=== PATIENT | female | born 1935 | race Caucasian/White ===

== ENCOUNTER → 2019-06-21 | Outpatient (CLI) | payer MEDICARE ==
--- NOTE | 2019-06-21 11:54 | XR ---
EXAMINATION TYPE: XR chest 2V DATE OF EXAM: 06/21/2019 COMPARISON: None INDICATION: Shortness of breath TECHNIQUE: Frontal and lateral views of the chest are obtained. FINDINGS: The heart size is normal. The pulmonary vasculature is normal. The lungs are clear. IMPRESSION: 1. No acute pulmonary process.
== END | disposition home or self-care (01) ==
LOC: RADXRMAIN 11:06
PROVIDERS: ATTEND Pediatrics
DX: R06.02 Shortness of breath (principal)
CPT/HCPCS: 71046

== ENCOUNTER → 2021-02-02 | Outpatient (CLI) | payer MEDICARE ==
[2021-02-02 16:04] LABS: Appearance,Urine Cloudy (Clear); Bacteria,Urine Many /hpf; Bilirubin,Urine Negative (Negative); Blood,Urine Negative (Negative); Color,Urine Light Yellow; Glucose,Urine (UA) Negative (Negative); Ketones,Urine Negative (Negative); Leukocyte Esterase,Urine Large (Negative); Mucus,Urine Rare /hpf; Nitrite,Urine Negative (Negative); Protein,Urine 1+ (Negative); RBC,Urine 2 /hpf (0-5); Specific Gravity,Urine 1.015 (1.001-1.035); Squamous Epithelial Cell,Urine 1 /hpf (0-4); Urobilinogen,Urine <2.0 mg/dL (<2.0); WBC,Urine 129 /hpf (0-5)
[2021-02-02 23:16] LABS: HGB 12.4 g/dL (12.0-15.0); MCH 28.8 pg (27.0-32.0); MCHC 31.8 g/dL (32.0-37.0); MCV 90.7 fL (80.0-97.0); Mean Platelet Volume 11.1 fL (9.5-12.2); Platelet Count 389 X 10*3/uL (140-440); RDW 13.3 % (11.5-14.5)
[2021-02-03 16:02] LABS: % Iron Saturation 13.14 (12.00-45.00); Iron 43 ug/dL (50-170); Magnesium 2.2 mg/dL (1.5-2.4); Phosphorus 4.4 mg/dL (2.4-5.1); Total Iron Binding Capacity 323 ug/dL (228-460); Uric Acid 4.5 mg/dL (2.9-7.7)
[2021-02-04 15:59] LABS: ALT 13 U/L (8-44); AST 13 U/L (13-35); African American GFR (CKD) 25.7 (60.0-200.0); Albumin/Globulin Ratio 1.63 (1.60-3.17); Alkaline Phosphatase 110 U/L (41-126); BUN/Creat Ratio 24.32 Ratio (12.00-20.00); Blood Urea Nitrogen 48.4 mg/dL (9.0-27.0); Calcium 10.6 mg/dL (8.7-10.3); Carbon Dioxide 23.1 mmol/L (21.6-31.8); Chloride 104 mmol/L (96-109); Globulin 2.4 g/dL (1.6-3.3); Glucose 77 mg/dL (70-110); Non-African American GFR(CKD) 22.2 (60.0-200.0); Potassium 4.6 mmol/L (3.5-5.5); Sodium 145 mmol/L (135-145); Total Bilirubin <0.20 mg/dL (0.30-1.20); Total Protein 6.4 g/dL (6.2-8.2)
== END | disposition home or self-care (01) ==
LOC: LABWHC1 14:31
PROVIDERS: ATTEND Internal Medicine
DX: E55.9 Vitamin D deficiency, unspecified (principal); D63.1 Anemia in chronic kidney disease; M10.9 Gout, unspecified; N25.81 Secondary hyperparathyroidism of renal origin; N39.0 Urinary tract infection, site not specified; N18.4 Chronic kidney disease, stage 4 (severe)
CPT/HCPCS: 36415; 80053; 81001; 82043; 82306; 82570; 82728; 83540; 83550; 83735; 83970; 84100; 84550; 85027

== ENCOUNTER → 2021-03-17 | Outpatient (CLI) | payer MEDICARE ==
[2021-03-17 17:59] LABS: Appearance,Urine Cloudy (Clear); Bacteria,Urine Rare /hpf; Bilirubin,Urine Negative (Negative); Blood,Urine Negative (Negative); Color,Urine Yellow; Glucose,Urine (UA) Negative (Negative); Hyaline Casts,Urine 1 /lpf (0-2); Ketones,Urine Negative (Negative); Leukocyte Esterase,Urine Large (Negative); Mucus,Urine Rare /hpf; Nitrite,Urine Negative (Negative); PH, Urine 5.5 (5.0-8.0); Protein,Urine 2+ (Negative); RBC,Urine 2 /hpf (0-5); Specific Gravity,Urine 1.024 (1.001-1.035); Squamous Epithelial Cell,Urine 1 /hpf (0-4); Urobilinogen,Urine <2.0 mg/dL (<2.0); WBC,Urine 165 /hpf (0-5)
[2021-03-18 01:26] LABS: HCT 41.4 % (37.2-46.3); HGB 12.5 g/dL (12.0-15.0); MCH 28.7 pg (27.0-32.0); MCHC 30.2 g/dL (32.0-37.0); MCV 95.2 fL (80.0-97.0); Mean Platelet Volume 11.3 fL (9.5-12.2); Platelet Count 364 X 10*3/uL (140-440); RBC 4.35 X 10*6/uL (4.10-5.20); RDW 14.2 % (11.5-14.5); WBC 9.36 X 10*3/uL (4.50-10.00)
[2021-03-18 02:32] LABS: Albumin 3.9 g/dL (3.8-4.9); Albumin/Globulin Ratio 1.78 (1.60-3.17); Anion Gap 11.6 mmol/L (4.00-12.00); BUN/Creat Ratio 17.49 Ratio (12.00-20.00); Blood Urea Nitrogen 33.4 mg/dL (9.0-27.0); Carbon Dioxide 25.9 mmol/L (21.6-31.8); Globulin 2.2 g/dL (1.6-3.3); Magnesium 2.3 mg/dL (1.5-2.4); Non-African American GFR(CKD) 23.3 (60.0-200.0); Phosphorus 3.7 mg/dL (2.4-5.1); Potassium 4.5 mmol/L (3.5-5.5); Total Bilirubin 0.2 mg/dL (0.30-1.20); Total Protein 6.1 g/dL (6.2-8.2); Uric Acid 3.8 mg/dL (2.9-7.7)
[2021-03-18 02:48] LABS: % Iron Saturation 28.7 (12.00-45.00)
[2021-03-18 09:59] LABS: Angiotensin-1 Converting Enz. 5 U/L (8-52)
[2021-03-18 11:21] LABS: Creatinine 24 Hour,Urine 0.87 g/24Hr (0.80-1.80)
[2021-03-18 11:54] LABS: Free Kappa Lt Chain Qnt, Serum 2.98 mg/dL (0.33-1.94)
[2021-03-18 18:55] LABS: Vitamin D, 1, 25-Dihydroxy 29 pg/mL (20 - 79)
== END | disposition home or self-care (01) ==
LOC: LABWHC1 15:13
PROVIDERS: ATTEND Nurse Practitioner Family
DX: E83.52 Hypercalcemia (principal); D63.1 Anemia in chronic kidney disease; M10.9 Gout, unspecified; N39.0 Urinary tract infection, site not specified; N18.4 Chronic kidney disease, stage 4 (severe); N25.81 Secondary hyperparathyroidism of renal origin
CPT/HCPCS: 36415; 80053; 81001; 81050; 82043; 82164; 82306; 82570; 82652; 82728; 83540; 83550; 83735; 83883; 83970; 84100; 84166; 84550; 85027; 86334

== ENCOUNTER 2022-09-03 20:50 | Inpatient (IN) | payer MEDICARE ==
--- NOTE | 2022-09-03 22:55 | ED ---
General Adult HPI - General Source: patient, RN notes reviewed Mode of arrival: ambulatory Limitations: no limitations <Ya Pathak - Last Filed: 10/04/22 01:41> - History of Present Illness Onset/Timin -: days(s) <Seun Ayala - Last Filed: 10/14/22 09:38> - General Chief complaint: Recheck/Abnormal Lab/Rx Stated complaint: kidney failure,sent by nephrology Time Seen by Provider: 09/03/22 22:53 - History of Present Illness Initial comments: Patient is an 86 year old female who presents for abnormal labs. Patient had routine labs at Dr. Cornejo's office today. She has history of CKD stage 4. She was called tonight and told to go to the emergency department for renal failure. She has no concerns feels well. (Ya Pathak) This patient is an 86-year-old woman who had been directed here after routine lab testing had revealed worsening of her kidney function. The patient denies any new symptoms, including no chest pain, dyspnea, palpitations, abdominal pain change in urination leg pain or swelling. (Seun Ayala) - Related Data Home Medications Medication Instructions Recorded Confirmed Atorvastatin Calcium 20 mg PO HS 09/04/22 09/04/22 Budesonide-Formot 160-4.5 Mcg 2 puff INHALATION RT-BID PRN 09/04/22 09/04/22 [Symbicort 160-4.5 Mcg Inhaler] FLUoxetine HCL [PROzac] 10 mg PO DAILY 09/04/22 09/04/22 Insulin Degludec [Tresiba 18 unit SQ DAILY 09/04/22 09/04/22 Flextouch U-200 Pen] Levothyroxine Sodium [Synthroid] 200 mcg PO HS 09/04/22 09/04/22 Magnesium Oxide [Magox 400] 400 mg PO BID 09/04/22 09/04/22 allopurinoL 100 mg PO DAILY 09/04/22 09/04/22 Previous Rx's Medication Instructions Recorded Acetaminophen Tab [Tylenol] 650 mg PO Q6HR PRN tab 09/07/22 Famotidine [Pepcid] 20 mg PO DAILY #30 tab 09/07/22 Metoprolol Succinate (ER) [Toprol 25 mg PO BID #60 tab 09/07/22 XL] amLODIPine [Norvasc] 10 mg PO DAILY #30 tab 09/07/22 hydrALAZINE HCL [Apresoline] 100 mg PO TID 30 Days #180 tab 09/07/22 Allergies Allergy/AdvReac Type Severity Reaction Status Date / Time cefaclor Allergy Rash/Hives/ Verified 09/04/22 11:53 Nausea cephalexin Allergy Rash/Hives/ Verified 09/04/22 11:53 Nausea erythromycin base Allergy Rash/Hives/ Verified 09/04/22 11:53 Nausea indomethacin Allergy Rash/Hives/ Verified 09/04/22 11:53 Nausea Penicillins Allergy Rash/Hives/ Verified 09/04/22 11:53 Nausea regadenoson Allergy Rash/Hives/ Verified 09/04/22 11:53 Nausea Review of Systems ROS Other: All systems not noted in ROS Statement are negative. <Ya Pathak - Last Filed: 10/04/22 01:41> ROS Other: All systems not noted in ROS Statement are negative. Constitutional: Denies: fever, weakness Respiratory: Denies: cough, dyspnea Cardiovascular: Denies: chest pain, palpitations, edema Gastrointestinal: Denies: abdominal pain, vomiting, diarrhea Genitourinary: Denies: dysuria, hematuria Musculoskeletal: Denies: back pain Skin: Denies: rash Neurological: Denies: headache, weakness, numbness <Seun Ayala - Last Filed: 10/14/22 09:38> ROS Statement: Those systems with pertinent positive or pertinent negative responses have been documented in the HPI. Past Medical History Past Medical History: COPD, Diabetes Mellitus, Hypertension, Renal Disease, Thyroid Disorder Additional Past Medical History / Comment(s): stage 4 kidney History of Any Multi-Drug Resistant Organisms: None Reported Past Surgical History: No Surgical Hx Reported Past Psychological History: No Psychological Hx Reported Smoking Status: Never smoker Past Alcohol Use History: None Reported Past Drug Use History: None Reported <Ya Pathak - Last Filed: 10/04/22 01:41> General Exam Limitations: no limitations <Ya Pathak - Last Filed: 10/04/22 01:41> General appearance: alert, in no apparent distress Head exam: Present: atraumatic, normocephalic Eye exam: Present: normal appearance. Absent: scleral icterus, conjunctival injection Neck exam: Present: normal inspection Respiratory exam: Present: normal lung sounds bilaterally. Absent: respiratory distress, wheezes, rales, rhonchi, stridor Cardiovascular Exam: Present: regular rate, normal rhythm, normal heart sounds. Absent: systolic murmur, diastolic murmur, rubs, gallop GI/Abdominal exam: Present: soft. Absent: distended, tenderness, guarding, rebound, rigid Extremities exam: Present: normal inspection, normal capillary refill. Absent: pedal edema, calf tenderness Back exam: Present: normal inspection. Absent: CVA tenderness (R) Neurological exam: Present: alert. Absent: motor sensory deficit Skin exam: Present: warm, dry, intact, normal color. Absent: rash <Seun Ayala - Last Filed: 10/14/22 09:38> Course Vital Signs 09/03/22 21:14 Temperature 98.6 F Pulse Rate 57 L Respiratory 16 Rate Blood Pressure 184/64 O2 Sat by Pulse 97 Oximetry Medical Decision Making - Lab Data Result diagrams: 09/06/22 06:03 09/07/22 06:26 <Ya Pathak - Last Filed: 10/04/22 01:41> - Lab Data Result diagrams: 09/06/22 06:03 09/07/22 06:26 <Seun Ayala - Last Filed: 10/14/22 09:38> - Medical Decision Making Patient is an 86-year-old woman with worsening of her kidney function. The patient directed here by her physician. I discussed the case and they would like to admit the patient to have further nephrology care. Was pt. sent in by a medical professional or institution (DIDI Whatley, DIRECTOR OF LITIGATION, urgent care, hospital, or group home...) When possible be specific @ -[Yes sent by her physician to have admission for abnormal kidney function Did you speak to anyone other than the patient for history (EMS, parent, family, police, friend...)? What history was obtained from this source @ -[No] Did you review nursing and triage notes (agree or disagree)? Why? @ -[I reviewed and agree with nursing and triage notes] Were old charts reviewed (outside hosp., previous admission, EMS record, old EKG, old radiological studies, urgent care reports/EKG's, group home records)? Report findings @ -[No old charts were reviewed] Differential Diagnosis (chest pain, altered mental status, abdominal pain women, abdominal pain men, vaginal bleeding, weakness, fever, dyspnea, syncope, headache, dizziness, GI bleed, back pain, seizure, CVA, palpatations, mental health, musculoskeletal)? @ -[Differential diagnosis for kidney failure quite broad and includes diabetes, hypertension, hypovolemia, arterial insufficiency, urinary outflow obstruction, kidney disease, infection, amongst other conditions EKG interpreted by me (3pts min.). @ -[As above] X-rays interpreted by me (1pt min.). @ -[None done] CT interpreted by me (1pt min.). @ -[None done] U/S interpreted by me (1pt. min.). @ -[None done] What testing was considered but not performed or refused? (CT, X-rays, U/S, labs)? Why? @ -[None] What meds were considered but not given or refused? Why? @ -[None] Did you discuss the management of the patient with other professionals (professionals i.e. , PA, DIRECTOR OF LITIGATION, lab, RT, psych nurse, social work administrator, party plan sales director, teacher, traffic control officer, case mgr)? Give summary @ -[Case discussed with admitting physician Was smoking cessation discussed for >3mins.? @ -[No] Was critical care preformed (if so, how long)? @ -[No] Were there social determinants of health that impacted care today? How? (Homelessness, low income, unemployed, alcoholism, drug addiction, transportation, low edu. Level, literacy, decrease access to med. care, penitentiary, rehab)? @ -[No] Was there de-escalation of care discussed even if they declined (Discuss DNR or withdrawal of care, Hospice)? DNR status @ -[No] What co-morbidities impacted this encounter? (DM, HTN, Smoking, COPD, CAD, Cancer, CVA, ARF, Chemo, Hep., AIDS, mental health diagnosis, sleep apnea, morbid obesity)? @ -[None] Was patient admitted / discharged? Hospital course, mention meds given and route, prescriptions, significant lab abnormalities, going to OR and other pertinent info. @ -[Patient is admitted to have nephrology consultation, ultrasound Undiagnosed new problem with uncertain prognosis? @ -[No] Drug Therapy requiring intensive monitoring for toxicity (Heparin, Nitro, Insulin, Cardizem)? @ -[No] Were any procedures done? @ -[No] Diagnosis/symptom? @ -[Acute on chronic renal failure Acute, or Chronic, or Acute on Chronic? @ -[default] Uncomplicated (without systemic symptoms) or Complicated (systemic symptoms)? @ -[Uncomplicated Side effects of treatment? @ -[No] Exacerbation, Progression, or Severe Exacerbation? @ -[No] Poses a threat to life or bodily function? How? (Chest pain, [place], [place], pneumonia, PE, COPD, DKA, ARF, appy, cholecystitis, CVA, Diverticulitis, Homicidal, Suicidal, threat to staff... and all critical care pts) @ -[No] (Seun Ayala) - Lab Data Lab Results 09/03/22 09/03/22 09/04/22 Range/Units 23:15 23:15 00:49 WBC 9.3 (3.8-10.6) k/uL RBC 3.58 L (3.80-5.40) m/uL Hgb 10.5 L (11.4-16.0) gm/dL Hct 33.3 L (34.0-46.0) % MCV 93.0 (80.0-100.0) fL MCH 29.4 (25.0-35.0) pg MCHC 31.6 (31.0-37.0) g/dL RDW 13.7 (11.5-15.5) % Plt Count 373 (150-450) k/uL MPV 7.7 Neutrophils % 81 % Lymphocytes % 10 % Monocytes % 5 % Eosinophils % 2 % Basophils % 0 % Neutrophils # 7.6 (1.3-7.7) k/uL Lymphocytes # 0.9 L (1.0-4.8) k/uL Monocytes # 0.5 (0-1.0) k/uL Eosinophils # 0.2 (0-0.7) k/uL Basophils # 0.0 (0-0.2) k/uL Hypochromasia Slight Sodium 140 (137-145) mmol/L Potassium 5.1 (3.5-5.1) mmol/L Chloride 107 (98-107) mmol/L Carbon Dioxide 21 L (22-30) mmol/L Anion Gap 12 mmol/L BUN 73 H (7-17) mg/dL Creatinine 5.11 H (0.52-1.04) mg/dL Est GFR (CKD-EPI)AfAm 8 (>60 ml/min/1.73 sqM) Est GFR (CKD-EPI)NonAf 7 (>60 ml/min/1.73 sqM) Glucose 165 H (74-99) mg/dL POC Glucose (mg/dL) 144 H (70-110) mg/dL POC Glu Document Photographer ID [email or web address] aT Calcium 8.9 (8.4-10.2) mg/dL Total Bilirubin 0.3 (0.2-1.3) mg/dL AST 15 (14-36) U/L ALT 14 (4-34) U/L Alkaline Phosphatase 111 (38-126) U/L Total Protein 5.7 L (6.3-8.2) g/dL Albumin 3.4 L (3.5-5.0) g/dL Lipase 182 (23-300) U/L Disposition <Ya Pathak - Last Filed: 10/04/22 01:41> <Seun Ayala - Last Filed: 10/14/22 09:38> Clinical Impression: Renal failure Disposition: ADMITTED IP TO THIS HOSP Condition: Stable
[2022-09-03 23:25] LABS: Basophils % (A) 0 %; Eosinophils # (A) 0.2 k/uL (0-0.7); Eosinophils % (A) 2 %; HCT 33.3 % (34.0-46.0); HGB 10.5 gm/dL (11.4-16.0); Hypochromasia Slight; Lymphocytes # (A) 0.9 k/uL (1.0-4.8); Lymphocytes % (A) 10 %; MCH 29.4 pg (25.0-35.0); MCHC 31.6 g/dL (31.0-37.0); Mean Platelet Volume 7.7; Monocytes # (A) 0.5 k/uL (0-1.0); Monocytes % (A) 5 %; Neutrophils # (A) 7.6 k/uL (1.3-7.7); Neutrophils % (A) 81 %; Platelet Count 373 k/uL (150-450); RBC 3.58 m/uL (3.80-5.40); RDW 13.7 % (11.5-15.5); WBC 9.3 k/uL (3.8-10.6)
[2022-09-03 23:47] LABS: Albumin 3.4 g/dL (3.5-5.0); Calcium 8.9 mg/dL (8.4-10.2); Potassium 5.1 mmol/L (3.5-5.1); Total Bilirubin 0.3 mg/dL (0.2-1.3); Total Protein 5.7 g/dL (6.3-8.2)
[2022-09-04 00:51] LABS: Glucose,Whole Blood 144 mg/dL (70-110)
[2022-09-04] MEDS ORDERED: ACETAMINOPHEN TAB 325 MG TAB PO PRN (01:16)
[2022-09-04] MEDS ORDERED: NALOXONE 0.4 MG/ML 1 ML VIAL IV PRN (01:16)
[2022-09-04] MEDS ORDERED: ONDANSETRON 4 MG/2 ML VIAL IVP PRN (01:16)
[2022-09-04] MEDS: SODIUM CHLORIDE 0.9% 1,000 ML IV SCH ×2 (01:37→15:11)
[2022-09-04 07:13] LABS: Appearance,Urine Clear (Clear); Bilirubin,Urine Negative (Negative); Blood,Urine Negative (Negative); Color,Urine Colorless; Glucose,Urine (UA) 1+ (Negative); Ketones,Urine Negative (Negative); Leukocyte Esterase,Urine Trace (Negative); Nitrite,Urine Negative (Negative); PH, Urine 7.5 (5.0-8.0); Protein,Urine 2+ (Negative); RBC,Urine 1 /hpf (0-5); Specific Gravity,Urine 1.007 (1.001-1.035); Squamous Epithelial Cell,Urine <1 /hpf (0-4); Urobilinogen,Urine <2.0 mg/dL (<2.0); WBC,Urine 6 /hpf (0-5)
[2022-09-04] MEDS: HEPARIN SODIUM,PORCINE/PF 5,000 UNIT/0.5 ML SYRINGE SQ SCH ×2 (07:14→21:39)
--- NOTE | 2022-09-04 07:24 | US ---
EXAMINATION TYPE: US kidneys/renal and bladder DATE OF EXAM: 09/03/2022 COMPARISON: NONE CLINICAL INDICATION: Female, 86 years old with history of renal failure; EXAM MEASUREMENTS: Right Kidney: 7.8 x 3.8 x 3.5 cm Left Kidney: 7.4 x 3.2 x 3.8 cm Right Kidney: measures small in size, no hydronephrosis or masses seen Left Kidney: measures small in size, no hydronephrosis or masses seen Bladder: not fully distended Bilateral Jets seen: no There is no evidence for hydronephrosis at this point in time. No nephrolithiasis is seen. No nancy s are identified. The urinary bladder is anechoic. Bilateral ureteral jets are seen. IMPRESSION: No evidence of obstructive uropathy.
[2022-09-04] MEDS ORDERED: DEXTROSE 50% SYRINGE 50 ML IVP PRN ×2 (08:23)
[2022-09-04] MEDS ORDERED: FAMOTIDINE 20 MG TAB PO SCH (09:00)
[2022-09-04] MEDS ORDERED: METOPROLOL SUCCINATE (ER) 25 MG TAB.ER.24H PO SCH (09:00)
[2022-09-04] MEDS ORDERED: hydrALAZINE HCL 25 MG TAB PO SCH (09:00)
[2022-09-04] MEDS: amLODIPine 10 MG TAB PO SCH (09:59)
[2022-09-04 11:37] LABS: African American GFR (CKD) 9 (>60 ml/min/1.73 sqM); Anion Gap 9 mmol/L; Blood Urea Nitrogen 67 mg/dL (7-17); Calcium 8.3 mg/dL (8.4-10.2); Carbon Dioxide 20 mmol/L (22-30); Chloride 109 mmol/L (98-107); Glucose 236 mg/dL (74-99); Non-African American GFR(CKD) 8 (>60 ml/min/1.73 sqM); Potassium 4.6 mmol/L (3.5-5.1); Sodium 138 mmol/L (137-145)
[2022-09-04 11:45] LABS: Glucose,Whole Blood 231 mg/dL (70-110)
--- NOTE | 2022-09-04 12:39 | HP ---
HISTORY AND PHYSICAL CHIEF COMPLAINTS: Renal failure. HISTORY OF PRESENT ILLNESS: This 86-year-old woman with a past medical history of multiple medical problems, referred from Dr. Emmanuel's office. The patient has CKD stage 4 and the creatinine was found to be elevated at 5.11. There is no history of fever, rigors, chills at this time. Blood pressure was found to be elevated. PAST MEDICAL HISTORY: Chronic kidney disease, COPD, diabetes. The rest of the history and rest of the chart is also reviewed. HOME MEDICATIONS: Reviewed. Include Lipitor. Dose and rest of the medications reviewed. ALLERGIES: Cefaclor. Rest of the allergies reviewed. FAMILY HISTORY: No history of heart disease or strokes in the family. SOCIAL HISTORY: No history of smoking or alcohol. REVIEW OF SYSTEMS: Fourteen-point review is negative except as mentioned earlier. PHYSICAL EXAMINATION: VITAL SIGNS: Pulse 66, blood pressure 211/78. HEENT: Conjunctivae normal. NECK: No jugular venous distention. CARDIOVASCULAR: S1 and S2 normal. RESPIRATIONS: Diminished at the bases. ABDOMEN: Soft, nontender. LEGS: No edema. NERVOUS SYSTEM: No focal deficits. LABORATORY DATA: Reviewed. ASSESSMENT: 1. Acute on chronic kidney disease. 2. Chronic kidney stage 4. 3. Accelerated hypertension. 4. Chronic obstructive pulmonary disease. 5. Diabetes type 2. 6. Multiple medical issues. RECOMMENDATIONS: This 86-year-old woman presented with multiple complex medical issues. We will monitor the patient closely. We will initiate the home medications; hydralazine p.r.n. Nephrology consultation. Monitor creatinine closely. Prognosis is guarded because of multiple complex medical issues and further recommendations to follow. See orders for details. Lopressor also has been initiated. MMODL / IJN: [id number] /
[2022-09-04] MEDS: INSULIN ASPART (NovoLOG) 100 UNIT/ML VIAL SQ SCH ×3 (13:06→21:26)
--- NOTE | 2022-09-04 13:11 | P.NPCON ---
History of Present Illness - Reason for Consult chronic renal failure - History of Present Illness Patient is an 86-year-old female with history of chronic kidney disease NKF stage IV with previous creatinine at 1.9 on 03/17/2021. Patient was admitted to the hospital as labs done as outpatient showed a creatinine of 5.1. Patient has not followed up as outpatient recently. Patient denies any complaints of nausea vomiting abdominal pain or diarrhea. She states that her appetite has been good. No history of recent use of NSAIDs Blood pressure has not been low, in fact it is high Patient has been voiding. Hydralazine was recently increased as outpatient for uncontrolled hypertension. Review of Systems As per HPI Past Medical History Past Medical History: COPD, Diabetes Mellitus, Hypertension, Renal Disease, Thyroid Disorder Additional Past Medical History / Comment(s): stage 4 kidney History of Any Multi-Drug Resistant Organisms: None Reported Past Surgical History: No Surgical Hx Reported Additional Past Surgical History / Comment(s): uterine polyps removed. nerve block to left leg Past Anesthesia/Blood Transfusion Reactions: No Reported Reaction Past Psychological History: No Psychological Hx Reported Smoking Status: Never smoker Past Alcohol Use History: None Reported Past Drug Use History: None Reported Medications and Allergies Home Medications Medication Instructions Recorded Confirmed Type Atorvastatin Calcium 20 mg PO HS 09/04/22 09/04/22 History Budesonide-Formot 160-4.5 Mcg 2 puff INHALATION RT-BID PRN 09/04/22 09/04/22 History [Symbicort 160-4.5 Mcg Inhaler] FLUoxetine HCL [PROzac] 10 mg PO DAILY 09/04/22 09/04/22 History Insulin Degludec [Tresiba 18 unit SQ DAILY 09/04/22 09/04/22 History Flextouch U-200 Pen] Levothyroxine Sodium [Synthroid] 200 mcg PO HS 09/04/22 09/04/22 History Magnesium Oxide [Magox 400] 400 mg PO BID 09/04/22 09/04/22 History Metoprolol Succinate [Toprol XL] 50 mg PO DAILY 09/04/22 09/04/22 History allopurinoL 100 mg PO DAILY 09/04/22 09/04/22 History amLODIPine BESYLATE 5 mg PO DAILY 09/04/22 09/04/22 History hydrALAZINE HCL [Apresoline] 50 mg PO TID 09/04/22 09/04/22 History Allergies Allergy/AdvReac Type Severity Reaction Status Date / Time cefaclor Allergy Rash/Hives/ Verified 09/04/22 11:53 Nausea cephalexin Allergy Rash/Hives/ Verified 09/04/22 11:53 Nausea erythromycin base Allergy Rash/Hives/ Verified 09/04/22 11:53 Nausea indomethacin Allergy Rash/Hives/ Verified 09/04/22 11:53 Nausea Penicillins Allergy Rash/Hives/ Verified 09/04/22 11:53 Nausea regadenoson Allergy Rash/Hives/ Verified 09/04/22 11:53 Nausea Physical Exam Vitals: Vital Signs Temp Pulse Pulse Resp BP BP BP 09/04/22 08:12 98.2 F 66 16 205/62 211/78 09/04/22 03:15 190/67 09/04/22 03:14 97.6 F 67 18 199/76 09/03/22 21:14 98.6 F 57 L 16 184/64 Pulse Ox 09/04/22 08:12 94 L 09/04/22 03:15 09/04/22 03:14 96 09/03/22 21:14 97 Intake and Output 09/03/22 09/04/22 09/04/22 22:59 06:59 14:59 Intake Total 590 Balance 590 Intake: Oral 590 Other: Voiding Method Bedside Commode # Voids 1 Weight 64.41 kg 64 kg Patient is awake, comfortable, no acute distress Alert oriented 3 Looks good for her age Examination of the heart S1 and S2 Examination of the lungs bilateral breath sounds are heard Abdomen is soft nontender Examination of the lower extremity shows no evidence of edema HANDS PARTER exam grossly intact Results - Lab Results Most recent lab results Calcium 8.3 mg/dL (8.4-10.2) L 09/04/22 10:37 09/03/22 23:15 09/04/22 10:37 Assessment and Plan Assessment: 1. Acute kidney injury appears to be prerenal and improved with IV hydration. UA shows 2+ protein no blood. Proteinuria is not new. Check bladder scan and rule out urine retention. Ultrasound shows no evidence of hydronephrosis. Both kidneys are about 7.8-7.4 cm. 2. Uncontrolled hypertension, consider renal artery stenosis given the recently uncontrolled hypertension 3. 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 4. Anemia rule out iron deficiency 5. COPD Plan: Continue IV fluids Increase hydralazine Repeat labs in a.m. Will check office records for recent serum creatinine. Next Thank you for the consultation. We will continue to follow the patient with you during her hospitalization
[2022-09-04] MEDS: hydrALAZINE HCL 25 MG TAB PO SCH ×2 (15:11→21:26)
[2022-09-04 17:40] LABS: Glucose,Whole Blood 131 mg/dL (70-110)
[2022-09-04] MEDS: hydrALAZINE HCL 20 MG/ML 1 ML VIAL IVP PRN (18:49)
[2022-09-04 20:26] LABS: Glucose,Whole Blood 178 mg/dL (70-110)
[2022-09-04] MEDS: METOPROLOL SUCCINATE (ER) 25 MG TAB.ER.24H PO SCH (21:26)
[2022-09-05] MEDS: SODIUM CHLORIDE 0.9% 1,000 ML IV SCH ×2 (03:43→17:58)
[2022-09-05 07:39] LABS: Glucose,Whole Blood 86 mg/dL (70-110)
[2022-09-05] MEDS: INSULIN ASPART (NovoLOG) 100 UNIT/ML VIAL SQ SCH ×4 (07:42→21:11)
[2022-09-05] MEDS: HEPARIN SODIUM,PORCINE/PF 5,000 UNIT/0.5 ML SYRINGE SQ SCH ×2 (07:45→21:10)
[2022-09-05] MEDS: hydrALAZINE HCL 25 MG TAB PO SCH (07:45)
[2022-09-05] MEDS: METOPROLOL SUCCINATE (ER) 25 MG TAB.ER.24H PO SCH ×2 (07:45→21:12)
[2022-09-05] MEDS: FAMOTIDINE 20 MG TAB PO SCH (07:45)
[2022-09-05] MEDS: amLODIPine 10 MG TAB PO SCH (07:46)
[2022-09-05 10:30] LABS: African American GFR (CKD) 8 (>60 ml/min/1.73 sqM); Anion Gap 8 mmol/L; Blood Urea Nitrogen 63 mg/dL (7-17); Calcium 8.8 mg/dL (8.4-10.2); Carbon Dioxide 21 mmol/L (22-30); Chloride 112 mmol/L (98-107); Glucose 79 mg/dL (74-99); Non-African American GFR(CKD) 7 (>60 ml/min/1.73 sqM); Potassium 4.6 mmol/L (3.5-5.1); Sodium 141 mmol/L (137-145)
--- NOTE | 2022-09-05 11:57 | P.PN ---
Subjective Patient is seen for follow-up for acute kidney injury and top of chronic kidney disease. Review of previous labs in the office showed serum creatinine around 2.4 in April 2021 Currently maintained on IV fluids Serum creatinine improved to 4.5 yesterday however this morning it is back up to 5.0. Ultrasound does not show any evidence of obstruction. Patient has been avoiding. No nephrotoxic agents noted Blood pressure is not low UA shows 2+ protein no blood. This is not new. No complaints of nausea vomiting. Patient is tolerating oral intake fairly well. Objective - Vital Signs Vital signs: Vital Signs Temp 98.3 F 09/05/22 11:49 Pulse 65 09/05/22 11:36 Resp 16 09/05/22 11:49 BP 159/69 09/05/22 11:36 Pulse Ox 96 09/05/22 11:49 FiO2 Intake & Output 09/04/22 09/05/22 09/05/22 18:59 06:59 18:59 Intake Total 590 Balance 590 Intake: Oral 590 Other: Voiding Method Bedside Commode # Voids 3 3 - Exam Awake comfortable, no acute distress Examination of the heart S1 and S2 Examination of the lungs bilateral breath sounds are heard Abdomen is soft nontender Examination of lower extremity shows no evidence of edema FISHERY BIOLOGIST exam grossly intact - Labs CBC & Chem 7: 09/03/22 23:15 09/05/22 06:46 Labs: Abnormal Lab Results - Last 24 Hours (Table) 09/04/22 09/04/22 09/05/22 Range/Units 17:38 20:24 06:46 Chloride (98-107) mmol/L Carbon Dioxide (22-30) mmol/L BUN (7-17) mg/dL Creatinine (0.52-1.04) mg/dL POC Glucose (mg/dL) 131 H 178 H (70-110) mg/dL Hemoglobin A1c 7.3 H (0.0-6.0) % 09/05/22 Range/Units 06:46 Chloride 112 H (98-107) mmol/L Carbon Dioxide 21 L (22-30) mmol/L BUN 63 H (7-17) mg/dL Creatinine 5.11 H (0.52-1.04) mg/dL POC Glucose (mg/dL) (70-110) mg/dL Hemoglobin A1c (0.0-6.0) % Assessment and Plan Assessment: 1. Acute kidney injury appears to be prerenal and improved with IV hydration. However serum creatinine is back up to 5.0 today. UA shows 2+ protein no blood. Proteinuria is not new. Check bladder scan and rule out urine retention. Ultrasound shows no evidence of hydronephrosis. Both kidneys are about 7.8-7.4 cm. There is definitely possibility of progression of underlying diabetic kidney disease. Briefly discussed renal replacement therapy with the patient and she is agreeable to starting dialysis if indicated. 2. Uncontrolled hypertension, consider renal artery stenosis given the recently uncontrolled hypertension. Unable to perform CTA due to significant worsening of renal function. 3. 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 4. Anemia rule out iron deficiency 5. COPD Plan: Continue IV fluids Since serum creatinine is back up to 5 mg/dL patient will likely need to start renal replacement therapy over the next few weeks. There is likely progression of underlying chronic kidney disease. No evidence of obstruction noted. I will repeat another bladder scan as it does not appear to be documented. Patient remains fairly asymptomatic. I we will recheck labs in a.m. and she could be discharged tomorrow with plans to follow-up in the office in about 1 week's time to further discuss in detail regarding initiation of renal replacement therapy and preparation for it. No indication to start dialysis during this hospitalization.
[2022-09-05 12:13] LABS: Glucose,Whole Blood 197 mg/dL (70-110)
--- NOTE | 2022-09-05 15:07 | PN ---
PROGRESS NOTE DATE OF SERVICE: 09/05/2022 SUBJECTIVE: This is an 86-year-old woman, who was admitted with acute on chronic kidney disease, also had some hypertension. No chest pain. No palpitations. No fever. The creatinine is 5.11 today. OBJECTIVE: VITAL SIGNS: Pulse is 62, blood pressure 159/60, respirations 16. CHEST: Clear to auscultation. CARDIOVASCULAR: S1, S2. ABDOMEN: Soft. LABORATORY DATA: Reviewed. ASSESSMENT: 1. Acute on chronic kidney disease. 2. Chronic kidney disease stage 4, baseline. 3. Accelerated hypertension. 4. Chronic obstructive pulmonary disease. 5. Diabetes mellitus, type 2. 6. Multiple medical issues. RECOMMENDATIONS: Recommend to continue current medications, continue with the monitoring. Continue with cautious IV fluids. Repeat labs in the morning. Closely follow up with Nephrology. Further recommendations to follow. MMODL / IJN: [id number] /
[2022-09-05] MEDS: hydrALAZINE HCL 50 MG TAB PO SCH ×2 (15:46→21:12)
[2022-09-05 17:16] LABS: Glucose,Whole Blood 183 mg/dL (70-110)
[2022-09-05] MEDS: SYMBICORT 160-4.5 MCG INHALER INHALATION PRN (18:35)
[2022-09-05 20:30] LABS: Glucose,Whole Blood 246 mg/dL (70-110)
[2022-09-05] MEDS: ATORVASTATIN 20 MG TAB PO SCH (21:10)
[2022-09-05] MEDS: MAGNESIUM OXIDE 400 MG TAB PO SCH (21:11)
[2022-09-05] MEDS: LEVOTHYROXINE 100 MCG TAB PO SCH (21:11)
[2022-09-06] MEDS: SODIUM CHLORIDE 0.9% 1,000 ML IV SCH (05:29)
[2022-09-06 07:02] LABS: Glucose,Whole Blood 129 mg/dL (70-110)
[2022-09-06] MEDS: INSULIN ASPART (NovoLOG) 100 UNIT/ML VIAL SQ SCH ×4 (07:30→20:42)
[2022-09-06] MEDS: amLODIPine 10 MG TAB PO SCH (07:31)
[2022-09-06] MEDS: allopurinoL 100 MG TAB PO SCH (07:31)
[2022-09-06] MEDS: hydrALAZINE HCL 50 MG TAB PO SCH ×3 (07:31→20:59)
[2022-09-06] MEDS: FAMOTIDINE 20 MG TAB PO SCH (07:31)
[2022-09-06] MEDS: HEPARIN SODIUM,PORCINE/PF 5,000 UNIT/0.5 ML SYRINGE SQ SCH ×2 (07:31→20:58)
[2022-09-06] MEDS: FLUoxetine HCL 10 MG CAP PO SCH (07:31)
[2022-09-06] MEDS: METOPROLOL SUCCINATE (ER) 25 MG TAB.ER.24H PO SCH ×2 (07:31→20:59)
[2022-09-06] MEDS: INSULIN DETEMIR (LEVEMIR) 100 UNIT/ML SYR SQ SCH (07:32)
[2022-09-06] MEDS: MAGNESIUM OXIDE 400 MG TAB PO SCH ×2 (07:32→20:59)
[2022-09-06 08:55] LABS: Basophils # (A) 0.03 X 10*3/uL (0.00-0.10); Basophils % (A) 0.3 %; Eosinophils # (A) 0.29 X 10*3/uL (0.04-0.35); Eosinophils % (A) 3.3 %; HCT 28.2 % (37.2-46.3); HGB 8.7 g/dL (12.0-15.0); Immature Grans, Automated 0.4 %; Lymphocytes # (A) 1.09 X 10*3/uL (0.90-5.00); Lymphocytes % (A) 12.2 %; MCHC 30.9 g/dL (32.0-37.0); Mean Platelet Volume 10.8 fL (9.5-12.2); NRBC Per 100 WBC 0 /100 WBCS (0.0-0.0); Neutrophils # (A) 6.66 X 10*3/uL (1.80-7.70); Neutrophils % (A) 74.8 %; Platelet Count 325 X 10*3/uL (140-440); RDW 13.6 % (11.5-14.5); WBC 8.91 X 10*3/uL (4.50-10.00)
[2022-09-06] MEDS: SYMBICORT 160-4.5 MCG INHALER INHALATION PRN ×2 (09:44→19:59)
[2022-09-06 11:12] LABS: Glucose,Whole Blood 168 mg/dL (70-110)
[2022-09-06 11:13] LABS: African American GFR (CKD) 8.6 (60.0-200.0); Anion Gap 11.8 mmol/L (10.00-18.00); Blood Urea Nitrogen 58.8 mg/dL (9.0-27.0); Calcium 8.7 mg/dL (8.7-10.3); Carbon Dioxide 18.1 mmol/L (20.0-27.5); Non-African American GFR(CKD) 7.4 (60.0-200.0); Potassium 4.6 mmol/L (3.5-5.5)
--- NOTE | 2022-09-06 11:56 | P.PN ---
Subjective Patient is seen for follow-up for acute kidney injury and top of chronic kidney disease. Review of previous labs in the office showed serum creatinine around 2.4 in April 2021 Currently maintained on IV fluids Serum creatinine improved to 4.5, however, it is back up to 5.0. Ultrasound does not show any evidence of obstruction. Patient has been avoiding. No nephrotoxic agents noted Blood pressure is not low UA shows 2+ protein no blood. This is not new. No complaints of nausea vomiting. Patient is tolerating oral intake fairly well. Briefly discussed possible renal replacement therapy in the next few weeks. This will be started as outpatient. 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 - Labs CBC & Chem 7: 09/06/22 06:03 09/06/22 06:03 Labs: Abnormal Lab Results - Last 24 Hours (Table) 09/05/22 09/05/22 09/05/22 Range/Units 12:12 17:14 20:20 RBC (4.10-5.20) X 10*6/uL Hgb (12.0-15.0) g/dL Hct (37.2-46.3) % MCHC (32.0-37.0) g/dL Chloride (96-109) mmol/L Carbon Dioxide (20.0-27.5) mmol/L BUN (9.0-27.0) mg/dL Creatinine (0.6-1.5) mg/dL Est GFR (CKD-EPI)AfAm (60.0-200.0) Est GFR (CKD-EPI)NonAf (60.0-200.0) Glucose (70-110) mg/dL POC Glucose (mg/dL) 197 H 183 H 246 H (70-110) mg/dL 09/06/22 09/06/22 09/06/22 Range/Units 06:03 06:03 07:01 RBC 3.00 L (4.10-5.20) X 10*6/uL Hgb 8.7 L (12.0-15.0) g/dL Hct 28.2 L (37.2-46.3) % MCHC 30.9 L (32.0-37.0) g/dL Chloride 113 H (96-109) mmol/L Carbon Dioxide 18.1 L (20.0-27.5) mmol/L BUN 58.8 H (9.0-27.0) mg/dL Creatinine 4.9 H (0.6-1.5) mg/dL Est GFR (CKD-EPI)AfAm 8.6 L (60.0-200.0) Est GFR (CKD-EPI)NonAf 7.4 L (60.0-200.0) Glucose 131 H (70-110) mg/dL POC Glucose (mg/dL) 129 H (70-110) mg/dL 09/06/22 Range/Units 11:11 RBC (4.10-5.20) X 10*6/uL Hgb (12.0-15.0) g/dL Hct (37.2-46.3) % MCHC (32.0-37.0) g/dL Chloride (96-109) mmol/L Carbon Dioxide (20.0-27.5) mmol/L BUN (9.0-27.0) mg/dL Creatinine (0.6-1.5) mg/dL Est GFR (CKD-EPI)AfAm (60.0-200.0) Est GFR (CKD-EPI)NonAf (60.0-200.0) Glucose (70-110) mg/dL POC Glucose (mg/dL) 168 H (70-110) mg/dL Assessment and Plan Assessment: 1. Acute kidney injury with some improvement in renal function on initial admission however serum creatinine increased again to about 4.9-5 mg/dL. UA shows 2+ protein no blood. Proteinuria is not new. Check bladder scan and rule out urine retention. Ultrasound shows no evidence of hydronephrosis. Both kidneys are about 7.8-7.4 cm. There is definitely possibility of progression of underlying diabetic kidney disease. Briefly discussed renal replacement therapy with the patient and she is agreeable to starting dialysis if indicated. 2. Uncontrolled hypertension, consider renal artery stenosis given the recently uncontrolled hypertension. Unable to perform CTA due to significant worsening of renal function. 3. 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 4. Anemia rule out iron deficiency 5. COPD Plan: DC IV fluids Since serum creatinine is back up to 5 mg/dL patient will likely need to start renal replacement therapy over the next few weeks. There is likely progression of underlying chronic kidney disease. No evidence of obstruction noted. I will repeat another bladder scan as it does not appear to be documented. Patient remains fairly asymptomatic. Patient can be discharged from nephrology standpoint with plans to follow-up in the office in about 1 week's time to further discuss in detail regarding initiation of renal replacement therapy and preparation for it. No indication to start dialysis during this hospitalization.
[2022-09-06 12:14] LABS: Glucose,Whole Blood 153 mg/dL (70-110)
--- NOTE | 2022-09-06 15:14 | P.PN ---
Subjective Progress Note Date: 09/06/22 This is a pleasant 86-year-old female who was recently admitted with acute on chronic kidney disease also having some of hypertension and worsening kidney functions. Patient is being followed by nephrology as well as the outpatient setting. Kidney function slightly improved today with a BMI of 50.8 and creatinine is 4.9. Blood sugars being monitored and will continue current regimen. There are plans for outpatient renal replacement the next 2 weeks. Patient reports she feels slightly improved and oral intake is fair. Patient is currently afebrile denies chest pain or shortness of breath. Encourage oral intake continue IV fluids being discontinued. Encouraged increased activity as tolerated. No Reports of nausea or vomiting noted and patient tolerating diet. Review of systems: Constitutional: reports generalized fatigue, no fever, or chills Cardiovascular: No reports of chest pain or palpitations Respiratory: No reports of shortness of breath or cough GI: No reports of nausea, no reports of vomiting, no diarrhea, oral intake slowly improving : No reports of dysuria or retention Neurovascular: no reports of generalized weakness All medications have been reviewed PHYSICAL EXAMINATION: GENERAL: The patient is alert and oriented x3, thin built, elderly appearing HEENT: Pupils are round and equally reacting to light. EOMI. no scleral icterus. No conjunctival pallor. Normocephalic, atraumatic. No pharyngeal erythema. No thyromegaly. CARDIOVASCULAR: S1 and S2 muffled PULMONARY: diminished breath sounds bilaterally with no wheezing or rhonchi noted. ABDOMEN: soft. Nontender on exam. non-distended, normoactive bowel sounds. No palpable organomegaly. MUSCULOSKELETAL: No joint swelling or deformity. EXTREMITIES: No cyanosis, clubbing, or pedal edema. NEUROLOGICAL: Gross neurological examination did not reveal any focal deficits. SKIN: No rashes. Assessment: Acute on chronic kidney disease Chronic kidney disease stage IV, baseline Accelerated hypertension Chronic obstructive pulmonary disease Diabetes mellitus, type II GI prophylaxis DVT prophylaxis Full code Plan: Recommend to continue with current medications and management with nephrology following. Patient was continued on gentle IV hydration with no real significant improvement although kidney function trending down. Nephrology recommending blood pressure control and has adjusted medications and will be following up outpatient within the next few weeks to discuss renal replacement t herapy Recommend follow-up labs in the a.m. and will replace electrolytes per protocol. Encouraged oral intake Probable discharge in 24 hours The impression and plan of care has been dictated by Renita Hobbs, nurse practitioner as directed. Dr. Marshall MD I have performed a history and examination and MDM of this patient, discussed the same with the dictator, and agree with the dictator's assessment and plan as written ,documented as a scribe. Based on total visit time, I have performed more than 50% of the visit. Any additional findings or plans will be noted. Objective - Vital Signs Vital signs: Vital Signs Temp 98.6 F 09/06/22 07:02 Pulse 72 09/06/22 07:02 Resp 16 09/06/22 07:02 BP 132/55 09/06/22 09:25 Pulse Ox 95 09/06/22 07:02 FiO2 Intake & Output 09/05/22 09/06/22 09/06/22 18:59 06:59 18:59 Intake Total 200 Balance 200 Intake: Oral 200 Other: Voiding Method Bedside Commode # Voids 2 2 1 # Bowel Movements 1 1 1 - Labs CBC & Chem 7: 09/06/22 06:03 09/06/22 06:03 Labs: Abnormal Lab Results - Last 24 Hours (Table) 09/05/22 09/05/22 09/05/22 Range/Units 12:12 17:14 20:20 RBC (4.10-5.20) X 10*6/uL Hgb (12.0-15.0) g/dL Hct (37.2-46.3) % MCHC (32.0-37.0) g/dL Chloride (96-109) mmol/L Carbon Dioxide (20.0-27.5) mmol/L BUN (9.0-27.0) mg/dL Creatinine (0.6-1.5) mg/dL Est GFR (CKD-EPI)AfAm (60.0-200.0) Est GFR (CKD-EPI)NonAf (60.0-200.0) Glucose (70-110) mg/dL POC Glucose (mg/dL) 197 H 183 H 246 H (70-110) mg/dL 09/06/22 09/06/22 09/06/22 Range/Units 06:03 06:03 07:01 RBC 3.00 L (4.10-5.20) X 10*6/uL Hgb 8.7 L (12.0-15.0) g/dL Hct 28.2 L (37.2-46.3) % MCHC 30.9 L (32.0-37.0) g/dL Chloride 113 H (96-109) mmol/L Carbon Dioxide 18.1 L (20.0-27.5) mmol/L BUN 58.8 H (9.0-27.0) mg/dL Creatinine 4.9 H (0.6-1.5) mg/dL Est GFR (CKD-EPI)AfAm 8.6 L (60.0-200.0) Est GFR (CKD-EPI)NonAf 7.4 L (60.0-200.0) Glucose 131 H (70-110) mg/dL POC Glucose (mg/dL) 129 H (70-110) mg/dL 09/06/22 Range/Units 11:11 RBC (4.10-5.20) X 10*6/uL Hgb (12.0-15.0) g/dL Hct (37.2-46.3) % MCHC (32.0-37.0) g/dL Chloride (96-109) mmol/L Carbon Dioxide (20.0-27.5) mmol/L BUN (9.0-27.0) mg/dL Creatinine (0.6-1.5) mg/dL Est GFR (CKD-EPI)AfAm (60.0-200.0) Est GFR (CKD-EPI)NonAf (60.0-200.0) Glucose (70-110) mg/dL POC Glucose (mg/dL) 168 H (70-110) mg/dL
[2022-09-06 16:01] LABS: % Iron Saturation 35.31 (12.00-45.00)
[2022-09-06 17:06] LABS: Glucose,Whole Blood 134 mg/dL (70-110)
[2022-09-06 20:40] LABS: Glucose,Whole Blood 113 mg/dL (70-110)
[2022-09-06] MEDS: ATORVASTATIN 20 MG TAB PO SCH (20:58)
[2022-09-06] MEDS: LEVOTHYROXINE 100 MCG TAB PO SCH (20:59)
[2022-09-07 01:30] VITALS: RESP 16
[2022-09-07] MEDS: hydrALAZINE HCL 20 MG/ML 1 ML VIAL IVP PRN (01:42)
[2022-09-07 07:12] LABS: Glucose,Whole Blood 96 mg/dL (70-110)
[2022-09-07] MEDS: INSULIN ASPART (NovoLOG) 100 UNIT/ML VIAL SQ SCH ×2 (07:27→12:45)
[2022-09-07 08:12] LABS: African American GFR (CKD) 9 (>60 ml/min/1.73 sqM); Anion Gap 8 mmol/L; Blood Urea Nitrogen 52 mg/dL (7-17); Calcium 8.6 mg/dL (8.4-10.2); Carbon Dioxide 18 mmol/L (22-30); Chloride 113 mmol/L (98-107); Glucose 85 mg/dL (74-99); Non-African American GFR(CKD) 8 (>60 ml/min/1.73 sqM); Potassium 4.3 mmol/L (3.5-5.1); Sodium 139 mmol/L (137-145)
[2022-09-07] MEDS: SYMBICORT 160-4.5 MCG INHALER INHALATION PRN (08:20)
[2022-09-07] MEDS: MAGNESIUM OXIDE 400 MG TAB PO SCH (08:27)
[2022-09-07] MEDS: amLODIPine 10 MG TAB PO SCH (08:27)
[2022-09-07] MEDS: METOPROLOL SUCCINATE (ER) 25 MG TAB.ER.24H PO SCH (08:27)
[2022-09-07] MEDS: FAMOTIDINE 20 MG TAB PO SCH (08:27)
[2022-09-07] MEDS: FLUoxetine HCL 10 MG CAP PO SCH (08:27)
[2022-09-07] MEDS: allopurinoL 100 MG TAB PO SCH (08:27)
[2022-09-07] MEDS: HEPARIN SODIUM,PORCINE/PF 5,000 UNIT/0.5 ML SYRINGE SQ SCH (08:27)
[2022-09-07] MEDS: hydrALAZINE HCL 50 MG TAB PO SCH ×2 (08:27→15:17)
[2022-09-07] MEDS: INSULIN DETEMIR (LEVEMIR) 100 UNIT/ML SYR SQ SCH (08:29)
[2022-09-07 11:09] LABS: Glucose,Whole Blood 161 mg/dL (70-110)
[2022-09-07 12:16] VITALS: BP 159/68; PULSE 69; TEMP 98.2
--- NOTE | 2022-09-07 12:39 | P.PN ---
Subjective Patient is seen for follow-up for acute kidney injury and top of chronic kidney disease. Review of previous labs in the office showed serum creatinine around 2.4 in April 2021 Currently maintained on IV fluids Serum creatinine improved to 4.5, however, it is back up to 5.0. Today at 4.6 Ultrasound does not show any evidence of obstruction. Patient has been avoiding. No nephrotoxic agents noted Blood pressure is not low UA shows 2+ protein no blood. This is not new. No complaints of nausea vomiting. Patient is tolerating oral intake fairly well. Briefly discussed possible renal replacement therapy in the next few weeks. This will be started as outpatient. Patient is being discharged. 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 - Labs CBC & Chem 7: 09/06/22 06:03 09/07/22 06:26 Labs: Abnormal Lab Results - Last 24 Hours (Table) 09/06/22 09/06/22 09/06/22 Range/Units 10:15 10:15 17:05 Chloride (98-107) mmol/L Carbon Dioxide (22-30) mmol/L BUN (7-17) mg/dL Creatinine (0.52-1.04) mg/dL POC Glucose (mg/dL) 134 H (70-110) mg/dL TIBC 221 L (228-460) ug/dL Transferrin 158.0 L (204.0-354.0) mg/dL PTH Intact 79.0 H (14.0-72.0) pg/mL 09/06/22 09/07/22 09/07/22 Range/Units 20:39 06:26 11:07 Chloride 113 H (98-107) mmol/L Carbon Dioxide 18 L (22-30) mmol/L BUN 52 H (7-17) mg/dL Creatinine 4.61 H (0.52-1.04) mg/dL POC Glucose (mg/dL) 113 H 161 H (70-110) mg/dL TIBC (228-460) ug/dL Transferrin (204.0-354.0) mg/dL PTH Intact (14.0-72.0) pg/mL Assessment and Plan Assessment: 1. Acute kidney injury with some improvement in renal function on initial admission however serum creatinine increased again to about 4.9-5 mg/dL. UA shows 2+ protein no blood. Proteinuria is not new. Check bladder scan and rule out urine retention. Ultrasound shows no evidence of hydronephrosis. Both kidneys are about 7.8-7.4 cm. There is definitely possibility of progression of underlying diabetic kidney disease. Briefly discussed renal replacement therapy with the patient and she is agreeable to starting dialysis if indicated. 2. Uncontrolled hypertension, consider renal artery stenosis given the recently uncontrolled hypertension. Unable to perform CTA due to significant worsening of renal function. 3. 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 4. Anemia rule out iron deficiency 5. COPD Plan: Since serum creatinine is back up to 5 mg/dL patient will likely need to start renal replacement therapy over the next few weeks. There is likely progression of underlying chronic kidney disease. No evidence of obstruction noted. I will repeat another bladder scan as it does not appear to be documented. Patient remains fairly asymptomatic. Patient can be discharged from nephrology standpoint with plans to follow-up in the office in about 1 week's time to further discuss in detail regarding initiation of renal replacement therapy and preparation for it. No indication to start dialysis during this hospitalization.
--- NOTE | 2022-09-07 19:54 | P.DS ---
Providers Date of admission: 09/04/22 01:17 Expected date of discharge: 09/07/22 Attending physician: Sonal Olivares Consults: 09/04/22 01:16 Consult Physician Routine Consulting Provider: January Saldivar Consult Reason/Comments: Acute renal failure Do you want consulting provider notified?: Yes Primary care physician: Randell Corbett Hospital Course: Final diagnosis Acute on chronic kidney disease Chronic kidney disease stage IV, baseline Accelerated hypertension Chronic obstructive pulmonary disease Diabetes mellitus, type II GI prophylaxis DVT prophylaxis Full code Discharge disposition Patient is being discharged in a stable condition with guarded prognosis to home with home care . Patient will follow-up with Dr. Corbett in the outpatient setting upon discharge. Patient is to continue with current medications as mentioned below and outpatient follow-up with nephrology to discuss renal replacement therapy as scheduled. Total time taken is greater than 35 minutes. Hospital course This is a 86-year-old female who was recently admitted with accelerated uncontrolled hypertension along with acute on chronic kidney disease being closely monitored. Kidney functions continue to worsen although patient is making urine and had imaging done no signs of hydronephrosis. Patient with chronic kidney disease and uncontrolled hypertension with nephrology making a djustments to medications. Patient discuss further in the outpatient setting about renal replacement therapy in the next 2-3 weeks. Recommend follow-up labs prior to follow-up appointment. Patient instructed to follow-up with primary care provider. Please refer to other consultation notes for further HPI. Currently no reports of chest pain, shortness of breath, or palpitations. Patient is afebrile. No reports of nausea or vomiting and patient is tolerating diet. Patient will be discharged home today. Guarded prognosis. Physical exam: Gen: This is a 86-year-old female who is awake, alert and oriented 3, thin built, elderly appearing HEENT: Head is atraumatic, normocephalic. Pupils equal, round. Sclerae is anicteric. NECK: Supple. No JVD. No lymphadenopathy. No thyromegaly. LUNGS: Clear to auscultation. No wheezes or rhonchi. No intercostal retractions. HEART: Regular rate and rhythm. No murmur. ABDOMEN: Soft. Bowel sounds are present. No masses. No tenderness. EXTREMITIES: No pedal edema. No calf tenderness. NEUROLOGICAL: Patient is awake, alert and oriented x3. Cranial nerves 2 through 12 are grossly intact. Please refer to medication reconciliation sheet for a list of medications. The impression and plan of care has been dictated by Renita Hobbs, Nurse Practitioner as directed. Dr. Marshall MD I have performed a history and examination and MDM of this patient, discussed the same with the dictator, and agree with the dictator's assessment and plan as written ,documented as a scribe. Based on total visit time, I have performed more than 50% of the visit. Patient Condition at Discharge: Stable Plan - Discharge Summary Discharge Rx Participant: No New Discharge Prescriptions: New hydrALAZINE HCL [Apresoline] 100 mg PO TID 30 Days #180 tab amLODIPine [Norvasc] 10 mg PO DAILY #30 tab Acetaminophen Tab [Tylenol] 650 mg PO Q6HR PRN tab PRN Reason: Mild Pain Or Fever > 100.5 Famotidine [Pepcid] 20 mg PO DAILY #30 tab Metoprolol Succinate (ER) [Toprol XL] 25 mg PO BID #60 tab Continue Magnesium Oxide [Magox 400] 400 mg PO BID Atorvastatin Calcium 20 mg PO HS allopurinoL 100 mg PO DAILY Budesonide-Formot 160-4.5 Mcg [Symbicort 160-4.5 Mcg Inhaler] 2 puff INHALATION RT-BID PRN PRN Reason: Shortness Of Breath Insulin Degludec [Tresiba Flextouch U-200 Pen] 18 unit SQ DAILY Levothyroxine Sodium [Synthroid] 200 mcg PO HS FLUoxetine HCL [PROzac] 10 mg PO DAILY Discontinued hydrALAZINE HCL [Apresoline] 50 mg PO TID amLODIPine BESYLATE 5 mg PO DAILY Metoprolol Succinate [Toprol XL] 50 mg PO DAILY Discharge Medication List Atorvastatin Calcium 20 mg PO HS 09/04/22 [History] Budesonide-Formot 160-4.5 Mcg [Symbicort 160-4.5 Mcg Inhaler] 2 puff INHALATION RT-BID PRN 09/04/22 [History] FLUoxetine HCL [PROzac] 10 mg PO DAILY 09/04/22 [History] Insulin Degludec [Tresiba Flextouch U-200 Pen] 18 unit SQ DAILY 09/04/22 [History] Levothyroxine Sodium [Synthroid] 200 mcg PO HS 09/04/22 [History] Magnesium Oxide [Magox 400] 400 mg PO BID 09/04/22 [History] allopurinoL 100 mg PO DAILY 09/04/22 [History] Acetaminophen Tab [Tylenol] 650 mg PO Q6HR PRN tab 09/07/22 [Rx] Famotidine [Pepcid] 20 mg PO DAILY #30 tab 09/07/22 [Rx] Metoprolol Succinate (ER) [Toprol XL] 25 mg PO BID #60 tab 09/07/22 [Rx] amLODIPine [Norvasc] 10 mg PO DAILY #30 tab 09/07/22 [Rx] hydrALAZINE HCL [Apresoline] 100 mg PO TID 30 Days #180 tab 09/07/22 [Rx] Follow up Appointment(s)/Referral(s): January Saldivar MD [STAFF PHYSICIAN] - 10/06/22 1:40 pm [facility] [NON-STAFF] - 1 Week Randell Corbett MD [Primary Care Provider] - 09/08/22 9:30 am () Patient Instructions/Handouts: Metoprolol (By mouth), Famotidine (By mouth), Hydralazine (By mouth), Amlodipine (By mouth) Activity/Diet/Wound Care/Special Instructions: Activity Limited until follow-up Follow-up with primary care provider on discharge Follow-up with nephrology outpatient discuss renal replacement therapy Continue blood pressure medications and monitoring blood pressure and keep a diary of readings for primary follow-up Discharge Disposition: HOME WITH HOME HEALTH SERVICES
== END 2022-09-07 16:18 | disposition home health service (06) | DRG 684 ==
LOC: EC 20:50 → 5NMEDONC 09-04 01:17
PROVIDERS: ADMIT Hospitalist; ATTEND Hospitalist
DX: N17.9 Acute kidney failure, unspecified (principal); N18.4 Chronic kidney disease, stage 4 (severe); I12.9 Hypertensive chronic kidney disease with stage 1 through stage 4 chronic kidney disease, or unspecified chronic kidney disease; E11.22 Type 2 diabetes mellitus with diabetic chronic kidney disease; I70.1 Atherosclerosis of renal artery; J44.9 Chronic obstructive pulmonary disease, unspecified; Z79.4 Long term (current) use of insulin; Z79.51 Long term (current) use of inhaled steroids; Z79.890 Hormone replacement therapy; Z79.899 Other long term (current) drug therapy; D63.1 Anemia in chronic kidney disease; Z28.310 Unvaccinated for COVID-19; Z28.21 Immunization not carried out because of patient refusal; Z88.1 Allergy status to other antibiotic agents
CPT/HCPCS: 36415; 76770; 80048; 80053; 81001; 83036; 83540; 83550; 83690; 83970; 85025; 94640; 96360; 99285

== ENCOUNTER 2022-11-05 12:46 | Inpatient (IN) | payer MEDICARE ==
[2022-11-05 13:57] LABS: Basophils % (A) 0 %; Eosinophils # (A) 0.2 k/uL (0-0.7); Eosinophils % (A) 2 %; HCT 29.9 % (34.0-46.0); HGB 9.5 gm/dL (11.4-16.0); Lymphocytes # (A) 0.8 k/uL (1.0-4.8); Lymphocytes % (A) 7 %; MCH 29.3 pg (25.0-35.0); MCHC 31.8 g/dL (31.0-37.0); MCV 92.2 fL (80.0-100.0); Mean Platelet Volume 8.1; Monocytes # (A) 0.9 k/uL (0-1.0); Monocytes % (A) 7 %; Neutrophils # (A) 10.7 k/uL (1.3-7.7); Neutrophils % (A) 83 %; Platelet Count 418 k/uL (150-450); RBC 3.24 m/uL (3.80-5.40); RDW 13.9 % (11.5-15.5); WBC 12.8 k/uL (3.8-10.6)
[2022-11-05 14:09] LABS: ALT 17 U/L (4-34); AST 18 U/L (14-36); African American GFR (CKD) 6 (>60 ml/min/1.73 sqM); Albumin 3.6 g/dL (3.5-5.0); Alkaline Phosphatase 109 U/L (38-126); Anion Gap 11 mmol/L; Blood Urea Nitrogen 75 mg/dL (7-17); Calcium 9.1 mg/dL (8.4-10.2); Carbon Dioxide 23 mmol/L (22-30); Chloride 104 mmol/L (98-107); Glucose 119 mg/dL (74-99); Non-African American GFR(CKD) 5 (>60 ml/min/1.73 sqM); Sodium 138 mmol/L (137-145); Total Bilirubin 0.3 mg/dL (0.2-1.3)
[2022-11-05] MEDS ORDERED: NALOXONE 0.4 MG/ML 1 ML VIAL IV PRN (15:23)
--- NOTE | 2022-11-05 15:23 | ED ---
General Adult HPI - General Chief complaint: Recheck/Abnormal Lab/Rx Stated complaint: abn labs Time Seen by Provider: 11/05/22 12:55 Source: patient Mode of arrival: wheelchair Limitations: no limitations - History of Present Illness Initial comments: 87-year-old female with past medical history of chronic kidney disease who presents to emergency department from her nephrology office. Patient was recently hospitalized. She was discharged with the intent that she was given a follow-up with nephrology to discuss dialysis. She states that they completed laboratory studies 2 days ago. She followed up in office today and was told that she needed to go to the hospital for further evaluation. States her kidney function is rapidly declining any sick on dialysis sooner. She denies any symptoms at this time. No other alleviating, precipitating or modifying factors - Related Data Home Medications Medication Instructions Recorded Confirmed Atorvastatin Calcium 20 mg PO DAILY 09/04/22 11/11/22 Budesonide-Formot 160-4.5 Mcg 2 puff INHALATION RT-BID PRN 09/04/22 11/11/22 [Symbicort 160-4.5 Mcg Inhaler] FLUoxetine HCL [PROzac] 10 mg PO DAILY 09/04/22 11/11/22 allopurinoL 100 mg PO DAILY 09/04/22 11/11/22 Famotidine [Pepcid] 20 mg PO Q2D 11/05/22 11/11/22 Levothyroxine Sodium [Synthroid] 175 mcg PO DAILY 11/05/22 11/11/22 amLODIPine [Norvasc] 10 mg PO DAILY 11/05/22 11/11/22 Previous Rx's Medication Instructions Recorded Acetaminophen Tab [Tylenol] 650 mg PO Q6HR PRN tab 09/07/22 Insulin Degludec [Tresiba 14 unit SQ DAILY #0 11/10/22 Flextouch U-200 Pen] hydrALAZINE HCL [Apresoline] 100 mg PO TID #90 tablet 11/10/22 Metoprolol Tartrate [Lopressor] 50 mg PO BID #60 tab 11/13/22 Prazosin [Minipress] 2 mg PO TID #90 cap 11/13/22 Torsemide [Demadex] 40 mg PO DAILY #60 tab 11/13/22 Allergies Allergy/AdvReac Type Severity Reaction Status Date / Time cefaclor Allergy Rash/Hives/ Verified 11/11/22 21:37 Nausea cephalexin Allergy Rash/Hives/ Verified 11/11/22 21:37 Nausea erythromycin base Allergy Rash/Hives/ Verified 11/11/22 21:37 Nausea indomethacin Allergy Rash/Hives/ Verified 11/11/22 21:37 Nausea Penicillins Allergy Rash/Hives/ Verified 11/11/22 21:37 Nausea regadenoson Allergy Rash/Hives/ Verified 11/11/22 21:37 Nausea Review of Systems ROS Statement: Those systems with pertinent positive or pertinent negative responses have been documented in the HPI. ROS Other: All systems not noted in ROS Statement are negative. Past Medical History Past Medical History: COPD, Diabetes Mellitus, Hypertension, Renal Disease, Thyroid Disorder Additional Past Medical History / Comment(s): stage 4 kidney History of Any Multi-Drug Resistant Organisms: None Reported Past Surgical History: No Surgical Hx Reported Additional Past Surgical History / Comment(s): uterine polyps removed. nerve block to left leg Past Anesthesia/Blood Transfusion Reactions: No Reported Reaction Past Psychological History: No Psychological Hx Reported Smoking Status: Never smoker Past Alcohol Use History: None Reported Past Drug Use History: None Reported - Past Family History Daughter(s) Family Medical History: Myocardial Infarction ([place]) General Exam Limitations: no limitations General appearance: alert, in no apparent distress Head exam: Present: atraumatic, normocephalic, normal inspection Eye exam: Present: normal appearance, PERRL, EOMI. Absent: scleral icterus, conjunctival injection, periorbital swelling ENT exam: Present: normal exam, mucous membranes moist Neck exam: Present: normal inspection. Absent: tenderness, meningismus, lymphadenopathy Respiratory exam: Present: normal lung sounds bilaterally. Absent: respiratory distress, wheezes, rales, rhonchi, stridor Cardiovascular Exam: Present: regular rate, normal rhythm, normal heart sounds. Absent: systolic murmur, diastolic murmur, rubs, gallop, clicks GI/Abdominal exam: Present: soft, normal bowel sounds. Absent: distended, tenderness, guarding, rebound, rigid Extremities exam: Present: normal inspection, full ROM, normal capillary refill. Absent: tenderness, pedal edema, joint swelling, calf tenderness Back exam: Present: normal inspection Neurological exam: Present: alert, oriented X3, CN II-XII intact Psychiatric exam: Present: normal affect, normal mood Skin exam: Present: warm, dry, intact, normal color. Absent: rash Course Vital Signs 11/05/22 11/05/22 11/05/22 12:47 13:00 14:02 Temperature 98.6 F 98.0 F 97.9 F Pulse Rate 55 L 61 61 Respiratory 18 18 18 Rate Blood Pressure 159/55 171/65 185/64 O2 Sat by Pulse 98 94 L 94 L Oximetry 11/05/22 11/05/22 11/05/22 15:29 16:53 18:59 Temperature 97.9 F Pulse Rate 57 L 57 L 55 L Respiratory 20 16 17 Rate Blood Pressure 171/63 171/70 177/66 O2 Sat by Pulse 96 95 94 L Oximetry 11/05/22 11/05/22 11/06/22 22:12 23:18 01:06 Temperature Pulse Rate 53 L 50 L 54 L Respiratory 18 17 Rate Blood Pressure 180/72 167/79 173/69 O2 Sat by Pulse 94 L 92 L 94 L Oximetry 11/06/22 11/06/22 11/06/22 02:40 05:36 07:28 Temperature 97.8 F Pulse Rate 56 L 58 L 57 L Respiratory 18 18 16 Rate Blood Pressure 178/72 177/72 167/74 O2 Sat by Pulse 94 L 94 L 93 L Oximetry Medical Decision Making - Medical Decision Making Was pt. sent in by a medical professional or institution ([facility] [place], PIPELINE ENGINEER, urgent care, hospital, or residential...) When possible be specific @ -nephrology office Did you speak to anyone other than the patient for history (EMS, parent, family, police, friend...)? What history was obtained from this source @ -Daughter Did you review nursing and triage notes (agree or disagree)? Why? @ -I reviewed and agree with nursing and triage notes Were old charts reviewed (outside hosp., previous admission, EMS record, old EKG, old radiological studies, urgent care reports/EKG's, residential records)? Report findings @ -recent discharge summary Differential Diagnosis (chest pain, altered mental status, abdominal pain women, abdominal pain men, vaginal bleeding, weakness, fever, dyspnea, syncope, headache, dizziness, GI bleed, back pain, seizure, CVA, palpatations, mental health, musculoskeletal)? @ -esrd, LILY, ckd, uti EKG interpreted by me (3pts min.). @ -not done X-rays interpreted by me (1pt min.). @ -None done CT interpreted by me (1pt min.). @ -None done U/S interpreted by me (1pt. min.). @ -None done What testing was considered but not performed or refused? (CT, X-rays, U/S, lab s)? Why? @ -None What meds were considered but not given or refused? Why? @ -None Did you discuss the management of the patient with other professionals (professionals i.e. DrOralia, PA, PIPELINE ENGINEER, lab, RT, psych nurse, outreach and education social worker, data collection specialist, teacher, security officer, behavioral health case manager)? Give summary @ -dr. castillo Was smoking cessation discussed for >3mins.? @ -No Was critical care preformed (if so, how long)? @ -No Were there social determinants of health that impacted care today? How? (Homelessness, low income, unemployed, alcoholism, drug addiction, transportation, low edu. Level, literacy, decrease access to med. care, residential, rehab)? @ -No Was there de-escalation of care discussed even if they declined (Discuss DNR or withdrawal of care, Hospice)? DNR status @ -No What co-morbidities impacted this encounter? (DM, HTN, Smoking, COPD, CAD, Cancer, CVA, ARF, Chemo, Hep., AIDS, mental health diagnosis, sleep apnea, morbid obesity)? @ -ckd Was patient admitted / discharged? Hospital course, mention meds given and route, prescriptions, significant lab abnormalities, going to OR and other pertinent info. @ -Upon arrival patient was placed into room 26. A thorough history and ph ysical exam was performed. Labs are repeated and patient's GFR is 5. I did speak with Dr. castillo was agreeable to observe the patient while awaiting nephrology consultation Undiagnosed new problem with uncertain prognosis? @ -yes Drug Therapy requiring intensive monitoring for toxicity (Heparin, Nitro, Insulin, Cardizem)? @ -No Were any procedures done? @ -No Diagnosis/symptom? @ -acute kidney injury/ckd Acute, or Chronic, or Acute on Chronic? @ -acute on chronic Uncomplicated (without systemic symptoms) or Complicated (systemic symptoms)? @ -complicated Side effects of treatment? @ -No Exacerbation, Progression, or Severe Exacerbation? @ -No Poses a threat to life or bodily function? How? (Chest pain, [place], [place], pneumonia, PE, COPD, DKA, ARF, appy, cholecystitis, CVA, Diverticulitis, Homicidal, Suicidal, threat to staff... and all critical care pts) @ -yes, patient requires dialysis due to worsening kidney function - Lab Data Result diagrams: 11/06/22 05:11 11/10/22 06:35 Lab Results 11/05/22 11/05/22 11/05/22 Range/Units 13:28 13:28 14:57 WBC 12.8 H (3.8-10.6) k/uL RBC 3.24 L (3.80-5.40) m/uL Hgb 9.5 L (11.4-16.0) gm/dL Hct 29.9 L (34.0-46.0) % MCV 92.2 (80.0-100.0) fL MCH 29.3 (25.0-35.0) pg MCHC 31.8 (31.0-37.0) g/dL RDW 13.9 (11.5-15.5) % Plt Count 418 (150-450) k/uL MPV 8.1 Neutrophils % 83 % Lymphocytes % 7 % Monocytes % 7 % Eosinophils % 2 % Basophils % 0 % Neutrophils # 10.7 H (1.3-7.7) k/uL Lymphocytes # 0.8 L (1.0-4.8) k/uL Monocytes # 0.9 (0-1.0) k/uL Eosinophils # 0.2 (0-0.7) k/uL Basophils # 0.0 (0-0.2) k/uL Sodium 138 (137-145) mmol/L Potassium 5.0 (3.5-5.1) mmol/L Chloride 104 (98-107) mmol/L Carbon Dioxide 23 (22-30) mmol/L Anion Gap 11 mmol/L BUN 75 H (7-17) mg/dL Creatinine 6.78 H (0.52-1.04) mg/dL Est GFR (CKD-EPI)AfAm 6 (>60 ml/min/1.73 sqM) Est GFR (CKD-EPI)NonAf 5 (>60 ml/min/1.73 sqM) Glucose 119 H (74-99) mg/dL Calcium 9.1 (8.4-10.2) mg/dL Total Bilirubin 0.3 (0.2-1.3) mg/dL AST 18 (14-36) U/L ALT 17 (4-34) U/L Alkaline Phosphatase 109 (38-126) U/L Total Protein 6.0 L (6.3-8.2) g/dL Albumin 3.6 (3.5-5.0) g/dL Urine Color Light Yellow Urine Appearance Clear (Clear) Urine pH 7.0 (5.0-8.0) Ur Specific Sarah Ann 1.010 (1.001-1.035) Urine Protein 3+ H (Negative) Urine Glucose (UA) Negative (Negative) Urine Ketones Negative (Negative) Urine Blood Trace H (Negative) Urine Nitrite Negative (Negative) Urine Bilirubin Negative (Negative) Urine Urobilinogen <2.0 (<2.0) mg/dL Ur Leukocyte Esterase Moderate H (Negative) Urine RBC 1 (0-5) /hpf Urine WBC 17 H (0-5) /hpf Disposition Clinical Impression: Acute kidney injury superimposed on chronic kidney disease, Accelerated hypertension Disposition: ADMITTED IP TO THIS HOSP Is patient prescribed a controlled substance at d/c from ED?: No Time of Disposition: 15:23 Decision to Admit Reason: Admit from EC Decision Date: 11/05/22 Decision Time: 15:23
[2022-11-05] MEDS: SODIUM CHLORIDE 0.9% 1,000 ML IV SCH (15:31)
[2022-11-05 15:38] LABS: Appearance,Urine Clear (Clear); Bilirubin,Urine Negative (Negative); Blood,Urine Trace (Negative); Color,Urine Light Yellow; Glucose,Urine (UA) Negative (Negative); Ketones,Urine Negative (Negative); Leukocyte Esterase,Urine Moderate (Negative); Nitrite,Urine Negative (Negative); Protein,Urine 3+ (Negative); RBC,Urine 1 /hpf (0-5); Urobilinogen,Urine <2.0 mg/dL (<2.0); WBC,Urine 17 /hpf (0-5)
[2022-11-05] MEDS ORDERED: SYMBICORT 160-4.5 MCG INHALER INHALATION PRN (17:18)
[2022-11-05] MEDS ORDERED: DEXTROSE 50% SYRINGE 50 ML IVP PRN ×2 (17:18)
[2022-11-05 17:42] LABS: Glucose,Whole Blood 98 mg/dL (70-110)
[2022-11-05] MEDS: INSULIN ASPART (NovoLOG) 100 UNIT/ML VIAL SQ SCH (17:42)
[2022-11-05] MEDS: FAMOTIDINE 20 MG TAB PO SCH (17:48)
[2022-11-05] MEDS: MAGNESIUM OXIDE 400 MG TAB PO SCH (20:19)
--- NOTE | 2022-11-05 21:55 | P.HPIM ---
History of Present Illness H&P Date: 11/05/22 Chief Complaint: Abdomen labs This is a pleasant 87-year-old patient who follows with Dr. Corbett. Chronic stable medical conditions include COPD, diabetes, hypertension, hypothyroid, chronic kidney disease. Patient is in the hospital in August of this year. Was seen by Dr. Saldivar from nephrology. Plan was to proceed for possible renal replacement therapy. Next few weeks. Patient was called from Dr. Saldivar's office to come to the hospitalist kidney function worsen. Patient is thinking about peritoneal dialysis at home. She's had decreased appetite. Has been losing some weight. No fever no chills. Does have a bowel movement wheelchair. Able to walk some. No nausea vomiting. Review of systems: GEN.: Tired, decreased appetite EYES: None HEENT: None NECK: None RESPIRATORY: None CARDIOVASCULAR: None GASTROINTESTINAL: None GENITOURINARY: Does make urine MUSCULOSKELETAL: None LYMPHATICS: None HEMATOLOGICAL: None PSYCHIATRY: None NEUROLOGICAL: Uses a powered wheelchair Past medical history to include: COPD, diabetes, hypertension, chronic kidney disease stage IV, hypothyroid Social history: Lives with her son-in-law grandson does use a powered wheelchair. Does not smoke or drink alcohol Physical examination: VITAL SIGNS: 97.9, 61, 18, 171/63, 96% room air GENERAL: BMI 24, reclining in bed awake, tired. EYES: Pupils equal. Conjunctiva palel. HEENT: External appearance of nose and ears normal, oral cavity grossly normal. NECK: JVD not raised; masses not palpable. HEART: First and second heart sounds are normal; no edema. LUNGS: Respiratory rate normal; clear to auscultation. ABDOMEN: Soft, nontender, liver spleen not palpable, no masses palpable. PSYCH: Alert and oriented x3; mood and affect normal. MUSCULOSKELETAL:No Clubbing/cyanosis;muscles-grossly intact. OA NEUROLOGICAL: Cranial nerves grossly intact; no facial asymmetry, power and sensation grossly intact. LYMPHATICS: No lymph nodes palpable in the axilla and neck INVESTIGATIONS, reviewed in the clinical context: White count 12.8 hemoglobin 9.5 platelets 1418 sodium 1:30 potassium 5 BUN 35 creatinine 6.78 Urine protein 3+ trace blood Previous labs: Creatinine 4.6 [09/07/2022] Assessment and plan: -Acute and chronic kidney disease creatinine being 4.6 on September 07. Now up to 6.78. Nephrology is consulted. We'll do dialysis now and possibly Risperdal [place] toneal catheter to for later use. -Anemia secondary to chronic kidney disease -COPD in nonsmoker Symbicort -Depression and anxiety Prozac -GERD Pepcid -Chronic hyperuricemia Allopurinol -Hyperlipidemia Lipitor -Diabetes mellitus type 2 tresiba. Follow Accu-Cheks -Essential hypertension with chronic kidney disease Toprol-XL. Hydralazine. Amlodipine. -Hypothyroid Synthroid 175 g a day -Full code Discussed with the patient. Questions answered. Nephrology consulted. Past Medical History Past Medical History: COPD, Diabetes Mellitus, Hypertension, Renal Disease, Thyroid Disorder Additional Past Medical History / Comment(s): stage 4 kidney History of Any Multi-Drug Resistant Organisms: None Reported Past Surgical History: No Surgical Hx Reported Additional Past Surgical History / Comment(s): uterine polyps removed. nerve block to left leg Past Anesthesia/Blood Transfusion Reactions: No Reported Reaction Past Psychological History: No Psychological Hx Reported Smoking Status: Never smoker Past Alcohol Use History: None Reported Past Drug Use History: None Reported Medications and Allergies Home Medications Medication Instructions Recorded Confirmed Type Atorvastatin Calcium 20 mg PO DAILY 09/04/22 11/05/22 History Budesonide-Formot 160-4.5 Mcg 2 puff INHALATION RT-BID PRN 09/04/22 11/05/22 History [Symbicort 160-4.5 Mcg Inhaler] FLUoxetine HCL [PROzac] 10 mg PO DAILY 09/04/22 11/05/22 History Insulin Degludec [Tresiba 18 unit SQ DAILY 09/04/22 11/05/22 History Flextouch U-200 Pen] Magnesium Oxide [Magox 400] 400 mg PO BID 09/04/22 11/05/22 History allopurinoL 100 mg PO DAILY 09/04/22 11/05/22 History Acetaminophen Tab [Tylenol] 650 mg PO Q6HR PRN tab 09/07/22 11/05/22 Rx Famotidine [Pepcid] 20 mg PO Q2D 11/05/22 11/05/22 History Levothyroxine Sodium [Synthroid] 175 mcg PO DAILY 11/05/22 11/05/22 History Metoprolol Succinate (ER) [Toprol 50 mg PO DAILY 11/05/22 11/05/22 History Xl] amLODIPine [Norvasc] 10 mg PO DAILY 11/05/22 11/05/22 History hydrALAZINE HCL 50 mg PO TID 11/05/22 11/05/22 History Allergies Allergy/AdvReac Type Severity Reaction Status Date / Time cefaclor Allergy Rash/Hives/ Verified 11/05/22 14:12 Nausea cephalexin Allergy Rash/Hives/ Verified 11/05/22 14:12 Nausea erythromycin base Allergy Rash/Hives/ Verified 11/05/22 14:12 Nausea indomethacin Allergy Rash/Hives/ Verified 11/05/22 14:12 Nausea Penicillins Allergy Rash/Hives/ Verified 11/05/22 14:12 Nausea regadenoson Allergy Rash/Hives/ Verified 11/05/22 14:12 Nausea Physical Exam Vitals: Vital Signs Temp Pulse Resp BP Pulse Ox 11/05/22 18:59 97.9 F 55 L 17 177/66 94 L 11/05/22 16:53 57 L 16 171/70 95 11/05/22 15:29 57 L 20 171/63 96 11/05/22 14:02 97.9 F 61 18 185/64 94 L 11/05/22 13:00 98.0 F 61 18 171/65 94 L 11/05/22 12:47 98.6 F 55 L 18 159/55 98 Intake and Output 11/05/22 11/05/22 11/05/22 06:59 14:59 22:59 Other: Weight 63.503 kg Results CBC & Chem 7: 11/05/22 13:28 11/05/22 13:28 Labs: Abnormal Lab Results - Last 24 Hours (Table) 11/05/22 11/05/22 11/05/22 Range/Units 13:28 13:28 14:57 WBC 12.8 H (3.8-10.6) k/uL RBC 3.24 L (3.80-5.40) m/uL Hgb 9.5 L (11.4-16.0) gm/dL Hct 29.9 L (34.0-46.0) % Neutrophils # 10.7 H (1.3-7.7) k/uL Lymphocytes # 0.8 L (1.0-4.8) k/uL BUN 75 H (7-17) mg/dL Creatinine 6.78 H (0.52-1.04) mg/dL Glucose 119 H (74-99) mg/dL Total Protein 6.0 L (6.3-8.2) g/dL Urine Protein 3+ H (Negative) Urine Blood Trace H (Negative) Ur Leukocyte Esterase Moderate H (Negative) Urine WBC 17 H (0-5) /hpf
[2022-11-05] MEDS: hydrALAZINE HCL 25 MG TAB PO SCH (22:09)
[2022-11-06] MEDS: SODIUM CHLORIDE 0.9% 1,000 ML IV SCH (05:47)
[2022-11-06 08:31] LABS: Glucose,Whole Blood 74 mg/dL (70-110)
[2022-11-06] MEDS ORDERED: INSULIN DETEMIR (LEVEMIR) 100 UNIT/ML SYR SQ SCH ×2 (09:00→13:23)
[2022-11-06] MEDS ORDERED: LEVOTHYROXINE 88 MCG TAB PO SCH (09:00)
[2022-11-06 09:14] LABS: Basophils # (A) 0.04 X 10*3/uL (0.00-0.10); Basophils % (A) 0.4 %; Eosinophils # (A) 0.07 X 10*3/uL (0.04-0.35); Eosinophils % (A) 0.7 %; HCT 27.2 % (37.2-46.3); HGB 8.5 d/dL (12.0-15.0); Lymphocytes # (A) 0.75 X 10*3/uL (0.90-5.00); Lymphocytes % (A) 7.1 %; MCH 29.8 pg (27.0-32.0); MCHC 31.3 d/dL (32.0-37.0); MCV 95.4 FL (80.0-97.0); Mean Platelet Volume 10.6 FL (9.5-12.2); Monocytes % (A) 9.5 %; NRBC Per 100 WBC 0 X 10*3/uL (0.00-0.01); Neutrophils # (A) 8.61 X 10*3/uL (1.80-7.70); Platelet Count 371 X 10*3/uL (140-440); RBC 2.85 X 10*6/uL (4.10-5.20); RDW 13.2 % (11.5-14.5)
[2022-11-06 09:20] LABS: BUN/Creat Ratio 12.03 Ratio (12.00-20.00); Blood Urea Nitrogen 73.4 mg/dL (9.0-27.0); Calcium 8.9 mg/dL (8.7-10.3); Carbon Dioxide 20.2 mmol/L (21.6-31.8); Chloride 107 mmol/L (96-109); Glucose 105 mg/dL (70-110); Potassium 5.1 mmol/L (3.5-5.5); Sodium 140 mmol/L (135-145)
[2022-11-06] MEDS: INSULIN ASPART (NovoLOG) 100 UNIT/ML VIAL SQ SCH ×3 (09:36→17:32)
[2022-11-06] MEDS: hydrALAZINE HCL 25 MG TAB PO SCH ×3 (09:42→21:13)
[2022-11-06] MEDS: amLODIPine 5 MG TAB PO SCH (09:42)
[2022-11-06] MEDS: METOPROLOL SUCCINATE (ER) 50 MG TAB.ER.24H PO SCH (09:42)
[2022-11-06] MEDS: MAGNESIUM OXIDE 400 MG TAB PO SCH ×2 (09:42→21:13)
[2022-11-06] MEDS: allopurinoL 100 MG TAB PO SCH (09:42)
[2022-11-06] MEDS: ATORVASTATIN 20 MG TAB PO SCH (09:42)
[2022-11-06] MEDS ORDERED: hydrALAZINE HCL 20 MG/ML 1 ML VIAL IVP PRN (10:48)
--- NOTE | 2022-11-06 10:51 | P.NPCON ---
History of Present Illness - Reason for Consult acute renal failure, chronic renal failure - History of Present Illness Reason for consultation: Acute kidney injury on chronic kidney disease History of present illness: Patient is a 87-year-old female seen in consultation for acute kidney injury on chronic kidney disease. Patient has chronic kidney disease stage V. Patient has not followed up outpatient since 2020. She has long-standing history of diabetes. Patient had blood work an outpatient due to worsened renal function she was advised to go to the hospital. Creatinine was 6.78 on admission and is 6.1 today. She admits to good urine output. No gross hematuria. Oral intake is fair. States some days she feels hungry and some days she doesn't. Denies any metallic taste. No edema. No vomiting or diarrhea. Denies chest pain or shortness of breath. Blood pressure has been high. She is on room air. Vital signs are stable. General: No acute distress. HEENT: Head exam is unremarkable. LUNGS: No audible rhonchi or wheezes. HEART: Rate and Rhythm are regular. ABDOMEN: Nontender. EXTREMITITES: No edema. Past Medical History Past Medical History: COPD, Diabetes Mellitus, Hypertension, Renal Disease, Thyroid Disorder Additional Past Medical History / Comment(s): stage 4 kidney History of Any Multi-Drug Resistant Organisms: None Reported Past Surgical History: No Surgical Hx Reported Additional Past Surgical History / Comment(s): uterine polyps removed. nerve block to left leg Past Anesthesia/Blood Transfusion Reactions: No Reported Reaction Past Psychological History: No Psychological Hx Reported Smoking Status: Never smoker Past Alcohol Use History: None Reported Past Drug Use History: None Reported - Past Family History Daughter(s) Family Medical History: Myocardial Infarction ([place]) Medications and Allergies Home Medications Medication Instructions Recorded Confirmed Type Atorvastatin Calcium 20 mg PO DAILY 09/04/22 11/05/22 History Budesonide-Formot 160-4.5 Mcg 2 puff INHALATION RT-BID PRN 09/04/22 11/05/22 History [Symbicort 160-4.5 Mcg Inhaler] FLUoxetine HCL [PROzac] 10 mg PO DAILY 09/04/22 11/05/22 History Insulin Degludec [Tresiba 18 unit SQ DAILY 09/04/22 11/05/22 History Flextouch U-200 Pen] Magnesium Oxide [Magox 400] 400 mg PO BID 09/04/22 11/05/22 History allopurinoL 100 mg PO DAILY 09/04/22 11/05/22 History Acetaminophen Tab [Tylenol] 650 mg PO Q6HR PRN tab 09/07/22 11/05/22 Rx Famotidine [Pepcid] 20 mg PO Q2D 11/05/22 11/05/22 History Levothyroxine Sodium [Synthroid] 175 mcg PO DAILY 11/05/22 11/05/22 History Metoprolol Succinate (ER) [Toprol 50 mg PO DAILY 11/05/22 11/05/22 History Xl] amLODIPine [Norvasc] 10 mg PO DAILY 11/05/22 11/05/22 History hydrALAZINE HCL 50 mg PO TID 11/05/22 11/05/22 History Allergies Allergy/AdvReac Type Severity Reaction Status Date / Time cefaclor Allergy Rash/Hives/ Verified 11/05/22 14:12 Nausea cephalexin Allergy Rash/Hives/ Verified 11/05/22 14:12 Nausea erythromycin base Allergy Rash/Hives/ Verified 11/05/22 14:12 Nausea indomethacin Allergy Rash/Hives/ Verified 11/05/22 14:12 Nausea Penicillins Allergy Rash/Hives/ Verified 11/05/22 14:12 Nausea regadenoson Allergy Rash/Hives/ Verified 11/05/22 14:12 Nausea Physical Exam Vitals: Vital Signs Temp Pulse Pulse Resp BP BP Pulse Ox 11/06/22 08:20 98.3 F 57 L 18 185/65 95 11/06/22 07:28 97.8 F 57 L 16 167/74 93 L 11/06/22 05:36 58 L 18 177/72 94 L 11/06/22 02:40 56 L 18 178/72 94 L 11/06/22 01:06 54 L 173/69 94 L 11/05/22 23:18 50 L 17 167/79 92 L 11/05/22 22:12 53 L 18 180/72 94 L 11/05/22 18:59 97.9 F 55 L 17 177/66 94 L 11/05/22 16:53 57 L 16 171/70 95 11/05/22 15:29 57 L 20 171/63 96 11/05/22 14:02 97.9 F 61 18 185/64 94 L 11/05/22 13:00 98.0 F 61 18 171/65 94 L 11/05/22 12:47 98.6 F 55 L 18 159/55 98 Intake and Output 11/05/22 11/06/22 11/06/22 22:59 06:59 14:59 Other: Voiding Method External Catheter Weight 63.503 kg Results - Lab Results Most recent lab results Calcium 8.9 mg/dL (8.7-10.3) 11/06/22 05:11 11/06/22 05:11 11/06/22 05:11 Assessment and Plan Plan: Assessment: 1. Acute kidney injury with likely progression of underlying chronic kidney disease stage V. Creatinine 6.1 today. 2. 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 3. Metabolic acidosis secondary to chronic kidney disease. 4. Hypertension with chronic kidney disease. 5. Anemia of chronic kidney disease. Plan: Hold antihypertensives resumed. Add when necessary hydralazine. Discussed renal placement therapy again in detail with patient. She is agreeable to start. Consult vascular surgery for dialysis catheter placement. Plan for first treatment of hemodialysis today and second treatment tomorrow. Check phosphorus level, vitamin D and PTH. Also discussed PD. She is interested. Will further address and educate outpatient. Thank you for the consultation. I will continue to follow the patient with you during her hospital stay.
[2022-11-06 12:27] LABS: Glucose,Whole Blood 161 mg/dL (70-110)
[2022-11-06] MEDS: FLUoxetine HCL 10 MG CAP PO SCH (13:01)
--- NOTE | 2022-11-06 14:05 | P.PN ---
Progress Note - Text Progress Note Date: 11/06/22 Chief Complaint: Abdomen labs This is a pleasant 87-year-old patient who follows with Dr. Corbett. Chronic stable medical conditions include COPD, diabetes, hypertension, hypothyroid, chronic kidney disease. Patient is in the hospital in August of this year. Was seen by Dr. Saldivar from nephrology. Plan was to proceed for possible renal replacement therapy. Next few weeks. Patient was called from Dr. Saldivar's office to come to the hospitalist kidney function worsen. Patient is thinking about peritoneal dialysis at home. She's had decreased appetite. Has been losing some weight. No fever no chills. Does have a bowel movement wheelchair. Able to walk some. No nausea vomiting. November 06: Worsening renal function. Seen by nephrology Dr. Emmanuel today. For hemodialysis catheter. Blood pressure medications adjusted. No nausea vomiting. Tired. Gentle hydration. Active Medications Acetaminophen (Acetaminophen Tab 325 Mg Tab) 650 mg PO Q6HR PRN PRN Reason: Mild Pain or Fever > 100.5 Allopurinol (Allopurinol 100 Mg Tab) 100 mg PO DAILY [facility] Last Admin: 11/06/22 09:42 Dose: 100 mg Amlodipine Besylate (Amlodipine 5 Mg Tab) 10 mg PO DAILY [facility] Last Admin: 11/06/22 09:42 Dose: 10 mg Atorvastatin Calcium (Atorvastatin 20 Mg Tab) 20 mg PO DAILY [facility] Last Admin: 11/06/22 09:42 Dose: 20 mg Budesonide/Formoterol Fumarate (Symbicort 160-4.5 Mcg Inhaler) 2 puff INHALATION RT-BID PRN PRN Reason: Shortness Of Breath Dextrose/Water (Dextrose 50% Syringe 50 Ml) 25 ml IVP PER PROTOCOL PRN; Protocol PRN Reason: Hypoglycemia Dextrose/Water (Dextrose 50% Syringe 50 Ml) 50 ml IVP PER PROTOCOL PRN; Protocol PRN Reason: Hypoglycemia Famotidine (Famotidine 20 Mg Tab) 20 mg PO Q2D [facility] Last Admin: 11/05/22 17:48 Dose: 20 mg Fluoxetine HCl (Fluoxetine Hcl 10 Mg Cap) 10 mg PO DAILY [facility] Last Admin: 11/06/22 13:01 Dose: 10 mg Hydralazine HCl (Hydralazine Hcl 25 Mg Tab) 50 mg PO TID [facility] Last Admin: 11/06/22 09:42 Dose: 50 mg Hydralazine HCl (Hydralazine Hcl 20 Mg/Ml 1 Ml Vial) 10 mg IVP Q6HR PRN PRN Reason: Blood Pressure - High Sodium Chloride (Saline 0.9%) 1,000 mls @ 75 mls/hr IV .[id number] [facility] Last Admin: 11/06/22 05:47 Dose: Not Given Insulin Aspart (Insulin Aspart (Novolog) 100 Unit/Ml Vial) 0 unit SQ AC-TID [facility]; Protocol Last Admin: 11/06/22 13:01 Dose: 1 unit Insulin Detemir (Insulin Detemir (Levemir) 100 Unit/Ml Syr) 18 unit SQ DAILY [facility] Levothyroxine Sodium (Levothyroxine 88 Mcg Tab) 176 mcg PO HS [facility] Magnesium Oxide (Magnesium Oxide 400 Mg Tab) 400 mg PO BID [facility] Last Admin: 11/06/22 09:42 Dose: 400 mg Metoprolol Succinate (Metoprolol Succinate (Er) 50 Mg Tab.Er.24h) 50 mg PO DAILY [facility] Last Admin: 11/06/22 09:42 Dose: 50 mg Naloxone HCl (Naloxone 0.4 Mg/Ml 1 Ml Vial) 0.2 mg IV Q2M PRN PRN Reason: Opioid Reversal Past medical history to include: COPD, diabetes, hypertension, chronic kidney disease stage IV, hypothyroid Social history: Lives with her son-in-law grandson does use a powered wheelchair. Does not smoke or drink alcohol Physical examination: VITAL SIGNS: 97.8, 57, 16, 1 67 x 74, 93% room air GENERAL: BMI 24, reclining in bed awake, tired. EYES: Pupils equal. Conjunctiva palel. HEENT: External appearance of nose and ears normal, oral cavity grossly normal. NECK: JVD not raised; masses not palpable. HEART: First and second heart sounds are normal; no edema. LUNGS: Respiratory rate normal; clear to auscultation. ABDOMEN: Soft, nontender, liver spleen not palpable, no masses palpable. PSYCH: Alert and oriented x3; mood and affect normal. MUSCULOSKELETAL:No Clubbing/cyanosis;muscles-grossly intact. OA INVESTIGATIONS, reviewed in the clinical context: November 06: White count 10.57 8.5 platelets 371 sodium 140 potassium 5.1 creatinine 6.1 and 33.4 White count 12.8 hemoglobin 9.5 platelets 1418 sodium 1:30 potassium 5 BUN 35 creatinine 6.78 Urine protein 3+ trace blood Previous labs: Creatinine 4.6 [09/07/2022] Assessment and plan: -Acute and chronic kidney disease creatinine being 4.6 on September 07. Now up to 6. 78.: Not improving Nephrology following. Vascular consulted for hemodialysis catheter. To start hemodialysis. -Anemia secondary to chronic kidney disease -COPD in nonsmoker Symbicort -Depression and anxiety Prozac -GERD Pepcid -Chronic hyperuricemia Allopurinol -Hyperlipidemia Lipitor -Diabetes mellitus type 2 tresiba. Follow Accu-Cheks -Essential hypertension with chronic kidney disease Toprol-XL. Hydralazine. Amlodipine. -Hypothyroid Synthroid 175 g a day -Full code Discussed . 4 temporary hemodialysis catheter placement. Patient wants a PD catheter long-run. Blood work done.
[2022-11-06 17:31] LABS: Glucose,Whole Blood 177 mg/dL (70-110)
[2022-11-06 20:21] LABS: Glucose,Whole Blood 157 mg/dL (70-110)
[2022-11-06] MEDS: LEVOTHYROXINE 88 MCG TAB PO SCH (21:13)
[2022-11-07] MEDS: SODIUM CHLORIDE 0.9% 1,000 ML IV SCH ×2 (01:30→09:31)
[2022-11-07 06:47] LABS: Hepatitis B Surface AB- Quant 3.5 mIU/mL; Hepatitis B Surface Antigen Nonreactive
[2022-11-07 07:06] LABS: Glucose,Whole Blood 82 mg/dL (70-110)
[2022-11-07] MEDS: INSULIN ASPART (NovoLOG) 100 UNIT/ML VIAL SQ SCH ×3 (08:22→18:13)
[2022-11-07] MEDS: MAGNESIUM OXIDE 400 MG TAB PO SCH ×2 (09:30→21:52)
[2022-11-07] MEDS: METOPROLOL SUCCINATE (ER) 50 MG TAB.ER.24H PO SCH (09:30)
[2022-11-07] MEDS: FLUoxetine HCL 10 MG CAP PO SCH (09:30)
[2022-11-07] MEDS: amLODIPine 5 MG TAB PO SCH (09:30)
[2022-11-07] MEDS: ATORVASTATIN 20 MG TAB PO SCH (09:30)
[2022-11-07] MEDS: allopurinoL 100 MG TAB PO SCH (09:30)
[2022-11-07] MEDS: INSULIN DETEMIR (LEVEMIR) 100 UNIT/ML SYR SQ SCH (09:31)
[2022-11-07] MEDS: hydrALAZINE HCL 25 MG TAB PO SCH (09:31)
--- NOTE | 2022-11-07 10:48 | P.PN ---
Subjective Patient is seen in follow-up for acute kidney injury on chronic kidney disease. Scheduled for permacath placement today and first treatment of dialysis today. Has been voiding. No chest pain or shortness of breath. Blood pressure high. Vital signs are stable. General: No acute distress. HEENT: Head exam is unremarkable. LUNGS: No audible rhonchi or wheezes. HEART: Rate and Rhythm are regular. ABDOMEN: Nontender. EXTREMITITES: No edema. Objective - Vital Signs Vital signs: Vital Signs Temp 99.5 F 11/07/22 07:07 Pulse 79 11/07/22 07:07 Resp 16 11/07/22 07:07 BP 173/62 11/07/22 07:07 Pulse Ox 86 L 11/07/22 07:07 FiO2 Intake & Output 11/06/22 11/07/22 11/07/22 18:59 06:59 18:59 Intake Total 900 590 Balance 900 590 Weight 63.503 kg Intake: Intake, IV Titration 900 Amount Sodium Chloride 0.9% 1, 900 000 ml @ 75 mls/hr IV . [id number] [facility] Rx#:[id number] Oral 590 Other: Voiding Method External Catheter # Voids 4 2 - Labs CBC & Chem 7: 11/06/22 05:11 11/06/22 05:11 Labs: Abnormal Lab Results - Last 24 Hours (Table) 11/06/22 11/06/22 11/06/22 Range/Units 05:11 11:30 12:25 POC Glucose (mg/dL) 161 H (70-110) mg/dL Hemoglobin A1c 6.2 H (<=6.0) % PTH Intact 91.4 H (14.0-72.0) pg/mL 11/06/22 11/06/22 Range/Units 17:29 20:19 POC Glucose (mg/dL) 177 H 157 H (70-110) mg/dL Hemoglobin A1c (<=6.0) % PTH Intact (14.0-72.0) pg/mL Assessment and Plan Plan: Assessment: 1. Acute kidney injury with likely progression of underlying chronic kidney disease stage V. Creatinine 6.1 yesterday. 2. 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 3. Metabolic acidosis secondary to chronic kidney disease. 4. Hypertension with chronic kidney disease. 5. Anemia of chronic kidney disease. 6. Chronic kidney disease mineral bone disease. PTH 91.4. Plan: Increase dose of hydralazine to 100 mg 3 times daily. Maintain when necessary hydralazine. Plan for first treatment of hemodialysis today and second treatment tomorrow. Follow-up phosphorus and vitamin D levels. Also discussed PD. She is interested. Will further address and educate outpatient. Case management to set up outpatient hemodialysis at [facility].
--- NOTE | 2022-11-07 11:34 | P.GSCN ---
History of Present Illness History of present illness: 87-year-old white female patient has history of acute chronic kidney disease. Patient came with creatinine of 6.78 on repeat is 6.1 I was consulted for placement of the dialysis catheter. Patient also has history of COPD, diabetes, hypertension, Neck is supple Chest his first and second sound present good and both lungs Abdomen soft nontender vascular brachial radial femoral pulses are present mild swelling of the lower extremity Plan is to keep the patient nothing by mouth is scheduled to have a dialysis catheter risk and complication discussed Past Medical History Past Medical History: COPD, Diabetes Mellitus, Hypertension, Renal Disease, Thyroid Disorder Additional Past Medical History / Comment(s): stage 4 kidney History of Any Multi-Drug Resistant Organisms: None Reported Past Surgical History: No Surgical Hx Reported Additional Past Surgical History / Comment(s): uterine polyps removed. nerve block to left leg Past Anesthesia/Blood Transfusion Reactions: No Reported Reaction Past Psychological History: No Psychological Hx Reported Smoking Status: Never smoker Past Alcohol Use History: None Reported Past Drug Use History: None Reported - Past Family History Daughter(s) Family Medical History: Myocardial Infarction ([place]) Medications and Allergies Home Medications Medication Instructions Recorded Confirmed Type Atorvastatin Calcium 20 mg PO DAILY 09/04/22 11/05/22 History Budesonide-Formot 160-4.5 Mcg 2 puff INHALATION RT-BID PRN 09/04/22 11/05/22 History [Symbicort 160-4.5 Mcg Inhaler] FLUoxetine HCL [PROzac] 10 mg PO DAILY 09/04/22 11/05/22 History Insulin Degludec [Tresiba 18 unit SQ DAILY 09/04/22 11/05/22 History Flextouch U-200 Pen] Magnesium Oxide [Magox 400] 400 mg PO BID 09/04/22 11/05/22 History allopurinoL 100 mg PO DAILY 09/04/22 11/05/22 History Acetaminophen Tab [Tylenol] 650 mg PO Q6HR PRN tab 09/07/22 11/05/22 Rx Famotidine [Pepcid] 20 mg PO Q2D 11/05/22 11/05/22 History Levothyroxine Sodium [Synthroid] 175 mcg PO DAILY 11/05/22 11/05/22 History Metoprolol Succinate (ER) [Toprol 50 mg PO DAILY 11/05/22 11/05/22 History Xl] amLODIPine [Norvasc] 10 mg PO DAILY 11/05/22 11/05/22 History hydrALAZINE HCL 50 mg PO TID 11/05/22 11/05/22 History Allergies Allergy/AdvReac Type Severity Reaction Status Date / Time cefaclor Allergy Rash/Hives/ Verified 11/05/22 14:12 Nausea cephalexin Allergy Rash/Hives/ Verified 11/05/22 14:12 Nausea erythromycin base Allergy Rash/Hives/ Verified 11/05/22 14:12 Nausea indomethacin Allergy Rash/Hives/ Verified 11/05/22 14:12 Nausea Penicillins Allergy Rash/Hives/ Verified 11/05/22 14:12 Nausea regadenoson Allergy Rash/Hives/ Verified 11/05/22 14:12 Nausea Surgical - Exam Vital Signs Temp Pulse Resp BP Pulse Ox 98.6 F 55 L 18 159/55 98 11/05/22 12:47 11/05/22 12:47 11/05/22 12:47 11/05/22 12:47 11/05/22 12:47 Results - Labs 11/06/22 05:11 11/06/22 05:11 Abnormal Lab Results - Last 24 Hours (Table) 11/06/22 11/06/22 11/06/22 Range/Units 11:30 12:25 17:29 POC Glucose (mg/dL) 161 H 177 H (70-110) mg/dL PTH Intact 91.4 H (14.0-72.0) pg/mL 11/06/22 Range/Units 20:19 POC Glucose (mg/dL) 157 H (70-110) mg/dL PTH Intact (14.0-72.0) pg/mL
[2022-11-07 12:02] LABS: Glucose,Whole Blood 93 mg/dL (70-110)
[2022-11-07] MEDS ORDERED: fentaNYL (PF) 50 MCG/ML 2 ML AMP IVP ONE (12:15)
[2022-11-07] MEDS ORDERED: HEPARIN SODIUM 1,000 UN/ML (10ML VL) ONE (12:20)
[2022-11-07] MEDS ORDERED: fentaNYL (PF) 50 MCG/ML 2 ML AMP ONE (12:21)
[2022-11-07] MEDS ORDERED: LIDOCAINE 1% INJ 10MG/ML (20 ML MDV) SQ ONE ×2 (12:32→12:36)
[2022-11-07] MEDS ORDERED: SODIUM CHLORIDE 0.9% 1,000 ML IV ONE (12:33)
[2022-11-07] MEDS ORDERED: LIDOCAINE 1% INJ 10MG/ML (20 ML MDV) ONE (12:35)
--- NOTE | 2022-11-07 13:16 | P.PCN ---
Description of Procedure: Preoperative diagnoses is acute chronic renal failure Postop same Procedure ultrasound-guided 90 cm Mary catheter placement right jugular approach under local IV sedation patient brought to the Hand Brim Iron[facility] Maxi of the neck and chest was prepped and draped applied in standard manner. 1% lidocaine were infiltrated neck and chest area. Ultrasound-guided micropuncture introduced right jugular vein and micropuncture guidewire passed. Then replaced 4-British catheter on the top the guidewire through that we passed a guidewire which was parked in the superior vena cava and a going down to the inferior vena cava. Tunnel was created to the tunnel we placed a dilator then we passed a she's on the top of guidewire through the sheath we placed the dialysis catheter tip catheters superior vena cava at the junction flush with heparin saline and Hep-Lock secured with 3-0 nylon and Vicryl dressing applied patient for the procedure well patient scheduled to have x-ray of the chest plan is excision of the chest and patient can be dialyzed after the excision of the chest
[2022-11-07 13:48] LABS: BUN/Creat Ratio 10.58 Ratio (12.00-20.00); Blood Urea Nitrogen 63.5 mg/dL (9.0-27.0); Calcium 8.5 mg/dL (8.7-10.3); Carbon Dioxide 18.1 mmol/L (21.6-31.8); Chloride 109 mmol/L (96-109); Glucose 81 mg/dL (70-110); Magnesium 2.7 mg/dL (1.5-2.4); Potassium 4.7 mmol/L (3.5-5.5); Sodium 141 mmol/L (135-145)
--- NOTE | 2022-11-07 13:56 | XR ---
EXAMINATION TYPE: XR chest 1V confirm line [facility] DATE OF EXAM: 11/07/2022 1:46 PM COMPARISON: Chest radiographs from 06/21/2019 TECHNIQUE: XR chest 1V confirm line [facility] Portable AP radiograph of the chest. CLINICAL INDICATION:Female, 87 years old with history of R IJ dialysis cath placement; FINDINGS: Lungs/Pleura: No focal consolidation pneumothorax. Blunting of the left costophrenic angle. Pulmonary vascularity: Pulmonary vascular congestion. Heart/mediastinum: Cardiomediastinal silhouette is enlarged and stable. Atherosclerotic calcificatio ns are seen in the aorta. Musculoskeletal: No acute osseous pathology. Other findings: None Lines/Tubes: Interval placement of dual-lumen right IJ catheter with distal tip at the low SVC. IMPRESSION: 1. Interval placement of dual-lumen right IJ catheter with distal tip at the low SVC. No pneumothora x. 2. Cardiomegaly with pulmonary vascular congestion and small left pleural effusion suggestive of CHF exacerbation.
[2022-11-07] MEDS: hydrALAZINE HCL 50 MG TAB PO SCH ×2 (16:08→21:52)
[2022-11-07] MEDS: FAMOTIDINE 20 MG TAB PO SCH (16:09)
[2022-11-07 17:02] LABS: Glucose,Whole Blood 196 mg/dL (70-110)
[2022-11-07 20:12] LABS: Glucose,Whole Blood 169 mg/dL (70-110)
--- NOTE | 2022-11-07 20:31 | P.PN ---
Progress Note - Text Progress Note Date: 11/07/22 Chief Complaint: Abdomen labs This is a pleasant 87-year-old patient who follows with Dr. Corbett. Chronic stable medical conditions include COPD, diabetes, hypertension, hypothyroid, chronic kidney disease. Patient is in the hospital in August of this year. Was seen by Dr. Saldivar from nephrology. Plan was to proceed for possible renal replacement therapy. Next few weeks. Patient was called from Dr. Saldivar's office to come to the hospitalist kidney function worsen. Patient is thinking about peritoneal dialysis at home. She's had decreased appetite. Has been losing some weight. No fever no chills. Does have a bowel movement wheelchair. Able to walk some. No nausea vomiting. November 06: Worsening renal function. Seen by nephrology Dr. Emmanuel today. For hemodialysis catheter. Blood pressure medications adjusted. No nausea vomiting. Tired. Gentle hydration. November 07: Patient was seen this morning. Dialysis catheter placed in the right IJ. [facility] Several family members at bedside. No new issues. For elevated blood pressure hydralazine was added. Active Medications Acetaminophen (Acetaminophen Tab 325 Mg Tab) 650 mg PO Q6HR PRN PRN Reason: Mild Pain or Fever > 100.5 Allopurinol (Allopurinol 100 Mg Tab) 100 mg PO DAILY [facility] Last Admin: 11/07/22 09:30 Dose: 100 mg Amlodipine Besylate (Amlodipine 5 Mg Tab) 10 mg PO DAILY [facility] Last Admin: 11/07/22 09:30 Dose: 10 mg Atorvastatin Calcium (Atorvastatin 20 Mg Tab) 20 mg PO DAILY [facility] Last Admin: 11/07/22 09:30 Dose: 20 mg Budesonide/Formoterol Fumarate (Symbicort 160-4.5 Mcg Inhaler) 2 puff INHALATION RT-BID PRN PRN Reason: Shortness Of Breath Dextrose/Water (Dextrose 50% Syringe 50 Ml) 25 ml IVP PER PROTOCOL PRN; Protocol PRN Reason: Hypoglycemia Dextrose/Water (Dextrose 50% Syringe 50 Ml) 50 ml IVP PER PROTOCOL PRN; Protocol PRN Reason: Hypoglycemia Famotidine (Famotidine 20 Mg Tab) 20 mg PO Q2D [facility] Last Admin: 11/07/22 16:09 Dose: 20 mg Fluoxetine HCl (Fluoxetine Hcl 10 Mg Cap) 10 mg PO DAILY [facility] Last Admin: 11/07/22 09:30 Dose: 10 mg Hydralazine HCl (Hydralazine Hcl 20 Mg/Ml 1 Ml Vial) 10 mg IVP Q6HR PRN PRN Reason: Blood Pressure - High Hydralazine HCl (Hydralazine Hcl 50 Mg Tab) 100 mg PO TID [facility] Last Admin: 11/07/22 16:08 Dose: 100 mg Insulin Aspart (Insulin Aspart (Novolog) 100 Unit/Ml Vial) 0 unit SQ AC-TID [facility]; Protocol Last Admin: 11/07/22 18:13 Dose: 1 unit Insulin Detemir (Insulin Detemir (Levemir) 100 Unit/Ml Syr) 18 unit SQ DAILY [facility] Last Admin: 11/07/22 09:31 Dose: 18 unit Levothyroxine Sodium (Levothyroxine 88 Mcg Tab) 176 mcg PO HS [facility] Last Admin: 11/06/22 21:13 Dose: 176 mcg Magnesium Oxide (Magnesium Oxide 400 Mg Tab) 400 mg PO BID [facility] Last Admin: 11/07/22 09:30 Dose: 400 mg Metoprolol Succinate (Metoprolol Succinate (Er) 50 Mg Tab.Er.24h) 50 mg PO DAILY [facility] Last Admin: 11/07/22 09:30 Dose: 50 mg Naloxone HCl (Naloxone 0.4 Mg/Ml 1 Ml Vial) 0.2 mg IV Q2M PRN PRN Reason: Opioid Reversal Past medical history to include: COPD, diabetes, hypertension, chronic kidney disease stage IV, hypothyroid Social history: Lives with her son-in-law grandson does use a powered wheelchair. Does not smoke or drink alcohol Physical examination: VITAL SIGNS: 98.7, 98, 16, 140/58, 91% room air GENERAL: BMI 24, laying in bed, tired. Right chest wall IJ dialysis catheter EYES: Pupils equal. Conjunctiva palel. HEENT: External appearance of nose and ears normal, oral cavity grossly normal. NECK: JVD not raised; masses not palpable. HEART: First and second heart sounds are normal; no edema. LUNGS: Respiratory rate normal; clear to auscultation. ABDOMEN: Soft, nontender, liver spleen not palpable, no masses palpable. PSYCH: Alert and oriented x3; mood and affect normal. MUSCULOSKELETAL:No Clubbing/cyanosis;muscles-grossly intact. OA INVESTIGATIONS, reviewed in the clinical context: November 07: Potassium 4.7 BUN 63.5 creatinine 6 November 06: White count 10.57 8.5 platelets 371 sodium 140 potassium 5.1 creatinine 6.1 and 33.4 White count 12.8 hemoglobin 9.5 platelets 1418 sodium 1:30 potassium 5 BUN 35 creatinine 6.78 Urine protein 3+ trace blood Previous labs: Creatinine 4.6 [09/07/2022] Assessment and plan: -Acute and chronic kidney disease creatinine being 4.6 on September 07. Now up to 6.78.: Not improving Nephrology following. Dialysis catheter placed today by Dr. Robert. To start hemodialysis this afternoon. -Anemia secondary to chronic kidney disease -COPD in nonsmoker Symbicort -Depression and anxiety Prozac -GERD Pepcid -Chronic hyperuricemia Allopurinol -Hyperlipidemia Lipitor -Diabetes mellitus type 2 tresiba. Follow Accu-Cheks -Essential hypertension with chronic kidney disease uncontrolled Toprol-XL 50. Increase Hydralazine 100 mg 3 times a day. Amlodipine 10 mg. -Hypothyroid Synthroid 175 g a day -Full code She'll start dialysis today. For blood pressure hydralazine increased. Discussed with the family at the bedside.
[2022-11-07 20:52] LABS: Phosphorus 4.5 mg/dL (2.4-5.1)
[2022-11-07] MEDS: LEVOTHYROXINE 88 MCG TAB PO SCH (21:52)
[2022-11-07] MEDS: ACETAMINOPHEN TAB 325 MG TAB PO PRN (23:05)
[2022-11-08 07:16] LABS: Glucose,Whole Blood 53 mg/dL (70-110)
[2022-11-08 07:36] LABS: Glucose,Whole Blood 83 mg/dL (70-110)
[2022-11-08] MEDS: MAGNESIUM OXIDE 400 MG TAB PO SCH (08:55)
[2022-11-08] MEDS: ATORVASTATIN 20 MG TAB PO SCH (08:55)
[2022-11-08] MEDS: allopurinoL 100 MG TAB PO SCH (08:55)
[2022-11-08] MEDS: FLUoxetine HCL 10 MG CAP PO SCH (08:55)
--- NOTE | 2022-11-08 09:10 | IR ---
EXAMINATION TYPE: IR cvc insert central tunneled DATE OF EXAM: 11/07/2022 COMPARISON: NONE HISTORY: Fluoroscopy time. Fluoroscopy was provided to the referring clinician.
[2022-11-08] MEDS: INSULIN ASPART (NovoLOG) 100 UNIT/ML VIAL SQ SCH ×3 (09:28→17:23)
[2022-11-08] MEDS: INSULIN DETEMIR (LEVEMIR) 100 UNIT/ML SYR SQ SCH (09:29)
--- NOTE | 2022-11-08 11:02 | P.PN ---
Subjective Patient is seen in follow-up for acute kidney injury on chronic kidney disease. Started on hemodialysis 11/17/2022. No problems with dialysis yesterday. Has been voiding. No chest pain or shortness of breath. Blood pressure better. Vital signs are stable. General: No acute distress. HEENT: Head exam is unremarkable. LUNGS: No audible rhonchi or wheezes. HEART: Rate and Rhythm are regular. ABDOMEN: Nontender. EXTREMITITES: No edema. Objective - Vital Signs Vital signs: Vital Signs Temp 99 F 11/08/22 07:15 Pulse 69 11/08/22 07:15 Resp 17 11/08/22 07:15 BP 162/61 11/08/22 07:15 Pulse Ox 93 L 11/08/22 07:15 FiO2 Intake & Output 11/07/22 11/08/22 11/08/22 18:59 06:59 18:59 Intake Total 950 500 Output Total 200 500 Balance 750 0 Weight 67 kg Intake: IV 50 Oral 900 Hemodialysis 500 Output: Urine 200 Hemodialysis 500 Other: Voiding Method Bedside Commode Bedside Commode External Catheter # Voids 2 2 1 - Labs CBC & Chem 7: 11/06/22 05:11 11/07/22 08:35 Labs: Abnormal Lab Results - Last 24 Hours (Table) 11/06/22 11/07/22 11/07/22 Range/Units 11:30 08:35 17:01 Carbon Dioxide 18.1 L (21.6-31.8) mmol/L Anion Gap 13.90 H (4.00-12.00) mmol/L BUN 63.5 H (9.0-27.0) mg/dL Creatinine 6.0 H (0.6-1.5) mg/dL Est GFR (CKD-EPI) 6 L (>=60) BUN/Creatinine Ratio 10.58 L (12.00-20.00) Ratio POC Glucose (mg/dL) 196 H (70-110) mg/dL Calcium 8.5 L (8.7-10.3) mg/dL Magnesium 2.7 H (1.5-2.4) mg/dL Vitamin D 25-Hydroxy 24.6 L (30.0-100.0) ng/mL 11/07/22 11/08/22 Range/Units 20:11 07:14 Carbon Dioxide (21.6-31.8) mmol/L Anion Gap (4.00-12.00) mmol/L BUN (9.0-27.0) mg/dL Creatinine (0.6-1.5) mg/dL Est GFR (CKD-EPI) (>=60) BUN/Creatinine Ratio (12.00-20.00) Ratio POC Glucose (mg/dL) 169 H 53 L (70-110) mg/dL Calcium (8.7-10.3) mg/dL Magnesium (1.5-2.4) mg/dL Vitamin D 25-Hydroxy (30.0-100.0) ng/mL Assessment and Plan Plan: Assessment: 1. Acute kidney injury with likely progression of underlying chronic kidney disease stage V. Creatinine near 6 this admission. Started on hemodialysis 11/07/2022 via permacath. 2. 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 3. Metabolic acidosis secondary to chronic kidney disease. Expect improvement postdialysis. 4. Hypertension with chronic kidney disease. 5. Anemia of chronic kidney disease. 6. Chronic kidney disease mineral bone disease. PTH 91.4. Phosphorus 4.5. Vitamin D 24.6. Plan: Second treatment of hemodialysis today and third treatment tomorrow. Also discussed PD. She is interested. Will further address and educate outpatient. Case management to set up outpatient hemodialysis at [facility]. Stop magnesium supplementation. Check iron studies. Add Aranesp.
[2022-11-08 11:21] LABS: Glucose,Whole Blood 200 mg/dL (70-110)
[2022-11-08] MEDS ORDERED: DARBEPOETIN ALFA 40 MCG/0.4 ML SYRINGE SQ SCH (13:00)
[2022-11-08 17:15] LABS: % Iron Saturation 13.27 (12.00-45.00)
[2022-11-08 17:15] LABS: Glucose,Whole Blood 160 mg/dL (70-110)
[2022-11-08] MEDS: hydrALAZINE HCL 50 MG TAB PO SCH ×2 (17:20→23:05)
--- NOTE | 2022-11-08 19:49 | P.PN ---
Progress Note - Text Progress Note Date: 11/08/22 Chief Complaint: Abdomen labs This is a pleasant 87-year-old patient who follows with Dr. Corbett. Chronic stable medical conditions include COPD, diabetes, hypertension, hypothyroid, chronic kidney disease. Patient is in the hospital in August of this year. Was seen by Dr. Saldivar from nephrology. Plan was to proceed for possible renal replacement therapy. Next few weeks. Patient was called from Dr. Saldivar's office to come to the hospitalist kidney function worsen. Patient is thinking about peritoneal dialysis at home. She's had decreased appetite. Has been losing some weight. No fever no chills. Does have a bowel movement wheelchair. Able to walk some. No nausea vomiting. November 06: Worsening renal function. Seen by nephrology Dr. Emmanuel today. For hemodialysis catheter. Blood pressure medications adjusted. No nausea vomiting. Tired. Gentle hydration. November 07: Patient was seen this morning. Dialysis catheter placed in the right IJ. [facility] Several family members at bedside. No new issues. For elevated blood pressure hydralazine was added. November 08: Laying in bed. Comforter. Feeling better. Making urine. Second hemodialysis today. Patient is interested in peritoneal dialysis. Aranesp added. Active Medications Acetaminophen (Acetaminophen Tab 325 Mg Tab) 650 mg PO Q6HR PRN PRN Reason: Mild Pain or Fever > 100.5 Last Admin: 11/07/22 23:05 Dose: 650 mg Allopurinol (Allopurinol 100 Mg Tab) 100 mg PO DAILY [facility] Last Admin: 11/08/22 08:55 Dose: 100 mg Amlodipine Besylate (Amlodipine 5 Mg Tab) 10 mg PO DAILY [facility] Last Admin: 11/07/22 09:30 Dose: 10 mg Atorvastatin Calcium (Atorvastatin 20 Mg Tab) 20 mg PO DAILY [facility] Last Admin: 11/08/22 08:55 Dose: 20 mg Budesonide/Formoterol Fumarate (Symbicort 160-4.5 Mcg Inhaler) 2 puff INHALATION RT-BID PRN PRN Reason: Shortness Of Breath Darbepoetin Yrn (Darbepoetin Yrn 40 Mcg/0.4 Ml Syringe) 40 mcg SQ Q7D [facility] Last Admin: 11/08/22 17:23 Dose: 40 mcg Dextrose/Water (Dextrose 50% Syringe 50 Ml) 25 ml IVP PER PROTOCOL PRN; Protocol PRN Reason: Hypoglycemia Dextrose/Water (Dextrose 50% Syringe 50 Ml) 50 ml IVP PER PROTOCOL PRN; Protocol PRN Reason: Hypoglycemia Famotidine (Famotidine 20 Mg Tab) 20 mg PO Q2D [facility] Last Admin: 11/07/22 16:09 Dose: 20 mg Fluoxetine HCl (Fluoxetine Hcl 10 Mg Cap) 10 mg PO DAILY [facility] Last Admin: 11/08/22 08:55 Dose: 10 mg Hydralazine HCl (Hydralazine Hcl 20 Mg/Ml 1 Ml Vial) 10 mg IVP Q6HR PRN PRN Reason: Blood Pressure - High Last Admin: 11/08/22 02:44 Dose: 10 mg Hydralazine HCl (Hydralazine Hcl 50 Mg Tab) 100 mg PO TID [facility] Last Admin: 11/08/22 17:20 Dose: Not Given Insulin Aspart (Insulin Aspart (Novolog) 100 Unit/Ml Vial) 0 unit SQ AC-TID [facility]; Protocol Last Admin: 11/08/22 17:23 Dose: 1 unit Insulin Detemir (Insulin Detemir (Levemir) 100 Unit/Ml Syr) 18 unit SQ DAILY [facility] Last Admin: 11/08/22 09:29 Dose: Not Given Levothyroxine Sodium (Levothyroxine 88 Mcg Tab) 176 mcg PO HS [facility] Last Admin: 11/07/22 21:52 Dose: 176 mcg Metoprolol Succinate (Metoprolol Succinate (Er) 50 Mg Tab.Er.24h) 50 mg PO DAILY [facility] Last Admin: 11/07/22 09:30 Dose: 50 mg Naloxone HCl (Naloxone 0.4 Mg/Ml 1 Ml Vial) 0.2 mg IV Q2M PRN PRN Reason: Opioid Reversal Past medical history to include: COPD, diabetes, hypertension, chronic kidney disease stage IV, hypothyroid Social history: Lives with her son-in-law grandson does use a powered wheelchair. Does not smoke or drink alcohol Physical examination: VITAL SIGNS: 99, 69, 17, 172/61, 93% on room air GENERAL: BMI 24, laying in bed, tired. Right chest wall IJ dialysis catheter EYES: Pupils equal. Conjunctiva palel. HEENT: External appearance of nose and ears normal, oral cavity grossly normal. NECK: JVD not raised; masses not palpable. HEART: First and second heart sounds are normal; no edema. LUNGS: Respiratory rate normal; clear to auscultation. ABDOMEN: Soft, nontender, liver spleen not palpable, no masses palpable. PSYCH: Alert and oriented x3; mood and affect normal. MUSCULOSKELETAL:No Clubbing/cyanosis;muscles-grossly intact. OA INVESTIGATIONS, reviewed in the clinical context: November 07: Potassium 4.7 BUN 63.5 creatinine 6 November 06: White count 10.57 8.5 platelets 371 sodium 140 potassium 5.1 creatinine 6.1 and 33.4 White count 12.8 hemoglobin 9.5 platelets 1418 sodium 1:30 potassium 5 BUN 35 creatinine 6.78 Urine protein 3+ trace blood Previous labs: Creatinine 4.6 [09/07/2022] Assessment and plan: -Acute and chronic kidney disease creatinine being 4.6 on September 07. Now up to 6.78.: Not improving Nephrology following. Dialysis catheter placed today by Dr. Robert. To start hemodialysis this afternoon. -Anemia secondary to chronic kidney disease -COPD in nonsmoker Symbicort -Depression and anxiety Prozac -GERD Pepcid -Chronic hyperuricemia Allopurinol -Hyperlipidemia Lipitor -Diabetes mellitus type 2 tresiba. Follow Accu-Cheks -Essential hypertension with chronic kidney disease uncontrolled Toprol-XL 50. Increase Hydralazine 100 mg 3 times a day. Amlodipine 10 mg. -Hypothyroid Synthroid 175 g a day -Full code Second hemodialysis today. Spoke to the telehealth case manager. Probable discharge on Tuesday. Follow blood pressure DC Toprol-XL. Lopressor 75 mg twice a day. Cutback Levemir to 14 units a day.
[2022-11-08 19:59] LABS: Glucose,Whole Blood 224 mg/dL (70-110)
[2022-11-08] MEDS: amLODIPine 5 MG TAB PO SCH (22:30)
[2022-11-08] MEDS: LEVOTHYROXINE 88 MCG TAB PO SCH (23:05)
[2022-11-08] MEDS: METOPROLOL SUCCINATE (ER) 50 MG TAB.ER.24H PO SCH (23:45)
[2022-11-09 07:12] LABS: Glucose,Whole Blood 119 mg/dL (70-110)
[2022-11-09] MEDS: INSULIN ASPART (NovoLOG) 100 UNIT/ML VIAL SQ SCH ×3 (07:37→17:37)
[2022-11-09] MEDS: INSULIN DETEMIR (LEVEMIR) 100 UNIT/ML SYR SQ SCH (08:15)
[2022-11-09] MEDS: allopurinoL 100 MG TAB PO SCH (08:16)
[2022-11-09] MEDS: FLUoxetine HCL 10 MG CAP PO SCH (08:17)
[2022-11-09] MEDS: ATORVASTATIN 20 MG TAB PO SCH (08:17)
[2022-11-09] MEDS: amLODIPine 5 MG TAB PO SCH (08:17)
[2022-11-09] MEDS: hydrALAZINE HCL 50 MG TAB PO SCH ×3 (08:17→20:06)
[2022-11-09] MEDS: METOPROLOL TARTRATE 25 MG TAB PO SCH ×2 (08:17→20:06)
--- NOTE | 2022-11-09 11:43 | P.PN ---
Subjective Patient is seen in follow-up for acute kidney injury on chronic kidney disease. Started on hemodialysis 11/07/2022. No problems with dialysis yesterday. Has been voiding. No chest pain or shortness of breath. Blood pressure high. Vital signs are stable. General: No acute distress. HEENT: Head exam is unremarkable. LUNGS: No audible rhonchi or wheezes. HEART: Rate and Rhythm are regular. ABDOMEN: Nontender. EXTREMITITES: No edema. Objective - Vital Signs Vital signs: Vital Signs Temp 98.6 F 11/09/22 07:11 Pulse 77 11/09/22 07:11 Resp 16 11/09/22 07:11 BP 170/64 11/09/22 07:11 Pulse Ox 94 L 11/09/22 07:11 FiO2 Intake & Output 11/08/22 11/09/22 11/09/22 18:59 06:59 18:59 Intake Total 500 Output Total 0 Balance 500 Weight 65 kg Intake: Hemodialysis 500 Output: Hemodialysis 0 Other: Voiding Method Bedside Commode Bedside Commode # Voids 1 1 1 # Bowel Movements 1 1 - Labs CBC & Chem 7: 11/06/22 05:11 11/07/22 08:35 Labs: Abnormal Lab Results - Last 24 Hours (Table) 11/07/22 11/08/22 11/08/22 Range/Units 08:35 17:13 19:57 POC Glucose (mg/dL) 160 H 224 H (70-110) mg/dL Iron 41 L (50-170) UG/DL Ferritin 428.0 H (10.0-291.0) ng/mL 11/09/22 Range/Units 07:11 POC Glucose (mg/dL) 119 H (70-110) mg/dL Iron (50-170) UG/DL Ferritin (10.0-291.0) ng/mL Assessment and Plan Plan: Assessment: 1. Acute kidney injury with likely progression of underlying chronic kidney disease stage V. Creatinine near 6 this admission. Started on hemodialysis 11/07/2022 via permacath. 2. 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 3. Metabolic acidosis secondary to chronic kidney disease. Expect improvement postdialysis. 4. Hypertension with chronic kidney disease. 5. Anemia of chronic kidney disease. On Aranesp. Iron deficiency noted. 6. Chronic kidney disease mineral bone disease. PTH 91.4. Phosphorus 4.5. Vitamin D 24.6. Plan: Hemodialysis today. Also discussed PD. She is interested. Will further address and educate outpatient. Case management to set up outpatient hemodialysis at [facility]. Add IV iron. Dose of metoprolol increased today.
[2022-11-09] MEDS: SODIUM FERRIC GLUCONAT-SUCROSE 125 MG in SODIUM CHLORIDE 0.9% 100 ML IVPB SCH (12:32)
[2022-11-09 12:34] LABS: Glucose,Whole Blood 129 mg/dL (70-110)
[2022-11-09] MEDS: FAMOTIDINE 20 MG TAB PO SCH (17:03)
[2022-11-09 17:20] LABS: Glucose,Whole Blood 108 mg/dL (70-110)
[2022-11-09] MEDS ORDERED: ONDANSETRON 4 MG/2 ML VIAL IVP PRN (18:48)
[2022-11-09 20:06] LABS: Glucose,Whole Blood 177 mg/dL (70-110)
[2022-11-09] MEDS: LEVOTHYROXINE 88 MCG TAB PO SCH (20:09)
[2022-11-09] MEDS ORDERED: METOPROLOL TARTRATE 25 MG TAB PO STA (21:29)
--- NOTE | 2022-11-09 21:33 | P.PN ---
Progress Note - Text Progress Note Date: 11/09/22 Chief Complaint: Abdomen labs This is a pleasant 87-year-old patient who follows with Dr. Corbett. Chronic stable medical conditions include COPD, diabetes, hypertension, hypothyroid, chronic kidney disease. Patient is in the hospital in August of this year. Was seen by Dr. Saldivar from nephrology. Plan was to proceed for possible renal replacement therapy. Next few weeks. Patient was called from Dr. Saldivar's office to come to the hospitalist kidney function worsen. Patient is thinking about peritoneal dialysis at home. She's had decreased appetite. Has been losing some weight. No fever no chills. Does have a bowel movement wheelchair. Able to walk some. No nausea vomiting. November 06: Worsening renal function. Seen by nephrology Dr. Emmanuel today. For hemodialysis catheter. Blood pressure medications adjusted. No nausea vomiting. Tired. Gentle hydration. November 07: Patient was seen this morning. Dialysis catheter placed in the right IJ. [facility] Several family members at bedside. No new issues. For elevated blood pressure hydralazine was added. November 08: Laying in bed. Comforter. Feeling better. Making urine. Second hemodialysis today. Patient is interested in peritoneal dialysis. Aranesp added. November 09: Getting hemodialysis today. Blood pressure medications not taken this morning. Blood pressure running high this morning. . Plan for DC tomorrow. Eating well. Otherwise patient feeling well. Increase Lopressor to 100 mg twice a day. Active Medications Acetaminophen (Acetaminophen Tab 325 Mg Tab) 650 mg PO Q6HR PRN PRN Reason: Mild Pain or Fever > 100.5 Last Admin: 11/07/22 23:05 Dose: 650 mg Allopurinol (Allopurinol 100 Mg Tab) 100 mg PO DAILY [facility] Last Admin: 11/09/22 08:16 Dose: 100 mg Amlodipine Besylate (Amlodipine 5 Mg Tab) 10 mg PO DAILY [facility] Last Admin: 11/09/22 08:17 Dose: 10 mg Atorvastatin Calcium (Atorvastatin 20 Mg Tab) 20 mg PO DAILY [facility] Last Admin: 11/09/22 08:17 Dose: 20 mg Budesonide/Formoterol Fumarate (Symbicort 160-4.5 Mcg Inhaler) 2 puff INHALATION RT-BID PRN PRN Reason: Shortness Of Breath Darbepoetin Yrn (Darbepoetin Yrn 40 Mcg/0.4 Ml Syringe) 40 mcg SQ Q7D [facility] Last Admin: 11/08/22 17:23 Dose: 40 mcg Dextrose/Water (Dextrose 50% Syringe 50 Ml) 25 ml IVP PER PROTOCOL PRN; Protocol PRN Reason: Hypoglycemia Dextrose/Water (Dextrose 50% Syringe 50 Ml) 50 ml IVP PER PROTOCOL PRN; Protocol PRN Reason: Hypoglycemia Famotidine (Famotidine 20 Mg Tab) 20 mg PO Q2D [facility] Last Admin: 11/09/22 17:03 Dose: 20 mg Fluoxetine HCl (Fluoxetine Hcl 10 Mg Cap) 10 mg PO DAILY [facility] Last Admin: 11/09/22 08:17 Dose: 10 mg Hydralazine HCl (Hydralazine Hcl 20 Mg/Ml 1 Ml Vial) 10 mg IVP Q6HR PRN PRN Reason: Blood Pressure - High Last Admin: 11/08/22 02:44 Dose: 10 mg Hydralazine HCl (Hydralazine Hcl 50 Mg Tab) 100 mg PO TID [facility] Last Admin: 11/09/22 20:06 Dose: 100 mg Ferric Sodium Gluconate 125 mg (/ Sodium Chloride) 110 mls @ 100 mls/hr IVPB DAILY [facility] Stop: 11/12/22 12:16 Last Admin: 11/09/22 12:32 Dose: 100 mls/hr Insulin Aspart (Insulin Aspart (Novolog) 100 Unit/Ml Vial) 0 unit SQ AC-TID [facility]; Protocol Last Admin: 11/09/22 17:37 Dose: Not Given Insulin Detemir (Insulin Detemir (Levemir) 100 Unit/Ml Syr) 14 unit SQ DAILY@0700 [facility] Last Admin: 11/09/22 08:15 Dose: 14 unit Levothyroxine Sodium (Levothyroxine 88 Mcg Tab) 176 mcg PO HS [facility] Last Admin: 11/09/22 20:09 Dose: 176 mcg Metoprolol Tartrate (Metoprolol Tartrate 25 Mg Tab) 25 mg PO ONCE STA Stop: 11/09/22 21:30 Metoprolol Tartrate (Metoprolol Tartrate 50 Mg Tab) 100 mg PO BID [facility] Naloxone HCl (Naloxone 0.4 Mg/Ml 1 Ml Vial) 0.2 mg IV Q2M PRN PRN Reason: Opioid Reversal Ondansetron HCl (Ondansetron 4 Mg/2 Ml Vial) 4 mg IVP Q8HR PRN PRN Reason: Nausea And Vomiting Last Admin: 11/09/22 19:05 Dose: 4 mg Past medical history to include: COPD, diabetes, hypertension, chronic kidney disease stage IV, hypothyroid Social history: Lives with her son-in-law grandson does use a powered wheelchair. Does not smoke or drink alcohol Physical examination: VITAL SIGNS: 98.7, 16, 17, 159 versus 2, 92% room air GENERAL: BMI 24, laying in bed, tired. Right chest wall IJ dialysis catheter. Getting hemodialysis EYES: Pupils equal. Conjunctiva palel. HEENT: External appearance of nose and ears normal, oral cavity grossly normal. NECK: JVD not raised; masses not palpable. HEART: First and second heart sounds are normal; no edema. LUNGS: Respiratory rate normal; clear to auscultation. ABDOMEN: Soft, nontender, liver spleen not palpable, no masses palpable. PSYCH: Alert and oriented x3; mood and affect normal. MUSCULOSKELETAL:No Clubbing/cyanosis;muscles-grossly intact. OA INVESTIGATIONS, reviewed in the clinical context: November 07: Potassium 4.7 BUN 63.5 creatinine 6 November 06: White count 10.57 8.5 platelets 371 sodium 140 potassium 5.1 creatinine 6.1 and 33.4 White count 12.8 hemoglobin 9.5 platelets 1418 sodium 1:30 potassium 5 BUN 35 creatinine 6.78 Urine protein 3+ trace blood Previous labs: Creatinine 4.6 [09/07/2022] Assessment and plan: -Acute and chronic kidney disease creatinine being 4.6 on September 07. Now up to 6.78.: Not improving Nephrology following. Dialysis catheter placed-by Dr. Shirley. Daily dialysis -Anemia secondary to chronic kidney disease -COPD in nonsmoker Symbicort -Depression and anxiety Prozac -GERD Pepcid -Chronic hyperuricemia Allopurinol -Hyperlipidemia Lipitor -Diabetes mellitus type 2 tresiba. Follow Accu-Cheks -Essential hypertension with chronic kidney disease uncontrolled Increase Lopressor to 100 mg twice a day. Hydralazine 100 mg 3 times a day. Amlodipine 10 mg. -Hypothyroid Synthroid 175 g a day -Full code Increase Lopressor. Other medications to continue. Plan for discharge tomorrow.
[2022-11-09] MEDS: ACETAMINOPHEN TAB 325 MG TAB PO PRN (22:58)
[2022-11-10 03:01] LABS: Glucose,Whole Blood 117 mg/dL (70-110)
[2022-11-10 07:33] LABS: Glucose,Whole Blood 117 mg/dL (70-110)
[2022-11-10] MEDS ORDERED: METOPROLOL TARTRATE 50 MG TAB PO SCH (09:00)
[2022-11-10] MEDS: INSULIN ASPART (NovoLOG) 100 UNIT/ML VIAL SQ SCH ×2 (10:00→13:30)
[2022-11-10] MEDS: ATORVASTATIN 20 MG TAB PO SCH (10:01)
[2022-11-10] MEDS: hydrALAZINE HCL 50 MG TAB PO SCH (10:01)
[2022-11-10] MEDS: amLODIPine 5 MG TAB PO SCH (10:01)
[2022-11-10] MEDS: INSULIN DETEMIR (LEVEMIR) 100 UNIT/ML SYR SQ SCH (10:01)
[2022-11-10] MEDS: FLUoxetine HCL 10 MG CAP PO SCH (10:02)
[2022-11-10] MEDS: allopurinoL 100 MG TAB PO SCH (10:02)
[2022-11-10] MEDS: SODIUM FERRIC GLUCONAT-SUCROSE 125 MG in SODIUM CHLORIDE 0.9% 100 ML IVPB SCH (10:04)
[2022-11-10] MEDS: ACETAMINOPHEN TAB 325 MG TAB PO PRN (10:04)
--- NOTE | 2022-11-10 11:09 | P.PN ---
Subjective Patient is seen in follow-up for acute kidney injury on chronic kidney disease. Started on hemodialysis 11/07/2022. No problems with dialysis yesterday. Has been voiding. No chest pain or shortness of breath. Blood pressure still on higher side. Vomited once this morning. Feels better now. Vital signs are stable. General: No acute distress. HEENT: Head exam is unremarkable. LUNGS: No audible rhonchi or wheezes. HEART: Rate and Rhythm are regular. ABDOMEN: Nontender. EXTREMITITES: No edema. Objective - Vital Signs Vital signs: Vital Signs Temp 98.2 F 11/10/22 07:33 Pulse 56 L 11/10/22 07:33 Resp 16 11/10/22 07:33 BP 166/54 11/10/22 07:33 Pulse Ox 87 L 11/10/22 07:33 FiO2 Intake & Output 11/09/22 11/10/22 11/10/22 18:59 06:59 18:59 Intake Total 600 Output Total 1000 Balance -400 Weight 64.5 kg Intake: Intake, IV Titration 100 Amount Sodium Ferric Gluconat- 100 Sucrose 125 mg In Sodium Chloride 0.9% 100 ml @ 100 mls/hr IVPB DAILY [facility] Rx#:[id number] Hemodialysis 500 Output: Hemodialysis 1000 Other: Voiding Method Bedside Commode # Voids 3 1 # Bowel Movements 1 1 - Labs CBC & Chem 7: 11/06/22 05:11 11/07/22 08:35 Labs: Abnormal Lab Results - Last 24 Hours (Table) 11/09/22 11/09/22 11/10/22 Range/Units 12:33 20:04 02:59 POC Glucose (mg/dL) 129 H 177 H 117 H (70-110) mg/dL 11/10/22 Range/Units 07:31 POC Glucose (mg/dL) 117 H (70-110) mg/dL Assessment and Plan Plan: Assessment: 1. Acute kidney injury with likely progression of underlying chronic kidney di sease stage V. Creatinine near 6 this admission. Started on hemodialysis 11/07/2022 via permacath. 2. 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 3. Metabolic acidosis secondary to chronic kidney disease. Expect improvement postdialysis. 4. Hypertension with chronic kidney disease. 5. Anemia of chronic kidney disease. On Aranesp. Iron deficiency noted. 6. Chronic kidney disease mineral bone disease. PTH 91.4. Phosphorus 4.5. Vitamin D 24.6. Plan: Hemodialysis tomorrow. She'll be maintained on Tuesday schedule outpatient. Also discussed PD. She is interested. Will further address and educate outpatient. Maintain IV iron. Dose of metoprolol further increased today.
[2022-11-10 11:59] LABS: Glucose,Whole Blood 183 mg/dL (70-110)
[2022-11-10 12:19] LABS: BUN/Creat Ratio 4.12 Ratio (12.00-20.00); Blood Urea Nitrogen 10.3 mg/dL (9.0-27.0); Calcium 8.6 mg/dL (8.7-10.3); Carbon Dioxide 28.1 mmol/L (21.6-31.8); Chloride 100 mmol/L (96-109); Glucose 121 mg/dL (70-110); Potassium 3.7 mmol/L (3.5-5.5); Sodium 137 mmol/L (135-145)
[2022-11-10 12:39] VITALS: BP 143/54; PULSE 55; RESP 14; TEMP 97.9
--- NOTE | 2022-11-10 22:37 | P.DS ---
Providers Date of admission: 11/05/22 15:25 Expected date of discharge: 11/10/22 Attending physician: Ronaldo Richmond Consults: 11/05/22 15:23 Consult Physician Urgent Consulting Provider: January Saldivar Consult Reason/Comments: esrd Do you want consulting provider notified?: Yes 11/06/22 10:50 Consult Physician Routine Consulting Provider: Yogesh Miller Consult Reason/Comments: p-cath (permanent) placement Do you want consulting provider notified?: Yes Primary care physician: Randell Corbett [facility] Course: Chief Complaint: Abdomen labs This is a pleasant 87-year-old patient who follows with Dr. Corbett. Chronic stable medical conditions include COPD, diabetes, hypertension, hypothyroid, chronic kidney disease. Patient is in the hospital in August of this year. Was seen by Dr. Saldivar from nephrology. Plan was to proceed for possible renal replacement therapy. Next few weeks. Patient was called from Dr. Saldivar's office to come to the hospitalist kidney function worsen. Patient is thinking about peritoneal dialysis at home. She's had decreased appetite. Has been losing some weight. No fever no chills. Does have a bowel movement wheelchair. Able to walk some. No nausea vomiting. November 06: Worsening renal function. Seen by nephrology Dr. Emmanuel today. For hemodialysis catheter. Blood pressure medications adjusted. No nausea vomiting. Tired. Gentle hydration. November 07: Patient was seen this morning. Dialysis catheter placed in the right IJ. [facility] Several family members at bedside. No new issues. For elevated blood pressure hydralazine was added. November 08: Laying in bed. Comforter. Feeling better. Making urine. Second hemodialysis today. Patient is interested in peritoneal dialysis. Aranesp added. November 09: Getting hemodialysis today. Blood pressure medications not taken this morning. Blood pressure running high this morning. . Plan for DC tomorrow. Eating well. Otherwise patient feeling well. Increase Lopressor to 100 mg twice a day. November 10: Doing well. He'll be discharged today. Outpatient dialysis at [facility]. Questions answered. Past medical history to include: COPD, diabetes, hypertension, chronic kidney disease stage IV, hypothyroid Social history: Lives with her son-in-law grandson does use a powered wheelchair. Does not smoke or drink alcohol Physical examination: VITAL SIGNS: 97.9, 55, 14, 143/54, 91% room air GENERAL: BMI 24, laying in bed, tired. Right chest wall IJ dialysis catheter. EYES: Pupils equal. Conjunctiva palel. HEENT: External appearance of nose and ears normal, oral cavity grossly normal. NECK: JVD not raised; masses not palpable. HEART: First and second heart sounds are normal; no edema. LUNGS: Respiratory rate normal; clear to auscultation. ABDOMEN: Soft, nontender, liver spleen not palpable, no masses palpable. PSYCH: Alert and oriented x3; mood and affect normal. MUSCULOSKELETAL:No Clubbing/cyanosis;muscles-grossly intact. OA INVESTIGATIONS, reviewed in the clinical context: November 10: Potassium 3.7 BUN 10.3 creatinine 2.5 White count 12.8 hemoglobin 9.5 platelets 1418 sodium 1:30 potassium 5 BUN 35 creatinine 6.78 Urine protein 3+ trace blood Previous labs: Creatinine 4.6 [09/07/2022] Assessment and plan: -Acute and chronic kidney disease creatinine being 4.6 on September 07. Now up to 6.78.: Nephrology following. Dialysis catheter placed-by Dr. Shirley. -Anemia secondary to chronic kidney disease -COPD in nonsmoker Symbicort -Depression and anxiety Prozac -GERD Pepcid -Chronic hyperuricemia Allopurinol -Hyperlipidemia Lipitor -Diabetes mellitus type 2 tresiba. Follow Accu-Cheks -Essential hypertension with chronic kidney disease Lopressor to 100 mg twice a day. Hydralazine 100 mg 3 times a day. Amlodipine 10 mg. -Hypothyroid Synthroid 175 g a day -DO NOT RESUSCITATE Disposition: Home Plan - Discharge Summary Discharge Rx Participant: No New Discharge Prescriptions: New hydrALAZINE HCL [Apresoline] 100 mg PO TID #90 tablet Metoprolol Tartrate [Lopressor] 100 mg PO BID #60 tablet Continue Atorvastatin Calcium 20 mg PO DAILY Acetaminophen Tab [Tylenol] 650 mg PO Q6HR PRN tab PRN Reason: Mild Pain Or Fever > 100.5 amLODIPine [Norvasc] 10 mg PO DAILY allopurinoL 100 mg PO DAILY Budesonide-Formot 160-4.5 Mcg [Symbicort 160-4.5 Mcg Inhaler] 2 puff INHALATION RT-BID PRN PRN Reason: Shortness Of Breath FLUoxetine HCL [PROzac] 10 mg PO DAILY Famotidine [Pepcid] 20 mg PO Q2D Levothyroxine Sodium [Synthroid] 175 mcg PO DAILY Changed Insulin Degludec [Tresiba Flextouch U-200 Pen] 14 unit SQ DAILY #0 Discontinued Magnesium Oxide [Magox 400] 400 mg PO BID hydrALAZINE HCL 50 mg PO TID Metoprolol Succinate (ER) [Toprol Xl] 50 mg PO DAILY Discharge Medication List Atorvastatin Calcium 20 mg PO DAILY 09/04/22 [History] Budesonide-Formot 160-4.5 Mcg [Symbicort 160-4.5 Mcg Inhaler] 2 puff INHALATION RT-BID PRN 09/04/22 [History] FLUoxetine HCL [PROzac] 10 mg PO DAILY 09/04/22 [History] allopurinoL 100 mg PO DAILY 09/04/22 [History] Acetaminophen Tab [Tylenol] 650 mg PO Q6HR PRN tab 09/07/22 [Rx] Famotidine [Pepcid] 20 mg PO Q2D 11/05/22 [History] Levothyroxine Sodium [Synthroid] 175 mcg PO DAILY 11/05/22 [History] amLODIPine [Norvasc] 10 mg PO DAILY 11/05/22 [History] Insulin Degludec [Tresiba Flextouch U-200 Pen] 14 unit SQ DAILY #0 11/10/22 [Rx] Metoprolol Tartrate [Lopressor] 100 mg PO BID #60 tablet 11/10/22 [Rx] hydrALAZINE HCL [Apresoline] 100 mg PO TID #90 tablet 11/10/22 [Rx] Follow up Appointment(s)/Referral(s): [facility], [NON-STAFF] - 1 Week [facility] [NON-STAFF] - 1 Week Randell Corbett MD [Primary Care Provider] - 11/15/22 1:00 pm (appointment is with Matilde CORRALES) Patient Instructions/Handouts: Metoprolol (By mouth), Hydralazine (By mouth), Dialysis Diet (DC), Hypertension (DC), Hemodialysis (DC) Activity/Diet/Wound Care/Special Instructions: Chair time for dialysis - October at 11am : [address] [facility] [place] [facility] [place] [id number] Discharge Disposition: HOME SELF-CARE
== END 2022-11-10 16:10 | disposition home health service (06) | DRG 673 ==
LOC: EC 12:46 → 5NMEDONC 15:25
PROVIDERS: ADMIT Hospitalist; ATTEND Hospitalist
PROC: 02HV33Z Insertion of Infusion Device into Superior Vena Cava, Percutaneous Approach (ICD-10-PCS; principal; 2022-11-07 08:55)
PROC: 0JH63XZ Insertion of Tunneled Vascular Access Device into Chest Subcutaneous Tissue and Fascia, Percutaneous Approach (ICD-10-PCS; principal; 2022-11-07 08:55)
PROC: 5A1D70Z Performance of Urinary Filtration, Intermittent, Less than 6 Hours Per Day (ICD-10-PCS; 2022-11-07 08:55)
DX: I12.0 Hypertensive chronic kidney disease with stage 5 chronic kidney disease or end stage renal disease (principal); N18.6 End stage renal disease; E87.20 Acidosis, unspecified; N17.9 Acute kidney failure, unspecified; Z66 Do not resuscitate; D63.1 Anemia in chronic kidney disease; M89.8X9 Other specified disorders of bone, unspecified site; K21.9 Gastro-esophageal reflux disease without esophagitis; E78.5 Hyperlipidemia, unspecified; E79.0 Hyperuricemia without signs of inflammatory arthritis and tophaceous disease; F32.A Depression, unspecified; F41.9 Anxiety disorder, unspecified; J44.9 Chronic obstructive pulmonary disease, unspecified; E61.1 Iron deficiency; E11.22 Type 2 diabetes mellitus with diabetic chronic kidney disease; E03.9 Hypothyroidism, unspecified; Z88.1 Allergy status to other antibiotic agents; Z88.6 Allergy status to analgesic agent; Z88.0 Allergy status to penicillin; Z88.3 Allergy status to other anti-infective agents; Z79.899 Other long term (current) drug therapy; Z79.890 Hormone replacement therapy; Z79.51 Long term (current) use of inhaled steroids; Z79.4 Long term (current) use of insulin
CPT/HCPCS: 36415; 36558; 51701; 76937; 80048; 80053; 81001; 82306; 82728; 83036; 83540; 83550; 83735; 83970; 84100; 85025; 86706; 87340; 90935; 94640; 96360; 96361; 96365; 96366; 99285; 99291

== ENCOUNTER 2022-11-11 19:27 | Inpatient (IN) | payer MEDICARE ==
[2022-11-11] MEDS ORDERED: ONDANSETRON 4 MG/2 ML VIAL IVP STA (21:28)
[2022-11-11] MEDS ORDERED: NALOXONE 0.4 MG/ML 1 ML VIAL IV PRN (21:33)
--- NOTE | 2022-11-11 21:33 | ED ---
SOB HPI - General Chief Complaint: Shortness of Breath Stated Complaint: Hypoxia Time Seen by Provider: 11/11/22 21:05 Source: EMS Mode of arrival: EMS - History of Present Illness Initial Comments: 87-year-old female with past medical history of chronic kidney disease presents to the emergency room as a transfer from [facility]. She was just recently hospitalized at our facility and had a dialysis catheter placed. She did receive 2 dialysis sessions and was discharged yesterday. Today she followed up for her first outpatient dialysis session however it had to be stopped 2 hours in as she had intense cramping in her lower extremities, left worse than right. They transported her into [facility] laboratory studies were conducted. The patient was hypoxic at 88% and required 2 L of oxygen. X-ray showed congestive heart failure. They did recommend transfer to our facility for nephrology consultation as the patient is having a hard time tolerating her dialysis session. Patient admits some nausea with poor appetite. Does admit to some shortness of breath without the oxygen on. Last dose of her medications was at 7 AM this morning. No other alleviating, precipitating or modifying factors - Related Data Home Medications Medication Instructions Recorded Confirmed Atorvastatin Calcium 20 mg PO DAILY 09/04/22 11/11/22 Budesonide-Formot 160-4.5 Mcg 2 puff INHALATION RT-BID PRN 09/04/22 11/11/22 [Symbicort 160-4.5 Mcg Inhaler] FLUoxetine HCL [PROzac] 10 mg PO DAILY 09/04/22 11/11/22 allopurinoL 100 mg PO DAILY 09/04/22 11/11/22 Famotidine [Pepcid] 20 mg PO Q2D 11/05/22 11/11/22 Levothyroxine Sodium [Synthroid] 175 mcg PO DAILY 11/05/22 11/11/22 amLODIPine [Norvasc] 10 mg PO DAILY 11/05/22 11/11/22 Previous Rx's Medication Instructions Recorded Acetaminophen Tab [Tylenol] 650 mg PO Q6HR PRN tab 09/07/22 Insulin Degludec [Tresiba 14 unit SQ DAILY #0 11/10/22 Flextouch U-200 Pen] Metoprolol Tartrate [Lopressor] 100 mg PO BID #60 tablet 11/10/22 hydrALAZINE HCL [Apresoline] 100 mg PO TID #90 tablet 11/10/22 Allergies Allergy/AdvReac Type Severity Reaction Status Date / Time cefaclor Allergy Rash/Hives/ Verified 11/11/22 21:37 Nausea cephalexin Allergy Rash/Hives/ Verified 11/11/22 21:37 Nausea erythromycin base Allergy Rash/Hives/ Verified 11/11/22 21:37 Nausea indomethacin Allergy Rash/Hives/ Verified 11/11/22 21:37 Nausea Penicillins Allergy Rash/Hives/ Verified 11/11/22 21:37 Nausea regadenoson Allergy Rash/Hives/ Verified 11/11/22 21:37 Nausea Review of Systems ROS Statement: Those systems with pertinent positive or pertinent negative responses have been documented in the HPI. ROS Other: All systems not noted in ROS Statement are negative. Past Medical History Past Medical History: COPD, Diabetes Mellitus, Hypertension, Renal Disease, Thyroid Disorder Additional Past Medical History / Comment(s): stage 4 kidney History of Any Multi-Drug Resistant Organisms: None Reported Past Surgical History: No Surgical Hx Reported Additional Past Surgical History / Comment(s): uterine polyps removed. nerve block to left leg, dialysis port placed 2022. Past Anesthesia/Blood Transfusion Reactions: No Reported Reaction Past Psychological History: No Psychological Hx Reported Smoking Status: Never smoker Past Alcohol Use History: None Reported Past Drug Use History: None Reported - Past Family History Daughter(s) Family Medical History: Myocardial Infarction ([place]) General Exam General appearance: alert, in no apparent distress Head exam: Present: atraumatic, normocephalic, normal inspection Eye exam: Present: normal appearance, PERRL, EOMI. Absent: scleral icterus, conjunctival injection, periorbital swelling ENT exam: Present: normal exam, mucous membranes moist Neck exam: Present: normal inspection. Absent: tenderness, meningismus, lymphadenopathy Respiratory exam: Present: rales. Absent: respiratory distress, wheezes, rhonchi, stridor Cardiovascular Exam: Present: regular rate, normal rhythm, normal heart sounds. Absent: systolic murmur, diastolic murmur, rubs, gallop, clicks GI/Abdominal exam: Present: soft, normal bowel sounds. Absent: distended, tenderness, guarding, rebound, rigid Extremities exam: Present: normal inspection, full ROM, normal capillary refill. Absent: tenderness, pedal edema, joint swelling, calf tenderness Back exam: Present: normal inspection Neurological exam: Present: alert, oriented X3, CN II-XII intact Psychiatric exam: Present: normal affect, normal mood Skin exam: Present: warm, dry, intact, normal color. Absent: rash Course Vital Signs 11/11/22 11/11/22 11/11/22 19:30 19:31 19:40 Temperature 97.6 F Pulse Rate 53 L Respiratory 20 Rate Blood Pressure 180/69 180/69 180/69 O2 Sat by Pulse 95 96 96 Oximetry 11/11/22 11/11/22 11/11/22 20:00 20:20 20:40 Temperature Pulse Rate Respiratory Rate Blood Pressure 176/65 185/76 178/66 O2 Sat by Pulse 95 95 95 Oximetry 11/11/22 11/11/22 11/11/22 21:00 21:20 21:40 Temperature Pulse Rate Respiratory Rate Blood Pressure 181/55 180/75 162/74 O2 Sat by Pulse 95 95 95 Oximetry 11/11/22 11/11/22 11/11/22 22:00 22:20 22:25 Temperature Pulse Rate 54 L 54 L Respiratory Rate Blood Pressure 158/70 178/71 O2 Sat by Pulse 94 L 95 Oximetry 11/11/22 22:40 Temperature Pulse Rate 61 Respiratory 18 Rate Blood Pressure 173/74 O2 Sat by Pulse 95 Oximetry Medical Decision Making - Medical Decision Making Was pt. sent in by a medical professional or institution (DIDI [place], INSTRUMENT TECHNICIAN, urgent care, hospital, or longterm...) When possible be specific @ -Frances Did you speak to anyone other than the patient for history (EMS, parent, family, police, friend...)? What history was obtained from this source @ -EMS Did you review nursing and triage notes (agree or disagree)? Why? @ -I reviewed and agree with nursing and triage notes Were old charts reviewed (outside hosp., previous admission, EMS record, old EKG, old radiological studies, urgent care reports/EKG's, longterm records)? Report findings @ - old charts were reviewed - discharge summary from yesterday Differential Diagnosis (chest pain, altered mental status, abdominal pain women, abdominal pain men, vaginal bleeding, weakness, fever, dyspnea, syncope, headache, dizziness, GI bleed, back pain, seizure, CVA, palpatations, mental health, musculoskeletal)? @ -Differential Dyspnea: Coronary syndrome, arrhythmia, tamponade, asthma, COPD, pulmonary embolism, pneumonia, pneumothorax, pulmonary effusion, anaphylaxis, diabetic ketoacidosis, flailed chest, pulmonary contusion, diaphragmatic rupture, anemia, neuromuscular, this is not meant to be an all-inclusive list. EKG interpreted by me (3pts min.). @ -Done X-rays interpreted by me (1pt min.). @ -None done CT interpreted by me (1pt min.). @ -None done U/S interpreted by me (1pt. min.). @ -None done What testing was considered but not performed or refused? (CT, X-rays, U/S, labs)? Why? @ -None What meds were considered but not given or refused? Why? @ -None Did you discuss the management of the patient with other professionals (professionals i.e. , PA, INSTRUMENT TECHNICIAN, lab, RT, psych nurse, administrator social welfare, [employer] supervisor, teacher, emergency response officer, window caser)? Give summary @ -Dr. Richmond who will admit the patient Was smoking cessation discussed for >3mins.? @ -No Was critical care preformed (if so, how long)? @ -No Were there social determinants of health that impacted care today? How? (Homelessness, low income, unemployed, alcoholism, drug addiction, transportation, low edu. Level, literacy, decrease access to med. care, care home, rehab)? @ -No Was there de-escalation of care discussed even if they declined (Discuss DNR or withdrawal of care, Hospice)? DNR status @ -No What co-morbidities impacted this encounter? (DM, HTN, Smoking, COPD, CAD, Cancer, CVA, ARF, Chemo, Hep., AIDS, mental health diagnosis, sleep apnea, morbid obesity)? @ -End-stage renal disease on hemodialysis Was patient admitted / discharged? Hospital course, mention meds given and route, prescriptions, significant lab abnormalities, going to OR and other pertinent info. @ -Upon arrival patient was placed into room 28. A thorough history and physical exam was performed. I did review the patient's transfer packet. Patient needs to be admitted for dialysis. Spoke with Dr. Richmond who agreed to admit the patient Undiagnosed new problem with uncertain prognosis? @ -yes Drug Therapy requiring intensive monitoring for toxicity (Heparin, Nitro, Insulin, Cardizem)? @ -No Were any procedures done? @ -No Diagnosis/symptom? @ -Acute respiratory insufficiency, CHF exacerbation, end-stage renal disease on hemodialysis Acute, or Chronic, or Acute on Chronic? @ -Acute on chronic Uncomplicated (without systemic symptoms) or Complicated (systemic symptoms)? @ -Complicated Side effects of treatment? @ -Dehydration Exacerbation, Progression, or Severe Exacerbation? @ -No Poses a threat to life or bodily function? How? (Chest pain, [place], [place], pneumonia, PE, COPD, DKA, ARF, appy, cholecystitis, CVA, Diverticulitis, Homicidal, Suicidal, threat to staff... and all critical care pts) @ -Yes patient has hypoxia - Lab Data Result diagrams: 11/12/22 06:13 11/12/22 06:13 Disposition Clinical Impression: Accelerated hypertension, Pulmonary edema, Hypoxia, ESRD (end stage renal disease) on dialysis Disposition: ADMITTED IP TO THIS [facility] Condition: Stable Is patient prescribed a controlled substance at d/c from ED?: No Time of Disposition: 21:33 Decision to Admit Reason: Admit from EC Decision Date: 11/11/22 Decision Time: 21:33
[2022-11-11] MEDS ORDERED: FAMOTIDINE 20 MG TAB PO SCH (22:00)
[2022-11-11] MEDS: hydrALAZINE HCL 50 MG TAB PO SCH (22:36)
[2022-11-11] MEDS: METOPROLOL TARTRATE 50 MG TAB PO SCH (22:37)
[2022-11-11] MEDS: ACETAMINOPHEN TAB 325 MG TAB PO PRN (23:48)
[2022-11-12 05:50] LABS: Glucose,Whole Blood 131 mg/dL (70-110)
[2022-11-12] MEDS: INSULIN DETEMIR (LEVEMIR) 100 UNIT/ML SYR SQ SCH (07:03)
[2022-11-12] MEDS: LEVOTHYROXINE 88 MCG TAB PO SCH (07:03)
[2022-11-12 07:12] LABS: Basophils % (A) 0 %; Eosinophils % (A) 0 %; HCT 24.7 % (34.0-46.0); HGB 8.1 gm/dL (11.4-16.0); Lymphocytes % (A) 11 %; MCH 30.2 pg (25.0-35.0); MCHC 32.6 g/dL (31.0-37.0); MCV 92.8 fL (80.0-100.0); Mean Platelet Volume 8.6; Monocytes # (A) 0.6 k/uL (0-1.0); Monocytes % (A) 7 %; Neutrophils # (A) 7.3 k/uL (1.3-7.7); Neutrophils % (A) 79 %; Platelet Count 262 k/uL (150-450); RBC 2.67 m/uL (3.80-5.40); RDW 13.8 % (11.5-15.5); WBC 9.1 k/uL (3.8-10.6)
[2022-11-12 07:13] LABS: African American GFR (CKD) 16 (>60 ml/min/1.73 sqM); Anion Gap 3 mmol/L; Blood Urea Nitrogen 12 mg/dL (7-17); Calcium 8.2 mg/dL (8.4-10.2); Carbon Dioxide 35 mmol/L (22-30); Chloride 97 mmol/L (98-107); Glucose 114 mg/dL (74-99); Non-African American GFR(CKD) 14 (>60 ml/min/1.73 sqM); Potassium 3.5 mmol/L (3.5-5.1); Sodium 135 mmol/L (137-145)
[2022-11-12] MEDS: amLODIPine 10 MG TAB PO SCH (08:33)
[2022-11-12] MEDS: ATORVASTATIN 20 MG TAB PO SCH (08:33)
[2022-11-12] MEDS: FLUoxetine HCL 10 MG CAP PO SCH (08:33)
[2022-11-12] MEDS: hydrALAZINE HCL 50 MG TAB PO SCH ×3 (08:33→20:33)
[2022-11-12] MEDS: allopurinoL 100 MG TAB PO SCH (08:33)
[2022-11-12] MEDS: ACETAMINOPHEN TAB 325 MG TAB PO PRN ×2 (08:33→14:32)
[2022-11-12] MEDS: SYMBICORT 160-4.5 MCG INHALER INHALATION SCH ×2 (09:00→20:22)
--- NOTE | 2022-11-12 11:22 | P.NPCON ---
History of Present Illness - Reason for Consult end stage renal disease - History of Present Illness Reason for consultation: End-stage renal disease History of present illness: Patient is a 87-year-old female seen in renal consultation for end-stage renal disease. Patient was just started on hemodialysis earlier this week due to progressively worsening renal function and underlying chronic kidney disease stage V. Patient went to hemodialysis yesterday and treatment had to be stopped due to cramping and nausea. She also admits to having an episode of vomiting. Blood pressures on the higher side. She is on nasal cannula. She does make urine. No fever or chills. No cough. Patient has long-standing history of diabetes. Currently feeling better. No active complaints. Vital signs are stable. General: No acute distress. HEENT: Head exam is unremarkable. On nasal cannula. LUNGS: No audible rhonchi or wheezes. HEART: Rate and Rhythm are regular. ABDOMEN: Nontender. EXTREMITITES: No edema. Past Medical History Past Medical History: COPD, Diabetes Mellitus, Hypertension, Renal Disease, Thyroid Disorder Additional Past Medical History / Comment(s): stage 4 kidney History of Any Multi-Drug Resistant Organisms: None Reported Past Surgical History: No Surgical Hx Reported Additional Past Surgical History / Comment(s): uterine polyps removed. nerve block to left leg, dialysis port placed 2022. Past Anesthesia/Blood Transfusion Reactions: No Reported Reaction Past Psychological History: No Psychological Hx Reported Smoking Status: Never smoker Past Alcohol Use History: None Reported Past Drug Use History: None Reported - Past Family History Daughter(s) Family Medical History: Myocardial Infarction ([place]) Medications and Allergies Home Medications Medication Instructions Recorded Confirmed Type Atorvastatin Calcium 20 mg PO DAILY 09/04/22 11/11/22 History Budesonide-Formot 160-4.5 Mcg 2 puff INHALATION RT-BID PRN 09/04/22 11/11/22 History [Symbicort 160-4.5 Mcg Inhaler] FLUoxetine HCL [PROzac] 10 mg PO DAILY 09/04/22 11/11/22 History allopurinoL 100 mg PO DAILY 09/04/22 11/11/22 History Acetaminophen Tab [Tylenol] 650 mg PO Q6HR PRN tab 09/07/22 11/11/22 Rx Famotidine [Pepcid] 20 mg PO Q2D 11/05/22 11/11/22 History Levothyroxine Sodium [Synthroid] 175 mcg PO DAILY 11/05/22 11/11/22 History amLODIPine [Norvasc] 10 mg PO DAILY 11/05/22 11/11/22 History Insulin Degludec [Tresiba 14 unit SQ DAILY #0 11/10/22 11/11/22 Rx Flextouch U-200 Pen] Metoprolol Tartrate [Lopressor] 100 mg PO BID #60 tablet 11/10/22 11/11/22 Rx hydrALAZINE HCL [Apresoline] 100 mg PO TID #90 tablet 11/10/22 11/11/22 Rx Allergies Allergy/AdvReac Type Severity Reaction Status Date / Time cefaclor Allergy Rash/Hives/ Verified 11/11/22 21:37 Nausea cephalexin Allergy Rash/Hives/ Verified 11/11/22 21:37 Nausea erythromycin base Allergy Rash/Hives/ Verified 11/11/22 21:37 Nausea indomethacin Allergy Rash/Hives/ Verified 11/11/22 21:37 Nausea Penicillins Allergy Rash/Hives/ Verified 11/11/22 21:37 Nausea regadenoson Allergy Rash/Hives/ Verified 11/11/22 21:37 Nausea Physical Exam Vitals: Vital Signs Temp Pulse Pulse Resp BP BP Pulse Ox 11/12/22 09:01 95 11/12/22 08:27 98.1 F 53 L 20 158/62 94 L 11/12/22 00:00 98.6 F 49 L 18 183/64 95 11/11/22 23:19 98.6 F 49 L 18 183/64 96 11/11/22 23:10 49 L 18 11/11/22 22:40 61 18 173/74 95 11/11/22 22:25 54 L 11/11/22 22:20 54 L 178/71 95 11/11/22 22:00 158/70 94 L 11/11/22 21:40 162/74 95 11/11/22 21:20 180/75 95 11/11/22 21:00 181/55 95 11/11/22 20:40 178/66 95 11/11/22 20:20 185/76 95 11/11/22 20:00 176/65 95 11/11/22 19:40 180/69 96 11/11/22 19:31 180/69 96 11/11/22 19:30 97.6 F 53 L 20 180/69 95 Intake and Output 11/11/22 11/12/22 11/12/22 22:59 06:59 14:59 Intake Total 360 Balance 360 Intake: Oral 360 Other: Voiding Method Bedpan Weight 63.503 kg 63 kg Results - Lab Results Most recent lab results Calcium 8.2 mg/dL (8.4-10.2) L 11/12/22 06:13 11/12/22 06:13 11/12/22 06:13 Assessment and Plan Plan: Assessment: 1. End-stage renal disease maintain on hemodialysis on Tuesday schedule. 2. Acute hypoxic respiratory failure. 3. Diabetes mellitus. 4. Hypertension with chronic kidney disease. 5. Anemia of chronic kidney disease. Plan: Hemodialysis today. Add Demadex. Check chest x-ray. Check phosphorus level. Check iron studies. Add Aranesp. Thank you for the consultation. I will continue to follow the patient with you during her hospital stay.
[2022-11-12] MEDS ORDERED: DARBEPOETIN ALFA 40 MCG/0.4 ML SYRINGE SQ SCH (11:30)
[2022-11-12 11:36] LABS: Glucose,Whole Blood 178 mg/dL (70-110)
[2022-11-12 11:56] LABS: Phosphorus 3.4 mg/dL (2.5-4.5)
[2022-11-12] MEDS: TORSEMIDE 20 MG TAB PO SCH ×2 (12:06→17:05)
[2022-11-12] MEDS: PRAZOSIN 1 MG CAP PO SCH ×3 (12:06→20:33)
[2022-11-12] MEDS: METOPROLOL TARTRATE 50 MG TAB PO SCH ×2 (13:07→17:00)
[2022-11-12 16:47] LABS: Glucose,Whole Blood 120 mg/dL (70-110)
[2022-11-12 18:03] LABS: Glucose,Whole Blood 200 mg/dL (70-110)
--- NOTE | 2022-11-12 18:14 | XR ---
EXAMINATION TYPE: XR chest 1V DATE OF EXAM: 11/12/2022 COMPARISON: 11/11/2022 HISTORY: 87 year-old female shortness of breath TECHNIQUE: Single frontal view of the chest is obtained. FINDINGS: A right-sided double-lumen hemodialysis catheter with tips at the lower SVC. Heart mildly enlarged. Interstitial prominence is similar to improved. Small left pleural effusion with adjacent r etrocardiac and left basilar opacity is slightly increased. IMPRESSION: There may be some improvement in the underlying pulmonary vascular congestion. A small l eft pleural effusion with adjacent atelectasis and/or consolidation is slightly increased however.
--- NOTE | 2022-11-12 19:26 | P.HPIM ---
History of Present Illness H&P Date: 11/12/22 Chief Complaint: DC This is a pleasant 87-year-old patient who follows with Dr. Corbett. Chronic stable medical conditions include COPD, diabetes, hypertension, hypothyroid, end-stage kidney disease. Patient was recently admitted to the hospital from November 05 through November 10. Was started on hemodialysis. Right IJ dialysis catheter. Patient is doing well. Patient went for hemodialysis and during the hemodialysis as above for 2 hours being entered became nauseated dizzy tired. Rundown. No fever no chills. Brought down to the ER. Review of systems: GEN.: Tired, EYES: None HEENT: None NECK: None RESPIRATORY: None CARDIOVASCULAR: None GASTROINTESTINAL: None GENITOURINARY: Does make urine MUSCULOSKELETAL: None LYMPHATICS: None HEMATOLOGICAL: None PSYCHIATRY: None NEUROLOGICAL: Uses a powered wheelchair Past medical history to include: COPD, diabetes, hypertension, end-stage kidney disease started hemodialysis October 2022, hypothyroid Social history: Lives with her son-in-law grandson does use a powered wheelchair. Does not smoke or drink alcohol Physical examination: VITAL SIGNS: 98.1, 53, 20, 1 58 x 62, 94% on 2 L GENERAL: BMI 24, reclining in bed awake, tired. Right IJ dialysis catheter EYES: Pupils equal. Conjunctiva palel. HEENT: External appearance of nose and ears normal, oral cavity grossly normal. NECK: JVD not raised; masses not palpable. HEART: First and second heart sounds are normal; no edema. LUNGS: Respiratory rate normal; clear to auscultation. ABDOMEN: Soft, nontender, liver spleen not palpable, no masses palpable. PSYCH: Alert and oriented x3; mood and affect normal. MUSCULOSKELETAL:No Clubbing/cyanosis;muscles-grossly intact. OA NEUROLOGICAL: Cranial nerves grossly intact; no facial asymmetry, power and sensation grossly intact. LYMPHATICS: No lymph nodes palpable in the axilla and neck INVESTIGATIONS, reviewed in the clinical context: White count 9.1 hemoglobin 8.1 platelets 262 sodium 135 potassium 3.5 BUN 1222.84 Assessment and plan: -Acute weakness dizziness tiredness. Could be from bradycardia. From beta huyen. Cutback dose of Lopressor. -End-stage kidney disease started on hemodialysis last week. Nephrology consulted. Right IJ dialysis catheter -Anemia secondary to chronic kidney disease -COPD in nonsmoker Symbicort -Depression and anxiety Prozac -GERD Pepcid -Chronic hyperuricemia Allopurinol -Hyperlipidemia Lipitor -Diabetes mellitus type 2 tresiba. Follow Accu-Cheks -Essential hypertension with chronic kidney disease Lopressor cutback to 50 mg twice a day.. Hydralazine 100 mg 3 times a day. Amlodipine 10 mg. add Minipress 2 mg 3 times a day -Hypothyroid Synthroid 175 g a day -DO NOT RESUSCITATE Cutback Lopressor to 50 mg twice a day. Add Minipress. Other medications to continue. Nephrology consulted. Discussed with patient. Past Medical History Past Medical History: COPD, Diabetes Mellitus, Hypertension, Renal Disease, Thyroid Disorder Additional Past Medical History / Comment(s): stage 4 kidney History of Any Multi-Drug Resistant Organisms: None Reported Past Surgical History: No Surgical Hx Reported Additional Past Surgical History / Comment(s): uterine polyps removed. nerve block to left leg, dialysis port placed 2022. Past Anesthesia/Blood Transfusion Reactions: No Reported Reaction Past Psychological History: No Psychological Hx Reported Smoking Status: Never smoker Past Alcohol Use History: None Reported Past Drug Use History: None Reported - Past Family History Daughter(s) Family Medical History: Myocardial Infarction ([place]) Medications and Allergies Home Medications Medication Instructions Recorded Confirmed Type Atorvastatin Calcium 20 mg PO DAILY 09/04/22 11/11/22 History Budesonide-Formot 160-4.5 Mcg 2 puff INHALATION RT-BID PRN 09/04/22 11/11/22 History [Symbicort 160-4.5 Mcg Inhaler] FLUoxetine HCL [PROzac] 10 mg PO DAILY 09/04/22 11/11/22 History allopurinoL 100 mg PO DAILY 09/04/22 11/11/22 History Acetaminophen Tab [Tylenol] 650 mg PO Q6HR PRN tab 09/07/22 11/11/22 Rx Famotidine [Pepcid] 20 mg PO Q2D 11/05/22 11/11/22 History Levothyroxine Sodium [Synthroid] 175 mcg PO DAILY 11/05/22 11/11/22 History amLODIPine [Norvasc] 10 mg PO DAILY 11/05/22 11/11/22 History Insulin Degludec [Tresiba 14 unit SQ DAILY #0 11/10/22 11/11/22 Rx Flextouch U-200 Pen] Metoprolol Tartrate [Lopressor] 100 mg PO BID #60 tablet 11/10/22 11/11/22 Rx hydrALAZINE HCL [Apresoline] 100 mg PO TID #90 tablet 11/10/22 11/11/22 Rx Allergies Allergy/AdvReac Type Severity Reaction Status Date / Time cefaclor Allergy Rash/Hives/ Verified 11/11/22 21:37 Nausea cephalexin Allergy Rash/Hives/ Verified 11/11/22 21:37 Nausea erythromycin base Allergy Rash/Hives/ Verified 11/11/22 21:37 Nausea indomethacin Allergy Rash/Hives/ Verified 11/11/22 21:37 Nausea Penicillins Allergy Rash/Hives/ Verified 11/11/22 21:37 Nausea regadenoson Allergy Rash/Hives/ Verified 11/11/22 21:37 Nausea Physical Exam Vitals: Vital Signs Temp Pulse Pulse Resp BP BP Pulse Ox 11/12/22 09:01 95 11/12/22 08:27 98.1 F 53 L 20 158/62 94 L 11/12/22 00:00 98.6 F 49 L 18 183/64 95 11/11/22 23:19 98.6 F 49 L 18 183/64 96 11/11/22 23:10 49 L 18 11/11/22 22:40 61 18 173/74 95 11/11/22 22:25 54 L 11/11/22 22:20 54 L 178/71 95 11/11/22 22:00 158/70 94 L 11/11/22 21:40 162/74 95 11/11/22 21:20 180/75 95 11/11/22 21:00 181/55 95 11/11/22 20:40 178/66 95 11/11/22 20:20 185/76 95 11/11/22 20:00 176/65 95 11/11/22 19:40 180/69 96 11/11/22 19:31 180/69 96 11/11/22 19:30 97.6 F 53 L 20 180/69 95 Intake and Output 11/11/22 11/12/22 11/12/22 22:59 06:59 14:59 Intake Total 360 Balance 360 Intake: Oral 360 Other: Voiding Method Bedpan Weight 63.503 kg 63 kg Results CBC & Chem 7: 11/12/22 06:13 07/14/23 06:13 Labs: Abnormal Lab Results - Last 24 Hours (Table) 11/12/22 11/12/22 11/12/22 Range/Units 05:48 06:13 06:13 RBC 2.67 L (3.80-5.40) m/uL Hgb 8.1 L (11.4-16.0) gm/dL Hct 24.7 L (34.0-46.0) % Sodium 135 L (137-145) mmol/L Chloride 97 L (98-107) mmol/L Carbon Dioxide 35 H (22-30) mmol/L Creatinine 2.84 H (0.52-1.04) mg/dL Glucose 114 H (74-99) mg/dL POC Glucose (mg/dL) 131 H (70-110) mg/dL Calcium 8.2 L (8.4-10.2) mg/dL Thrombosis Risk Factor Assmnt - Choose All That Apply Each Risk Factor Represents 3 Points: Age 75 years or older Other congenital or acquired thrombophilia - If yes, enter type in comment: No Thrombosis Risk Factor Assessment Total Risk Factor Score: 3 Thrombosis Risk Factor Assessment Level: Moderate Risk
[2022-11-12 20:08] LABS: Glucose,Whole Blood 217 mg/dL (70-110)
[2022-11-12 20:35] LABS: % Iron Saturation 15.95 (12.00-45.00)
[2022-11-12] MEDS ORDERED: METOPROLOL TARTRATE 50 MG TAB PO SCH (21:00)
[2022-11-13] MEDS: METOPROLOL TARTRATE 50 MG TAB PO SCH ×2 (02:13→08:19)
[2022-11-13 06:28] LABS: Glucose,Whole Blood 111 mg/dL (70-110)
[2022-11-13] MEDS: INSULIN DETEMIR (LEVEMIR) 100 UNIT/ML SYR SQ SCH (06:40)
[2022-11-13] MEDS: LEVOTHYROXINE 88 MCG TAB PO SCH (06:40)
[2022-11-13] MEDS: allopurinoL 100 MG TAB PO SCH (08:19)
[2022-11-13] MEDS: PRAZOSIN 1 MG CAP PO SCH ×2 (08:19→17:11)
[2022-11-13] MEDS: ATORVASTATIN 20 MG TAB PO SCH (08:19)
[2022-11-13] MEDS: hydrALAZINE HCL 50 MG TAB PO SCH ×2 (08:19→17:12)
[2022-11-13] MEDS: amLODIPine 10 MG TAB PO SCH (08:19)
[2022-11-13] MEDS: TORSEMIDE 20 MG TAB PO SCH (08:20)
[2022-11-13] MEDS: FLUoxetine HCL 10 MG CAP PO SCH (08:20)
[2022-11-13] MEDS: SYMBICORT 160-4.5 MCG INHALER INHALATION SCH (09:44)
--- NOTE | 2022-11-13 09:59 | P.PN ---
Subjective Patient is seen in follow-up for end-stage renal disease. No problems with dialysis yesterday. Hemodynamically stable. No active complaints. Vital signs are stable. General: No acute distress. HEENT: Head exam is unremarkable. LUNGS: No audible rhonchi or wheezes. HEART: Rate and Rhythm are regular. ABDOMEN: Nontender. EXTREMITITES: No edema. Objective - Vital Signs Vital signs: Vital Signs Temp 98.1 F 11/13/22 08:12 Pulse 64 11/13/22 08:24 Resp 15 11/13/22 08:24 BP 147/66 11/13/22 08:12 Pulse Ox 97 11/13/22 09:44 FiO2 Intake & Output 11/12/22 11/13/22 11/13/22 18:59 06:59 18:59 Intake Total 1320 120 Output Total 1700 Balance -380 120 Intake: Oral 1020 120 Hemodialysis 300 Output: Urine 400 Hemodialysis 1300 Other: Voiding Method Bedside Commode Bedside Commode # Voids 1 # Bowel Movements 1 1 - Labs CBC & Chem 7: 11/12/22 06:13 11/12/22 06:13 Labs: Abnormal Lab Results - Last 24 Hours (Table) 11/12/22 11/12/22 11/12/22 Range/Units 06:13 11:35 16:45 POC Glucose (mg/dL) 178 H 120 H (70-110) mg/dL Iron 37 L (50-170) UG/DL Transferrin 166.0 L (204.0-354.0) mg/dL Ferritin 578.0 H (10.0-291.0) ng/mL 11/12/22 11/12/22 11/13/22 Range/Units 18:02 20:07 06:26 POC Glucose (mg/dL) 200 H 217 H 111 H (70-110) mg/dL Iron (50-170) UG/DL Transferrin (204.0-354.0) mg/dL Ferritin (10.0-291.0) ng/mL Assessment and Plan Plan: Assessment: 1. End-stage renal disease maintain on hemodialysis on Tuesday schedule. 2. Acute hypoxic respiratory failure. 3. Diabetes mellitus. 4. Hypertension with chronic kidney disease. 5. Anemia of chronic kidney disease. Iron deficiency noted. On . 6. Volume overload. Plan: Short hemodialysis treatment today per her outpatient schedule. Maintain Demadex. Phosphorus 3.4. Add IV iron. manager retail to help set up transportation to dialysis unit.
[2022-11-13] MEDS ORDERED: SODIUM FERRIC GLUCONAT-SUCROSE 125 MG in SODIUM CHLORIDE 0.9% 100 ML IVPB SCH (11:00)
[2022-11-13 11:02] VITALS: RESP 14
[2022-11-13 11:32] LABS: Glucose,Whole Blood 278 mg/dL (70-110)
[2022-11-13 16:09] LABS: Glucose,Whole Blood 135 mg/dL (70-110)
--- NOTE | 2022-11-13 19:19 | P.DS ---
Providers Date of admission: 11/11/22 21:33 Expected date of discharge: 11/13/22 Attending physician: Ronaldo Richmond Consults: 11/11/22 21:33 Consult Physician Urgent Consulting Provider: Abdullahi Emmanuel Consult Reason/Comments: pulmonary edema, esrd on hd Do you want consulting provider notified?: Yes Primary care physician: Randell Corbett [facility] Course: Chief Complaint: Dizzy This is a pleasant 87-year-old patient who follows with Dr. Corbett. Chronic stable medical conditions include COPD, diabetes, hypertension, hypothyroid, end-stage kidney disease. Patient was recently admitted to the hospital from November 05 through November 10. Was started on hemodialysis. Right IJ dialysis catheter. Patient is doing well. Patient went for hemodialysis and during the hemodialysis as above for 2 hours being entered became nauseated dizzy tired. Rundown. No fever no chills. Brought down to the ER. November 13: Getting hemodialysis. Feeling well. Because of bradycardia dose of Lopressor was cutback. Blood pressure well-controlled. Keen to go home. She'll be talking to family members to arrange for transport to dialysis. Keen to go home. Past medical history to include: COPD, diabetes, hypertension, end-stage kidney disease started hemodialysis October 2022, hypothyroid Social history: Lives with her son-in-law grandson does use a powered wheelchair. Does not smoke or drink alcohol Physical examination: VITAL SIGNS: Afebrile, 53, 14, 112/43, 95% on 2 L GENERAL: Declining in bed, comfortable. Right IJ dialysis catheter EYES: Pupils equal. Conjunctiva palel. HEENT: External appearance of nose and ears normal, oral cavity grossly normal. NECK: JVD not raised; masses not palpable. HEART: First and second heart sounds are normal; no edema. LUNGS: Respiratory rate normal; clear to auscultation. ABDOMEN: Soft, nontender, liver spleen not palpable, no masses palpable. PSYCH: Alert and oriented x3; mood and affect normal. MUSCULOSKELETAL:No Clubbing/cyanosis;muscles-grossly intact. OA INVESTIGATIONS, reviewed in the clinical context: White count 9.1 hemoglobin 8.1 platelets 262 sodium 135 potassium 3.5 BUN 1222. 84 Assessment and plan: -Acute weakness dizziness tiredness. Could be from bradycardia. From beta huyen.: Better Lopressor cutback to 50 mg twice a day -End-stage kidney disease started on hemodialysis last week. Nephrology consulted. Right IJ dialysis catheter -Anemia secondary to chronic kidney disease -COPD in nonsmoker Symbicort -Depression and anxiety Prozac -GERD Pepcid -Chronic hyperuricemia Allopurinol -Hyperlipidemia Lipitor -Diabetes mellitus type 2 treba. Follow Accu-Cheks -Essential hypertension with chronic kidney disease Lopressor 50 mg twice a day.. Hydralazine 100 mg 3 times a day. Amlodipine 10 mg. New Medications: Minipress 2 mg 3 times a day -Hypothyroid Synthroid 175 g a day -DO NOT RESUSCITATE Disposition: Home Patient Condition at Discharge: Stable Plan - Discharge Summary Discharge Rx Participant: No New Discharge Prescriptions: New Metoprolol Tartrate [Lopressor] 50 mg PO BID #60 tab Torsemide [Demadex] 40 mg PO DAILY #60 tab Prazosin [Minipress] 2 mg PO TID #90 cap Continue Atorvastatin Calcium 20 mg PO DAILY Acetaminophen Tab [Tylenol] 650 mg PO Q6HR PRN tab PRN Reason: Mild Pain Or Fever > 100.5 amLODIPine [Norvasc] 10 mg PO DAILY hydrALAZINE HCL [Apresoline] 100 mg PO TID #90 tablet allopurinoL 100 mg PO DAILY Budesonide-Formot 160-4.5 Mcg [Symbicort 160-4.5 Mcg Inhaler] 2 puff INHALATION RT-BID PRN PRN Reason: Shortness Of Breath FLUoxetine HCL [PROzac] 10 mg PO DAILY Famotidine [Pepcid] 20 mg PO Q2D Levothyroxine Sodium [Synthroid] 175 mcg PO DAILY Insulin Degludec [Tresiba Flextouch U-200 Pen] 14 unit SQ DAILY #0 Discontinued Metoprolol Tartrate [Lopressor] 100 mg PO BID #60 tablet Discharge Medication List Atorvastatin Calcium 20 mg PO DAILY 09/04/22 [History] Budesonide-Formot 160-4.5 Mcg [Symbicort 160-4.5 Mcg Inhaler] 2 puff INHALATION RT-BID PRN 09/04/22 [History] FLUoxetine HCL [PROzac] 10 mg PO DAILY 09/04/22 [History] allopurinoL 100 mg PO DAILY 09/04/22 [History] Acetaminophen Tab [Tylenol] 650 mg PO Q6HR PRN tab 09/07/22 [Rx] Famotidine [Pepcid] 20 mg PO Q2D 11/05/22 [History] Levothyroxine Sodium [Synthroid] 175 mcg PO DAILY 11/05/22 [History] amLODIPine [Norvasc] 10 mg PO DAILY 11/05/22 [History] Insulin Degludec [Tresiba Flextouch U-200 Pen] 14 unit SQ DAILY #0 11/10/22 [Rx] hydrALAZINE HCL [Apresoline] 100 mg PO TID #90 tablet 11/10/22 [Rx] Metoprolol Tartrate [Lopressor] 50 mg PO BID #60 tab 11/13/22 [Rx] Prazosin [Minipress] 2 mg PO TID #90 cap 11/13/22 [Rx] Torsemide [Demadex] 40 mg PO DAILY #60 tab 11/13/22 [Rx] Follow up Appointment(s)/Referral(s): [facility], [NON-STAFF] - 1-2 Days (Please call office for follow up) Randell Corbett MD [Primary Care Provider] - 1-2 days (please call office for follow up) Patient Instructions/Handouts: Pulmonary Edema (DC), Dialysis Diet (GEN), End Stage Kidney Disease (DC) Discharge Disposition: HOME SELF-CARE
[2022-11-15 12:42] VITALS: BP 128/54; PULSE 74; TEMP 98.2
== END 2022-11-13 17:32 | disposition home or self-care (01) | DRG 308 ==
LOC: EC 19:27 → 3SCARD 21:33
PROVIDERS: ADMIT Hospitalist; ATTEND Hospitalist
PROC: 5A1D70Z Performance of Urinary Filtration, Intermittent, Less than 6 Hours Per Day (ICD-10-PCS; principal; 2022-11-12)
DX: R00.1 Bradycardia, unspecified (principal); J96.01 Acute respiratory failure with hypoxia; N18.6 End stage renal disease; I12.0 Hypertensive chronic kidney disease with stage 5 chronic kidney disease or end stage renal disease; D63.1 Anemia in chronic kidney disease; E03.9 Hypothyroidism, unspecified; E11.22 Type 2 diabetes mellitus with diabetic chronic kidney disease; E61.1 Iron deficiency; E78.5 Hyperlipidemia, unspecified; F32.A Depression, unspecified; F41.9 Anxiety disorder, unspecified; J44.9 Chronic obstructive pulmonary disease, unspecified; K21.9 Gastro-esophageal reflux disease without esophagitis; Z66 Do not resuscitate; Z79.4 Long term (current) use of insulin; Z79.51 Long term (current) use of inhaled steroids; Z79.890 Hormone replacement therapy; Z79.899 Other long term (current) drug therapy; Z82.49 Family history of ischemic heart disease and other diseases of the circulatory system; Z99.2 Dependence on renal dialysis; Z88.8 Allergy status to other drugs, medicaments and biological substances; Z88.0 Allergy status to penicillin
CPT/HCPCS: 71045; 80048; 82728; 83540; 83550; 84100; 85025; 90935; 94640; 94760; 96374; 99285

== ENCOUNTER 2023-02-03 08:57 | Day surgery (SDC) | payer MEDICARE ==
[2023-01-28 13:46] VITALS: BMI 21.1
[~2023-02-03 08:57] MED LIST: DEXAMETHASONE SOD PHOSPHATE 4 MG/ML 1 ML VIAL IV ONE; HYDROmorphone 0.5 MG/0.5 ML SYRINGE IVP PRN; LACTATED RINGERS 1,000 ML IV SCH; LIDOCAINE 1% (10MG/ML) FOR IV START INTRADERMA PRN; ONDANSETRON 4 MG/2 ML VIAL IVP ONE
[2023-02-03] MEDS ORDERED: SODIUM CHLORIDE 0.9% 1,000 ML IV ONE (09:35)
[2023-02-03 09:40] LABS: Glucose,Whole Blood 107 mg/dL (70-110)
[2023-02-03 09:42] VITALS: RESP 16; TEMP 97
[2023-02-03] MEDS ORDERED: fentaNYL (PF) 50 MCG/ML 2 ML AMP IVP ONE ×2 (10:14→10:15)
--- NOTE | 2023-02-03 10:26 | P.ANPRN ---
Procedure Note - Anesthesia - Nerve Block Performed Left Supraclavicular Single Time Out Performed: Yes Date of Procedure: 02/03/23 Procedure Start Time: :14 Procedure Stop Time: Location of Patient: PreOp Indication: Acute Post-Operative Pain, Requested by Surgeon Specifically requested for management of pain by DrOralia: Sherry Hernandez Sedation Type: Sedate with meaningful contact maintained Preparation: Sterile Prep Position: Supine Needle Types: Pajunk Needle Gauge: 21 Ultrasound used to visualize needle placement: Yes
[2023-02-03] MEDS ORDERED: ROPIVACAINE 5 MG/ML 30 ML VIAL ONE (10:48)
[2023-02-03] MEDS ORDERED: HEPARIN SODIUM,PORCINE 5,000 UNIT/ML 1 ML VIAL ONE (10:48)
[2023-02-03] MEDS ORDERED: PROPOFOL 10 MG/ML 20 ML VIAL IV ONE (10:48)
[2023-02-03] MEDS ORDERED: THROMBIN (BOVINE) 5,000 UNIT VIAL MISCELLANE ONE (12:15)
[2023-02-03] MEDS ORDERED: GELATIN SPONGE,ABSORB (SMALL) 1 EACH SPONGE MISCELLANE ONE (12:24)
[2023-02-03] MEDS ORDERED: ceFAZolin 2 GM in SODIUM CHLORIDE 0.9% 500 ML 500 ML IRRIGATION ONE (12:25)
[2023-02-03] MEDS ORDERED: HEPARIN SODIUM,PORCINE (1 ML) 2,000 UNIT in SODIUM CHLORIDE 0.9% 500 ML 500 ML IRRIGATION ONE (12:26)
--- NOTE | 2023-02-03 12:44 | P.OP ---
Date of Procedure: 02/03/23 Description of Procedure: Preoperative diagnosis: Chronic kidney disease, anticipated need for dialysis Postoperative diagnosis: Same, small veins Procedure: Left upper extremity loop forearm graft Surgeon: Sherry Hernandez D.O. Anesthesia: Regional block with sedation EBL: 10 mL IV fluids: See operative records Urine output: Not measured Drains: None Complications: None immediately apparent Condition: Stable to PACU Operative indication and findings: Patient is an 87-year-old female with small veins, she is getting dialysis via Tessio catheter is been planning to undergo dialysis access creation, vein mapping showed no adequate size vein for fistula therefore graft was chosen. Risks and benefits were discussed. She presents here for this today. Procedure in detail: The patient was taken to the operative suite and placed in supine position. The upper extremity is prepped and draped in usual sterile fashion. A preprocedure timeout was performed, all parties were in agreement. A transverse incision was made just distal to the antecubital fossa and carried down to the level of the brachial artery. It was dissected free circumferentially and proximal and distal Vesseloops were placed. Attention was then turned towards the venous outflow. The most appropriate sized appearing ve in was the basilic vein medially therefore it was dissected free and encircled proximally and distally. The 4 x 7 propatent graft was then tunneled through a counter incision in the forearm and a subcutaneous tissues. The patient was then heparinized. Flow was occluded through the artery. An arteriotomy was performed and anastomosis to the graft was performed with 6-0 Prolene. The graft was then flushed and the anastomosis was tied. Flow was resumed through the artery. Attention was then turned towards the venous anastomosis. Flow was occluded through the vein and a venotomy was performed. Anastomosis created with 6-0 Prolene. Prior to completion of the anastomosis the graft was flushed as well as the veins themselves. Fow was reinstituted. There remained a palpable pulse proximal and distal to the arterial anastomosis as well as a palpable pulse in the wrist. Thrombin Gelfoam was used for hemostasis. The incision sites were copiously irrigated the subcutaneous tissues were approximately with 3-0 Vicryl in interrupted fashion and the skin was reapproximated with running 4-0 Monocryl. Skin glue was placed. The patient was allowed awaken from anesthesia and transferred to PACU in stable condition having tolerated the procedure well.] Plan - Discharge Summary Discharge Rx Participant: No New Discharge Prescriptions: No Action Atorvastatin Calcium 20 mg PO DAILY Acetaminophen Tab [Tylenol] 650 mg PO Q6HR PRN tab PRN Reason: Mild Pain Or Fever > 100.5 amLODIPine [Norvasc] 10 mg PO DAILY Prazosin [Minipress] 2 mg PO TID PRN PRN Reason: Blood Pressure - High Metoprolol Tartrate [Lopressor] 25 mg PO BID Insulin Degludec [Tresiba Flextouch U-200 Pen] 14 unit SQ QAM allopurinoL 100 mg PO DAILY Budesonide-Formot 160-4.5 Mcg [Symbicort 160-4.5 Mcg Inhaler] 2 puff INHALATION RT-BID PRN PRN Reason: Shortness Of Breath FLUoxetine HCL [PROzac] 10 mg PO DAILY Famotidine [Pepcid] 20 mg PO Q2D Levothyroxine Sodium [Synthroid] 175 mcg PO DAILY Torsemide [Demadex] 40 mg PO DAILY #60 tab hydrALAZINE HCL [Apresoline] 50 mg PO TID Discharge Medication List Atorvastatin Calcium 20 mg PO DAILY 09/04/22 [History] Budesonide-Formot 160-4.5 Mcg [Symbicort 160-4.5 Mcg Inhaler] 2 puff INHALATION RT-BID PRN 09/04/22 [History] FLUoxetine HCL [PROzac] 10 mg PO DAILY 09/04/22 [History] allopurinoL 100 mg PO DAILY 09/04/22 [History] Acetaminophen Tab [Tylenol] 650 mg PO Q6HR PRN tab 09/07/22 [Rx] Famotidine [Pepcid] 20 mg PO Q2D 11/05/22 [History] Levothyroxine Sodium [Synthroid] 175 mcg PO DAILY 11/05/22 [History] amLODIPine [Norvasc] 10 mg PO DAILY 11/05/22 [History] Torsemide [Demadex] 40 mg PO DAILY #60 tab 11/13/22 [Rx] Insulin Degludec [Tresiba Flextouch U-200 Pen] 14 unit SQ QAM 01/28/23 [History] Metoprolol Tartrate [Lopressor] 25 mg PO BID 01/28/23 [History] Prazosin [Minipress] 2 mg PO TID PRN 01/28/23 [History] hydrALAZINE HCL [Apresoline] 50 mg PO TID 01/28/23 [History]
[2023-02-03 12:59] VITALS: BP 150/66; PULSE 62
== END 2023-02-03 13:57 | disposition home or self-care (01) ==
LOC: OR 08:57
PROVIDERS: ATTEND Surgery
DX: I12.0 Hypertensive chronic kidney disease with stage 5 chronic kidney disease or end stage renal disease (principal); E11.22 Type 2 diabetes mellitus with diabetic chronic kidney disease; N18.6 End stage renal disease; K21.9 Gastro-esophageal reflux disease without esophagitis; E07.9 Disorder of thyroid, unspecified; J44.9 Chronic obstructive pulmonary disease, unspecified; Z79.4 Long term (current) use of insulin; Z79.899 Other long term (current) drug therapy; Z79.890 Hormone replacement therapy; Z79.51 Long term (current) use of inhaled steroids; Z88.0 Allergy status to penicillin; Z88.1 Allergy status to other antibiotic agents
CPT/HCPCS: 64415; 84132; 36830; L8670; J1644; J1100; J0690; J2405; J3010; J2795; J2704

== ENCOUNTER 2023-03-12 18:04 | Inpatient (IN) | payer MEDICARE ==
--- NOTE | 2023-03-12 19:40 | ED ---
General Adult HPI - General Chief complaint: Recheck/Abnormal Lab/Rx Stated complaint: Sent from dialysis Time Seen by Provider: 03/12/23 18:52 Source: patient, family, RN notes reviewed Mode of arrival: wheelchair Limitations: no limitations - History of Present Illness Initial comments: 79-year-old female with past medical history significant for chronic kidney disease presents emergency Department with a chief complaint of abnormal labs. Patient reports that she is a dialysis patient he gets dialyzed Tuesday. She had blood cultures drawn on 03/20/2023. She reports that her visual merchandising specialist, Dr. Sanchez called her positive results. She denies any constitutional symptoms. She was dialyzed today without any difficulty. Denies fevers chills. - Related Data Home Medications Medication Instructions Recorded Confirmed Atorvastatin Calcium 20 mg PO DAILY 09/04/22 03/12/23 Budesonide-Formot 160-4.5 Mcg 2 puff INHALATION RT-BID PRN 09/04/22 03/12/23 [Symbicort 160-4.5 Mcg Inhaler] FLUoxetine HCL [PROzac] 10 mg PO DAILY 09/04/22 03/12/23 allopurinoL 100 mg PO DAILY 09/04/22 03/12/23 Famotidine [Pepcid] 20 mg PO Q2D 11/05/22 03/12/23 Levothyroxine Sodium [Synthroid] 175 mcg PO DAILY 11/05/22 03/12/23 amLODIPine [Norvasc] 10 mg PO DAILY 11/05/22 03/12/23 Insulin Degludec [Tresiba 14 unit SQ DAILY 01/28/23 03/12/23 Flextouch U-200 Pen] Prazosin [Minipress] 2 mg PO TID PRN 01/28/23 03/12/23 Metoprolol Succinate (ER) [Toprol 12.5 mg PO BID 03/12/23 03/12/23 Xl] Ondansetron [Zofran] 4 mg PO Q12HR PRN 03/12/23 03/12/23 hydrALAZINE HCL [Apresoline] 25 mg PO TID 03/12/23 03/12/23 Previous Rx's Medication Instructions Recorded Acetaminophen Tab [Tylenol] 650 mg PO Q6HR PRN tab 09/07/22 Torsemide [Demadex] 40 mg PO DAILY #60 tab 11/13/22 Rivaroxaban [Xarelto] 2.5 mg PO BID #60 tablet 02/03/23 Allergies Allergy/AdvReac Type Severity Reaction Status Date / Time cefaclor Allergy Rash/Hives/ Verified 03/12/23 20:46 Nausea cephalexin Allergy Rash/Hives/ Verified 03/12/23 20:46 Nausea erythromycin base Allergy Rash/Hives/ Verified 03/12/23 20:46 Nausea indomethacin Allergy Rash/Hives/ Verified 03/12/23 20:46 Nausea Penicillins Allergy Rash/Hives/ Verified 03/12/23 20:46 Nausea regadenoson Allergy Rash/Hives/ Verified 03/12/23 20:46 Nausea Review of Systems ROS Statement: Those systems with pertinent positive or pertinent negative responses have been documented in the HPI. ROS Other: All systems not noted in ROS Statement are negative. Past Medical History Past Medical History: COPD, Diabetes Mellitus, Hypertension, Renal Disease, Thyroid Disorder Additional Past Medical History / Comment(s): stage 4 kidney on dialysis TThS History of Any Multi-Drug Resistant Organisms: None Reported Past Surgical History: No Surgical Hx Reported Additional Past Surgical History / Comment(s): uterine polyps removed, nerve block to left leg, dialysis port placed 2022. Past Anesthesia/Blood Transfusion Reactions: No Reported Reaction Past Psychological History: No Psychological Hx Reported Smoking Status: Never smoker Past Alcohol Use History: None Reported Past Drug Use History: None Reported - Past Family History Daughter(s) Family Medical History: Myocardial Infarction ([place]) General Exam - General Exam Comments Initial Comments: General: Alert, in no acute distress Head: atraumatic normocephalic. Eyes PERRL, EOMI intact, mucous membranes moist Respiratory: Lungs clear to auscultation bilaterally Cardiovascular: Heart rate regular rate and rhythm chest: Dialysis catheter right chest. No surrounding erythema or purulent discharge from the site. Appears intact. Abdominal: Soft without guarding or rebound Extremities: Normal inspection with full range of motion and normal capillary refill Neuroogic: alert and oriented 3, CN II-XII intact, able to ambulate with steady gait Skin: warm dry and intact with normal color Limitations: no limitations Course Vital Signs 03/12/23 03/12/23 18:12 18:58 Temperature 96.9 F L Pulse Rate 66 68 Respiratory 18 18 Rate Blood Pressure 136/76 133/62 O2 Sat by Pulse 97 98 Oximetry - Reevaluation(s) Reevaluation #1: 03/12/23 20:[address] Richmond who agrees and accepts the patient for admission. Medical Decision Making - Medical Decision Making Was pt. sent in by a medical professional or institution (, DIDI, INVESTIGATIONS MANAGER, urgent care, hospital, or halfway...) When possible be specific @ -[No] Did you speak to anyone other than the patient for history (EMS, parent, family, police, friend...)? What history was obtained from this source @ -Daughter Did you review nursing and triage notes (agree or disagree)? Why? @ -[I reviewed and agree with nursing and triage notes] Were old charts reviewed (outside hosp., previous admission, EMS record, old EKG, old radiological studies, urgent care reports/EKG's, halfway records)? Report findings @ -CHarts reviewed from 03/10/2023 revealed positive blood culture results. Differential Diagnosis (chest pain, altered mental status, abdominal pain women, abdominal pain men, vaginal bleeding, weakness, fever, dyspnea, syncope, headache, dizziness, GI bleed, back pain, seizure, CVA, palpatations, mental health, musculoskeletal)? @ -[not applicable] EKG interpreted by me (3pts min.). @ -[As above] X-rays interpreted by me (1pt min.). @ -[None done] CT interpreted by me (1pt min.). @ -[None done] U/S interpreted by me (1pt. min.). @ -[None done] What testing was considered but not performed or refused? (CT, X-rays, U/S, labs)? Why? @ -[None] What meds were considered but not given or refused? Why? @ -[None] Did you discuss the management of the patient with other professionals (professionals i.e. DIDI Whatley, INVESTIGATIONS MANAGER, lab, RT, psych nurse, social sciences department chair, crm developer, teacher, hazard mitigation officer, case packer and sealer)? Give summary @ -Case discussed with Dr. Richmond who agrees and accepts the patient for further observation Was smoking cessation discussed for >3mins.? @ -[No] Was critical care preformed (if so, how long)? @ -[No] Were there social determinants of health that impacted care today? How? (Homelessness, low income, unemployed, alcoholism, drug addiction, transportation, low edu. Level, literacy, decrease access to med. care, senior care, rehab)? @ -[No] Was there de-escalation of care discussed even if they declined (Discuss DNR or withdrawal of care, Hospice)? DNR status @ -[No] What co-morbidities impacted this encounter? (DM, HTN, Smoking, COPD, CAD, Cancer, CVA, ARF, Chemo, Hep., AIDS, mental health diagnosis, sleep apnea, morbid obesity)? @ -[None] Was patient admitted / discharged? Hospital course, mention meds given and route, prescriptions, significant lab abnormalities, going to OR and other pertinent info. @ Admission. This is an 7-year-old female who presents the emergency department with abnormal labs. Patient AND physical exam performed. Physical exam is unremarkable. Heart rate regular rate and rhythm, lungs clear auscultation bilaterally abdomen soft and nontender. Dialysis catheter without any erythema or purulent discharge. Patient is afebrile. Patient had laboratory studies performed which revealed WBC 13.8, hemoglobin 10.9-1.1,, sodium 141, potassium 3.7 BUN 16, creatinine 2.[address] Richmond who agrees and accepts the patient for admission with recommended consult to infectious disease. Patient started on Zosyn. Patient agreeable with the plan for admission. Case is discussed with MISSY Son who agrees with plan of care Undiagnosed new problem with uncertain prognosis? @ -[No] Drug Therapy requiring intensive monitoring for toxicity (Heparin, Nitro, Insulin, Cardizem)? @ -[No] Were any procedures done? @ -[No] Diagnosis/symptom? @ -Positive Blood Culture - Hx of Dialysis - ESRD Acute, or Chronic, or Acute on Chronic? @ -Acute Uncomplicated (without systemic symptoms) or Complicated (systemic symptoms)? @ - Uncomplicated Side effects of treatment? @ -[No] Exacerbation, Progression, or Severe Exacerbation? @ -[No] Poses a threat to life or bodily function? How? (Chest pain, [place], [place], pneumonia, PE, COPD, DKA, ARF, appy, cholecystitis, CVA, Diverticulitis, Homicidal, Suicidal, threat to staff... and all critical care pts) @ [facility] sepsis - Lab Data Result diagrams: 03/12/23 19:32 03/12/23 19:32 Lab Results 03/12/23 03/12/23 03/12/23 Range/Units 19:32 19:32 19:32 WBC 13.8 H (3.8-10.6) k/uL RBC 3.43 L (3.80-5.40) m/uL Hgb 10.9 L (11.4-16.0) gm/dL Hct 33.6 L (34.0-46.0) % MCV 98.0 (80.0-100.0) fL MCH 31.7 (25.0-35.0) pg MCHC 32.3 (31.0-37.0) g/dL RDW 13.6 (11.5-15.5) % Plt Count 313 (150-450) k/uL MPV 8.4 Neutrophils % 86 % Lymphocytes % 7 % Monocytes % 5 % Eosinophils % 1 % Basophils % 0 % Neutrophils # 11.8 H (1.3-7.7) k/uL Lymphocytes # 1.0 (1.0-4.8) k/uL Monocytes # 0.8 (0-1.0) k/uL Eosinophils # 0.1 (0-0.7) k/uL Basophils # 0.0 (0-0.2) k/uL Hypochromasia Slight Sodium 141 (137-145) mmol/L Potassium 3.7 (3.5-5.1) mmol/L Chloride 98 (98-107) mmol/L Carbon Dioxide 34 H (22-30) mmol/L Anion Gap 9 mmol/L BUN 16 (7-17) mg/dL Creatinine 2.62 H (0.52-1.04) mg/dL Est GFR (CKD-EPI)AfAm 18 (>60 ml/min/1.73 sqM) Est GFR (CKD-EPI)NonAf 16 (>60 ml/min/1.73 sqM) Glucose 251 H (74-99) mg/dL Plasma Lactic Acid Gary 1.1 (0.7-2.0) mmol/L Calcium 9.0 (8.4-10.2) mg/dL Total Bilirubin 0.4 (0.2-1.3) mg/dL AST 17 (14-36) U/L ALT 13 (4-34) U/L Alkaline Phosphatase 136 H (38-126) U/L Total Protein 6.1 L (6.3-8.2) g/dL Albumin 3.5 (3.5-5.0) g/dL Disposition Clinical Impression: Positive blood cultures, ESRD (end stage renal disease) on dialysis Disposition: ADMITTED IP TO [facility] Time of Disposition: 19:40
[2023-03-12 20:10] LABS: Basophils % (A) 0 %; Eosinophils # (A) 0.1 k/uL (0-0.7); Eosinophils % (A) 1 %; HCT 33.6 % (34.0-46.0); HGB 10.9 gm/dL (11.4-16.0); Hypochromasia Slight; Lymphocytes % (A) 7 %; MCH 31.7 pg (25.0-35.0); MCHC 32.3 g/dL (31.0-37.0); Mean Platelet Volume 8.4; Monocytes # (A) 0.8 k/uL (0-1.0); Monocytes % (A) 5 %; Neutrophils # (A) 11.8 k/uL (1.3-7.7); Neutrophils % (A) 86 %; Platelet Count 313 k/uL (150-450); RBC 3.43 m/uL (3.80-5.40); RDW 13.6 % (11.5-15.5); WBC 13.8 k/uL (3.8-10.6)
[2023-03-12] MEDS ORDERED: VANCOMYCIN 2,000 MG in SODIUM CHLORIDE 0.9% 500 ML 500 ML IVPB STA (20:17)
[2023-03-12 20:18] LABS: Albumin 3.5 g/dL (3.5-5.0)
[2023-03-12] MEDS ORDERED: NALOXONE 0.4 MG/ML 1 ML VIAL IV PRN (20:18)
[2023-03-12 20:20] LABS: ALT 13 U/L (4-34); AST 17 U/L (14-36); African American GFR (CKD) 18 (>60 ml/min/1.73 sqM); Alkaline Phosphatase 136 U/L (38-126); Anion Gap 9 mmol/L; Blood Urea Nitrogen 16 mg/dL (7-17); Carbon Dioxide 34 mmol/L (22-30); Chloride 98 mmol/L (98-107); Glucose 251 mg/dL (74-99); Non-African American GFR(CKD) 16 (>60 ml/min/1.73 sqM); Potassium 3.7 mmol/L (3.5-5.1); Sodium 141 mmol/L (137-145); Total Bilirubin 0.4 mg/dL (0.2-1.3); Total Protein 6.1 g/dL (6.3-8.2)
[2023-03-12] MEDS ORDERED: VANCOMYCIN IV PER PHARMACY 1 EACH MISC MISCELLANE PRN (20:22)
[2023-03-12] MEDS: SODIUM CHLORIDE 0.9% 1,000 ML IV SCH (20:55)
[2023-03-12] MEDS ORDERED: VANCOMYCIN 1,000 MG in SODIUM CHLORIDE 0.9% 250 ML IVPB ONE (21:00)
[2023-03-12 21:21] LABS: Glucose,Whole Blood 171 mg/dL (70-110)
[2023-03-12] MEDS ORDERED: ONDANSETRON 4 MG TAB PO PRN (22:13)
[2023-03-12] MEDS ORDERED: SYMBICORT 160-4.5 MCG INHALER INHALATION PRN (22:13)
[2023-03-12] MEDS ORDERED: PRAZOSIN 1 MG CAP PO PRN (22:13)
[2023-03-12] MEDS ORDERED: ACETAMINOPHEN TAB 325 MG TAB PO PRN (22:13)
[2023-03-12] MEDS ORDERED: hydrALAZINE HCL 25 MG TAB PO SCH (22:15)
[2023-03-12] MEDS: ATORVASTATIN 20 MG TAB PO SCH (22:38)
[2023-03-12] MEDS: hydrALAZINE HCL 25 MG TAB PO SCH (22:38)
[2023-03-12] MEDS: FAMOTIDINE 20 MG TAB PO SCH (22:44)
[2023-03-12] MEDS: RIVAROXABAN 2.5 MG TABLET PO SCH (23:36)
[2023-03-12] MEDS: METOPROLOL SUCCINATE (ER) 25 MG TAB.ER.24H PO SCH (23:36)
[2023-03-13] MEDS: LEVOTHYROXINE 88 MCG TAB PO SCH (06:12)
[2023-03-13 06:16] LABS: Glucose,Whole Blood 89 mg/dL (70-110)
[2023-03-13 07:33] LABS: Basophils % (A) 0 %; Eosinophils # (A) 0.1 k/uL (0-0.7); Eosinophils % (A) 1 %; HCT 30.6 % (34.0-46.0); HGB 9.9 gm/dL (11.4-16.0); Hypochromasia Slight; Lymphocytes # (A) 1.3 k/uL (1.0-4.8); Lymphocytes % (A) 11 %; MCHC 32.4 g/dL (31.0-37.0); MCV 98.7 fL (80.0-100.0); Mean Platelet Volume 8.4; Monocytes # (A) 0.8 k/uL (0-1.0); Monocytes % (A) 7 %; Neutrophils # (A) 9.9 k/uL (1.3-7.7); Neutrophils % (A) 80 %; Platelet Count 270 k/uL (150-450); RDW 13.5 % (11.5-15.5); WBC 12.3 k/uL (3.8-10.6)
[2023-03-13] MEDS: FLUoxetine HCL 10 MG CAP PO SCH (07:56)
[2023-03-13] MEDS: RIVAROXABAN 2.5 MG TABLET PO SCH ×2 (07:56→21:12)
[2023-03-13] MEDS: TORSEMIDE 20 MG TAB PO SCH (07:56)
[2023-03-13] MEDS: METOPROLOL SUCCINATE (ER) 25 MG TAB.ER.24H PO SCH ×2 (07:56→21:13)
[2023-03-13] MEDS: hydrALAZINE HCL 25 MG TAB PO SCH ×3 (07:56→21:12)
[2023-03-13] MEDS: amLODIPine 10 MG TAB PO SCH (07:56)
[2023-03-13] MEDS: allopurinoL 100 MG TAB PO SCH (07:57)
[2023-03-13 08:11] LABS: ALT 11 U/L (4-34); AST 16 U/L (14-36); African American GFR (CKD) 15 (>60 ml/min/1.73 sqM); Albumin 2.8 g/dL (3.5-5.0); Albumin/Globulin Ratio 1.3; Alkaline Phosphatase 102 U/L (38-126); Anion Gap 8 mmol/L; Blood Urea Nitrogen 19 mg/dL (7-17); Calcium 8.6 mg/dL (8.4-10.2); Carbon Dioxide 32 mmol/L (22-30); Chloride 100 mmol/L (98-107); Globulin 2.2 g/dL; Glucose 82 mg/dL (74-99); Non-African American GFR(CKD) 13 (>60 ml/min/1.73 sqM); Potassium 3.7 mmol/L (3.5-5.1); Sodium 140 mmol/L (137-145); Total Bilirubin 0.4 mg/dL (0.2-1.3)
[2023-03-13] MEDS ORDERED: METOPROLOL SUCCINATE (ER) 25 MG TAB.ER.24H PO SCH (09:00)
[2023-03-13] MEDS ORDERED: ATORVASTATIN 20 MG TAB PO SCH (09:00)
[2023-03-13] MEDS: INSULIN DETEMIR (LEVEMIR) 100 UNIT/ML SYR SQ SCH (10:00)
--- NOTE | 2023-03-13 11:39 | P.NPCON ---
History of Present Illness - Reason for Consult end stage renal disease - History of Present Illness Patient is an 87-year-old female with end-stage renal disease maintained on hemodialysis on a Tuesday schedule at [facility]. Patient was advised to come into the hospital as her blood cultures were growing gram- positive cocci. Patient has a right IJ permacath. She has also had a recent access placed in her left forearm about 4 weeks ago. No history of fever chills nausea vomiting or abdominal pain. No drainage noted from permacath. Patient tolerated hemodialysis well yesterday. Review of Systems As per HPI Past Medical History Past Medical History: COPD, Diabetes Mellitus, Hypertension, Renal Disease, Thyroid Disorder Additional Past Medical History / Comment(s): stage 4 kidney on dialysis TThS History of Any Multi-Drug Resistant Organisms: None Reported Past Surgical History: No Surgical Hx Reported Additional Past Surgical History / Comment(s): uterine polyps removed, nerve block to left leg, dialysis port placed 2022. Past Anesthesia/Blood Transfusion Reactions: No Reported Reaction Past Psychological History: No Psychological Hx Reported Smoking Status: Never smoker Past Alcohol Use History: None Reported Past Drug Use History: None Reported - Past Family History Daughter(s) Family Medical History: Myocardial Infarction ([place]) Medications and Allergies Home Medications Medication Instructions Recorded Confirmed Type Atorvastatin Calcium 20 mg PO DAILY 09/04/22 03/12/23 History Budesonide-Formot 160-4.5 Mcg 2 puff INHALATION RT-BID PRN 09/04/22 03/12/23 History [Symbicort 160-4.5 Mcg Inhaler] FLUoxetine HCL [PROzac] 10 mg PO DAILY 09/04/22 03/12/23 History allopurinoL 100 mg PO DAILY 09/04/22 03/12/23 History Acetaminophen Tab [Tylenol] 650 mg PO Q6HR PRN tab 09/07/22 03/12/23 Rx Famotidine [Pepcid] 20 mg PO Q2D 11/05/22 03/12/23 History Levothyroxine Sodium [Synthroid] 175 mcg PO DAILY 11/05/22 03/12/23 History amLODIPine [Norvasc] 10 mg PO DAILY 11/05/22 03/12/23 History Torsemide [Demadex] 40 mg PO DAILY #60 tab 11/13/22 03/12/23 Rx Insulin Degludec [Tresiba 14 unit SQ DAILY 01/28/23 03/12/23 History Flextouch U-200 Pen] Prazosin [Minipress] 2 mg PO TID PRN 01/28/23 03/12/23 History Rivaroxaban [Xarelto] 2.5 mg PO BID #60 tablet 02/03/23 03/12/23 Rx Metoprolol Succinate (ER) [Toprol 12.5 mg PO BID 03/12/23 03/12/23 History Xl] Ondansetron [Zofran] 4 mg PO Q12HR PRN 03/12/23 03/12/23 History hydrALAZINE HCL [Apresoline] 25 mg PO TID 03/12/23 03/12/23 History Allergies Allergy/AdvReac Type Severity Reaction Status Date / Time cefaclor Allergy Rash/Hives/ Verified 03/12/23 20:46 Nausea cephalexin Allergy Rash/Hives/ Verified 03/12/23 20:46 Nausea erythromycin base Allergy Rash/Hives/ Verified 03/12/23 20:46 Nausea indomethacin Allergy Rash/Hives/ Verified 03/12/23 20:46 Nausea Penicillins Allergy Rash/Hives/ Verified 03/12/23 20:46 Nausea regadenoson Allergy Rash/Hives/ Verified 03/12/23 20:46 Nausea Physical Exam Vitals: Vital Signs Temp Pulse Pulse Resp BP BP Pulse Ox 03/13/23 07:06 98.7 F 62 16 166/62 95 03/13/23 01:28 98.6 F 60 153/57 93 L 03/12/23 21:21 98.3 F 72 18 194/67 93 L 03/12/23 18:58 68 18 133/62 98 03/12/23 18:12 96.9 F L 66 18 136/76 97 Intake and Output 03/12/23 03/13/23 03/13/23 22:59 06:59 14:59 Other: # Voids 1 Weight 58.06 kg Patient is awake, comfortable, no acute distress Examination of the heart S1 and S2 Examination of the lungs bilateral breath sounds are heard Abdomen is soft nontender Examination of lower extremities shows no evidence of edema ELECTRICAL ACCESSORIES II ASSEMBLER exam grossly intact Results - Lab Results Most recent lab results Calcium 8.6 mg/dL (8.4-10.2) 03/13/23 06:40 03/13/23 06:40 03/13/23 06:40 Assessment and Plan Assessment: 1. End-stage renal disease on hemodialysis on Tuesday nikki coats 2. Gram-positive bacteremia as outpatient most likely related to IJ permacath. Status post vancomycin. Awaiting final cultures 3. Hypertension with CK D 4. Anemia of chronic disease Plan: Continue empiric antibiotics Follow-up on final cultures done as outpatient and follow-up on blood cultures sent here. Next hemodialysis on 04/14/2023. Next Thank you for the consultation. We will continue to follow the patient with you during her hospitalization.
[2023-03-13] MEDS ORDERED: ALPRAZolam 0.25 MG TAB PO PRN (13:41)
[2023-03-13] MEDS ORDERED: CALCIUM CARBONATE 500 MG CHEWABLE PO PRN (13:41)
[2023-03-13] MEDS ORDERED: LACTULOSE 20 GM/30 ML CUP PO PRN (13:41)
[2023-03-13 13:46] LABS: Glucose,Whole Blood 143 mg/dL (70-110)
[2023-03-13 16:38] LABS: Glucose,Whole Blood 281 mg/dL (70-110)
[2023-03-13 20:22] LABS: Glucose,Whole Blood 271 mg/dL (70-110)
[2023-03-13] MEDS ORDERED: VANCOMYCIN 1,000 MG in SODIUM CHLORIDE 0.9% 250 ML IVPB ONE (21:00)
[2023-03-13] MEDS: ATORVASTATIN 20 MG TAB PO SCH (21:12)
[2023-03-13] MEDS: SODIUM CHLORIDE 0.9% 1,000 ML IV SCH (21:13)
--- NOTE | 2023-03-13 22:57 | P.HPIM ---
History of Present Illness H&P Date: 03/13/23 Chief Complaint: Positive blood culture This is a pleasant 87-year-old patient who follows with Dr. Corbett. Chronic stable medical conditions include COPD, diabetes, hypertension, hypothyroid, end-stage kidney disease. Started on dialysis on October 2022. Has a Right IJ dialysis catheter. Has a left forearm AV fistula-getting matured. Patient had blood cultures Murali on March 10 by her broadcast chief engineer Dr. Emmanuel. Came back positive and patient was sent in. Denies any fever and chills. Appetite is okay. Slight decrease appetite Review of systems: GEN.: Tired, EYES: None HEENT: None NECK: None RESPIRATORY: None CARDIOVASCULAR: None GASTROINTESTINAL: None GENITOURINARY: Does make urine MUSCULOSKELETAL: None LYMPHATICS: None HEMATOLOGICAL: None PSYCHIATRY: None NEUROLOGICAL: Uses a powered wheelchair Past medical history to include: COPD, diabetes, hypertension, end-stage kidney disease started hemodialysis October 2022, hypothyroid Social history: Lives with her son-in-law grandson does use a powered wheelchair. Does not smoke or drink alcohol Physical examination: VITAL SIGNS: 98.7, 62, 16, 166/62, 95% room air GENERAL: BMI 22, up in bed. Right IJ dialysis catheter. Left forearm AV fistula EYES: Pupils equal. Conjunctiva palel. HEENT: External appearance of nose and ears normal, oral cavity grossly normal. NECK: JVD not raised; masses not palpable. HEART: First and second heart sounds are normal; no edema. LUNGS: Respiratory rate normal; clear to auscultation. ABDOMEN: Soft, nontender, liver spleen not palpable, no masses palpable. PSYCH: Alert and oriented x3; mood and affect normal. MUSCULOSKELETAL:No Clubbing/cyanosis;muscles-grossly intact. OA NEUROLOGICAL: Cranial nerves grossly intact; no facial asymmetry, power and sensation grossly intact. LYMPHATICS: No lymph nodes palpable in the axilla and neck INVESTIGATIONS, reviewed in the clinical context: 03/13/2023: White count 12.3 mm 9.9 platelets 270 sodium 140 potassium 3.7 BUN 19 creatinine 3.13 Assessment and plan: -Bacteremic with positive blood culture outpatient drawn on 03/10/2023 by her broadcast chief engineer Dr. Emmanuel IV vancomycin -Acute weakness dizziness tiredness. Could be from bradycardia. From beta huyen.: Better Lopressor cutback to 50 mg twice a day -End-stage kidney disease started on October 2022 Nephrology consulted. Right IJ dialysis catheter -Anemia secondary to chronic kidney disease -COPD in nonsmoker Symbicort -Depression and anxiety Prozac -GERD Pepcid -Chronic hyperuricemia Allopurinol -Hyperlipidemia Lipitor -Diabetes mellitus type 2 tresiba. Follow Accu-Cheks -Essential hypertension with chronic kidney disease Toprol-XL 12.5 mg by mouth twice a day.. Hydralazine 50 mg 3 times a day. Amlodipine 10 mg. -Hypothyroid Synthroid 175 g a day -Full code Reviewed blood culture drawn. Vancomycin. ID consulted. Other medications to continue. Past Medical History Past Medical History: COPD, Diabetes Mellitus, Hypertension, Renal Disease, Thyroid Disorder Additional Past Medical History / Comment(s): stage 4 kidney on dialysis TThS History of Any Multi-Drug Resistant Organisms: None Reported Past Surgical History: No Surgical Hx Reported Additional Past Surgical History / Comment(s): uterine polyps removed, nerve block to left leg, dialysis port placed 2022. Past Anesthesia/Blood Transfusion Reactions: No Reported Reaction Past Psychological History: No Psychological Hx Reported Smoking Status: Never smoker Past Alcohol Use History: None Reported Past Drug Use History: None Reported - Past Family History Daughter(s) Family Medical History: Myocardial Infarction ([place]) Medications and Allergies Home Medications Medication Instructions Recorded Confirmed Type Atorvastatin Calcium 20 mg PO DAILY 09/04/22 03/12/23 History Budesonide-Formot 160-4.5 Mcg 2 puff INHALATION RT-BID PRN 09/04/22 03/12/23 History [Symbicort 160-4.5 Mcg Inhaler] FLUoxetine HCL [PROzac] 10 mg PO DAILY 09/04/22 03/12/23 History allopurinoL 100 mg PO DAILY 09/04/22 03/12/23 History Acetaminophen Tab [Tylenol] 650 mg PO Q6HR PRN tab 09/07/22 03/12/23 Rx Famotidine [Pepcid] 20 mg PO Q2D 11/05/22 03/12/23 History Levothyroxine Sodium [Synthroid] 175 mcg PO DAILY 11/05/22 03/12/23 History amLODIPine [Norvasc] 10 mg PO DAILY 11/05/22 03/12/23 History Torsemide [Demadex] 40 mg PO DAILY #60 tab 11/13/22 03/12/23 Rx Insulin Degludec [Tresiba 14 unit SQ DAILY 01/28/23 03/12/23 History Flextouch U-200 Pen] Prazosin [Minipress] 2 mg PO TID PRN 01/28/23 03/12/23 History Rivaroxaban [Xarelto] 2.5 mg PO BID #60 tablet 02/03/23 03/12/23 Rx Metoprolol Succinate (ER) [Toprol 12.5 mg PO BID 03/12/23 03/12/23 History Xl] Ondansetron [Zofran] 4 mg PO Q12HR PRN 03/12/23 03/12/23 History hydrALAZINE HCL [Apresoline] 25 mg PO TID 03/12/23 03/12/23 History Allergies Allergy/AdvReac Type Severity Reaction Status Date / Time cefaclor Allergy Rash/Hives/ Verified 03/12/23 20:46 Nausea cephalexin Allergy Rash/Hives/ Verified 03/12/23 20:46 Nausea erythromycin base Allergy Rash/Hives/ Verified 03/12/23 20:46 Nausea indomethacin Allergy Rash/Hives/ Verified 03/12/23 20:46 Nausea Penicillins Allergy Rash/Hives/ Verified 03/12/23 20:46 Nausea regadenoson Allergy Rash/Hives/ Verified 03/12/23 20:46 Nausea Physical Exam Vitals: Vital Signs Temp Pulse Pulse Resp BP BP Pulse Ox 03/13/23 07:06 98.7 F 62 16 166/62 95 03/13/23 01:28 98.6 F 60 153/57 93 L 03/12/23 21:21 98.3 F 72 18 194/67 93 L 03/12/23 18:58 68 18 133/62 98 03/12/23 18:12 96.9 F L 66 18 136/76 97 Intake and Output 03/12/23 03/13/23 03/13/23 22:59 06:59 14:59 Other: # Voids 1 Weight 58.06 kg Results CBC & Chem 7: 03/13/23 06:40 03/13/23 06:40 Labs: Abnormal Lab Results - Last 24 Hours (Table) 03/12/23 03/12/23 03/12/23 Range/Units 19:32 19:32 21:19 WBC 13.8 H (3.8-10.6) k/uL RBC 3.43 L (3.80-5.40) m/uL Hgb 10.9 L (11.4-16.0) gm/dL Hct 33.6 L (34.0-46.0) % Neutrophils # 11.8 H (1.3-7.7) k/uL Carbon Dioxide 34 H (22-30) mmol/L BUN (7-17) mg/dL Creatinine 2.62 H (0.52-1.04) mg/dL Glucose 251 H (74-99) mg/dL POC Glucose (mg/dL) 171 H (70-110) mg/dL Alkaline Phosphatase 136 H (38-126) U/L Total Protein 6.1 L (6.3-8.2) g/dL Albumin (3.5-5.0) g/dL 03/13/23 03/13/23 Range/Units 06:40 06:40 WBC 12.3 H (3.8-10.6) k/uL RBC 3.10 L (3.80-5.40) m/uL Hgb 9.9 L (11.4-16.0) gm/dL Hct 30.6 L (34.0-46.0) % Neutrophils # 9.9 H (1.3-7.7) k/uL Carbon Dioxide 32 H (22-30) mmol/L BUN 19 H (7-17) mg/dL Creatinine 3.13 H (0.52-1.04) mg/dL Glucose (74-99) mg/dL POC Glucose (mg/dL) (70-110) mg/dL Alkaline Phosphatase (38-126) U/L Total Protein 5.0 L (6.3-8.2) g/dL Albumin 2.8 L (3.5-5.0) g/dL Thrombosis Risk Factor Assmnt - Choose All That Apply Any of the Below Risk Factors Present?: Yes Each Factor Represents 1 point: Abnormal pulmonary function (COPD) Other Risk Factors: Yes Each Risk Factor Represents 3 Points: Age 75 years or older Other congenital or acquired thrombophilia - If yes, enter type in comment: No Thrombosis Risk Factor Assessment Total Risk Factor Score: 4 Thrombosis Risk Factor Assessment Level: Moderate Risk
[2023-03-14] MEDS: LEVOTHYROXINE 88 MCG TAB PO SCH (05:39)
[2023-03-14 05:57] LABS: Glucose,Whole Blood 128 mg/dL (70-110)
--- NOTE | 2023-03-14 07:21 | P.CONS ---
History of Present Illness - Reason for Consult Consult date: 03/13/23 Positive blood culture Requesting physician: Lela Alex - Chief Complaint Weakness x few days - History of Present Illness Patient is a 87-year-old female with a past medical history significant for end-stage renal disease on dialysis through the right subclavian permacatheter that was placed in October 2022 and" dialysis Tuesday patient apparently did have a blood culture done in the outpatient setting that came back positive with gram-positive cocci and the patient was advised admission to the hospital patient not very clear about any fever or any chills patient denies having any headache did not mention if there was any problem with the permacatheter or any drainage no chest pain shortness of breath or cough no nausea vomiting no abdominal pain or any diarrhea patient on presentation to the hospital was afebrile and no fever has been recorded subsequently patient did have a white count of 13.8 with a left shift did have elevated BUN/creatinine levels also normal blood culture has been obtained which are currently pending patient was started on vancomycin infectious disease was consulted for further management of antibiotic therapy Review of Systems Positive point and negatives has been mentioned in the HPI, complete review of systems was performed and all other systems are negative Past Medical History Past Medical History: COPD, Diabetes Mellitus, Hypertension, Renal Disease, Thyroid Disorder Additional Past Medical History / Comment(s): stage 4 kidney on dialysis TThS History of Any Multi-Drug Resistant Organisms: None Reported Past Surgical History: No Surgical Hx Reported Additional Past Surgical History / Comment(s): uterine polyps removed, nerve block to left leg, dialysis port placed 2022. Past Anesthesia/Blood Transfusion Reactions: No Reported Reaction Past Psychological History: No Psychological Hx Reported Smoking Status: Never smoker Past Alcohol Use History: None Reported Past Drug Use History: None Reported - Past Family History Daughter(s) Family Medical History: Myocardial Infarction ([place]) Medications and Allergies Home Medications Medication Instructions Recorded Confirmed Type Atorvastatin Calcium 20 mg PO DAILY 09/04/22 03/12/23 History Budesonide-Formot 160-4.5 Mcg 2 puff INHALATION RT-BID PRN 09/04/22 03/12/23 History [Symbicort 160-4.5 Mcg Inhaler] FLUoxetine HCL [PROzac] 10 mg PO DAILY 09/04/22 03/12/23 History allopurinoL 100 mg PO DAILY 09/04/22 03/12/23 History Acetaminophen Tab [Tylenol] 650 mg PO Q6HR PRN tab 09/07/22 03/12/23 Rx Famotidine [Pepcid] 20 mg PO Q2D 11/05/22 03/12/23 History Levothyroxine Sodium [Synthroid] 175 mcg PO DAILY 11/05/22 03/12/23 History amLODIPine [Norvasc] 10 mg PO DAILY 11/05/22 03/12/23 History Torsemide [Demadex] 40 mg PO DAILY #60 tab 11/13/22 03/12/23 Rx Insulin Degludec [Tresiba 14 unit SQ DAILY 01/28/23 03/12/23 History Flextouch U-200 Pen] Prazosin [Minipress] 2 mg PO TID PRN 01/28/23 03/12/23 History Rivaroxaban [Xarelto] 2.5 mg PO BID #60 tablet 02/03/23 03/12/23 Rx Metoprolol Succinate (ER) [Toprol 12.5 mg PO BID 03/12/23 03/12/23 History Xl] Ondansetron [Zofran] 4 mg PO Q12HR PRN 03/12/23 03/12/23 History hydrALAZINE HCL [Apresoline] 25 mg PO TID 03/12/23 03/12/23 History Allergies Allergy/AdvReac Type Severity Reaction Status Date / Time cefaclor Allergy Rash/Hives/ Verified 03/12/23 20:46 Nausea cephalexin Allergy Rash/Hives/ Verified 03/12/23 20:46 Nausea erythromycin base Allergy Rash/Hives/ Verified 03/12/23 20:46 Nausea indomethacin Allergy Rash/Hives/ Verified 03/12/23 20:46 Nausea Penicillins Allergy Rash/Hives/ Verified 03/12/23 20:46 Nausea regadenoson Allergy Rash/Hives/ Verified 03/12/23 20:46 Nausea Physical Exam Vitals: Vital Signs Temp Pulse Pulse Resp BP BP Pulse Ox 03/13/23 07:06 98.7 F 62 16 166/62 95 03/13/23 01:28 98.6 F 60 153/57 93 L 03/12/23 21:21 98.3 F 72 18 194/67 93 L 03/12/23 18:58 68 18 133/62 98 03/12/23 18:12 96.9 F L 66 18 136/76 97 Intake and Output 03/12/23 03/13/23 03/13/23 22:59 06:59 14:59 Other: # Voids 1 # Bowel Movements 1 Weight 58.06 kg GENERAL DESCRIPTION: Elderly female lying in bed, no distress. No tachypnea or accessory muscle of respiration use. HEENT: Shows Pallor , no scleral icterus. Oral mucous membrane is dry. No pharyngeal erythema or thrush NECK: Trachea central, no thyromegaly. LUNGS: Unlabored breathing. Clear to auscultation anteriorly. No wheeze or crackle. HEART: S1, S2, regular rate and rhythm. No loud murmur ABDOMEN: Soft, no tenderness , guarding or rigidity, no organomegaly EXTREMITIES: No edema of feet. SKIN: No rash, no masses palpable. NEUROLOGICAL: The patient is awake, alert, oriented x3, mood and affect normal. Results CBC & Chem 7: 03/13/23 06:40 03/13/23 06:40 Labs: Abnormal Lab Results - Last 24 Hours (Table) 03/12/23 03/12/23 03/12/23 Range/Units 19:32 19:32 21:19 WBC 13.8 H (3.8-10.6) k/uL RBC 3.43 L (3.80-5.40) m/uL Hgb 10.9 L (11.4-16.0) gm/dL Hct 33.6 L (34.0-46.0) % Neutrophils # 11.8 H (1.3-7.7) k/uL Carbon Dioxide 34 H (22-30) mmol/L BUN (7-17) mg/dL Creatinine 2.62 H (0.52-1.04) mg/dL Glucose 251 H (74-99) mg/dL POC Glucose (mg/dL) 171 H (70-110) mg/dL Alkaline Phosphatase 136 H (38-126) U/L Total Protein 6.1 L (6.3-8.2) g/dL Albumin (3.5-5.0) g/dL 03/13/23 03/13/23 Range/Units 06:40 06:40 WBC 12.3 H (3.8-10.6) k/uL RBC 3.10 L (3.80-5.40) m/uL Hgb 9.9 L (11.4-16.0) gm/dL Hct 30.6 L (34.0-46.0) % Neutrophils # 9.9 H (1.3-7.7) k/uL Carbon Dioxide 32 H (22-30) mmol/L BUN 19 H (7-17) mg/dL Creatinine 3.13 H (0.52-1.04) mg/dL Glucose (74-99) mg/dL POC Glucose (mg/dL) (70-110) mg/dL Alkaline Phosphatase (38-126) U/L Total Protein 5.0 L (6.3-8.2) g/dL Albumin 2.8 L (3.5-5.0) g/dL Assessment and Plan (1) Positive blood cultures Current Visit: Yes Status: Acute Code(s): R78.81 - BACTEREMIA SNOMED Code(s): 211449311 Plan: 1patient present to hospital with positive blood culture in this patient who did have a right sided permacatheter for dialysis likely source of this bacteremia as currently no evidence of any joint swelling or cellulitis 2-blood cultures will be repeated from the dialysis catheter peripheral culture has already been obtained 3-we will wait for the ID of this pathogen if staph epi/coagulase-negative staph will be able to salvage the catheter however if it MRSA catheter will have to come out 4-vancomycin pharmacy to dose with a target trough of 15 while watching kidney function and Vanco trough closely. We will follow on clinical condition and cultures to further adjust medication if needed Thank you for this consultation we will follow the patient along with you Dictation was produced using [email or web address] dictation software. please excuse any gra mmatical, word or spelling errors.
[2023-03-14] MEDS: RIVAROXABAN 2.5 MG TABLET PO SCH ×2 (08:38→22:06)
[2023-03-14] MEDS: hydrALAZINE HCL 25 MG TAB PO SCH ×3 (08:39→22:06)
[2023-03-14] MEDS: INSULIN DETEMIR (LEVEMIR) 100 UNIT/ML SYR SQ SCH (08:39)
[2023-03-14] MEDS: amLODIPine 10 MG TAB PO SCH (08:39)
[2023-03-14] MEDS: TORSEMIDE 20 MG TAB PO SCH (08:39)
[2023-03-14] MEDS: allopurinoL 100 MG TAB PO SCH (08:39)
[2023-03-14] MEDS: METOPROLOL SUCCINATE (ER) 25 MG TAB.ER.24H PO SCH ×2 (08:39→22:06)
[2023-03-14] MEDS: FLUoxetine HCL 10 MG CAP PO SCH (08:39)
--- NOTE | 2023-03-14 10:35 | US ---
EXAMINATION TYPE: Left arm loop graft DATE OF EXAM: 03/14/2023 10:14 AM CLINICAL INDICATION: Female, 87 years old with history of Evaluate loop graft for use. created ; Left forearm loop dialysis graft for patency and stenosis SIDE PERFORMED: Left TECHNIQUE: Left forearm loop graft. FINDINGS: Left forearm loop graft patent Brachial arterial origin velocity= Systolic: 490 cm/s Diastolic: 168 cm/s Venous origin velocity= Systolic: 637 cm/s Diastolic: 248 cm/s IMPRESSION: Left forearm loop graft is patent with increased velocities suggesting stenosis.
--- NOTE | 2023-03-14 10:42 | P.PN ---
Subjective Patient is seen in follow-up for end-stage renal disease. She is maintained on hemodialysis on Tuesday schedule. On IV antibiotics for gram- positive bacteremia. Denies chest pain or shortness of breath. No fever. Vital signs are stable. General: No acute distress. HEENT: Head exam is unremarkable. LUNGS: No audible rhonchi or wheezes. HEART: Rate and Rhythm are regular. ABDOMEN: Nontender. EXTREMITITES: No edema. Objective - Vital Signs Vital signs: Vital Signs Temp 98.2 F 03/14/23 07:56 Pulse 69 03/14/23 09:00 Resp 16 03/14/23 09:00 BP 170/65 03/14/23 07:56 Pulse Ox 97 03/14/23 07:56 FiO2 Intake & Output 03/13/23 03/14/23 03/14/23 18:59 06:59 18:59 Other: Voiding Method Bedside Commode Bedside Commode Diaper Diaper # Voids 1 1 # Bowel Movements 1 1 - Labs CBC & Chem 7: 03/13/23 06:40 03/13/23 06:40 Labs: Abnormal Lab Results - Last 24 Hours (Table) 03/13/23 03/13/23 03/13/23 Range/Units 13:42 16:36 20:20 POC Glucose (mg/dL) 143 H 281 H 271 H (70-110) mg/dL 03/14/23 Range/Units 05:56 POC Glucose (mg/dL) 128 H (70-110) mg/dL Microbiology - Last 24 Hours (Table) 03/12/23 19:46 Blood Culture - Preliminary Blood 03/12/23 19:32 Blood Culture - Preliminary Blood Assessment and Plan Plan: Assessment: 1. End-stage renal disease maintained on hemodialysis on Tuesday schedule via permacath. 2. Gram-positive bacteremia from permacath infection. ID following. Cultures so far negative this admission. 3. Hypertension with chronic kidney disease. 4. Diabetes mellitus. 5. Anemia of chronic kidney disease. Plan: Hemodialysis tomorrow. Follow-up cultures. Permacath will be removed if blood cultures positive. Check phosphorus level. Add Aranesp. Increase dose of hydralazine to 75 mg
--- NOTE | 2023-03-14 11:26 | P.GSCN ---
History of Present Illness Consult date: 03/14/23 Reason for Consult: New fistula, can we use Requesting physician: Abdullahi Emmanuel History of present illness: This is a pleasant 79-year-old female that is known to Dr. Hernandez from vascular surgery for end-stage renal disease and recent left upper extremity loop forearm graft creation on 02/03/2023. She has a past medical history including end- stage renal disease on hemodialysis, COPD, hypertension, diabetes and hyp othyroidism. She had a tunneled right IJ catheter placed by Dr. Miller on 11/07/2022. Patient was admitted to the hospital for reportedly positive outpatient positive blood cultures. Patient states she was having some weakness and fatigue and they kelly blood cultures off her right IJ tunneled catheter last week. There are no culture results available at this time. She does get dialysis Tuesday. Vascular surgery was consulted by nephrology to evaluate and loop graft could be utilized. Patient denies any chest pain, shortness of breath, abdominal pain, fevers or chills. States overall she is doing well. She has had no pain, drainage, or redness around her permacath. Left forearm graft without any pain or redness. Review of Systems A 14 point review systems was completed all pertinent positives and negatives as stated in the HPI. Past Medical History Past Medical History: COPD, Diabetes Mellitus, Hypertension, Renal Disease, Thyroid Disorder Additional Past Medical History / Comment(s): stage 4 kidney on dialysis TThS History of Any Multi-Drug Resistant Organisms: None Reported Past Surgical History: No Surgical Hx Reported Additional Past Surgical History / Comment(s): uterine polyps removed, nerve block to left leg, dialysis port placed 2022. Past Anesthesia/Blood Transfusion Reactions: No Reported Reaction Past Psychological History: No Psychological Hx Reported Smoking Status: Never smoker Past Alcohol Use History: None Reported Past Drug Use History: None Reported - Past Family History Daughter(s) Family Medical History: Myocardial Infarction ([place]) Medications and Allergies Home Medications Medication Instructions Recorded Confirmed Type Atorvastatin Calcium 20 mg PO DAILY 09/04/22 03/12/23 History Budesonide-Formot 160-4.5 Mcg 2 puff INHALATION RT-BID PRN 09/04/22 03/12/23 History [Symbicort 160-4.5 Mcg Inhaler] FLUoxetine HCL [PROzac] 10 mg PO DAILY 09/04/22 03/12/23 History allopurinoL 100 mg PO DAILY 09/04/22 03/12/23 History Acetaminophen Tab [Tylenol] 650 mg PO Q6HR PRN tab 09/07/22 03/12/23 Rx Famotidine [Pepcid] 20 mg PO Q2D 11/05/22 03/12/23 History Levothyroxine Sodium [Synthroid] 175 mcg PO DAILY 11/05/22 03/12/23 History amLODIPine [Norvasc] 10 mg PO DAILY 11/05/22 03/12/23 History Torsemide [Demadex] 40 mg PO DAILY #60 tab 11/13/22 03/12/23 Rx Insulin Degludec [Tresiba 14 unit SQ DAILY 01/28/23 03/12/23 History Flextouch U-200 Pen] Prazosin [Minipress] 2 mg PO TID PRN 01/28/23 03/12/23 History Rivaroxaban [Xarelto] 2.5 mg PO BID #60 tablet 02/03/23 03/12/23 Rx Metoprolol Succinate (ER) [Toprol 12.5 mg PO BID 03/12/23 03/12/23 History Xl] Ondansetron [Zofran] 4 mg PO Q12HR PRN 03/12/23 03/12/23 History hydrALAZINE HCL [Apresoline] 25 mg PO TID 03/12/23 03/12/23 History Allergies Allergy/AdvReac Type Severity Reaction Status Date / Time cefaclor Allergy Rash/Hives/ Verified 03/12/23 20:46 Nausea cephalexin Allergy Rash/Hives/ Verified 03/12/23 20:46 Nausea erythromycin base Allergy Rash/Hives/ Verified 03/12/23 20:46 Nausea indomethacin Allergy Rash/Hives/ Verified 03/12/23 20:46 Nausea Penicillins Allergy Rash/Hives/ Verified 03/12/23 20:46 Nausea regadenoson Allergy Rash/Hives/ Verified 03/12/23 20:46 Nausea Surgical - Exam Vital Signs Temp Pulse Resp BP Pulse Ox 96.9 F L 66 18 136/76 97 03/12/23 18:12 03/12/23 18:12 03/12/23 18:12 03/12/23 18:12 03/12/23 18:12 General appearance: The patient is alert, oriented, appears in no acute distress. HET: Head is normocephalic and atraumatic. Pupils are equal and reactive. Neck: Supple. Chest: Right IJ tunnel cath in place without any surrounding drainage or erythema. Heart: Regular. Lungs: Equal expansion, normal respiratory effort. Abdomen: Soft, nontender, nondistended. Extremities: Normal skin color and turgor. Left upper extremity loop graft with palpable thrill and audible bruit. Neurological: No focal deficits. Alert and oriented. Results - Labs 03/13/23 06:40 03/14/23 11:49 Abnormal Lab Results - Last 24 Hours (Table) 03/13/23 03/13/23 03/13/23 Range/Units 13:42 16:36 20:20 POC Glucose (mg/dL) 143 H 281 H 271 H (70-110) mg/dL 03/14/23 Range/Units 05:56 POC Glucose (mg/dL) 128 H (70-110) mg/dL Microbiology - Last 24 Hours (Table) 03/12/23 19:46 Blood Culture - Preliminary Blood 03/12/23 19:32 Blood Culture - Preliminary Blood - Imaging Comments: Left upper extremity duplex scan reports left forearm loop graft patent with increased velocities suggesting stenosis Assessment and Plan Assessment: 1. End-stage renal disease requiring hemodialysis 2. Recent left forearm loop graft creation on 02/03/2023 3. Positive outpatient blood cultures Plan: Ultrasound left upper extremity ordered for patency and evaluation of stenosis. May use of left upper extremity loop graft. If no complications with loop graft, will consider removal of tunneled catheter during this admission. Thank you for this consultation, we will continue to follow. The impression and plan of care has been dictated as directed. I performed a history and examination of this patient, discussed the same with the dictator. I agree with the dictator's note ,documented as a scribe. Any additional findings or plans will be noted.
[2023-03-14] MEDS ORDERED: DARBEPOETIN ALFA 40 MCG/0.4 ML SYRINGE SQ SCH (11:30)
[2023-03-14 11:47] LABS: Glucose,Whole Blood 180 mg/dL (70-110)
--- NOTE | 2023-03-14 12:20 | P.PN ---
Subjective Progress Note Date: 03/14/23 Principal diagnosis: Reason for follow-up is gram-positive bacteremia likely permcath infection Patient is a 87-year-old female with a past medical history significant for end-stage renal disease on dialysis through the right IJ tunneled catheter that was placed in October 2022 , patient was brought in the hospital after outpatient blood cultures can be positive for gram-positive cocci. On today's evaluation that is 03/14/2023, the patient continues to be afebrile , the patient is not requiring any supplemental oxygen and is breathing comfortably on room air , the patient denies any chest pain no cough or sputum production, patient denies Abdominal pain and denies any nausea/vomiting/no diarrhea has been reported Labs from today are pending blood culture drawn here are pending Objective - Vital Signs Vital signs: Vital Signs Temp 98.2 F 03/14/23 07:56 Pulse 69 03/14/23 09:00 Resp 16 03/14/23 09:00 BP 170/65 03/14/23 07:56 Pulse Ox 97 03/14/23 07:56 FiO2 Intake & Output 03/13/23 03/14/23 03/14/23 18:59 06:59 18:59 Other: Voiding Method Bedside Commode Bedside Commode Diaper Diaper # Voids 1 1 # Bowel Movements 1 1 - Exam GENERAL DESCRIPTION: An elderly female lying in bed in no distress RESPIRATORY SYSTEM: Unlabored breathing , clear to auscultation anteriorly HEART: S1 S2 regular rate and rhythm , ABDOMEN: Soft , no tenderness EXTREMITIES: No edema feet - Labs CBC & Chem 7: 03/13/23 06:40 03/13/23 06:40 Labs: Abnormal Lab Results - Last 24 Hours (Table) 03/13/23 03/13/23 03/13/23 Range/Units 13:42 16:36 20:20 POC Glucose (mg/dL) 143 H 281 H 271 H (70-110) mg/dL 03/14/23 03/14/23 Range/Units 05:56 11:46 POC Glucose (mg/dL) 128 H 180 H (70-110) mg/dL Microbiology - Last 24 Hours (Table) 03/12/23 19:46 Blood Culture - Preliminary Blood 03/12/23 19:32 Blood Culture - Preliminary Blood Assessment and Plan (1) Positive blood cultures Current Visit: Yes Status: Acute Code(s): R78.81 - BACTEREMIA SNOMED Code(s): 155928567 Plan: 1patient present to hospital with positive blood culture in this patient who did have a right sided permcatheter for dialysis likely source of this bacteremia as currently no evidence of any joint swelling or cellulitis 2-blood cultures will be repeated from the dialysis catheter peripheral culture has already been obtained 3-we will wait for blood cultures to be finalized to see the need for more or not of the dialysis catheter 4-patient to continue with vancomycin pharmacy to dose and monitor clinical course closely Dictation was produced using [employer] dictation software. please excuse any grammatical, word or spelling errors. Time with Patient: Less than 30
[2023-03-14 12:30] LABS: African American GFR (CKD) 9 (>60 ml/min/1.73 sqM); Non-African American GFR(CKD) 8 (>60 ml/min/1.73 sqM)
[2023-03-14 12:35] LABS: Vancomycin,Random 24.3 ug/mL
[2023-03-14 13:33] VITALS: BMI 21.9
--- NOTE | 2023-03-14 14:31 | P.PN ---
Progress Note - Text Progress Note Date: 03/14/23 Chief Complaint: Positive blood culture This is a pleasant 87-year-old patient who follows with Dr. Corbett. Chronic stable medical conditions include COPD, diabetes, hypertension, hypothyroid, end-stage kidney disease. Started on dialysis on October 2022. Has a Right IJ dialysis catheter. Has a left forearm AV fistula-getting matured. Patient had blood cultures drawn on March 10 by her surgical technology instructor Dr. Emmanuel. Came back positive and patient was sent in. Denies any fever and chills. Appetite is okay. Slight decrease appetite March 14: Sitting on bed. Comfortable. Blood cultures pending. IV vancomycin. Suspected PermCath infection Active Medications Acetaminophen (Acetaminophen Tab 325 Mg Tab) 650 mg PO Q6HR PRN PRN Reason: Mild Pain or Fever > 100.5 Allopurinol (Allopurinol 100 Mg Tab) 100 mg PO DAILY [facility] Last Admin: 03/14/23 08:39 Dose: 100 mg Alprazolam (Alprazolam 0.25 Mg Tab) 0.25 mg PO Q6HR PRN PRN Reason: Anxiety Amlodipine Besylate (Amlodipine 10 Mg Tab) 10 mg PO DAILY [facility] Last Admin: 03/14/23 08:39 Dose: 10 mg Atorvastatin Calcium (Atorvastatin 20 Mg Tab) 20 mg PO HS [facility] Last Admin: 03/13/23 21:12 Dose: 20 mg Budesonide/Formoterol Fumarate (Symbicort 160-4.5 Mcg Inhaler) 2 puff INHA LATION RT-BID PRN PRN Reason: Shortness Of Breath Calcium Carbonate/Glycine (Calcium Carbonate 500 Mg Chewable) 1,000 mg PO Q4HR PRN PRN Reason: Dyspepsia Darbepoetin Yrn (Darbepoetin Yrn 40 Mcg/0.4 Ml Syringe) 40 mcg SQ Q7D [facility] Last Admin: 03/14/23 11:45 Dose: 40 mcg Famotidine (Famotidine 20 Mg Tab) 20 mg PO Q2D [facility] Last Admin: 03/12/23 22:44 Dose: Not Given Fluoxetine HCl (Fluoxetine Hcl 10 Mg Cap) 10 mg PO DAILY [facility] Last Admin: 03/14/23 08:39 Dose: 10 mg Hydralazine HCl (Hydralazine Hcl 25 Mg Tab) 75 mg PO TID [facility] Sodium Chloride (Saline 0.9%) 1,000 mls @ 20 mls/hr IV .Q24H [facility] Last Admin: 03/13/23 21:13 Dose: Not Given Vancomycin HCl 1,000 mg/ (Sodium Chloride) 250 mls @ 125 mls/hr IVPB ONCE ONE Stop: 03/15/23 22:59 Insulin Detemir (Insulin Detemir (Levemir) 100 Unit/Ml Syr) 14 unit SQ DAILY [facility] Last Admin: 03/14/23 08:39 Dose: 14 unit Lactulose (Lactulose 20 Gm/30 Ml Cup) 20 gm PO DAILY PRN PRN Reason: Constipation Levothyroxine Sodium (Levothyroxine 88 Mcg Tab) 176 mcg PO DAILY@0630 [facility] Last Admin: 03/14/23 05:39 Dose: 176 mcg Metoprolol Succinate (Metoprolol Succinate (Er) 25 Mg Tab.Er.24h) 12.5 mg PO BID [facility] Last Admin: 03/14/23 08:39 Dose: 12.5 mg Miscellaneous Information (Vancomycin Iv Per Pharmacy 1 Each Misc) 0 each MISCELLANE DIRECTED PRN PRN Reason: PHARMACY DOSING PROTOCOL Naloxone HCl (Naloxone 0.4 Mg/Ml 1 Ml Vial) 0.2 mg IV Q2M PRN PRN Reason: Opioid Reversal Ondansetron HCl (Ondansetron 4 Mg Tab) 4 mg PO Q12HR PRN PRN Reason: Nausea Prazosin HCl (Prazosin 1 Mg Cap) 2 mg PO TID PRN PRN Reason: Blood Pressure - High Rivaroxaban (Rivaroxaban 2.5 Mg Tablet) 2.5 mg PO BID [facility]; Protocol Last Admin: 03/14/23 08:38 Dose: 2.5 mg Torsemide (Torsemide 20 Mg Tab) 40 mg PO DAILY [facility] Last Admin: 03/14/23 08:39 Dose: 40 mg Past medical history to include: COPD, diabetes, hypertension, end-stage kidney disease started hemodialysis October 2022, hypothyroid Social history: Lives with her son-in-law grandson does use a powered wheelchair. Does not smoke or drink alcohol Physical examination: VITAL SIGNS: 98.2, 69, 16, 170/65, 97% room air GENERAL: In bed comfortable. Right IJ dialysis catheter. Left forearm AV fistula EYES: Pupils equal. Conjunctiva palel. HEENT: External appearance of nose and ears normal, oral cavity grossly normal. NECK: JVD not raised; masses not palpable. HEART: First and second heart sounds are normal; no edema. LUNGS: Respiratory rate normal; clear to auscultation. ABDOMEN: Soft, nontender, liver spleen not palpable, no masses palpable. PSYCH: Alert and oriented x3; mood and affect normal. MUSCULOSKELETAL:No Clubbing/cyanosis;muscles-grossly intact. OA INVESTIGATIONS, reviewed in the clinical context: Blood culture [March 12]: Pending 03/13/2023: White count 12.3 mm 9.9 platelets 270 sodium 140 potassium 3.7 BUN 19 creatinine 3.13 Assessment and plan: -Bacteremic with positive blood culture outpatient drawn on 03/10/2023 by her surgical technology instructor Dr. Emmanuel. Suspected PermCath infection IV vancomycin Repeat blood cultures from March 12 pending -End-stage kidney disease started on October 2022 Nephrology following Right IJ dialysis catheter -Anemia secondary to chronic kidney disease -COPD in nonsmoker Symbicort -Depression and anxiety Prozac -GERD Pepcid -Chronic hyperuricemia Allopurinol -Hyperlipidemia Lipitor -Diabetes mellitus type 2 tresiba. Follow Accu-Cheks -Essential hypertension with chronic kidney disease Toprol-XL 12.5 mg by mouth twice a day.. Hydralazine 50 mg 3 times a day. Amlodipine 10 mg. -Hypothyroid Synthroid 175 g a day -Full code IV Vancomycin. Repeat blood culture results. Follow with ID nephrology
[2023-03-14 16:12] LABS: Glucose,Whole Blood 137 mg/dL (70-110)
[2023-03-14 19:49] LABS: Glucose,Whole Blood 230 mg/dL (70-110)
[2023-03-14] MEDS: SODIUM CHLORIDE 0.9% 1,000 ML IV SCH (22:05)
[2023-03-14] MEDS: ATORVASTATIN 20 MG TAB PO SCH (22:06)
[2023-03-14] MEDS: FAMOTIDINE 20 MG TAB PO SCH (22:06)
[2023-03-15 05:43] LABS: Glucose,Whole Blood 130 mg/dL (70-110)
[2023-03-15] MEDS: LEVOTHYROXINE 88 MCG TAB PO SCH (06:38)
[2023-03-15] MEDS: INSULIN DETEMIR (LEVEMIR) 100 UNIT/ML SYR SQ SCH (09:15)
--- NOTE | 2023-03-15 09:46 | P.PN ---
Subjective Progress Note Date: 03/15/23 Principal diagnosis: Positive blood cultures She was seen and examined today as a follow-up. She is scheduled to undergo hemodialysis today. She may use her left upper extremity loop graft for dialysis today. She has been afebrile. Preliminary blood cultures no growth after 48 hours. Objective - Vital Signs Vital signs: Vital Signs Temp 98.1 F 03/15/23 07:08 Pulse 65 03/15/23 07:08 Resp 19 03/15/23 07:08 BP 149/60 03/15/23 07:08 Pulse Ox 93 L 03/15/23 07:08 FiO2 Intake & Output 03/14/23 03/15/23 03/15/23 18:59 06:59 18:59 Weight 58.06 kg Other: Voiding Method Bedside Commode Bedside Commode Diaper # Voids 2 1 # Bowel Movements 1 - Exam General appearance: The patient is alert, oriented, appears in no acute distress. HET: Head is normocephalic and atraumatic. Pupils are equal and reactive. Neck: Supple. Chest: Right IJ tunnel catheter in place, without any surrounding redness or drainage. Extremities: Normal skin color and turgor. Left forearm loop graft with palpable thrill and audible bruit. Neurological: No focal deficits. Strength and sensation are grossly intact. - Labs CBC & Chem 7: 03/13/23 06:40 03/14/23 11:49 Labs: Abnormal Lab Results - Last 24 Hours (Table) 03/14/23 03/14/23 03/14/23 Range/Units 11:46 11:49 16:08 Creatinine 4.60 H (0.52-1.04) mg/dL POC Glucose (mg/dL) 180 H 137 H (70-110) mg/dL 03/14/23 03/15/23 Range/Units 19:48 05:41 Creatinine (0.52-1.04) mg/dL POC Glucose (mg/dL) 230 H 130 H (70-110) mg/dL Microbiology - Last 24 Hours (Table) 03/12/23 19:46 Blood Culture - Preliminary Blood 03/12/23 19:32 Blood Culture - Preliminary Blood Assessment and Plan Assessment: 1. End-stage renal disease requiring hemodialysis 2. Recent left forearm loop graft creation on 02/03/2023 3. Positive outpatient blood cultures Plan: May use of left upper extremity loop graft today for hemodialysis. If no complications with loop graft, will likely remove tomorrow. Thank you for this consultation, we will continue to follow. The impression and plan of care has been dictated as directed. I performed a history and examination of this patient, discussed the same with the dictator. I agree with the dictator's note ,documented as a scribe. Any additional findings or plans will be noted.
[2023-03-15 11:46] LABS: Glucose,Whole Blood 124 mg/dL (70-110)
[2023-03-15] MEDS: allopurinoL 100 MG TAB PO SCH (13:18)
[2023-03-15] MEDS: amLODIPine 10 MG TAB PO SCH (13:18)
[2023-03-15] MEDS: RIVAROXABAN 2.5 MG TABLET PO SCH ×2 (13:18→21:49)
[2023-03-15] MEDS: TORSEMIDE 20 MG TAB PO SCH (13:19)
[2023-03-15] MEDS: hydrALAZINE HCL 25 MG TAB PO SCH (13:19)
[2023-03-15] MEDS: FLUoxetine HCL 10 MG CAP PO SCH (13:19)
[2023-03-15] MEDS: METOPROLOL SUCCINATE (ER) 25 MG TAB.ER.24H PO SCH ×2 (13:51→21:48)
--- NOTE | 2023-03-15 14:03 | P.PN ---
Subjective Progress Note Date: 03/15/23 Principal diagnosis: Reason for follow-up is gram-positive bacteremia likely permcath infection Patient is a 87-year-old female with a past medical history significant for end-stage renal disease on dialysis through the right IJ tunneled catheter that was placed in October 2022 , patient was brought in the hospital after outpatient blood cultures can be positive for gram-positive cocci. On today's evaluation that is 03/15/2023, the patient remains to be afebrile , the patient is breathing comfortably on room air , the patient denies chest pain shortness of breath or cough , patient denies nausea/vomiting/ diarrhea and no abdominal pain Blood culture had been negative so far no labs drawn today blood culture at the outside facility positive for coagulase negative staph Objective - Vital Signs Vital signs: Vital Signs Temp 98.1 F 03/15/23 07:08 Pulse 65 03/15/23 07:08 Resp 19 03/15/23 07:08 BP 149/60 03/15/23 07:08 Pulse Ox 93 L 03/15/23 07:08 FiO2 Intake & Output 03/14/23 03/15/23 03/15/23 18:59 06:59 18:59 Weight 58.06 kg Other: Voiding Method Bedside Commode Bedside Commode Diaper # Voids 2 1 # Bowel Movements 1 - Exam GENERAL DESCRIPTION: An elderly female lying in bed in no distress RESPIRATORY SYSTEM: Unlabored breathing , clear to auscultation anteriorly HEART: S1 S2 regular rate and rhythm , ABDOMEN: Soft , no tenderness EXTREMITIES: No edema feet - Labs CBC & Chem 7: 03/13/23 06:40 03/14/23 11:49 Labs: Abnormal Lab Results - Last 24 Hours (Table) 03/14/23 03/14/23 03/14/23 Range/Units 11:46 11:49 16:08 Creatinine 4.60 H (0.52-1.04) mg/dL POC Glucose (mg/dL) 180 H 137 H (70-110) mg/dL 03/14/23 03/15/23 Range/Units 19:48 05:41 Creatinine (0.52-1.04) mg/dL POC Glucose (mg/dL) 230 H 130 H (70-110) mg/dL Microbiology - Last 24 Hours (Table) 03/12/23 19:46 Blood Culture - Preliminary Blood 03/12/23 19:32 Blood Culture - Preliminary Blood Assessment and Plan (1) Positive blood cultures Current Visit: Yes Status: Acute Code(s): R78.81 - BACTEREMIA SNOMED Code(s): 838811577 Plan: 1patient present to hospital with positive blood culture in this patient who did have a right sided permcatheter for dialysis likely source of this bacteremia as currently no evidence of any joint swelling or cellulitis 2-blood cultures will be repeated from the dialysis catheter peripheral culture has already been obtained 3-blood culture from outside facility has been coagulase negative staph 4-patient be continued on vancomycin pharmacy to dose through the dialysis for 2 weeks and plan for rechecking the blood culture a week after completion of her antibiotics and if negative no further workup this was discussed with the patient back order clerk Dictation was produced using [employer] dictation software. please excuse any grammatical, word or spelling errors. Time with Patient: Less than 30
--- NOTE | 2023-03-15 14:23 | P.PN ---
Subjective Patient is seen in follow-up for end-stage renal disease. She is maintained on hemodialysis on Tuesday schedule. On IV antibiotics for gram- positive bacteremia. Denies chest pain or shortness of breath. No fever. Vomited this morning. Completed dialysis this morning. Vital signs are stable. General: No acute distress. HEENT: Head exam is unremarkable. LUNGS: No audible rhonchi or wheezes. HEART: Rate and Rhythm are regular. ABDOMEN: Nontender. EXTREMITITES: No edema. Objective - Vital Signs Vital signs: Vital Signs Temp 98.1 F 03/15/23 07:08 Pulse 63 03/15/23 13:16 Resp 19 03/15/23 07:08 BP 154/73 03/15/23 13:16 Pulse Ox 93 L 03/15/23 13:16 FiO2 Intake & Output 03/14/23 03/15/23 03/15/23 18:59 06:59 18:59 Weight 58.06 kg Other: Voiding Method Bedside Commode Bedside Commode Bedside Commode Diaper # Voids 2 1 # Bowel Movements 1 - Labs CBC & Chem 7: 03/13/23 06:40 03/14/23 11:49 Labs: Abnormal Lab Results - Last 24 Hours (Table) 03/14/23 03/14/23 03/15/23 Range/Units 16:08 19:48 05:41 POC Glucose (mg/dL) 137 H 230 H 130 H (70-110) mg/dL 03/15/23 Range/Units 11:44 POC Glucose (mg/dL) 124 H (70-110) mg/dL Microbiology - Last 24 Hours (Table) 03/14/23 06:11 Blood Culture - Preliminary Blood 03/12/23 19:46 Blood Culture - Preliminary Blood 03/12/23 19:32 Blood Culture - Preliminary Blood Assessment and Plan Plan: Assessment: 1. End-stage renal disease maintained on hemodialysis on Tuesday schedule via permacath. 2. Gram-positive bacteremia from permacath infection. ID following. Cultures so far negative this admission. 3. Hypertension with chronic kidney disease. 4. Diabetes mellitus. 5. Anemia of chronic kidney disease. On . Plan: Hemodialysis . Follow-up cultures. On . Check phosphorus level. Increase dose of hydralazine to 100 mg
[2023-03-15 16:28] LABS: Glucose,Whole Blood 158 mg/dL (70-110)
[2023-03-15] MEDS: hydrALAZINE HCL 50 MG TAB PO SCH ×2 (16:49→21:48)
--- NOTE | 2023-03-15 17:22 | P.PN ---
Progress Note - Text Progress Note Date: 03/15/23 Chief Complaint: Positive blood culture This is a pleasant 87-year-old patient who follows with Dr. Corbett. Chronic stable medical conditions include COPD, diabetes, hypertension, hypothyroid, end-stage kidney disease. Started on dialysis on October 2022. Has a Right IJ dialysis catheter. Has a left forearm AV fistula-getting matured. Patient had blood cultures drawn on March 10 by her [address] shells [address] Emmanuel. Came back positive and patient was sent in. Denies any fever and chills. Appetite is okay. Slight decrease appetite March 14: Sitting on bed. Comfortable. Blood cultures pending. IV vancomycin. Suspected PermCath infection March 15: Hemodialysis today. Decreased appetite. Blood cultures from pending. Patient encouraged to eat Active Medications Acetaminophen (Acetaminophen Tab 325 Mg Tab) 650 mg PO Q6HR PRN PRN Reason: Mild Pain or Fever > 100.5 Allopurinol (Allopurinol 100 Mg Tab) 100 mg PO DAILY [facility] Last Admin: 03/15/23 13:18 Dose: 100 mg Alprazolam (Alprazolam 0.25 Mg Tab) 0.25 mg PO Q6HR PRN PRN Reason: Anxiety Amlodipine Besylate (Amlodipine 10 Mg Tab) 10 mg PO DAILY [facility] Last Admin: 03/15/23 13:18 Dose: 10 mg Atorvastatin Calcium (Atorvastatin 20 Mg Tab) 20 mg PO HS [facility] Last Admin: 03/14/23 22:06 Dose: 20 mg Budesonide/Formoterol Fumarate (Symbicort 160-4.5 Mcg Inhaler) 2 puff INHALATION RT-BID PRN PRN Reason: Shortness Of Breath Calcium Carbonate/Glycine (Calcium Carbonate 500 Mg Chewable) 1,000 mg PO Q4HR PRN PRN Reason: Dyspepsia Darbepoetin Yrn (Darbepoetin Yrn 40 Mcg/0.4 Ml Syringe) 40 mcg SQ Q7D [facility] Last Admin: 03/14/23 11:45 Dose: 40 mcg Famotidine (Famotidine 20 Mg Tab) 20 mg PO Q2D [facility] Last Admin: 03/14/23 22:06 Dose: 20 mg Fluoxetine HCl (Fluoxetine Hcl 10 Mg Cap) 10 mg PO DAILY [facility] Last Admin: 03/15/23 13:19 Dose: 10 mg Hydralazine HCl (Hydralazine Hcl 50 Mg Tab) 100 mg PO TID [facility] Last Admin: 03/15/23 16:49 Dose: 100 mg Sodium Chloride (Saline 0.9%) 1,000 mls @ 20 mls/hr IV .Q24H [facility] Last Admin: 03/14/23 22:05 Dose: Not Given Vancomycin HCl 1,000 mg/ (Sodium Chloride) 250 mls @ 125 mls/hr IVPB ONCE ONE Stop: 03/15/23 22:59 Insulin Detemir (Insulin Detemir (Levemir) 100 Unit/Ml Syr) 14 unit SQ DAILY [facility] Last Admin: 03/15/23 09:15 Dose: 14 unit Lactulose (Lactulose 20 Gm/30 Ml Cup) 20 gm PO DAILY PRN PRN Reason: Constipation Levothyroxine Sodium (Levothyroxine 88 Mcg Tab) 176 mcg PO DAILY@0630 [facility] Last Admin: 03/15/23 06:38 Dose: 176 mcg Metoprolol Succinate (Metoprolol Succinate (Er) 25 Mg Tab.Er.24h) 12.5 mg PO BID [facility] Last Admin: 03/15/23 13:51 Dose: 12.5 mg Miscellaneous Information (Vancomycin Iv Per Pharmacy 1 Each Misc) 0 each MISCELLANE DIRECTED PRN PRN Reason: PHARMACY DOSING PROTOCOL Naloxone HCl (Naloxone 0.4 Mg/Ml 1 Ml Vial) 0.2 mg IV Q2M PRN PRN Reason: Opioid Reversal Ondansetron HCl (Ondansetron 4 Mg Tab) 4 mg PO Q12HR PRN PRN Reason: Nausea Prazosin HCl (Prazosin 1 Mg Cap) 2 mg PO TID PRN PRN Reason: Blood Pressure - High Last Admin: 03/15/23 01:37 Dose: 2 mg Rivaroxaban (Rivaroxaban 2.5 Mg Tablet) 2.5 mg PO BID [facility]; Protocol Last Admin: 03/15/23 13:18 Dose: 2.5 mg Torsemide (Torsemide 20 Mg Tab) 40 mg PO DAILY [facility] Last Admin: 03/15/23 13:19 Dose: 40 mg Past medical history to include: COPD, diabetes, hypertension, end-stage kidney disease started hemodialysis October 2022, hypothyroid Social history: Lives with her son-in-law grandson does use a powered wheelchair. Does not smoke or drink alcohol Physical examination: VITAL SIGNS: 98.2, 66, 17, 140/57, 93% room air GENERAL: In bed comfortable. Right IJ dialysis catheter. Left forearm AV fistula EYES: Pupils equal. Conjunctiva palel. HEENT: External appearance of nose and ears normal, oral cavity grossly normal. NECK: JVD not raised; masses not palpable. HEART: First and second heart sounds are normal; no edema. LUNGS: Respiratory rate normal; clear to auscultation. ABDOMEN: Soft, nontender, liver spleen not palpable, no masses palpable. PSYCH: Alert and oriented x3; mood and affect normal. MUSCULOSKELETAL:No Clubbing/cyanosis;muscles-grossly intact. OA INVESTIGATIONS, reviewed in the clinical context: Blood culture [March 12]: Pending 03/13/2023: White count 12.3 mm 9.9 platelets 270 sodium 140 potassium 3.7 BUN 19 creatinine 3.13 Assessment and plan: -Bacteremic with positive blood culture outpatient drawn on 03/10/2023 by her n ephrologist Dr. Emmanuel. Suspected PermCath infection IV vancomycin Repeat blood cultures from March 12 pending -End-stage kidney disease started on October 2022 Nephrology following Right IJ dialysis catheter -Anemia secondary to chronic kidney disease -COPD in nonsmoker Symbicort -Depression and anxiety Prozac -GERD Pepcid -Chronic hyperuricemia Allopurinol -Hyperlipidemia Lipitor -Diabetes mellitus type 2 tresiba. Follow Accu-Cheks -Essential hypertension with chronic kidney disease Toprol-XL 12.5 mg by mouth twice a day.. Hydralazine 50 mg 3 times a day. Amlodipine 10 mg. -Hypothyroid Synthroid 175 g a day -Full code Discussed with patient. Continue current medication treatment plan. Hemodialysis today.
[2023-03-15 20:24] LABS: Glucose,Whole Blood 220 mg/dL (70-110)
[2023-03-15] MEDS ORDERED: VANCOMYCIN 1,000 MG in SODIUM CHLORIDE 0.9% 250 ML IVPB ONE (21:00)
[2023-03-15] MEDS: ATORVASTATIN 20 MG TAB PO SCH (21:48)
[2023-03-15] MEDS: SODIUM CHLORIDE 0.9% 1,000 ML IV SCH (21:49)
[2023-03-16 05:37] LABS: Glucose,Whole Blood 127 mg/dL (70-110)
[2023-03-16] MEDS: LEVOTHYROXINE 88 MCG TAB PO SCH (06:23)
[2023-03-16] MEDS: INSULIN DETEMIR (LEVEMIR) 100 UNIT/ML SYR SQ SCH (08:53)
[2023-03-16] MEDS ORDERED: LIDOCAINE 1% INJ 10MG/ML (20 ML MDV) SQ ONE (11:14)
--- NOTE | 2023-03-16 11:44 | P.PN ---
Subjective Patient is seen in follow-up for end-stage renal disease. She is maintained on hemodialysis on Tuesday schedule. On IV antibiotics for gram- positive bacteremia. Denies chest pain or shortness of breath. No fever. Tolerating dialysis well. AV fistula working well. Vital signs are stable. General: No acute distress. HEENT: Head exam is unremarkable. LUNGS: No audible rhonchi or wheezes. HEART: Rate and Rhythm are regular. ABDOMEN: Nontender. EXTREMITITES: No edema. Objective - Vital Signs Vital signs: Vital Signs Temp 98.5 F 03/16/23 07:09 Pulse 64 03/16/23 08:00 Resp 17 03/16/23 08:00 BP 165/66 03/16/23 07:09 Pulse Ox 95 03/16/23 07:09 FiO2 Intake & Output 03/15/23 03/16/23 03/16/23 18:59 06:59 18:59 Other: Voiding Method Bedside Commode Bedside Commode Bedside Commode # Voids 4 1 # Bowel Movements 1 - Labs CBC & Chem 7: 03/13/23 06:40 03/14/23 11:49 Labs: Abnormal Lab Results - Last 24 Hours (Table) 03/15/23 03/15/23 03/15/23 Range/Units 11:44 16:25 20:22 POC Glucose (mg/dL) 124 H 158 H 220 H (70-110) mg/dL 03/16/23 Range/Units 05:36 POC Glucose (mg/dL) 127 H (70-110) mg/dL Microbiology - Last 24 Hours (Table) 03/12/23 19:46 Blood Culture - Preliminary Blood 03/12/23 19:32 Blood Culture - Preliminary Blood 03/14/23 06:11 Blood Culture - Preliminary Blood Assessment and Plan Plan: Assessment: 1. End-stage renal disease maintained on hemodialysis on Tuesday schedule via permacath. 2. Gram-positive bacteremia from permacath infection. ID following. Cultures so far negative this admission. 3. Hypertension with chronic kidney disease. 4. Diabetes mellitus. 5. Anemia of chronic kidney disease. On Aranesp. Plan: Currently seen while undergoing hemodialysis. AV fistula working well. Permacath will be removed. Follow-up cultures. Phosphorus level 3.0 dated 03/15/2023. Add low-dose losartan.
[2023-03-16] MEDS: RIVAROXABAN 2.5 MG TABLET PO SCH (11:58)
[2023-03-16] MEDS: allopurinoL 100 MG TAB PO SCH (11:58)
--- NOTE | 2023-03-16 11:58 | P.PN ---
Subjective Progress Note Date: 03/16/23 Principal diagnosis: Reason for follow-up is gram-positive bacteremia likely permcath infection Patient is a 87-year-old female with a past medical history significant for end-stage renal disease on dialysis through the right IJ tunneled catheter that was placed in October 2022 , patient was brought in the hospital after outpatient blood cultures can be positive for gram-positive cocci. On today's evaluation that is 03/16/2023, the patient continues to be afebrile , the patient is breathing comfortably on room air and no need for supplemental oxygen, the patient denies chest pain shortness of breath or cough , patient denies nausea/vomiting, no abdominal pain and no diarrhea has been reported by the nursing staff, patient is currently undergoing dialysis through her fistula and is working well per the windmill technician Blood culture had been negative so far no labs has been obtained today, blood culture at the outside facility positive for coagulase negative staph Objective - Vital Signs Vital signs: Vital Signs Temp 98.5 F 03/16/23 07:09 Pulse 64 03/16/23 08:00 Resp 17 03/16/23 08:00 BP 165/66 03/16/23 07:09 Pulse Ox 95 03/16/23 07:09 FiO2 Intake & Output 03/15/23 03/16/23 03/16/23 18:59 06:59 18:59 Other: Voiding Method Bedside Commode Bedside Commode Bedside Commode # Voids 4 1 # Bowel Movements 1 - Exam GENERAL DESCRIPTION: An elderly female lying in bed in no distress RESPIRATORY SYSTEM: Unlabored breathing , clear to auscultation anteriorly HEART: S1 S2 regular rate and rhythm , ABDOMEN: Soft , no tenderness EXTREMITIES: No edema feet - Labs CBC & Chem 7: 03/13/23 06:40 03/14/23 11:49 Labs: Abnormal Lab Results - Last 24 Hours (Table) 03/15/23 03/15/23 03/15/23 Range/Units 11:44 16:25 20:22 POC Glucose (mg/dL) 124 H 158 H 220 H (70-110) mg/dL 03/16/23 Range/Units 05:36 POC Glucose (mg/dL) 127 H (70-110) mg/dL Microbiology - Last 24 Hours (Table) 03/12/23 19:46 Blood Culture - Preliminary Blood 03/12/23 19:32 Blood Culture - Preliminary Blood 03/14/23 06:11 Blood Culture - Preliminary Blood Assessment and Plan (1) Positive blood cultures Current Visit: Yes Status: Acute Code(s): R78.81 - BACTEREMIA SNOMED Code(s): 345643986 Plan: 1patient present to hospital with positive blood culture in this patient who did have a right sided permcatheter for dialysis likely source of this bacteremia as currently no evidence of any joint swelling or cellulitis 2-blood cultures will be repeated from the dialysis catheter peripheral culture has already been obtained 3-blood culture from outside facility has been coagulase negative staph 4-patient left arm dialysis fistula is working if there is no need for formal catheter can be discontinued and we will continue with vancomycin through the dialysis for another 10 days Dictation was produced using e[employer] dictation software. please excuse any grammatical, word or spelling errors. Time with Patient: Less than 30
[2023-03-16] MEDS: amLODIPine 10 MG TAB PO SCH (11:59)
[2023-03-16] MEDS: hydrALAZINE HCL 50 MG TAB PO SCH ×2 (11:59→15:59)
[2023-03-16] MEDS: FLUoxetine HCL 10 MG CAP PO SCH (11:59)
[2023-03-16] MEDS: METOPROLOL SUCCINATE (ER) 25 MG TAB.ER.24H PO SCH (11:59)
[2023-03-16] MEDS: TORSEMIDE 20 MG TAB PO SCH (11:59)
[2023-03-16 12:00] LABS: Glucose,Whole Blood 146 mg/dL (70-110)
[2023-03-16] MEDS ORDERED: LOSARTAN 25 MG TAB PO SCH (12:00)
--- NOTE | 2023-03-16 12:01 | P.PN ---
Subjective Progress Note Date: 03/16/23 Principal diagnosis: Positive blood cultures Patient seen and examined as a follow-up. She was currently getting dialysis through her left upper extremity graft without any complications. Blood cultures have been negative to date. She's been afebrile. No other complaints at this time. Objective - Vital Signs Vital signs: Vital Signs Temp 98.5 F 03/16/23 07:09 Pulse 64 03/16/23 08:00 Resp 17 03/16/23 08:00 BP 165/66 03/16/23 07:09 Pulse Ox 95 03/16/23 07:09 FiO2 Intake & Output 03/15/23 03/16/23 03/16/23 18:59 06:59 18:59 Other: Voiding Method Bedside Commode Bedside Commode Bedside Commode # Voids 4 1 # Bowel Movements 1 - Exam General appearance: The patient is alert, oriented, appears in no acute distre ss. HET: Head is normocephalic and atraumatic. Pupils are equal and reactive. Neck: Supple. Chest: Right IJ tunnel catheter in place, without any surrounding redness or drainage. Extremities: Normal skin color and turgor. Left forearm loop graft with palpable thrill and audible bruit. Neurological: No focal deficits. Strength and sensation are grossly intact. - Labs CBC & Chem 7: 03/13/23 06:40 03/14/23 11:49 Labs: Abnormal Lab Results - Last 24 Hours (Table) 03/15/23 03/15/23 03/16/23 Range/Units 16:25 20:22 05:36 POC Glucose (mg/dL) 158 H 220 H 127 H (70-110) mg/dL Microbiology - Last 24 Hours (Table) 03/12/23 19:46 Blood Culture - Preliminary Blood 03/12/23 19:32 Blood Culture - Preliminary Blood 03/14/23 06:11 Blood Culture - Preliminary Blood Assessment and Plan Assessment: 1. End-stage renal disease requiring hemodialysis 2. Recent left forearm loop graft creation on 02/03/2023 3. Positive outpatient blood cultures Plan: May use of left upper extremity loop graft today for hemodialysis. Patient getting hemodialysis through left upper extremity graft without reported complications from hemodialysis nurse. We'll plan to remove right IJ tunneled catheter. Thank you for this consultation, we will continue to follow. The impression and plan of care has been dictated as directed. I performed a history and examination of this patient, discussed the same with the dictator. I agree with the dictator's note ,documented as a scribe. Any additional findings or plans will be noted. The tunneled catheter was removed at the bedside after informed consent. The right chest wall was prepped and draped in usual sterile fashion. A preprocedural timeout was performed. 1% lidocaine plain was instilled into the area. The previous sutures were transected. With blunt dissection and gentle traction, the catheter was removed to the level of the cuff. The subcutaneous tissues were dissected free from the cuff. The catheter was removed and manual pressure was held at the insertion site of the internal jugular until hemostasis was appropriate. The patient tolerated the procedure well. A dressing was placed. Sally Hernandez DO
[2023-03-16 15:10] VITALS: BP 163/61; PULSE 55; RESP 16; TEMP 98
--- NOTE | 2023-03-16 15:25 | FL ---
EXAMINATION TYPE: FL barium swallow w video DATE OF EXAM: 03/16/2023 COMPARISON: NONE HISTORY: Aspiration stricture with dilatation TECHNIQUE: Fluoroscopy. FINDINGS: Fluoroscopic guidance was provided for the procedure performed in conjunction with the [facility] pathology department. Please see complete report forthcoming from the Speech Pathology departmen t. Various consistencies from thin liquid to solids were administered. Fluoroscopy time 2 minutes 29 seconds. Number of images: 0. DAP: 144.44 No aspiration or penetration was evident. No significant pooling was observed in the vallecula. There was normal propulsion of the bolus. IMPRESSION: 1. No aspiration or penetration.
[2023-03-16 16:04] LABS: Glucose,Whole Blood 175 mg/dL (70-110)
--- NOTE | 2023-03-16 17:17 | P.DS ---
Providers Date of admission: 03/12/23 20:00 Expected date of discharge: 03/16/23 Attending physician: Ronaldo Richmond Consults: 03/12/23 20:18 Consult Physician Routine Consulting Provider: Abdullahi Emmanuel Consult Reason/Comments: + blood culture Do you want consulting provider notified?: Yes Consult Physician Routine Consulting Provider: Rosalba Carrion Consult Reason/Comments: + blood culture Do you want consulting provider notified?: Yes 03/14/23 09:04 Consult Physician Routine Consulting Provider: Sherry Hernandez Consult Reason/Comments: new fistula, can we use? Do you want consulting provider notified?: Yes 03/14/23 09:14 Consult Physician Routine Consulting Provider: Ciaran Hatfield Consult Reason/Comments: new fistula, can we use? Do you want consulting provider notified?: Already Contacted Primary care physician: Randell [place] Course: Chief Complaint: Positive blood culture This is a pleasant 87-year-old patient who follows with Dr. Corbett. Chronic stable medical conditions include COPD, diabetes, hypertension, hypothyroid, end-stage kidney disease. Started on dialysis on October 2022. Has a Right IJ dialysis catheter. Has a left forearm AV fistula-getting matured. Patient had blood cultures drawn on March 10 by her golf club weigher Dr. Emmanuel. Came back positive and patient was sent in. Denies any fever and chills. Appetite is okay. Slight decrease appetite March 14: Sitting on bed. Comfortable. Blood cultures pending. IV vancomycin. Suspected PermCath infection March 15: Hemodialysis today. Decreased appetite. Blood cultures from pending. Patient encouraged to eat. Patient was seen by speech therapist: Modified barium swallow was done. Diet was changed to dysphagia chopped with honey thickened liquids. Patient be discharged today. Left arm fistula is working. Dialysis catheter. To be removed by vascular. Patient cleared by ID and nephrology. Discussed with nurse. Blood cultures from outside facility per ID coagulase negative staph. Patient to get vancomycin through dialysis another 10 days. Discussion and discharge planning more than 35 minutes Past medical history to include: COPD, diabetes, hypertension, end-stage kidney disease started hemodialysis October 2022, hypothyroid Social history: Lives with her son-in-law grandson does use a powered wheelchair. Does not smoke or drink alcohol Physical examination: VITAL SIGNS: 98, 55, 16, 163/61, 96% room air GENERAL: In bed comfortable. Right IJ dialysis catheter. Left forearm AV fistula EYES: Pupils equal. Conjunctiva palel. HEENT: External appearance of nose and ears normal, oral cavity grossly normal. NECK: JVD not raised; masses not palpable. HEART: First and second heart sounds are normal; no edema. LUNGS: Respiratory rate normal; clear to auscultation. ABDOMEN: Soft, nontender, liver spleen not palpable, no masses palpable. PSYCH: Alert and oriented x3; mood and affect normal. MUSCULOSKELETAL:No Clubbing/cyanosis;muscles-grossly intact. OA INVESTIGATIONS, reviewed in the clinical context: Blood culture [March 12]: Negative to 03/13/2023: White count 12.3 mm 9.9 platelets 270 sodium 140 potassium 3.7 BUN 19 creatinine 3.13 Assessment and plan: -Bacteremic with positive blood culture outpatient drawn on 03/10/[address]23 by her golf club weigher Dr. Emmanuel. Coagulase-negative Staphylococcus IV vancomycin-to be given for 10 more days. Right IJ dialysis catheter removed -End-stage kidney disease started on October 2022 Nephrology following dialysis started with left forearm fistula -Anemia secondary to chronic kidney disease -COPD in nonsmoker Symbicort -Depression and anxiety Prozac -GERD Pepcid -Chronic hyperuricemia Allopurinol -Hyperlipidemia Lipitor -Diabetes mellitus type 2 tresiba. Follow Accu-Cheks -Essential hypertension with chronic kidney disease Toprol-XL 12.5 mg by mouth twice a day.. Hydralazine 50 mg 3 times a day. Amlodipine 10 mg. -Hypothyroid Synthroid 175 g a day -Full code Disposition: Home Plan - Discharge Summary Discharge Rx Participant: No New Discharge Prescriptions: New hydrALAZINE HCL [Apresoline] 100 mg PO TID #90 tablet Losartan [Cozaar] 25 mg PO DAILY #30 tab Continue Atorvastatin Calcium 20 mg PO DAILY Acetaminophen Tab [Tylenol] 650 mg PO Q6HR PRN tab PRN Reason: Mild Pain Or Fever > 100.5 amLODIPine [Norvasc] 10 mg PO DAILY Prazosin [Minipress] 2 mg PO TID PRN PRN Reason: Blood Pressure - High Insulin Degludec [Tresiba Flextouch U-200 Pen] 14 unit SQ DAILY Rivaroxaban [Xarelto] 2.5 mg PO BID #60 tablet Metoprolol Succinate (ER) [Toprol XL] 12.5 mg PO BID allopurinoL 100 mg PO DAILY Budesonide-Formot 160-4.5 Mcg [Symbicort 160-4.5 Mcg Inhaler] 2 puff INHALATION RT-BID PRN PRN Reason: Shortness Of Breath FLUoxetine HCL [PROzac] 10 mg PO DAILY Famotidine [Pepcid] 20 mg PO Q2D Levothyroxine Sodium [Synthroid] 175 mcg PO DAILY Torsemide [Demadex] 40 mg PO DAILY #60 tab Ondansetron [Zofran] 4 mg PO Q12HR PRN PRN Reason: Nausea Discontinued hydrALAZINE HCL [Apresoline] 25 mg PO TID Discharge Medication List Atorvastatin Calcium 20 mg PO DAILY 09/04/22 [History] Budesonide-Formot 160-4.5 Mcg [Symbicort 160-4.5 Mcg Inhaler] 2 puff INHALATION RT-BID PRN 09/04/22 [History] FLUoxetine HCL [PROzac] 10 mg PO DAILY 09/04/22 [History] allopurinoL 100 mg PO DAILY 09/04/22 [History] Acetaminophen Tab [Tylenol] 650 mg PO Q6HR PRN tab 09/07/22 [Rx] Famotidine [Pepcid] 20 mg PO Q2D 11/05/22 [History] Levothyroxine Sodium [Synthroid] 175 mcg PO DAILY 11/05/22 [History] amLODIPine [Norvasc] 10 mg PO DAILY 11/05/22 [History] Torsemide [Demadex] 40 mg PO DAILY #60 tab 11/13/22 [Rx] Insulin Degludec [Tresiba Flextouch U-200 Pen] 14 unit SQ DAILY 01/28/23 [History] Prazosin [Minipress] 2 mg PO TID PRN 01/28/23 [History] Rivaroxaban [Xarelto] 2.5 mg PO BID #60 tablet 02/03/23 [Rx] Metoprolol Succinate (ER) [Toprol XL] 12.5 mg PO BID 03/12/23 [History] Ondansetron [Zofran] 4 mg PO Q12HR PRN 03/12/23 [History] Losartan [Cozaar] 25 mg PO DAILY #30 tab 03/16/23 [Rx] hydrALAZINE HCL [Apresoline] 100 mg PO TID #90 tablet 03/16/23 [Rx] Follow up Appointment(s)/Referral(s): Sherry Hernandez DO [STAFF PHYSICIAN] - 04/13/23 2:15 pm (ultrasound of LUE) Randell Corbett MD [Primary Care Provider] - 1-2 days (Office is not answering please call for follow-up appointment.) Discharge Disposition: HOME SELF-CARE
== END 2023-03-16 16:45 | disposition home or self-care (01) | DRG 314 ==
LOC: EC 18:04 → 4SSUR 20:00
PROVIDERS: ADMIT Hospitalist; ATTEND Hospitalist
PROC: 5A1D70Z Performance of Urinary Filtration, Intermittent, Less than 6 Hours Per Day (ICD-10-PCS; principal; 2023-03-15)
DX: T80.211A Bloodstream infection due to central venous catheter, initial encounter (principal); N18.6 End stage renal disease; I12.0 Hypertensive chronic kidney disease with stage 5 chronic kidney disease or end stage renal disease; D63.1 Anemia in chronic kidney disease; E11.22 Type 2 diabetes mellitus with diabetic chronic kidney disease; J44.9 Chronic obstructive pulmonary disease, unspecified; E03.9 Hypothyroidism, unspecified; B95.7 Other staphylococcus as the cause of diseases classified elsewhere; F32.A Depression, unspecified; F41.9 Anxiety disorder, unspecified; K21.9 Gastro-esophageal reflux disease without esophagitis; E79.0 Hyperuricemia without signs of inflammatory arthritis and tophaceous disease; E78.5 Hyperlipidemia, unspecified; Z79.01 Long term (current) use of anticoagulants; Z79.4 Long term (current) use of insulin; Z99.2 Dependence on renal dialysis; Z71.3 Dietary counseling and surveillance; Z28.310 Unvaccinated for COVID-19; Z79.899 Other long term (current) drug therapy; Z79.890 Hormone replacement therapy; Z88.1 Allergy status to other antibiotic agents; Z88.6 Allergy status to analgesic agent; Z88.0 Allergy status to penicillin; Z88.8 Allergy status to other drugs, medicaments and biological substances; Z79.51 Long term (current) use of inhaled steroids
CPT/HCPCS: 36415; 74230; 80053; 80202; 82565; 83605; 84100; 85025; 87040; 90935; 96374; 99285

== ENCOUNTER 2024-01-13 23:52 | Observation (INO) | payer MEDICARE, SELFPAY ==
--- NOTE | 2024-01-14 02:04 | ED ---
General Adult HPI - General Chief complaint: Recheck/Abnormal Lab/Rx Stated complaint: JULIUS Time Seen by Provider: 01/14/24 00:30 Source: patient Mode of arrival: EMS - History of Present Illness Initial comments: 88-year-old female who presents to the emergency department as a transfer from [place]. Went to see her primary care doctor a few days ago and had abnormal blood work. They started her on antibiotics and told her that if she did not feel any better to go to the hospital. She went to the hospital later in the evening. She complains of shortness of breath, generalized weakness. The ER found that the patient had pneumonia. She is a dialysis patient that goes T , and Tuesday. She could not be hospitalized at their facility due to the dialysis needs and was transferred here. She denies any missed sessions. Patient did receive meropenem and Vanco prior to transfer from [place]. Perform a CT of the head which demonstrated no acute intracranial hemorrhage. CT of the chest was consistent with a pneumonia. CT of the abdomen showed no intra-abdominal process. BNP was 12,000. White blood cell count was 18 - Related Data Home Medications Medication Instructions Recorded Confirmed Atorvastatin Calcium 20 mg PO HS 09/04/22 01/14/24 FLUoxetine HCL [PROzac] 10 mg PO DAILY 09/04/22 01/14/24 allopurinoL 100 mg PO DAILY 09/04/22 01/14/24 Levothyroxine Sodium [Synthroid] 175 mcg PO DAILY 11/05/22 01/14/24 amLODIPine [Norvasc] 5 mg PO DAILY 11/05/22 01/14/24 Insulin Degludec [Tresiba 8 unit SQ DAILY 01/28/23 01/14/24 Flextouch U-200 Pen] Metoprolol Succinate (ER) [Toprol 25 mg PO DAILY 09/24/23 01/14/24 XL] guaiFENesin [Mucinex] 600 mg PO BID 09/24/23 01/14/24 hydrALAZINE HCL [Apresoline] 50 mg PO TID 09/24/23 01/14/24 Previous Rx's Medication Instructions Recorded Rivaroxaban [Xarelto] 2.5 mg PO BID #60 tab 09/26/23 Levofloxacin [Levaquin] 500 mg PO Q48H #3 tab 01/16/24 Torsemide [Demadex] 40 mg PO DAILY #30 tablet 01/16/24 Allergies Allergy/AdvReac Type Severity Reaction Status Date / Time cefaclor Allergy Rash/Hives/ Verified 01/14/24 09:36 Nausea cephalexin Allergy Rash/Hives/ Verified 01/14/24 09:36 Nausea erythromycin base Allergy Rash/Hives/ Verified 01/14/24 09:36 Nausea indomethacin Allergy Rash/Hives/ Verified 01/14/24 09:36 Nausea Penicillins Allergy Rash/Hives/ Verified 01/14/24 09:36 Nausea regadenoson Allergy Rash/Hives/ Verified 01/14/24 09:36 Nausea Review of Systems ROS Statement: Those systems with pertinent positive or pertinent negative responses have been documented in the HPI. ROS Other: All systems not noted in ROS Statement are negative. Past Medical History Past Medical History: COPD, Diabetes Mellitus, Dialysis, Hyperlipidemia, Hypertension, Renal Disease, Thyroid Disorder Additional Past Medical History / Comment(s): stage 4 kidney on dialysis TThS History of Any Multi-Drug Resistant Organisms: None Reported Past Surgical History: No Surgical Hx Reported Additional Past Surgical History / Comment(s): uterine polyps removed, nerve block to left leg, dialysis port placed 2022. Past Anesthesia/Blood Transfusion Reactions: No Reported Reaction Past Psychological History: No Psychological Hx Reported Smoking Status: Never smoker Past Alcohol Use History: None Reported Past Drug Use History: None Reported - Past Family History Daughter(s) Family Medical History: Myocardial Infarction ([place]) General Exam General appearance: alert, in no apparent distress Head exam: Present: atraumatic, normocephalic, normal inspection Eye exam: Present: normal appearance, PERRL, EOMI. Absent: scleral icterus, conjunctival injection, periorbital swelling ENT exam: Present: normal exam, mucous membranes moist Neck exam: Present: normal inspection. Absent: tenderness, meningismus, lymphadenopathy Respiratory exam: Present: rales, decreased breath sounds. Absent: respiratory distress, wheezes, rhonchi, stridor Cardiovascular Exam: Present: regular rate, normal rhythm, normal heart sounds. Absent: systolic murmur, diastolic murmur, rubs, gallop, clicks GI/Abdominal exam: Present: soft, normal bowel sounds. Absent: distended, tenderness, guarding, rebound, rigid Extremities exam: Present: normal inspection, full ROM, normal capillary refill. Absent: tenderness, pedal edema, joint swelling, calf tenderness Back exam: Present: normal inspection Neurological exam: Present: alert, oriented X3, CN II-XII intact Psychiatric exam: Present: normal affect, normal mood Skin exam: Present: warm, dry, intact, normal color. Absent: rash Course Vital Signs 01/14/24 01/14/24 01/14/24 00:27 00:35 02:33 Temperature 98.7 F Pulse Rate 61 88 Respiratory 16 18 14 Rate Blood Pressure 173/71 167/65 O2 Sat by Pulse 93 L 92 L Oximetry 01/14/24 01/14/24 01/14/24 04:12 07:06 08:21 Temperature Pulse Rate 72 74 67 Respiratory 18 16 16 Rate Blood Pressure 166/61 185/64 167/74 O2 Sat by Pulse 95 95 Oximetry 01/14/24 01/14/24 09:41 11:22 Temperature Pulse Rate 63 63 Respiratory 16 18 Rate Blood Pressure 170/74 171/76 O2 Sat by Pulse 94 L 95 Oximetry Medical Decision Making - Medical Decision Making Was pt. sent in by a medical professional or institution (, PA, APPLIED BEHAVIOR SCIENCE SPECIALIST, urgent care, hospital, or alf...) When possible be specific @ -Patient sent from [facility] Did you speak to anyone other than the patient for history (EMS, parent, family, police, friend...)? What history was obtained from this source @ -Spoke with transferring physician and EMS Did you review nursing and triage notes (agree or disagree)? Why? @ -I reviewed and agree with nursing and triage notes Were old charts reviewed (outside hosp., previous admission, EMS record, old EKG, old radiological studies, urgent care reports/EKG's, alf records)? Report findings @ -I reviewed the paperwork that accompanies the patient Differential Diagnosis (chest pain, altered mental status, abdominal pain women, abdominal pain men, vaginal bleeding, weakness, fever, dyspnea, syncope, headache, dizziness, GI bleed, back pain, seizure, CVA, palpatations, mental health, musculoskeletal)? @ -Differential Fever: Pneumonia, viral URI, endocarditis, myocarditis, pericarditis, otitis, sinusitis, peritonsillar Abscess, retropharyngeal Abscess, epiglottitis, peritonitis, appendicitis, Cecy cystitis, diverticulitis, hepatitis, colitis, UTI, PID, TOA, pyelonephritis, prostatitis, epididymitis, meningitis, encephalitis, pulmonary embolism, CVA, thyroid storm, pancreatitis, adrenal crisis, cavernous sinus thrombosis, this is not meant to be an all-inclusive list. EKG interpreted by me (3pts min.). @ -Not done X-rays interpreted by me (1pt min.). @ -None done CT interpreted by me (1pt min.). @ -None done U/S interpreted by me (1pt. min.). @ -None done What testing was considered but not performed or refused? (CT, X-rays, U/S, labs)? Why? @ -None What meds were considered but not given or refused? Why? @ -None Did you discuss the management of the patient with other professionals (pr ofessionals i.e. , PA, APPLIED BEHAVIOR SCIENCE SPECIALIST, lab, RT, psych nurse, school social worker, clinical review nurse, teacher, ordnance officer, manager case management)? Give summary @ -Spoke with Dr. Richmond who will admit the patient Was smoking cessation discussed for >3mins.? @ -No Was critical care preformed (if so, how long)? @ -No Were there social determinants of health that impacted care today? How? (Homelessness, low income, unemployed, alcoholism, drug addiction, transportation, low edu. Level, literacy, decrease access to med. care, longterm, rehab)? @ -No Was there de-escalation of care discussed even if they declined (Discuss DNR or withdrawal of care, Hospice)? DNR status @ -No What co-morbidities impacted this encounter? (DM, HTN, Smoking, COPD, CAD, Cancer, CVA, ARF, Chemo, Hep., AIDS, mental health diagnosis, sleep apnea, mo rbid obesity)? @ -End-stage renal disease on hemodialysis Was patient admitted / discharged? Hospital course, mention meds given and route, prescriptions, significant lab abnormalities, going to OR and other pertinent info. @ -Upon arrival patient seen and evaluated in room 10. Thorough history and physical exam was performed. I did review the patient's transfer packet. She will be admitted to Dr. Richmond. I spoke to him and he was agreeable to the admission. Nephrology will be placed on consult for dialysis needs Undiagnosed new problem with uncertain prognosis? @ -No Drug Therapy requiring intensive monitoring for toxicity (Heparin, Nitro, Insulin, Cardizem)? @ -No Were any procedures done? @ -No Diagnosis/symptom? @ -Acute leukocytosis, acute pneumonia, end-stage renal disease on hemodialysis Acute, or Chronic, or Acute on Chronic? @ -Acute Uncomplicated (without systemic symptoms) or Complicated (systemic symptoms)? @ -Complicated Side effects of treatment? @ -No Exacerbation, Progression, or Severe Exacerbation? @ -No Poses a threat to life or bodily function? How? (Chest pain, [place], [place], pneumonia, PE, COPD, DKA, ARF, appy, cholecystitis, CVA, Diverticulitis, Homicidal, Suicidal, threat to staff... and all critical care pts) @ -No - Lab Data Result diagrams: 01/15/24 06:52 01/15/24 06:52 Disposition Clinical Impression: Pneumonia, Leukocytosis, ESRD on dialysis Disposition: ADMITTED IP TO THIS HOSP Is patient prescribed a controlled substance at d/c from ED?: No Time of Disposition: 02:19 Decision to Admit Reason: Admit from EC Decision Date: 01/14/24 Decision Time: 02:19
[2024-01-14] MEDS ORDERED: NALOXONE 0.4 MG/ML 1 ML VIAL IV PRN (02:54)
[2024-01-14] MEDS ORDERED: PNEUMONIA PROTOCOL UTILIZED 1 EACH MISC PO PRN (02:57)
[2024-01-14] MEDS: metroNIDAZOLE-NS PMX 500 MG in SALINE 1 100ML.BAG IVPB SCH (08:17)
[2024-01-14] MEDS: LEVOFLOXACIN 750MG-D5W PMX 750 MG in DEXTROSE/WATER 1 150ML.BAG IVPB SCH (09:46)
--- NOTE | 2024-01-14 10:47 | P.NPCON ---
History of Present Illness - Reason for Consult end stage renal disease - History of Present Illness Reason for consultation: End-stage renal disease History of present illness: Patient is a 88-year-old female seen in renal consultation for end-stage renal disease. Patient was seen and examined in the emergency room. She is maintained on hemodialysis on Tuesday schedule. Last dialysis was . Patient states she felt quite weak and felt that she was going to pass out. She denies falling or losing any consciousness. Denies any fever or chills. No significant cough. No chest pain or shortness of breath. Blood pressure is not low. She is currently on room air. Patient was transferred here from [facility]. She was found to have pneumonia and is currently on antibiotics. White count was elevated. No vomiting or diarrhea. No edema. She has a permacath for dialysis access. She does make urine. Vital signs are stable. General: No acute distress. HEENT: Head exam is unremarkable. LUNGS: No audible rhonchi or wheezes. HEART: Rate and Rhythm are regular. ABDOMEN: Nontender. EXTREMITITES: No edema. Past Medical History Past Medical History: COPD, Diabetes Mellitus, Dialysis, Hyperlipidemia, Hypertension, Renal Disease, Thyroid Disorder Additional Past Medical History / Comment(s): stage 4 kidney on dialysis TThS History of Any Multi-Drug Resistant Organisms: None Reported Past Surgical History: No Surgical Hx Reported Additional Past Surgical History / Comment(s): uterine polyps removed, nerve block to left leg, dialysis port placed 2022. Past Anesthesia/Blood Transfusion Reactions: No Reported Reaction Past Psychological History: No Psychological Hx Reported Smoking Status: Never smoker Past Alcohol Use History: None Reported Past Drug Use History: None Reported - Past Family History Daughter(s) Family Medical History: Myocardial Infarction ([place]) Medications and Allergies Home Medications Medication Instructions Recorded Confirmed Type Atorvastatin Calcium 20 mg PO HS 09/04/22 01/14/24 History FLUoxetine HCL [PROzac] 10 mg PO DAILY 09/04/22 01/14/24 History allopurinoL 100 mg PO DAILY 09/04/22 01/14/24 History Levothyroxine Sodium [Synthroid] 175 mcg PO DAILY 11/05/22 01/14/24 History amLODIPine [Norvasc] 5 mg PO DAILY 11/05/22 01/14/24 History Insulin Degludec [Tresiba 8 unit SQ DAILY 01/28/23 01/14/24 History Flextouch U-200 Pen] Metoprolol Succinate (ER) [Toprol 25 mg PO DAILY 09/24/23 01/14/24 History XL] guaiFENesin [Mucinex] 600 mg PO BID 09/24/23 01/14/24 History hydrALAZINE HCL [Apresoline] 50 mg PO TID 09/24/23 01/14/24 History Rivaroxaban [Xarelto] 2.5 mg PO BID #60 tab 09/26/23 01/14/24 Rx Allergies Allergy/AdvReac Type Severity Reaction Status Date / Time cefaclor Allergy Rash/Hives/ Verified 01/14/24 09:36 Nausea cephalexin Allergy Rash/Hives/ Verified 01/14/24 09:36 Nausea erythromycin base Allergy Rash/Hives/ Verified 01/14/24 09:36 Nausea indomethacin Allergy Rash/Hives/ Verified 01/14/24 09:36 Nausea Penicillins Allergy Rash/Hives/ Verified 01/14/24 09:36 Nausea regadenoson Allergy Rash/Hives/ Verified 01/14/24 09:36 Nausea Physical Exam Vitals: Vital Signs Temp Pulse Resp BP Pulse Ox 01/14/24 09:41 63 16 170/74 94 L 01/14/24 08:21 67 16 167/74 01/14/24 07:06 74 16 185/64 95 01/14/24 04:12 72 18 166/61 95 01/14/24 02:33 88 14 167/65 92 L 01/14/24 00:35 18 01/14/24 00:27 98.7 F 61 16 173/71 93 L Intake and Output 01/13/24 01/14/24 01/14/24 22:59 06:59 14:59 Other: Weight 53.07 kg Assessment and Plan Plan: Assessment: 1. End-stage renal disease maintained on hemodialysis on Tuesday schedule. Has permacath. 2. Pneumonia maintained on antibiotics. 3. Hypertension with chronic kidney disease. 4. Diabetes mellitus. Plan: Hemodialysis today. Home antihypertensives resumed. Check phosphorus level. Thank you for the consultation. I will continue to follow the patient with you during her hospital stay.
[2024-01-14] MEDS: amLODIPine 5 MG TAB PO SCH (11:25)
[2024-01-14] MEDS: hydrALAZINE HCL 50 MG TAB PO SCH (11:25)
[2024-01-14] MEDS: LEVOTHYROXINE 100 MCG TAB PO SCH (11:25)
[2024-01-14] MEDS: INSULIN DETEMIR (LEVEMIR) 100 UNIT/ML SYR SQ SCH (11:25)
[2024-01-14] MEDS: METOPROLOL SUCCINATE (ER) 25 MG TAB.ER.24H PO SCH (11:25)
[2024-01-14] MEDS: allopurinoL 100 MG TAB PO SCH (11:25)
[2024-01-14] MEDS: LEVOTHYROXINE 75 MCG TAB PO SCH (11:25)
[2024-01-14] MEDS: FLUoxetine HCL 10 MG CAP PO SCH (11:26)
[2024-01-14] MEDS: RIVAROXABAN 2.5 MG TABLET PO SCH (11:26)
[2024-01-14 11:30] LABS: Glucose,Whole Blood 170 mg/dL (70-110)
--- NOTE | 2024-01-14 16:49 | P.HPIM ---
History of Present Illness H&P Date: 01/14/24 Chief Complaint: Tired This is a pleasant 88-year-old patient who follows with Dr. Corbett. Chronic stable medical conditions include COPD, diabetes, hypertension, hypothyroid, end-stage kidney disease. Started on dialysis on October 2022. Has a Right IJ dialysis catheter. Has a left forearm AV fistula-getting matured. 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 baseline patient uses a four-wheel walker. dialysis Tuesday. Patient was transferred to our ER from [facility]. Patient started on antibiotics per PCP for not feeling well. Patient was short of breath generalized weakness. No fever no chills. No cough. Patient feels weak there is nearly passing out. No dialysis was missed. She did receive a dose of meropenem and vancomycin at [place]. CT of the head was unremarkable. CT chest that showed pneumonia. Blood white count was elevated 18. Review of systems: GEN.: Tired, decreased appetite EYES: None HEENT: None NECK: None RESPIRATORY: Some shortness of breath CARDIOVASCULAR: None GASTROINTESTINAL: None GENITOURINARY: Does make urine MUSCULOSKELETAL: None LYMPHATICS: None HEMATOLOGICAL: None PSYCHIATRY: None NEUROLOGICAL: Uses a powered wheelchair/four-wheel walker Past medical history to include: COPD, diabetes, hypertension, end-stage kidney disease started hemodialysis October 2022, hypothyroid Social history: Lives with her son-in-law grandson does use a powered wheelchair. Does not smoke or drink alcohol Physical examination: VITAL SIGNS: 98.7, 61, 16, 133 x 71, 93% room air upon presentation GENERAL: Laying in bed, tired left IJ dialysis catheter with dressing. Left forearm AV fistula EYES: Pupils equal. Conjunctiva pale HEENT: External appearance of nose and ears normal, oral cavity grossly normal. NECK: JVD not raised; masses not palpable. HEART: First and second heart sounds are normal; no edema. LUNGS: Respiratory rate normal; decreased breath sounds n. ABDOMEN: Soft, nontender, liver spleen not palpable, no masses palpable. PSYCH: Alert and oriented x3; mood and affect normal. MUSCULOSKELETAL:No Clubbing/cyanosis;muscles-grossly intact. OA NEUROLOGICAL: Cranial nerves grossly intact; no facial asymmetry, power and sensation grossly intact. LYMPHATICS: No lymph nodes palpable in the axilla and neck INVESTIGATIONS, reviewed in the clinical context: CT scan of the chest at [facility] reported pneumonia e Assessment and plan: -Pneumonia suspect gram-negative organism Patient received meropenem and vancomycin outside facility Started on Levaquin here -End-stage kidney disease on hemodialysis October 2022 Schedule Tuesday. Hemodialysis today -Anemia secondary to chronic kidney disease -Depression and anxiety Prozac 10 mg -GERD Pepcid -Chronic hyperuricemia Allopurinol -Hyperlipidemia Lipitor 20 mg nightly -Diabetes mellitus type 2 tresiba. Follow Accu-Cheks -Essential hypertension with chronic kidney disease Toprol-XL 25 mg a day.. Hydralazine 50 mg 3 times a day. Amlodipine 5 mg a day -Hypothyroid Synthroid 175 g a day -Full code Patient getting hemodialysis today. Levaquin. Home medication resumed. Discussed with the patient. Nephrology following. Past Medical History Past Medical History: COPD, Diabetes Mellitus, Dialysis, Hyperlipidemia, Hypertension, Renal Disease, Thyroid Disorder Additional Past Medical History / Comment(s): stage 4 kidney on dialysis TT History of Any Multi-Drug Resistant Organisms: None Reported Past Surgical History: No Surgical Hx Reported Additional Past Surgical History / Comment(s): uterine polyps removed, nerve block to left leg, dialysis port placed 2022. Past Anesthesia/Blood Transfusion Reactions: No Reported Reaction Past Psychological History: No Psychological Hx Reported Smoking Status: Never smoker Past Alcohol Use History: None Reported Past Drug Use History: None Reported - Past Family History Daughter(s) Family Medical History: Myocardial Infarction ([place]) Medications and Allergies Home Medications Medication Instructions Recorded Confirmed Type Atorvastatin Calcium 20 mg PO HS 09/04/22 01/14/24 History FLUoxetine HCL [PROzac] 10 mg PO DAILY 09/04/22 01/14/24 History allopurinoL 100 mg PO DAILY 09/04/22 01/14/24 History Levothyroxine Sodium [Synthroid] 175 mcg PO DAILY 11/05/22 01/14/24 History amLODIPine [Norvasc] 5 mg PO DAILY 11/05/22 01/14/24 History Insulin Degludec [Tresiba 8 unit SQ DAILY 01/28/23 01/14/24 History Flextouch U-200 Pen] Metoprolol Succinate (ER) [Toprol 25 mg PO DAILY 09/24/23 01/14/24 History XL] guaiFENesin [Mucinex] 600 mg PO BID 09/24/23 01/14/24 History hydrALAZINE HCL [Apresoline] 50 mg PO TID 09/24/23 01/14/24 History Rivaroxaban [Xarelto] 2.5 mg PO BID #60 tab 09/26/23 01/14/24 Rx Allergies Allergy/AdvReac Type Severity Reaction Status Date / Time cefaclor Allergy Rash/Hives/ Verified 01/14/24 09:36 Nausea cephalexin Allergy Rash/Hives/ Verified 01/14/24 09:36 Nausea erythromycin base Allergy Rash/Hives/ Verified 01/14/24 09:36 Nausea indomethacin Allergy Rash/Hives/ Verified 01/14/24 09:36 Nausea Penicillins Allergy Rash/Hives/ Verified 01/14/24 09:36 Nausea regadenoson Allergy Rash/Hives/ Verified 01/14/24 09:36 Nausea Physical Exam Vitals: Vital Signs Temp Pulse Resp BP Pulse Ox 01/14/24 09:41 63 16 170/74 94 L 01/14/24 08:21 67 16 167/74 01/14/24 07:06 74 16 185/64 95 01/14/24 04:12 72 18 166/61 95 01/14/24 02:33 88 14 167/65 92 L 01/14/24 00:35 18 01/14/24 00:27 98.7 F 61 16 173/71 93 L Intake and Output 01/13/24 01/14/24 01/14/24 22:59 06:59 14:59 Other: Weight 53.07 kg
[2024-01-14 20:12] LABS: Glucose,Whole Blood 170 mg/dL (70-110)
[2024-01-14] MEDS: guaiFENesin 600 MG TABLET.ER PO SCH (21:42)
[2024-01-14] MEDS: ATORVASTATIN 20 MG TAB PO SCH (21:42)
[2024-01-14] MEDS: ACETAMINOPHEN TAB 325 MG TAB PO PRN (23:14)
[2024-01-15 05:54] LABS: Glucose,Whole Blood 96 mg/dL (70-110)
[2024-01-15 07:22] LABS: ALT 10 U/L (4-34); AST 16 U/L (14-36); African American GFR (CKD) 20 (>60 ml/min/1.73 sqM); Albumin 2.7 g/dL (3.5-5.0); Albumin/Globulin Ratio 1.2; Alkaline Phosphatase 120 U/L (38-126); Anion Gap 6 mmol/L; Blood Urea Nitrogen 14 mg/dL (7-17); Calcium 8.4 mg/dL (8.4-10.2); Carbon Dioxide 29 mmol/L (22-30); Chloride 97 mmol/L (98-107); Globulin 2.2 g/dL; Glucose 98 mg/dL (74-99); Non-African American GFR(CKD) 17 (>60 ml/min/1.73 sqM); Phosphorus 3.9 mg/dL (2.5-4.5); Potassium 3.5 mmol/L (3.5-5.1); Sodium 132 mmol/L (137-145); Total Bilirubin 0.7 mg/dL (0.2-1.3); Total Protein 4.9 g/dL (6.3-8.2)
[2024-01-15 09:01] VITALS: RESP 18
[2024-01-15] MEDS: TORSEMIDE 20 MG TAB PO SCH (09:33)
[2024-01-15 09:51] LABS: Basophils # (A) 0.05 X 10*3/uL (0.00-0.10); Basophils % (A) 0.3 %; Eosinophils # (A) 0.23 X 10*3/uL (0.04-0.35); Eosinophils % (A) 1.2 %; HCT 33.7 % (37.2-46.3); HGB 10.5 g/dL (12.0-15.0); Lymphocytes # (A) 0.96 X 10*3/uL (0.90-5.00); Lymphocytes % (A) 5.2 %; MCH 28.8 pg (27.0-32.0); MCHC 31.2 g/dL (32.0-37.0); MCV 92.6 FL (80.0-97.0); Mean Platelet Volume 10.5 FL (9.5-12.2); Monocytes # (A) 1.43 X 10*3/uL (0.20-1.00); Monocytes % (A) 7.7 %; NRBC Per 100 WBC 0 X 10*3/uL (0.00-0.01); Neutrophils # (A) 15.74 X 10*3/uL (1.80-7.70); Platelet Count 366 X 10*3/uL (140-440); RBC 3.64 X 10*6/uL (4.10-5.20); RDW 17.3 % (11.5-14.5); WBC 18.53 X 10*3/uL (4.50-10.00)
--- NOTE | 2024-01-15 10:43 | P.PN ---
Subjective Patient is seen in follow-up for end-stage renal disease. She is maintained on hemodialysis on Tuesday schedule. Underwent 1.5 L ultrafiltration yesterday. Denies chest pain or shortness of breath. Vital signs are stable. General: No acute distress. HEENT: Head exam is unremarkable. LUNGS: No audible rhonchi or wheezes. HEART: Rate and Rhythm are regular. ABDOMEN: Nontender. EXTREMITITES: No edema. Objective - Vital Signs Vital signs: Vital Signs Temp 98.2 F 01/15/24 08:03 Pulse 65 01/15/24 08:03 Resp 18 01/15/24 08:03 BP 147/78 01/15/24 08:03 Pulse Ox 92 L 01/15/24 08:03 FiO2 Intake & Output 01/14/24 01/15/24 01/15/24 18:59 06:59 18:59 Intake Total 400 Output Total 3400 Balance -3000 Weight 53.07 kg Intake: Hemodialysis 400 Output: Hemodialysis 1900 Hemodialysis Net Amount 1500 Other: # Voids 0 - Labs CBC & Chem 7: 01/15/24 06:52 01/15/24 06:52 Labs: Abnormal Lab Results - Last 24 Hours (Table) 01/14/24 01/14/24 01/15/24 Range/Units 11:24 20:11 06:52 WBC 18.53 H (4.50-10.00) X 10*3/uL RBC 3.64 L (4.10-5.20) X 10*6/uL Hgb 10.5 L (12.0-15.0) g/dL Hct 33.7 L (37.2-46.3) % MCHC 31.2 L (32.0-37.0) g/dL RDW 17.3 H (11.5-14.5) % Immature Gran # 0.12 H (0.00-0.04) X 10*3/uL Neutrophils # 15.74 H (1.80-7.70) X 10*3/uL Monocytes # 1.43 H (0.20-1.00) X 10*3/uL Sodium (137-145) mmol/L Chloride (98-107) mmol/L Creatinine (0.52-1.04) mg/dL POC Glucose (mg/dL) 170 H 170 H (70-110) mg/dL Total Protein (6.3-8.2) g/dL Albumin (3.5-5.0) g/dL 01/15/24 Range/Units 06:52 WBC (4.50-10.00) X 10*3/uL RBC (4.10-5.20) X 10*6/uL Hgb (12.0-15.0) g/dL Hct (37.2-46.3) % MCHC (32.0-37.0) g/dL RDW (11.5-14.5) % Immature Gran # (0.00-0.04) X 10*3/uL Neutrophils # (1.80-7.70) X 10*3/uL Monocytes # (0.20-1.00) X 10*3/uL Sodium 132 L (137-145) mmol/L Chloride 97 L (98-107) mmol/L Creatinine 2.45 H (0.52-1.04) mg/dL POC Glucose (mg/dL) (70-110) mg/dL Total Protein 4.9 L (6.3-8.2) g/dL Albumin 2.7 L (3.5-5.0) g/dL Assessment and Plan Plan: Assessment: 1. End-stage renal disease maintained on hemodialysis on Tuesday schedule. Has permacath. 2. Pneumonia maintained on antibiotics. 3. Hypertension with chronic kidney disease. 4. Diabetes mellitus. Plan: Hemodialysis Tuesday. Phosphorus level 3.9.
[2024-01-15 11:43] LABS: Glucose,Whole Blood 208 mg/dL (70-110)
--- NOTE | 2024-01-15 11:59 | XR ---
EXAMINATION TYPE: XR chest 2V DATE OF EXAM: 01/15/2024 COMPARISON: 09/25/2023 HISTORY: 88-year-old female follow-up pneumonia TECHNIQUE: AP and lateral views FINDINGS: Left-sided double-lumen hemodialysis catheter tips of the lower SVC. Heart mild to moderately enlarge d. Diffuse interstitial density is similar to slightly increased. Patchy retrocardiac opacity is incr eased. No sizable pleural effusion. IMPRESSION: 1. Correlate for COPD with pulmonary vascular congestion. 2. New patchy retrocardiac atelectasis versus infiltrate. [facility], , 01/15/2024 11:57 AM
--- NOTE | 2024-01-15 13:51 | P.PN ---
Progress Note - Text Progress Note Date: 01/15/24 Chief Complaint: Tired This is a pleasant 88-year-old patient who follows with Dr. Corbett. Chronic stable medical conditions include COPD, diabetes, hypertension, hypothyroid, end-stage kidney disease. Started on dialysis on October 2022. Has a Right IJ dialysis catheter. Has a left forearm AV fistula-getting matured. 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 baseline patient uses a four-wheel walker. dialysis Tuesday. Patient was transferred to our ER from [facility]. Patient started on antibiotics per PCP for not feeling well. Patient was short of breath generalized weakness. No fever no chills. No cough. Patient feels weak there is nearly passing out. No dialysis was missed. She did receive a dose of meropenem and vancomycin at [place]. CT of the head was unremarkable. CT chest that showed pneumonia. Blood white count was elevated 18. December 15: Breathing better. Had dialysis yesterday. On IV Levaquin. Checks x-ray showed left-sided infiltrate. Eating some. Active Medications Acetaminophen (Acetaminophen Tab 325 Mg Tab) 650 mg PO Q6HR PRN PRN Reason: Mild Pain or Fever > 100.5 Last Admin: 01/14/24 23:14 Dose: 650 mg Allopurinol (Allopurinol 100 Mg Tab) 100 mg PO DAILY [facility] Last Admin: 01/15/24:33 Dose: 100 mg Amlodipine Besylate (Amlodipine 5 Mg Tab) 5 mg PO DAILY [facility] Last Admin: 01/15/24 09: Dose: 5 mg Atorvastatin Calcium (Atorvastatin 20 Mg Tab) 20 mg PO HS [facility] Last Admin: 01/14/24 21:42 Dose: 20 mg Fluoxetine HCl (Fluoxetine Hcl 10 Mg Cap) 10 mg PO DAILY [facility] Last Admin: 01/15/24 09:33 Dose: 10 mg Guaifenesin (Guaifenesin 600 Mg Tablet.Er) 600 mg PO BID [facility] Last Admin: 01/15/24 09: Dose: 600 mg Hydralazine HCl (Hydralazine Hcl 50 Mg Tab) 50 mg PO TID [facility] Last Admin: 01/15/24 09:33 Dose: 50 mg Levofloxacin 500 mg/ IV (Solution) 100 mls @ 100 mls/hr IVPB Q48H [facility] Insulin Detemir (Insulin Detemir (Levemir) 100 Unit/Ml Syr) 8 unit SQ DAILY [facility] Last Admin: 01/15/24 09:34 Dose: 8 unit Levothyroxine Sodium (Levothyroxine 100 Mcg Tab) 100 mcg PO DAILY@0630 [facility] Last Admin: 01/15/24 06:12 Dose: 100 mcg Levothyroxine Sodium (Levothyroxine 75 Mcg Tab) 75 mcg PO DAILY@0630 [facility] Last Admin: 01/15/24 06:12 Dose: 75 mcg Metoprolol Succinate (Metoprolol Succinate (Er) 25 Mg Tab.Er.24h) 25 mg PO DAILY [facility] Last Admin: 01/15/24 09:33 Dose: 25 mg Miscellaneous Information (Pneumonia Protocol Utilized 1 Each Misc) 1 each PO ONCE PRN PRN Reason: Per Protocol Naloxone HCl (Naloxone 0.4 Mg/Ml 1 Ml Vial) 0.2 mg IV Q2M PRN PRN Reason: Opioid Reversal Rivaroxaban (Rivaroxaban 2.5 Mg Tablet) 2.5 mg PO BID [facility]; Protocol Last Admin: 01/15/24 09:33 Dose: 2.5 mg Torsemide (Torsemide 20 Mg Tab) 40 mg PO DAILY [facility] Last Admin: 01/15/24 09:33 Dose: 40 mg Past medical history to include: COPD, diabetes, hypertension, end-stage kidney disease started hemodialysis October 2022, hypothyroid Social history: Lives with her son-in-law grandson does use a powered wheelchair. Does not smoke or drink alcohol Physical examination: VITAL SIGNS: 98.2, 65, 18, 147 x 78, 92% room air GENERAL: Laying in bed, comfortable d, tired left IJ dialysis catheter with dressing. Left forearm AV fistula EYES: Pupils equal. Conjunctiva pale HEENT: External appearance of nose and ears normal, oral cavity grossly normal. NECK: JVD not raised; masses not palpable. HEART: First and second heart sounds are normal; no edema. LUNGS: Respiratory rate normal; decreased breath sounds ABDOMEN: Soft, nontender, liver spleen not palpable, no masses palpable. PSYCH: Alert and oriented x3; mood and affect normal. MUSCULOSKELETAL:No Clubbing/cyanosis;muscles-grossly intact. OA NEUROLOGICAL: Cranial nerves grossly intact; no facial asymmetry, power and sensation grossly intact. LYMPHATICS: No lymph nodes palpable in the axilla and neck INVESTIGATIONS, reviewed in the clinical context: January 14: White count 8.5 hemoglobin 10.5 potassium 3.[address] scan of the chest at [facility] reported pneumonia e Assessment and plan: -Pneumonia suspect gram-negative organism Patient received meropenem and vancomycin outside facility IV Levaquin here -End-stage kidney disease on hemodialysis October 2022 Schedule Tuesday. Hemodialysis today -Anemia secondary to chronic kidney disease -Depression and anxiety Prozac 10 mg -GERD Pepcid -Chronic hyperuricemia Allopurinol -Hyperlipidemia Lipitor 20 mg nightly -Diabetes mellitus type 2 tresiba. Follow Accu-Cheks -Essential hypertension with chronic kidney disease Toprol-XL 25 mg a day.. Hydralazine 50 mg 3 times a day. Amlodipine 5 mg a day -Hypothyroid Synthroid 175 g a day -Full code Discussed with patient. Continue antibiotics. On dialysis schedule. Past Medical History Past Medical History: COPD, Diabetes Mellitus, Dialysis, Hyperlipidemia, Hypertension, Renal Disease, Thyroid Disorder Additional Past Medical History / Comment(s): stage 4 kidney on dialysis TT History of Any Multi-Drug Resistant Organisms: None Reported Past Surgical History: No Surgical Hx Reported Additional Past Surgical History / Comment(s): uterine polyps removed, nerve block to left leg, dialysis port placed 2022. Past Anesthesia/Blood Transfusion Reactions: No Reported Reaction Past Psychological History: No Psychological Hx Reported Smoking Status: Never smoker Past Alcohol Use History: None Reported Past Drug Use History: None Reported
[2024-01-15 16:47] LABS: Glucose,Whole Blood 89 mg/dL (70-110)
[2024-01-15 21:22] LABS: Glucose,Whole Blood 133 mg/dL (70-110)
[2024-01-16 05:37] LABS: Glucose,Whole Blood 127 mg/dL (70-110)
[2024-01-16 09:09] VITALS: BP 183/78; PULSE 66; TEMP 97.6
[2024-01-16 11:46] LABS: Glucose,Whole Blood 181 mg/dL (70-110)
--- NOTE | 2024-01-16 19:44 | P.PN ---
Subjective Patient is seen for follow-up for end-stage renal disease. Maintained on hemodialysis on Tuesday schedule. No significant complaints today. Objective - Vital Signs Vital signs: Vital Signs Temp 97.6 F 01/16/24 07:20 Pulse 66 01/16/24 07:20 Resp 18 01/16/24 07:20 BP 183/78 01/16/24 07:20 Pulse Ox 93 L 01/16/24 07:20 FiO2 Intake & Output 01/16/24 01/16/24 01/17/24 06:59 18:59 06:59 Other: # Voids 1 # Bowel Movements 1 - Exam Patient is awake, comfortable, no acute distress. Examination of the heart S1 and S2 Examination of the lungs bilateral breath sounds are heard Abdomen is soft nontender Examination of lower extremities shows no significant edema - Labs CBC & Chem 7: 01/15/24 06:52 01/15/24 06:52 Labs: Abnormal Lab Results - Last 24 Hours (Table) 01/15/24 01/16/24 01/16/24 Range/Units 21:20 05:36 11:45 POC Glucose (mg/dL) 133 H 127 H 181 H (70-110) mg/dL Assessment and Plan Assessment: 1. End-stage renal disease maintained on hemodialysis on Tuesday schedule. Has permacath. 2. Pneumonia maintained on antibiotics. 3. Hypertension with chronic kidney disease. 4. Diabetes mellitus. Plan: Hemodialysis in a.m.
--- NOTE | 2024-01-16 21:36 | P.DS ---
Providers Date of admission: 01/14/24 02:54 Expected date of discharge: 01/16/24 Attending physician: Ronaldo Richmond Consults: 01/14/24 02:54 Consult Physician Urgent Consulting Provider: Abdullahi Emmanuel Consult Reason/Comments: esrd on hd Do you want consulting provider notified?: Yes Primary care physician: Randell Aric [facility] Course: Chief Complaint: Tired This is a pleasant 88-year-old patient who follows with Dr. Corbett. Chronic stable medical conditions include COPD, diabetes, hypertension, hypothyroid, end-stage kidney disease. Started on dialysis on October 2022. Has a Right IJ dialysis catheter. Has a left forearm AV fistula-getting matured. sap hana developer Dr. Emmanuel. baseline patient uses a four-wheel walker. dialysis Tuesday. Patient was transferred to our ER from [facility]. Patient started on antibiotics per PCP for not feeling well. Patient was short of breath generalized weakness. No fever no chills. No cough. Patient feels weak there is nearly passing out. No dialysis was missed. She did receive a dose of meropenem and vancomycin at [facility]. CT of the head was unremarkable. CT chest that showed pneumonia. Blood white count was elevated 18. January 14: Breathing better. Had dialysis yesterday. On IV Levaquin. Checks x-ray showed left-sided infiltrate. Eating some. January 15: Doing much better. Breathing better. Keen to go home. Will complete a course of Levaquin. Past medical history to include: COPD, diabetes, hypertension, end-stage kidney disease started hemodialysis October 2022, hypothyroid Social history: Lives with her son-in-law grandson does use a powered wheelchair. Does not smoke or drink alcohol Physical examination: VITAL SIGNS: 97.6, 66, 18, 93% room air GENERAL: Laying in bed, comfortable d, left chest wall dialysis catheter. Left forearm access that is not being used EYES: Pupils equal. Conjunctiva pale HEENT: External appearance of nose and ears normal, oral cavity grossly normal. NECK: JVD not raised; masses not palpable. HEART: First and second heart sounds are normal; no edema. LUNGS: Respiratory rate normal; decreased breath sounds ABDOMEN: Soft, nontender, liver spleen not palpable, no masses palpable. PSYCH: Alert and oriented x3; mood and affect normal. MUSCULOSKELETAL:No Clubbing/cyanosis;muscles-grossly intact. OA NEUROLOGICAL: Cranial nerves grossly intact; no facial asymmetry, power and sensation grossly intact. LYMPHATICS: No lymph nodes palpable in the axilla and neck INVESTIGATIONS, reviewed in the clinical context: January 14: White count 8.5 hemoglobin 10.5 potassium 3.[address] scan of the chest at [facility] reported pneumonia e Assessment and plan: -Pneumonia suspect gram-negative organism Discharged on Levaquin -End-stage kidney disease on hemodialysis October 2022 Schedule Tuesday. Hemodialysis today -Anemia secondary to chronic kidney disease -Depression and anxiety Prozac 10 mg -GERD Pepcid -Chronic hyperuricemia Allopurinol -Hyperlipidemia Lipitor 20 mg nightly -Diabetes mellitus type 2 tresiba. Follow Accu-Cheks -Essential hypertension with chronic kidney disease Toprol-XL 25 mg a day.. Hydralazine 50 mg 3 times a day. Amlodipine 5 mg a day -Hypothyroid Synthroid 175 g a day -Full code Disposition: Home Past Medical History Past Medical History: COPD, Diabetes Mellitus, Dialysis, Hyperlipidemia, Hypertension, Renal Disease, Thyroid Disorder Additional Past Medical History / Comment(s): stage 4 kidney on dialysis [facility]Th[facility] History of Any Multi-Drug Resistant Organisms: None Reported Past Surgical History: No Surgical Hx Reported Additional Past Surgical History / Comment(s): uterine polyps removed, nerve block to left leg, dialysis port placed 2022. Past Anesthesia/Blood Transfusion Reactions: No Reported Reaction Past Psychological History: No Psychological Hx Reported Smoking Status: Never smoker Past Alcohol Use History: None Reported Past Drug Use History: None Reported Plan - Discharge Summary Discharge Rx Participant: No New Discharge Prescriptions: New Torsemide [Demadex] 40 mg PO DAILY #30 tablet Levofloxacin [Levaquin] 500 mg PO Q48H #3 tab Continue Atorvastatin Calcium 20 mg PO HS amLODIPine [Norvasc] 5 mg PO DAILY Insulin Degludec [Tresiba Flextouch U-200 Pen] 8 unit SQ DAILY hydrALAZINE HCL [Apresoline] 50 mg PO TID allopurinoL 100 mg PO DAILY FLUoxetine HCL [PROzac] 10 mg PO DAILY Levothyroxine Sodium [Synthroid] 175 mcg PO DAILY guaiFENesin [Mucinex] 600 mg PO BID Metoprolol Succinate (ER) [Toprol XL] 25 mg PO DAILY Rivaroxaban [Xarelto] 2.5 mg PO BID #60 tab Discharge Medication List Atorvastatin Calcium 20 mg PO HS 09/04/22 [History] FLUoxetine HCL [PROzac] 10 mg PO DAILY 09/04/22 [History] allopurinoL 100 mg PO DAILY 09/04/22 [History] Levothyroxine Sodium [Synthroid] 175 mcg PO DAILY 11/05/22 [History] amLODIPine [Norvasc] 5 mg PO DAILY 11/05/22 [History] Insulin Degludec [Tresiba Flextouch U-200 Pen] 8 unit SQ DAILY 01/28/23 [History] Metoprolol Succinate (ER) [Toprol XL] 25 mg PO DAILY 09/24/23 [History] guaiFENesin [Mucinex] 600 mg PO BID 09/24/23 [History] hydrALAZINE HCL [Apresoline] 50 mg PO TID 09/24/23 [History] Rivaroxaban [Xarelto] 2.5 mg PO BID #60 tab 09/26/23 [Rx] Levofloxacin [Levaquin] 500 mg PO Q48H #3 tab 01/16/24 [Rx] Torsemide [Demadex] 40 mg PO DAILY #30 tablet 01/16/24 [Rx] Follow up Appointment(s)/Referral(s): [facility], [NON-STAFF] - As Needed ([facility] will call you to schedule your in home nursing, physical therapy, and occupational therapy visits. ) Randell Corbett MD [Primary Care Provider] - 01/18/24 1:00 pm Discharge Disposition: HOME WITH HOME HEALTH SERVICES
[2024-01-17] MEDS ORDERED: LEVOFLOXACIN 500MG-D5W PMX 500 MG in DEXTROSE/WATER 1 100ML.BAG IVPB SCH (09:00)
== END 2024-01-16 14:54 | disposition home health service (06) ==
LOC: EC 23:52 → 4SSUR 01-14 02:54 → INTOOBSV 01-14 02:54 → 4SSUR 01-14 11:39
PROVIDERS: ADMIT Hospitalist; ATTEND Hospitalist
DX: J18.9 Pneumonia, unspecified organism (principal); J44.9 Chronic obstructive pulmonary disease, unspecified; E78.5 Hyperlipidemia, unspecified; I12.0 Hypertensive chronic kidney disease with stage 5 chronic kidney disease or end stage renal disease; N18.6 End stage renal disease; E11.22 Type 2 diabetes mellitus with diabetic chronic kidney disease; E03.9 Hypothyroidism, unspecified; D63.1 Anemia in chronic kidney disease; F32.A Depression, unspecified; F41.9 Anxiety disorder, unspecified; K21.9 Gastro-esophageal reflux disease without esophagitis; E79.0 Hyperuricemia without signs of inflammatory arthritis and tophaceous disease; Z99.2 Dependence on renal dialysis; Z79.01 Long term (current) use of anticoagulants; Z79.4 Long term (current) use of insulin; Z79.890 Hormone replacement therapy; Z79.899 Other long term (current) drug therapy; Z88.0 Allergy status to penicillin; Z88.1 Allergy status to other antibiotic agents
CPT/HCPCS: 96366 ×2; 96367; 96365; 99285; 80053; 84100; 85025; 71046; G0378 ×3; J1956 ×2; J1836; 90935; 96368

== ENCOUNTER 2024-02-18 09:54 | Inpatient (IN) | payer MEDICARE, SELFPAY ==
--- NOTE | 2024-02-18 11:01 | ED ---
General Adult HPI - General Chief complaint: Recheck/Abnormal Lab/Rx Stated complaint: abn labs Source: patient, family Mode of arrival: wheelchair Limitations: no limitations - History of Present Illness Initial comments: Dictation was produced using [employer] dictation software. please excuse any grammatical, word or spelling errors. Chief Complaint: 88-year-old female presents to the emergency department for abnormal outpatient lab History of Present Illness: Patient is an 88-year-old female she was contacted by her medical reviewer to come to the emergency department for leukocytosis. Patient states she is feeling fatigued. She gets dialysis for ESRD. Patient had blood drawn on was notified this morning to come to the ER for medical evaluation. Patient has no focal symptoms. Denies any chest pain shortness of breath. Denies any fever chills or constitutional symptoms. The ROS documented in this emergency department record has been reviewed and c onfirmed by me. Those systems with pertinent positive or negative responses have been documented in the HPI. All other systems are other negative and/or noncontributory. - Related Data Home Medications Medication Instructions Recorded Confirmed Atorvastatin Calcium 20 mg PO HS 09/04/22 01/14/24 FLUoxetine HCL [PROzac] 10 mg PO DAILY 09/04/22 01/14/24 allopurinoL 100 mg PO DAILY 09/04/22 01/14/24 Levothyroxine Sodium [Synthroid] 175 mcg PO DAILY 11/05/22 01/14/24 amLODIPine [Norvasc] 5 mg PO DAILY 11/05/22 01/14/24 Insulin Degludec [Tresiba 8 unit SQ DAILY 01/28/23 01/14/24 Flextouch U-200 Pen] Metoprolol Succinate (ER) [Toprol 25 mg PO DAILY 09/24/23 01/14/24 XL] guaiFENesin [Mucinex] 600 mg PO BID 09/24/23 01/14/24 hydrALAZINE HCL [Apresoline] 50 mg PO TID 09/24/23 01/14/24 Previous Rx's Medication Instructions Recorded Rivaroxaban [Xarelto] 2.5 mg PO BID #60 tab 09/26/23 Levofloxacin [Levaquin] 500 mg PO Q48H #3 tab 01/16/24 Torsemide [Demadex] 40 mg PO DAILY #30 tablet 01/16/24 Allergies Allergy/AdvReac Type Severity Reaction Status Date / Time cefaclor Allergy Rash/Hives/ Verified 02/18/24 10:10 Nausea cephalexin Allergy Rash/Hives/ Verified 02/18/24 10:10 Nausea erythromycin base Allergy Rash/Hives/ Verified 02/18/24 10:10 Nausea indomethacin Allergy Rash/Hives/ Verified 02/18/24 10:10 Nausea Penicillins Allergy Rash/Hives/ Verified 02/18/24 10:10 Nausea regadenoson Allergy Rash/Hives/ Verified 02/18/24 10:10 Nausea Review of Systems ROS Statement: Those systems with pertinent positive or pertinent negative responses have been documented in the HPI. ROS Other: All systems not noted in ROS Statement are negative. Past Medical History Past Medical History: COPD, Diabetes Mellitus, Dialysis, Hearing Disorder / Deafness, Hyperlipidemia, Hypertension, Renal Disease, Thyroid Disorder Additional Past Medical History / Comment(s): stage 4 kidney on dialysis TThS, [place] History of Any Multi-Drug Resistant Organisms: None Reported Past Surgical History: No Surgical Hx Reported Additional Past Surgical History / Comment(s): uterine polyps removed, nerve block to left leg, dialysis port placed 2022. Past Anesthesia/Blood Transfusion Reactions: No Reported Reaction Past Psychological History: No Psychological Hx Reported Smoking Status: Never smoker Past Alcohol Use History: None Reported Past Drug Use History: None Reported - Past Family History Daughter(s) Family Medical History: Myocardial Infarction ([place]) General Exam - General Exam Comments Initial Comments: PHYSICAL EXAM: General Impression: Alert and oriented x3, not in acute distress HEENT: Normocephalic atraumatic, extra-ocular movements intact, pupils equal and reactive to light bilaterally, mucous membranes moist. Cardiovascular: Heart regular rate and rhythm Chest: Able to complete full sentences, no retractions, no tachypnea Abdomen: abdomen soft, non-tender, non-distended, no organomegaly Musculoskeletal: Pulses present and equal in all extremities, no peripheral edema Motor: no focal deficits noted Neurological: CN II-XII grossly intact, no focal motor or sensory deficits noted Skin: Intact with no visualized rashes Psych: Normal affect and mood Limitations: no limitations Course Vital Signs 02/18/24 10:11 Temperature 98.2 F Pulse Rate 95 Respiratory 17 Rate Blood Pressure 136/75 O2 Sat by Pulse 99 Oximetry Medical Decision Making - Medical Decision Making Was pt. sent in by a medical professional or institution (, PA, RING STRIKER, urgent care, hospital, or [facility]...) When possible be specific @ -No Did you speak to anyone other than the patient for history (EMS, parent, family, police, friend...)? What history was obtained from this source @ -Family members as described above Did you review nursing and triage notes (agree or disagree)? Why? @ -I reviewed and agree with nursing and triage notes Were old charts reviewed (outside hosp., previous admission, EMS record, old EKG, old radiological studies, urgent care reports/EKG's, [facility] records)? Report findings @ -No old charts were reviewed Differential Diagnosis (chest pain, altered mental status, abdominal pain women, abdominal pain men, vaginal bleeding, musculoskeletal, weakness, fever, dyspnea, syncope, headache, dizziness, GI bleed, back pain, seizure, CVA, palpatations, mental health)? @ -Differential Weakness: Hypoglycemia, shock, sepsis, hyponatremia, anemia, infection, [place], ETOH, adverse medicine reaction, overdose, stroke, this is not meant to be an all-inclusive list. EKG interpreted by me (3pts min.). @ -None done X-rays interpreted by me (1pt min.). @ -None done CT interpreted by me (1pt min.). @ -None done U/S interpreted by me (1pt. min.). @ -None done What testing was considered but not performed or refused? (CT, X-rays, U/S, labs)? Why? @ -None What meds were considered but not given or refused? Why? @ -None Was smoking cessation discussed for >3mins.? @ -No Were there social determinants of health that impacted care today? How? (Homelessness, low income, unemployed, alcoholism, drug addiction, transportation, low edu. Level, literacy, decrease access to med. care, [place] [facility], rehab)? @ -No Was there de-escalation of care discussed even if they declined (Discuss DNR or withdrawal of care, Hospice)? DNR status @ -No What co-morbidities impacted this encounter? (DM, HTN, Smoking, COPD, CAD, Cancer, CVA, ARF, Chemo, Hep., AIDS, mental health diagnosis, sleep apnea, morbid obesity)? @ -ESRD Was patient admitted / discharged? Hospital course, mention meds given and route, prescriptions, significant lab abnormalities, going to OR and other pertinent info. @ -88-year-old female presents emergency department with abnormal outpatient lab. She is found have leukocytosis. She complains of generalized fatigue. She has percutaneous catheter in the left chest. Vital signs upon arrival are within acceptable limits. Laboratory evaluation shows leukocytosis 19.9. Rest of labs within acceptable limits. Patient pending blood cultures. Vancomycin ordered. Discussed with Dr. Richmond for admission. Nephrology and infectious disease on consult Did you discuss the management of the patient with other professionals (professionals i.e. , PA, RING STRIKER, lab, RT, psych nurse, manager social work, jazz singer, teacher, radio electronics officer, case worker)? Give summary @ -See above Was critical care preformed (if so, how long)? @ -No Undiagnosed new problem with uncertain prognosis? @ -No Drug Therapy requiring intensive monitoring for toxicity (Heparin, Nitro, Insulin, Cardizem)? @ -No Were any procedures done? @ -No Diagnosis/symptom? Acute, or Chronic, or Acute on Chronic? Uncomplicated (without systemic symptoms) or Complicated (systemic symptoms)? @ -Leukocytosis Side effects of treatment? @ -No Exacerbation, Progression, or Severe Exacerbation? @ -No Poses a threat to life or bodily function? How? (Chest pain, [place], [place], pneumonia, PE, COPD, DKA, ARF, appy, cholecystitis, CVA, Diverticulitis, Homicidal, Suicidal, threat to staff... and all critical care pts) @ -yes - Lab Data Result diagrams: 02/18/24 11:17 02/18/24 11:17 Lab Results 02/18/24 02/18/24 02/18/24 Range/Units 11:17 11:17 11:17 WBC 19.9 H (3.8-10.6) k/uL RBC 4.08 (3.80-5.40) m/uL Hgb 12.5 (11.4-16.0) gm/dL Hct 38.1 (34.0-46.0) % MCV 93.4 (80.0-100.0) fL MCH 30.5 (25.0-35.0) pg MCHC 32.7 (31.0-37.0) g/dL RDW 16.7 H (11.5-15.5) % Plt Count 275 (150-450) k/uL MPV 9.5 Neutrophils % 91 % Lymphocytes % 3 % Monocytes % 4 % Eosinophils % 1 % Basophils % 0 % Neutrophils # 18.2 H (1.3-7.7) k/uL Lymphocytes # 0.5 L (1.0-4.8) k/uL Monocytes # 0.9 (0-1.0) k/uL Eosinophils # 0.2 (0-0.7) k/uL Basophils # 0.1 (0-0.2) k/uL Hypochromasia Slight Anisocytosis Slight Sodium 137 (137-145) mmol/L Potassium 4.3 (3.5-5.1) mmol/L Chloride 103 (98-107) mmol/L Carbon Dioxide 27 (22-30) mmol/L Anion Gap 7 mmol/L BUN 27 H (7-17) mg/dL Creatinine 3.10 H (0.52-1.04) mg/dL Est GFR (CKD-EPI)AfAm 15 (>60 ml/min/1.73 sqM) Est GFR (CKD-EPI)NonAf 13 (>60 ml/min/1.73 sqM) Glucose 235 H (74-99) mg/dL Calcium 9.1 (8.4-10.2) mg/dL Total Bilirubin 0.6 (0.2-1.3) mg/dL AST 24 (14-36) U/L ALT 17 (4-34) U/L Alkaline Phosphatase 150 H (38-126) U/L C-Reactive Protein 2.4 H (<1.0) mg/dL Total Protein 6.2 L (6.3-8.2) g/dL Albumin 3.6 (3.5-5.0) g/dL Disposition Clinical Impression: Leukocytosis Disposition: ADMITTED IP TO THIS HOSP Condition: Fair Referrals: Randell Corbett MD [Primary Care Provider] - 1-2 days Decision Time: 12:40
[2024-02-18 11:38] LABS: ALT 17 U/L (4-34); AST 24 U/L (14-36); African American GFR (CKD) 15 (>60 ml/min/1.73 sqM); Albumin 3.6 g/dL (3.5-5.0); Alkaline Phosphatase 150 U/L (38-126); Anion Gap 7 mmol/L; Blood Urea Nitrogen 27 mg/dL (7-17); Calcium 9.1 mg/dL (8.4-10.2); Carbon Dioxide 27 mmol/L (22-30); Chloride 103 mmol/L (98-107); Glucose 235 mg/dL (74-99); Non-African American GFR(CKD) 13 (>60 ml/min/1.73 sqM); Potassium 4.3 mmol/L (3.5-5.1); Sodium 137 mmol/L (137-145); Total Bilirubin 0.6 mg/dL (0.2-1.3); Total Protein 6.2 g/dL (6.3-8.2)
[2024-02-18 11:53] LABS: Anisocytosis Slight; Basophils # (A) 0.1 k/uL (0-0.2); Basophils % (A) 0 %; Eosinophils # (A) 0.2 k/uL (0-0.7); Eosinophils % (A) 1 %; HCT 38.1 % (34.0-46.0); HGB 12.5 gm/dL (11.4-16.0); Hypochromasia Slight; Lymphocytes # (A) 0.5 k/uL (1.0-4.8); Lymphocytes % (A) 3 %; MCH 30.5 pg (25.0-35.0); MCHC 32.7 g/dL (31.0-37.0); MCV 93.4 fL (80.0-100.0); Mean Platelet Volume 9.5; Monocytes # (A) 0.9 k/uL (0-1.0); Monocytes % (A) 4 %; Neutrophils # (A) 18.2 k/uL (1.3-7.7); Neutrophils % (A) 91 %; Platelet Count 275 k/uL (150-450); RBC 4.08 m/uL (3.80-5.40); RDW 16.7 % (11.5-15.5); WBC 19.9 k/uL (3.8-10.6)
[2024-02-18] MEDS ORDERED: NALOXONE 0.4 MG/ML 1 ML VIAL IV PRN (12:28)
[2024-02-18] MEDS ORDERED: VANCOMYCIN IV PER PHARMACY 1 EACH MISC MISCELLANE PRN (12:28)
[2024-02-18] MEDS ORDERED: ACETAMINOPHEN TAB 325 MG TAB PO PRN (12:38)
[2024-02-18] MEDS: VANCOMYCIN 1,000 MG in SODIUM CHLORIDE 0.9% 250 ML IVPB ONE (13:29)
[2024-02-18] MEDS: SODIUM CHLORIDE 0.9% 1,000 ML IV SCH (13:30)
[2024-02-18] MEDS: ATORVASTATIN 20 MG TAB PO SCH (22:16)
[2024-02-18] MEDS: guaiFENesin 600 MG TABLET.ER PO SCH (22:16)
[2024-02-18] MEDS: hydrALAZINE HCL 50 MG TAB PO SCH (22:16)
[2024-02-19] MEDS: LEVOTHYROXINE 125 MCG TAB PO SCH (05:49)
[2024-02-19 07:21] LABS: Glucose,Whole Blood 156 mg/dL (70-110)
[2024-02-19] MEDS: METOPROLOL SUCCINATE (ER) 25 MG TAB.ER.24H PO SCH (07:44)
[2024-02-19] MEDS: INSULIN DETEMIR (LEVEMIR) 100 UNIT/ML SYR SQ SCH (07:44)
[2024-02-19] MEDS: amLODIPine 5 MG TAB PO SCH ×2 (07:44→21:53)
[2024-02-19] MEDS: FLUoxetine HCL 10 MG CAP PO SCH (07:44)
[2024-02-19] MEDS: allopurinoL 100 MG TAB PO SCH (07:44)
[2024-02-19] MEDS: VANCOMYCIN 1,000 MG in SODIUM CHLORIDE 0.9% 250 ML IVPB ONE (09:46)
--- NOTE | 2024-02-19 11:25 | P.NPCON ---
History of Present Illness - Reason for Consult end stage renal disease - History of Present Illness patient is seen for end-stage renal disease. Patient is an 88-year-old female with end-stage renal disease maintained on hemodialysis on a Tuesday schedule. She is admitted to the hospital due to complaints of feeling weak. She was noted to have an elevated white count of about 20,000 as outpatient at the dialysis unit. Patient denied any significant chest pain or shortness of breath. No complaints of abdominal pain. CBC here shows white cell count of 19.9 with hemoglobin 12.5. Past Medical History Past Medical History: COPD, Diabetes Mellitus, Dialysis, Hearing Disorder / Deafness, Hyperlipidemia, Hypertension, Renal Disease, Thyroid Disorder Additional Past Medical History / Comment(s): stage 4 kidney on dialysis TThS, [place] History of Any Multi-Drug Resistant Organisms: None Reported Past Surgical History: No Surgical Hx Reported Additional Past Surgical History / Comment(s): uterine polyps removed, nerve block to left leg, dialysis port placed 2022. Past Anesthesia/Blood Transfusion Reactions: No Reported Reaction Smoking Status: Never smoker - Past Family History Daughter(s) Family Medical History: Myocardial Infarction ([place]) Medications and Allergies Home Medications Medication Instructions Recorded Confirmed Type Atorvastatin Calcium 20 mg PO HS 09/04/22 02/18/24 History FLUoxetine HCL [PROzac] 10 mg PO DAILY 09/04/22 02/18/24 History allopurinoL 100 mg PO DAILY 09/04/22 02/18/24 History amLODIPine [Norvasc] 5 mg PO DAILY 11/05/22 02/18/24 History Insulin Degludec [Tresiba 6 unit SQ DAILY 01/28/23 02/18/24 History Flextouch U-200 Pen] Metoprolol Succinate (ER) [Toprol 25 mg PO DAILY 09/24/23 02/18/24 History XL] guaiFENesin [Mucinex] 600 mg PO BID 09/24/23 02/18/24 History hydrALAZINE HCL [Apresoline] 50 mg PO TID 09/24/23 02/18/24 History Levothyroxine Sodium [Synthroid] 125 mcg PO DAILY 02/18/24 02/18/24 History Allergies Allergy/AdvReac Type Severity Reaction Status Date / Time cefaclor Allergy Rash/Hives/ Verified 02/18/24 13:04 Nausea cephalexin Allergy Rash/Hives/ Verified 02/18/24 13:04 Nausea erythromycin base Allergy Rash/Hives/ Verified 02/18/24 13:04 Nausea indomethacin Allergy Rash/Hives/ Verified 02/18/24 13:04 Nausea Penicillins Allergy Rash/Hives/ Verified 02/18/24 13:04 Nausea regadenoson Allergy Rash/Hives/ Verified 02/18/24 13:04 Nausea Physical Exam Vitals: Vital Signs Temp Pulse Pulse Pulse Resp BP BP 02/19/24 07:25 98.0 F 89 15 02/19/24 01:27 98.3 F 91 14 02/18/24 20:24 98 F 89 18 167/84 02/18/24 20:00 98.5 F 90 14 140/76 02/18/24 16:02 98.1 F 85 18 172/65 02/18/24 14:00 86 18 168/77 BP Pulse Ox 02/19/24 07:25 183/76 94 L 02/19/24 01:27 163/70 94 L 02/18/24 20:24 02/18/24 20:00 98 02/18/24 16:02 94 L 02/18/24 14:00 98 Intake and Output 02/18/24 02/19/24 02/19/24 22:59 06:59 14:59 Intake Total 500 240 Output Total 2500 60 Balance -2000 180 Intake: Oral 240 Hemodialysis 500 Output: Urine 60 Hemodialysis 1500 Hemodialysis Net Amount 1000 Other: Voiding Method Bedpan Weight 48.081 kg patient is awake, comfortable, no acute distress. Examination of the heart S1 and S2 Examination of the lungs bilateral breath sounds are heard Abdomen is soft nontender Examination of lower extremity shows no significant edema. Results - Lab Results Most recent lab results Calcium 9.1 mg/dL (8.4-10.2) 02/18/24 11:17 02/18/24 11:17 02/18/24 11:17 Assessment and Plan Assessment: 1. End-stage renal disease on hemodialysis via left IJ permacath 2. Elevated white count rule out permacath related infection as patient has recently had catheter related infection. 3. 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 Continue with vancomycin. Follow-up on blood cultures. Increase Norvasc as blood pressure remains elevated
[2024-02-19 12:37] LABS: Glucose,Whole Blood 106 mg/dL (70-110)
--- NOTE | 2024-02-19 17:08 | P.HPIM ---
History of Present Illness H&P Date: 02/18/24 Chief Complaint: Elevated white count This is a pleasant 88-year-old patient who follows with Dr. Corbett. Chronic stable medical conditions include COPD, diabetes, hypertension, hypothyroid, end-stage kidney disease. Started on dialysis on October 2022. Has a Right IJ dialysis catheter. Has a left forearm AV fistula-getting matured. 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 baseline patient uses a four-wheel walker. dialysis Tuesday. Patient seen her 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 Patient was sent in for leukocytosis. White count in the ER was 19.9. Patient denies any pain at the dialysis catheter site. Denies any urinary symptoms. Denies any breakdown of skin. Denies any respiratory symptoms. ID was consulted. No fever no chills. Review of systems: GEN.: None EYES: None HEENT: Decreased hearing NECK: None RESPIRATORY: None CARDIOVASCULAR: None GASTROINTESTINAL: None GENITOURINARY: Does make urine MUSCULOSKELETAL: None LYMPHATICS: None HEMATOLOGICAL: None PSYCHIATRY: None NEUROLOGICAL: Uses a powered wheelchair/four-wheel walker Past medical history to include: COPD, diabetes, hypertension, end-stage kidney disease started hemodialysis October 2022, hypothyroid Social history: Lives with her son-in-law, grandson does use a powered wheelchair. Does not smoke or drink alcohol Physical examination: VITAL SIGNS: 98, 89, 18, 167 x 84, 94% room air GENERAL: Laying in bed, comfortable d, left chest wall dialysis catheter. Left forearm access that is not being used EYES: Pupils equal. Conjunctiva pale HEENT: External appearance of nose and ears normal, oral cavity grossly normal. NECK: JVD not raised; masses not palpable. HEART: First and second heart sounds are normal; no edema. LUNGS: Respiratory rate normal; decreased breath sounds ABDOMEN: Soft, nontender, liver spleen not palpable, no masses palpable. PSYCH: Alert and oriented x3; mood and affect normal. MUSCULOSKELETAL:No Clubbing/cyanosis;muscles-grossly intact. OA NEUROLOGICAL: Cranial nerves grossly intact; no facial asymmetry, power and sensation grossly intact. LYMPHATICS: No lymph nodes palpable in the axilla and neck INVESTIGATIONS, reviewed in the clinical context: February 17: White count 9.9 hemoglobin 12.5 platelets 275 potassium 4.3 BUN 27 c reatinine 3.10 Assessment and plan: -Leukocytosis. Does not have any obvious source of infection at present time. No respiratory no urinary. Does have a dialysis catheter. Blood cultures have been drawn. Empirically received vancomycin earlier in the day -End-stage kidney disease on hemodialysis October 2022 Schedule Tuesday. Follow with nephrology -Anemia secondary to chronic kidney disease -Depression and anxiety Prozac 10 mg -GERD Pepcid -Chronic hyperuricemia Allopurinol -Hyperlipidemia Lipitor 20 mg nightly -Diabetes mellitus type 2 tresiba. Follow Accu-Cheks -Essential hypertension with chronic kidney disease Toprol-XL 25 mg a day.. Hydralazine 50 mg 3 times a day. Amlodipine 5 mg a day -Hypothyroid Synthroid 175 g a day -Full code Discussed with patient. ID consulted. Past Medical History Past Medical History: COPD, Diabetes Mellitus, Dialysis, Hearing Disorder / Deafness, Hyperlipidemia, Hypertension, Renal Disease, Thyroid Disorder Additional Past Medical History / Comment(s): stage 4 kidney on dialysis TThS, [place] History of Any Multi-Drug Resistant Organisms: None Reported Past Surgical History: No Surgical Hx Reported Additional Past Surgical History / Comment(s): uterine polyps removed, nerve block to left leg, dialysis port placed 2022. Past Anesthesia/Blood Transfusion Reactions: No Reported Reaction Smoking Status: Never smoker - Past Family History Daughter(s) Family Medical History: Myocardial Infarction ([place]) Medications and Allergies Home Medications Medication Instructions Recorded Confirmed Type Atorvastatin Calcium 20 mg PO HS 09/04/22 02/18/24 History FLUoxetine HCL [PROzac] 10 mg PO DAILY 09/04/22 02/18/24 History allopurinoL 100 mg PO DAILY 09/04/22 02/18/24 History amLODIPine [Norvasc] 5 mg PO DAILY 11/05/22 02/18/24 History Insulin Degludec [Tresiba 6 unit SQ DAILY 01/28/23 02/18/24 History Flextouch U-200 Pen] Metoprolol Succinate (ER) [Toprol 25 mg PO DAILY 09/24/23 02/18/24 History XL] guaiFENesin [Mucinex] 600 mg PO BID 09/24/23 02/18/24 History hydrALAZINE HCL [Apresoline] 50 mg PO TID 09/24/23 02/18/24 History Levothyroxine Sodium [Synthroid] 125 mcg PO DAILY 02/18/24 02/18/24 History Allergies Allergy/AdvReac Type Severity Reaction Status Date / Time cefaclor Allergy Rash/Hives/ Verified 02/18/24 13:04 Nausea cephalexin Allergy Rash/Hives/ Verified 02/18/24 13:04 Nausea erythromycin base Allergy Rash/Hives/ Verified 02/18/24 13:04 Nausea indomethacin Allergy Rash/Hives/ Verified 02/18/24 13:04 Nausea Penicillins Allergy Rash/Hives/ Verified 02/18/24 13:04 Nausea regadenoson Allergy Rash/Hives/ Verified 02/18/24 13:04 Nausea Physical Exam Vitals: Vital Signs Temp Pulse Pulse Resp BP BP Pulse Ox 02/18/24 20:24 98 F 89 18 167/84 02/18/24 20:00 98.5 F 90 14 140/76 98 02/18/24 16:02 98.1 F 85 18 172/65 94 L 02/18/24 14:00 86 18 168/77 98 02/18/24 10:11 98.2 F 95 17 136/75 99 Intake and Output 02/18/24 02/18/24 02/18/24 06:59 14:59 22:59 Intake Total 500 Output Total 2500 Balance -2000 Intake: Hemodialysis 500 Output: Hemodialysis 1500 Hemodialysis Net Amount 1000 Other: Weight 48.081 kg 48.081 kg Results CBC & Chem 7: 02/18/24 11:17 02/18/24 11:17 Labs: Abnormal Lab Results - Last 24 Hours (Table) 02/18/24 02/18/24 02/18/24 Range/Units 11:17 11:17 11:17 WBC 19.9 H (3.8-10.6) k/uL RDW 16.7 H (11.5-15.5) % Neutrophils # 18.2 H (1.3-7.7) k/uL Lymphocytes # 0.5 L (1.0-4.8) k/uL BUN 27 H (7-17) mg/dL Creatinine 3.10 H (0.52-1.04) mg/dL Glucose 235 H (74-99) mg/dL Alkaline Phosphatase 150 H (38-126) U/L C-Reactive Protein 2.4 H (<1.0) mg/dL Total Protein 6.2 L (6.3-8.2) g/dL
--- NOTE | 2024-02-19 17:10 | P.PN ---
Progress Note - Text Progress Note Date: 02/19/24 Chief Complaint: Elevated white count This is a pleasant 88-year-old patient who follows with Dr. Corbett. Chronic stable medical conditions include COPD, diabetes, hypertension, hypothyroid, end-stage kidney disease. Started on dialysis on October 2022. Has a Right IJ dialysis catheter. Has a left forearm AV fistula-getting matured. 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 baseline patient uses a four-wheel walker. dialysis Tuesday. Patient seen her 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 Patient was sent in for leukocytosis. White count in the ER was 19.9. Patient denies any pain at the dialysis catheter site. Denies any urinary symptoms. Denies any breakdown of skin. Denies any respiratory symptoms. ID was consulted. No fever no chills. February 18: Remains comfortable. No fever. ID on the case. Tolerating diet. Cultures pending Active Medications Acetaminophen (Acetaminophen Tab 325 Mg Tab) 650 mg PO Q6HR PRN PRN Reason: Mild Pain or Fever > 100.5 Allopurinol (Allopurinol 100 Mg Tab) 100 mg PO DAILY [facility] Last Admin: 02/19/24 07:44 Dose: 100 mg Amlodipine Besylate (Amlodipine 5 Mg Tab) 5 mg PO BID [facility] Atorvastatin Calcium (Atorvastatin 20 Mg Tab) 20 mg PO HS [facility] Last Admin: 02/18/24 22:16 Dose: 20 mg Fluoxetine HCl (Fluoxetine Hcl 10 Mg Cap) 10 mg PO DAILY [facility] Last Admin: 02/19/24 07:44 Dose: 10 mg Guaifenesin (Guaifenesin 600 Mg Tablet.Er) 600 mg PO BID [facility] Last Admin: 02/19/24 07:44 Dose: 600 mg Hydralazine HCl (Hydralazine Hcl 50 Mg Tab) 50 mg PO TID [facility] Last Admin: 02/19/24 15:27 Dose: 50 mg Sodium Chloride (Saline 0.9%) 1,000 mls @ 20 mls/hr IV .Q24H [facility] Last Admin: 02/19/24 14:40 Dose: Not Given Insulin Detemir (Insulin Detemir (Levemir) 100 Unit/Ml Syr) 6 unit SQ DAILY@0700 [facility] Last Admin: 02/19/24 07:44 Dose: 6 unit Levothyroxine Sodium (Levothyroxine 125 Mcg Tab) 125 mcg PO DAILY@0630 [facility] Last Admin: 02/19/24 05:49 Dose: 125 mcg Metoprolol Succinate (Metoprolol Succinate (Er) 25 Mg Tab.Er.24h) 25 mg PO DAILY [facility] Last Admin: 02/19/24 07:44 Dose: 25 mg Miscellaneous Information (Vancomycin Iv Per Pharmacy 1 Each Misc) 1 each MISCELLANE DIRECTED PRN; Protocol PRN Reason: Per Protocol Naloxone HCl (Naloxone 0.4 Mg/Ml 1 Ml Vial) 0.2 mg IV Q2M PRN PRN Reason: Opioid Reversal Past medical history to include: COPD, diabetes, hypertension, end-stage kidney disease started hemodialysis October 2022, hypothyroid Social history: Lives with her son-in-law, grandson does use a powered wheelchair. Does not smoke or drink alcohol Physical examination: VITAL SIGNS: 98, 79, 16, 174 x 866, 98% room air GENERAL: Comfortable, left chest wall dialysis catheter. Left forearm access that is not being used EYES: Pupils equal. Conjunctiva pale HEENT: External appearance of nose and ears normal, oral cavity grossly normal. NECK: JVD not raised; masses not palpable. HEART: First and second heart sounds are normal; no edema. LUNGS: Respiratory rate normal; decreased breath sounds ABDOMEN: Soft, nontender, liver spleen not palpable, no masses palpable. PSYCH: Alert and oriented x3; mood and affect normal. MUSCULOSKELETAL:No Clubbing/cyanosis;muscles-grossly intact. OA INVESTIGATIONS, reviewed in the clinical context: February 17: White count 9.9 hemoglobin 12.5 platelets 275 potassium 4.3 BUN 27 creatinine 3.10 Assessment and plan: -Leukocytosis. Does not have any obvious source of infection at present time. No respiratory no urinary. Does have a dialysis catheter. Blood cultures have been drawn. Empirically received vancomycin earlier in the day -End-stage kidney disease on hemodialysis October 2022 Schedule Tuesday. Follow with nephrology -Anemia secondary to chronic kidney disease -Depression and anxiety Prozac 10 mg -GERD Pepcid -Chronic hyperuricemia Allopurinol -Hyperlipidemia Lipitor 20 mg nightly -Diabetes mellitus type 2 tresiba. Follow Accu-Cheks -Essential hypertension with chronic kidney disease Toprol-XL 25 mg a day.. Hydralazine 50 mg 3 times a day. Amlodipine 5 mg a day -Hypothyroid Synthroid 175 g a day -Full code Await cultures. Received vancomycin yesterday. Follow with ID nephrology. Past Medical History Past Medical History: COPD, Diabetes Mellitus, Dialysis, Hearing Disorder / Deafness, Hyperlipidemia, Hypertension, Renal Disease, Thyroid Disorder Additional Past Medical History / Comment(s): stage 4 kidney on dialysis TThS, [place] History of Any Multi-Drug Resistant Organisms: None Reported Past Surgical History: No Surgical Hx Reported Additional Past Surgical History / Comment(s): uterine polyps removed, nerve block to left leg, dialysis port placed 2022. Past Anesthesia/Blood Transfusion Reactions: No Reported Reaction Smoking Status: Never smoker
[2024-02-19 17:12] LABS: Glucose,Whole Blood 176 mg/dL (70-110)
[2024-02-19 20:02] LABS: Glucose,Whole Blood 151 mg/dL (70-110)
--- NOTE | 2024-02-19 22:34 | P.CONS ---
History of Present Illness - Reason for Consult Consult date: 02/19/24 Leukocytosis Requesting physician: Francisco Grace - Chief Complaint Weakness and elevated white count x few days - History of Present Illness Patient is a 88-year-old female with a past medical history significant for diabetes mellitus hypertension hyperlipidemia COPD end-stage renal disease on hemodialysis through the left subclavian permacatheter in this patient has been sent to the hospital concerning for elevated white count that has been noticed by the dialysis center and the patient complaining of feeling fatigued patient denies high-grade fever or any chills and no fever has been recorded on presentation the hospital patient denies having any headache or URI symptoms no chest pain no shortness of occasional cough no nausea vomiting no abdominal pain no diarrhea patient hardly makes any urine and denies any problem with the dialysis catheter patient did have a vital of 19.9 on admission with a left shift creatinine 3.10 CRP is elevated patient has been started on vancomycin infectious disease was consulted for further management Review of Systems Positive point and negatives has been mentioned in the HPI, complete review of systems was performed and all other systems are negative Past Medical History Past Medical History: COPD, Diabetes Mellitus, Dialysis, Hearing Disorder / Deafness, Hyperlipidemia, Hypertension, Renal Disease, Thyroid Disorder Additional Past Medical History / Comment(s): stage 4 kidney on dialysis [place], [place] History of Any Multi-Drug Resistant Organisms: None Reported Past Surgical History: No Surgical Hx Reported Additional Past Surgical History / Comment(s): uterine polyps removed, nerve block to left leg, dialysis port placed 2022. Past Anesthesia/Blood Transfusion Reactions: No Reported Reaction Smoking Status: Never smoker - Past Family History Daughter(s) Family Medical History: Myocardial Infarction ([place]) Medications and Allergies Home Medications Medication Instructions Recorded Confirmed Type Atorvastatin Calcium 20 mg PO HS 09/04/22 02/18/24 History FLUoxetine HCL [PROzac] 10 mg PO DAILY 09/04/22 02/18/24 History allopurinoL 100 mg PO DAILY 09/04/22 02/18/24 History amLODIPine [Norvasc] 5 mg PO DAILY 11/05/22 02/18/24 History Insulin Degludec [Tresiba 6 unit SQ DAILY 01/28/23 02/18/24 History Flextouch U-200 Pen] Metoprolol Succinate (ER) [Toprol 25 mg PO DAILY 09/24/23 02/18/24 History XL] guaiFENesin [Mucinex] 600 mg PO BID 09/24/23 02/18/24 History hydrALAZINE HCL [Apresoline] 50 mg PO TID 09/24/23 02/18/24 History Levothyroxine Sodium [Synthroid] 125 mcg PO DAILY 02/18/24 02/18/24 History Allergies Allergy/AdvReac Type Severity Reaction Status Date / Time cefaclor Allergy Rash/Hives/ Verified 02/18/24 13:04 Nausea cephalexin Allergy Rash/Hives/ Verified 02/18/24 13:04 Nausea erythromycin base Allergy Rash/Hives/ Verified 02/18/24 13:04 Nausea indomethacin Allergy Rash/Hives/ Verified 02/18/24 13:04 Nausea Penicillins Allergy Rash/Hives/ Verified 02/18/24 13:04 Nausea regadenoson Allergy Rash/Hives/ Verified 02/18/24 13:04 Nausea Physical Exam Vitals: Vital Signs Temp Pulse Pulse Pulse Resp BP BP 02/19/24 07:25 98.0 F 89 15 02/19/24 01:27 98.3 F 91 14 02/18/24 20:24 98 F 89 18 167/84 02/18/24 20:00 98.5 F 90 14 140/76 02/18/24 16:02 98.1 F 85 18 172/65 02/18/24 14:00 86 18 168/77 BP Pulse Ox 02/19/24 07:25 183/76 94 L 02/19/24 01:27 163/70 94 L 02/18/24 20:24 02/18/24 20:00 98 02/18/24 16:02 94 L 02/18/24 14:00 98 Intake and Output 02/18/24 02/19/24 02/19/24 22:59 06:59 14:59 Intake Total 500 240 Output Total 2500 60 Balance -2000 180 Intake: Oral 240 Hemodialysis 500 Output: Urine 60 Hemodialysis 1500 Hemodialysis Net Amount 1000 Other: Voiding Method Bedpan Weight 48.081 kg GENERAL DESCRIPTION: Elderly female lying in bed, no distress. No tachypnea or accessory muscle of respiration use. HEENT: Shows Pallor , no scleral icterus. Oral mucous membrane is dry. No phar yngeal erythema or thrush NECK: Trachea central, no thyromegaly. LUNGS: Unlabored breathing. Clear to auscultation anteriorly. No wheeze or crackle. HEART: S1, S2, regular rate and rhythm. No loud murmur ABDOMEN: Soft, no tenderness , guarding or rigidity, no organomegaly EXTREMITIES: No edema of feet. SKIN: No rash, no masses palpable. NEUROLOGICAL: The patient is awake, alert, oriented x3, mood and affect normal. Results CBC & Chem 7: 02/18/24 11:17 02/18/24 11:17 Labs: Abnormal Lab Results - Last 24 Hours (Table) 02/18/24 02/18/24 02/19/24 Range/Units 11:17 11:17 07:20 WBC 19.9 H (3.8-10.6) k/uL RDW 16.7 H (11.5-15.5) % Neutrophils # 18.2 H (1.3-7.7) k/uL Lymphocytes # 0.5 L (1.0-4.8) k/uL POC Glucose (mg/dL) 156 H (70-110) mg/dL Procalcitonin 0.56 H (0.02-0.50) ng/mL Assessment and Plan (1) Allergy to multiple antibiotics Current Visit: Yes Status: Acute Code(s): Z88.1 - ALLERGY STATUS TO OTHER ANTIBIOTIC AGENTS SNOMED Code(s): 622077421 (2) Leukocytosis Current Visit: Yes Status: Acute Code(s): D72.829 - ELEVATED WHITE BLOOD CELL COUNT, UNSPECIFIED SNOMED Code(s): 456926559 Plan: 1patient with a leukocytosis with a question of possibly related to her dialysis catheter infection as currently do not have any signs of symptoms suggestive of infection at renal part of the body patient does not look toxic breathing comfortably chest sounds clear abdomen was soft and no evidence of any cellulitis or joint swelling. 2patient with multiple antibiotic ALLERGIES that would limit the number of antibiotic safe to use. 3we will wait for the blood culture to finalize and blood cultures will be obtained from the dialysis catheter as well 4for now continue the vancomycin pharmacy to dose and recheck a CBC with a.m. lab We will follow on clinical condition and cultures to further adjust medication if needed Thank you for this consultation we will follow the patient along with you Dictation was produced using [employer] software. please excuse any gram matical, word or spelling errors. Time with Patient: Greater than 30
[2024-02-20 04:04] LABS: Glucose,Whole Blood 111 mg/dL (70-110)
[2024-02-20 06:21] LABS: ALT 13 U/L (4-34); AST 16 U/L (14-36); African American GFR (CKD) 14 (>60 ml/min/1.73 sqM); Albumin 2.7 g/dL (3.5-5.0); Albumin/Globulin Ratio 1.2; Alkaline Phosphatase 124 U/L (38-126); Anion Gap 4 mmol/L; Blood Urea Nitrogen 22 mg/dL (7-17); C Reactive Protein 2.6 mg/dL (<1.0); Calcium 8.5 mg/dL (8.4-10.2); Carbon Dioxide 24 mmol/L (22-30); Chloride 106 mmol/L (98-107); Globulin 2.3 g/dL; Glucose 200 mg/dL (74-99); Non-African American GFR(CKD) 12 (>60 ml/min/1.73 sqM); Potassium 3.9 mmol/L (3.5-5.1); Sodium 134 mmol/L (137-145); Total Bilirubin 0.5 mg/dL (0.2-1.3)
[2024-02-20 06:24] LABS: Vancomycin,Random 14.5 ug/mL
[2024-02-20 07:34] LABS: Glucose,Whole Blood 189 mg/dL (70-110)
[2024-02-20] MEDS ORDERED: hydrALAZINE HCL 20 MG/ML 1 ML VIAL IVP PRN (08:31)
--- NOTE | 2024-02-20 08:32 | P.PN ---
Subjective Patient is seen in follow-up for end-stage renal disease. She is maintained on hemodialysis on Tuesday schedule. Denies fever or chills. No cough. Vital signs are stable. Blood pressure high. General: No acute distress. HEENT: Head exam is unremarkable. LUNGS: No audible rhonchi or wheezes. HEART: Rate and Rhythm are regular. ABDOMEN: Nontender. EXTREMITITES: No edema. Objective - Vital Signs Vital signs: Vital Signs Temp 98.3 F 02/20/24 07:28 Pulse 78 02/20/24 07:28 Resp 16 02/20/24 07:28 BP 182/75 02/20/24 07:28 Pulse Ox 95 02/20/24 07:28 FiO2 Intake & Output 02/19/24 02/20/24 02/20/24 18:59 06:59 18:59 Intake Total 240 240 Output Total 80 Balance 160 240 Intake: Oral 240 240 Output: Urine 80 Other: Voiding Method Bedpan # Voids 2 0 - Labs CBC & Chem 7: 02/18/24 11:17 02/20/24 05:44 Labs: Abnormal Lab Results - Last 24 Hours (Table) 02/18/24 02/19/24 02/19/24 Range/Units 11:17 17:11 20:00 Sodium (137-145) mmol/L BUN (7-17) mg/dL Creatinine (0.52-1.04) mg/dL Glucose (74-99) mg/dL POC Glucose (mg/dL) 176 H 151 H (70-110) mg/dL C-Reactive Protein (<1.0) mg/dL Total Protein (6.3-8.2) g/dL Albumin (3.5-5.0) g/dL Procalcitonin 0.56 H (0.02-0.50) ng/mL 02/20/24 02/20/24 02/20/24 Range/Units 04:00 05:44 07:33 Sodium 134 L (137-145) mmol/L BUN 22 H (7-17) mg/dL Creatinine 3.19 H (0.52-1.04) mg/dL Glucose 200 H (74-99) mg/dL POC Glucose (mg/dL) 111 H 189 H (70-110) mg/dL C-Reactive Protein 2.6 H (<1.0) mg/dL Total Protein 5.0 L (6.3-8.2) g/dL Albumin 2.7 L (3.5-5.0) g/dL Procalcitonin (0.02-0.50) ng/mL Microbiology - Last 24 Hours (Table) 02/18/24 11:40 Blood Culture - Preliminary Blood Assessment and Plan Plan: Assessment: 1. End-stage renal disease maintained on hemodialysis on Tuesday schedule. 2. Hypertension with chronic kidney disease. 3. Leukocytosis. Unclear cause. ID following. On antibiotics. 4. Diabetes mellitus. Plan: Hemodialysis tomorrow. [facility]up cultures[facility] Amlodipine increased yesterday. Add as needed hydralazine.
[2024-02-20 09:04] LABS: HCT 35.2 % (37.2-46.3); HGB 11.1 g/dL (12.0-15.0); MCHC 31.5 g/dL (32.0-37.0); MCV 91.9 FL (80.0-97.0); Mean Platelet Volume 10.4 FL (9.5-12.2); NRBC Per 100 WBC 0 X 10*3/uL (0.00-0.01); Platelet Count 320 X 10*3/uL (140-440); RBC 3.83 X 10*6/uL (4.10-5.20); RDW 16.9 % (11.5-14.5); WBC 19.93 X 10*3/uL (4.50-10.00)
[2024-02-20 10:11] LABS: Basophils # (A) 0.08 X 10*3/uL (0.00-0.10); Basophils % (A) 0.4 %; Eosinophils # (A) 0.22 X 10*3/uL (0.04-0.35); Eosinophils % (A) 1.1 %; Lymphocytes # (A) 0.81 X 10*3/uL (0.90-5.00); Lymphocytes % (A) 4.1 %; Monocytes # (A) 1.56 X 10*3/uL (0.20-1.00); Monocytes % (A) 7.8 %; Neutrophils # (A) 17.15 X 10*3/uL (1.80-7.70); RBC Morphology Normal (Normal)
--- NOTE | 2024-02-20 12:25 | P.OBCN ---
History of Present Illness Consult date: 02/20/24 Reason for consult: other (Vulvar lesion/ulceration) Chief complaint: Vulvar ulceration/lesion History of present illness: 88-year-old female admitted for leukocytosis on Tuesday. Patient was undergoing normal pericare when her nurse noted a labial/vulvar ulceration. Patient states lesion has been there for approximately 1 year. She did see a physician who told her it was not cancer about 6 months ago. He states no biopsies were obtained at that time. Her primary care PA stated antibiotics would not work on this lesion, no swabs were obtained. Aerobic and anaerobic swabs were obtained prior to my presentation per my request. 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 She denies vaginal bleeding since this time. Review of Systems Constitutional: Denies chills, Denies fever Cardiovascular: Denies leg edema Respiratory: Denies dyspnea Genitourinary: Reports as per HPI Menstruation: Reports postmenopausal Past Medical History Past Medical History: COPD, Diabetes Mellitus, Dialysis, Hearing Disorder / Deafness, Hyperlipidemia, Hypertension, Renal Disease, Thyroid Disorder Additional Past Medical History / Comment(s): stage 4 kidney on dialysis TThS, [place] History of Any Multi-Drug Resistant Organisms: None Reported Past Surgical History: No Surgical Hx Reported Additional Past Surgical History / Comment(s): uterine polyps removed, nerve block to left leg, dialysis port placed 2022. Past Anesthesia/Blood Transfusion Reactions: No Reported Reaction Smoking Status: Never smoker - Past Family History Daughter(s) Family Medical History: Myocardial Infarction ([place]) Medications and Allergies Home Medications Medication Instructions Recorded Confirmed Type Atorvastatin Calcium 20 mg PO HS 09/04/22 02/18/24 History FLUoxetine HCL [PROzac] 10 mg PO DAILY 09/04/22 02/18/24 History allopurinoL 100 mg PO DAILY 09/04/22 02/18/24 History amLODIPine [Norvasc] 5 mg PO DAILY 11/05/22 02/18/24 History Insulin Degludec [Tresiba 6 unit SQ DAILY 01/28/23 02/18/24 History Flextouch U-200 Pen] Metoprolol Succinate (ER) [Toprol 25 mg PO DAILY 09/24/23 02/18/24 History XL] guaiFENesin [Mucinex] 600 mg PO BID 09/24/23 02/18/24 History hydrALAZINE HCL [Apresoline] 50 mg PO TID 09/24/23 02/18/24 History Levothyroxine Sodium [Synthroid] 125 mcg PO DAILY 02/18/24 02/18/24 History Allergies Allergy/AdvReac Type Severity Reaction Status Date / Time cefaclor Allergy Rash/Hives/ Verified 02/18/24 13:04 Nausea cephalexin Allergy Rash/Hives/ Verified 02/18/24 13:04 Nausea erythromycin base Allergy Rash/Hives/ Verified 02/18/24 13:04 Nausea indomethacin Allergy Rash/Hives/ Verified 02/18/24 13:04 Nausea Penicillins Allergy Rash/Hives/ Verified 02/18/24 13:04 Nausea regadenoson Allergy Rash/Hives/ Verified 02/18/24 13:04 Nausea Exam Osteopathic Statement: *. No significant issues noted on an osteopathic structural exam other than those noted in the History and Physical/Consult. Vital Signs Temp Pulse Pulse Resp BP Pulse Ox 02/20/24 11:03 77 164/61 94 L 02/20/24 10:46 16 02/20/24 07:28 98.3 F 78 16 182/75 95 02/20/24 01:55 99.1 F 81 14 177/73 93 L 02/19/24 20:00 16 02/19/24 19:49 98.4 F 78 14 180/69 94 L 02/19/24 17:20 95 172/72 02/19/24 14:00 98.0 F 79 16 174/66 98 Intake and Output 02/19/24 02/20/24 02/20/24 22:59 06:59 14:59 Intake Total 240 240 Output Total 80 Balance 160 240 Intake: Oral 240 240 Output: Urine 80 Other: Voiding Method Bedpan Bedpan # Voids 0 1 Targeted physical exam is performed this date frail elderly female in bed upon my arrival. Reading appears nonlabored, abdomen is soft, on inspection of the vulva right labial/vulvar lesion ulcerative firm in nature is appreciated. Tenderness to touch is noted. Moderate white exudate is appreciated over lesion. Suspicion for vulvar carcinoma, given external appearance Results Result Diagrams: 02/20/24 05:44 02/20/24 05:44 Abnormal Lab Results - Last 24 Hours (Table) 02/19/24 02/19/24 02/20/24 Range/Units 17:11 20:00 04:00 WBC (4.50-10.00) X 10*3/uL RBC (4.10-5.20) X 10*6/uL Hgb (12.0-15.0) g/dL Hct (37.2-46.3) % MCHC (32.0-37.0) g/dL RDW (11.5-14.5) % Immature Gran # (0.00-0.04) X 10*3/uL Neutrophils # (1.80-7.70) X 10*3/uL Lymphocytes # (0.90-5.00) X 10*3/uL Monocytes # (0.20-1.00) X 10*3/uL Sodium (137-145) mmol/L BUN (7-17) mg/dL Creatinine (0.52-1.04) mg/dL Glucose (74-99) mg/dL POC Glucose (mg/dL) 176 H 151 H 111 H (70-110) mg/dL C-Reactive Protein (<1.0) mg/dL Total Protein (6.3-8.2) g/dL Albumin (3.5-5.0) g/dL 02/20/24 02/20/24 02/20/24 Range/Units 05:44 05:44 07:33 WBC 19.93 H (4.50-10.00) X 10*3/uL RBC 3.83 L (4.10-5.20) X 10*6/uL Hgb 11.1 L (12.0-15.0) g/dL Hct 35.2 L (37.2-46.3) % MCHC 31.5 L (32.0-37.0) g/dL RDW 16.9 H (11.5-14.5) % Immature Gran # 0.11 H (0.00-0.04) X 10*3/uL Neutrophils # 17.15 H (1.80-7.70) X 10*3/uL Lymphocytes # 0.81 L (0.90-5.00) X 10*3/uL Monocytes # 1.56 H (0.20-1.00) X 10*3/uL Sodium 134 L (137-145) mmol/L BUN 22 H (7-17) mg/dL Creatinine 3.19 H (0.52-1.04) mg/dL Glucose 200 H (74-99) mg/dL POC Glucose (mg/dL) 189 H (70-110) mg/dL C-Reactive Protein 2.6 H (<1.0) mg/dL Total Protein 5.0 L (6.3-8.2) g/dL Albumin 2.7 L (3.5-5.0) g/dL Microbiology - Last 24 Hours (Table) 02/18/24 11:40 Blood Culture - Preliminary Blood Assessment and Plan (1) Vulvar ulceration Current Visit: Yes Status: Acute Code(s): N76.6 - ULCERATION OF VULVA SNOMED Code(s): 27466213 Plan: 88-year-old female with 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 Patient states no biopsy was obtained. Patient does need biopsy of this lesion, she states she has an appointment with [facility] Tuesday in [place]. Concerns for this being cancerous are discussed, she has been concerned as well. Discussed possible consult with Dr. Moy, [facility] oncology. He does see patient's outpatient in the area approximately once a month I believe. Thank you for the consult on this kind female, should you have any questions or concerns please reach out.
[2024-02-20 12:27] LABS: Glucose,Whole Blood 180 mg/dL (70-110)
[2024-02-20] MEDS: AZTREONAM 2 GM in SODIUM CHLORIDE 0.9% 100 ML IVPB SCH (14:28)
[2024-02-20 16:36] VITALS: BMI 18.1
[2024-02-20] MEDS: VANCOMYCIN 750 MG in SODIUM CHLORIDE 0.9% 250 ML IVPB ONE (17:22)
[2024-02-20 17:29] LABS: Glucose,Whole Blood 114 mg/dL (70-110)
[2024-02-20 20:04] LABS: Glucose,Whole Blood 131 mg/dL (70-110)
--- NOTE | 2024-02-20 21:29 | P.PN ---
Subjective Progress Note Date: 02/20/24 Principal diagnosis: Reason for follow-up is leukocytosis Patient is a 88-year-old female with a past medical history significant for diabetes mellitus hypertension hyperlipidemia COPD end-stage renal disease on hemodialysis through the left subclavian permacatheter in this patient has been sent to the hospital concerning for elevated white count, patient was noticed to have labial/valvular ulceration for the patient has been evaluated by OB and local culture has been obtained On today's evaluation that is 02/20/2024, Patient is afebrile patient is currently on room air and denies having any shortness of breath, the patient denies any chest pain or cough, the patient denies any nausea vomiting did not have any abdominal pain and no diarrhea. Patient white count still elevated 19.93 creatinine 3.19 blood cultures so far negative Objective - Vital Signs Vital signs: Vital Signs Temp 98.8 F 02/20/24 12:25 Pulse 78 02/20/24 12:25 Resp 16 02/20/24 12:25 BP 150/70 02/20/24 12:25 Pulse Ox 95 02/20/24 12:25 FiO2 Intake & Output 02/19/24 02/20/24 02/20/24 18:59 06:59 18:59 Intake Total 240 240 Output Total 80 Balance 160 240 Intake: Oral 240 240 Output: Urine 80 Other: Voiding Method Bedpan Bedpan # Voids 2 0 1 - Exam Elderly female up in the chair in no distress No tachypnea or accessory muscle respiration use Unlabored breathing - Labs CBC & Chem 7: 02/20/24 05:44 02/20/24 05:44 Labs: Abnormal Lab Results - Last 24 Hours (Table) 02/19/24 02/19/24 02/20/24 Range/Units 17:11 20:00 04:00 WBC (4.50-10.00) X 10*3/uL RBC (4.10-5.20) X 10*6/uL Hgb (12.0-15.0) g/dL Hct (37.2-46.3) % MCHC (32.0-37.0) g/dL RDW (11.5-14.5) % Immature Gran # (0.00-0.04) X 10*3/uL Neutrophils # (1.80-7.70) X 10*3/uL Lymphocytes # (0.90-5.00) X 10*3/uL Monocytes # (0.20-1.00) X 10*3/uL Sodium (137-145) mmol/L BUN (7-17) mg/dL Creatinine (0.52-1.04) mg/dL Glucose (74-99) mg/dL POC Glucose (mg/dL) 176 H 151 H 111 H (70-110) mg/dL C-Reactive Protein (<1.0) mg/dL Total Protein (6.3-8.2) g/dL Albumin (3.5-5.0) g/dL 02/20/24 02/20/24 02/20/24 Range/Units 05:44 05:44 07:33 WBC 19.93 H (4.50-10.00) X 10*3/uL RBC 3.83 L (4.10-5.20) X 10*6/uL Hgb 11.1 L (12.0-15.0) g/dL Hct 35.2 L (37.2-46.3) % MCHC 31.5 L (32.0-37.0) g/dL RDW 16.9 H (11.5-14.5) % Immature Gran # 0.11 H (0.00-0.04) X 10*3/uL Neutrophils # 17.15 H (1.80-7.70) X 10*3/uL Lymphocytes # 0.81 L (0.90-5.00) X 10*3/uL Monocytes # 1.56 H (0.20-1.00) X 10*3/uL Sodium 134 L (137-145) mmol/L BUN 22 H (7-17) mg/dL Creatinine 3.19 H (0.52-1.04) mg/dL Glucose 200 H (74-99) mg/dL POC Glucose (mg/dL) 189 H (70-110) mg/dL C-Reactive Protein 2.6 H (<1.0) mg/dL Total Protein 5.0 L (6.3-8.2) g/dL Albumin 2.7 L (3.5-5.0) g/dL 02/20/24 Range/Units 12:26 WBC (4.50-10.00) X 10*3/uL RBC (4.10-5.20) X 10*6/uL Hgb (12.0-15.0) g/dL Hct (37.2-46.3) % MCHC (32.0-37.0) g/dL RDW (11.5-14.5) % Immature Gran # (0.00-0.04) X 10*3/uL Neutrophils # (1.80-7.70) X 10*3/uL Lymphocytes # (0.90-5.00) X 10*3/uL Monocytes # (0.20-1.00) X 10*3/uL Sodium (137-145) mmol/L BUN (7-17) mg/dL Creatinine (0.52-1.04) mg/dL Glucose (74-99) mg/dL POC Glucose (mg/dL) 180 H (70-110) mg/dL C-Reactive Protein (<1.0) mg/dL Total Protein (6.3-8.2) g/dL Albumin (3.5-5.0) g/dL Microbiology - Last 24 Hours (Table) 02/18/24 11:40 Blood Culture - Preliminary Blood Assessment and Plan (1) Allergy to multiple antibiotics Current Visit: Yes Status: Acute Code(s): Z88.1 - ALLERGY STATUS TO OTHER ANTIBIOTIC AGENTS SNOMED Code(s): 879033942 (2) Leukocytosis Current Visit: Yes Status: Acute Code(s): D72.829 - ELEVATED WHITE BLOOD CELL COUNT, UNSPECIFIED SNOMED Code(s): 668033840 Plan: 1patient with a leukocytosis with a question of possibly related to her dialysis catheter infection as currently do not have any signs of symptoms suggestive of infection at renal part of the body patient does not look toxic breathing comfortably chest sounds clear abdomen was soft and no evidence of any cellulitis or joint swelling. 2patient with multiple antibiotic ALLERGIES that would limit the number of ant ibiotic safe to use. 3patient noticed to have labial/valvular lesion with a question of possible ma lignancy or infected wound not entirely excluded we need to add gram-negative coverage will add Azactam and continue vancomycin while waiting for the culture to finalize repeat his CBC with a.m. lab Dictation was produced using evidanza dictation software. please excuse any grammatical, word or spelling errors. Time with Patient: Less than 30
--- NOTE | 2024-02-20 22:04 | P.PN ---
Progress Note - Text Progress Note Date: 02/20/24 Chief Complaint: Elevated white count This is a pleasant 88-year-old patient who follows with Dr. Corbett. Chronic stable medical conditions include COPD, diabetes, hypertension, hypothyroid, end-stage kidney disease. Started on dialysis on October 2022. Has a Right IJ dialysis catheter. Has a left forearm AV fistula-getting matured. school psychology specialist Dr. Emmanuel. baseline patient uses a four-wheel walker. dialysis Tuesday. Patient seen her school psychology specialist Dr. Emmanuel. Patient was sent in for leukocytosis. White count in the ER was 19.9. Patient denies any pain at the dialysis catheter site. Denies any urinary symptoms. Denies any breakdown of skin. Denies any respiratory symptoms. ID was consulted. No fever no chills. February 18: Remains comfortable. No fever. ID on the case. Tolerating diet. Cultures pending February 19: Nurse informed me that patient has a vaginal mass. [Using a resident nurse ladle operator] patient does have a hard mass in the introitus.-Likely malignant until proven otherwise. Rather tender. DESTINATION SPECIALIST was consulted. Seen by Dr. Hoang later today Elevated white count likely the result of the vaginal mass. Active Medications Acetaminophen (Acetaminophen Tab 325 Mg Tab) 650 mg PO Q6HR PRN PRN Reason: Mild Pain or Fever > 100.5 Allopurinol (Allopurinol 100 Mg Tab) 100 mg PO DAILY [facility] Last Admin: 02/20/24 07:59 Dose: 100 mg Amlodipine Besylate (Amlodipine 5 Mg Tab) 5 mg PO BID [facility] Last Admin: 02/20/24 20:56 Dose: 5 mg Atorvastatin Calcium (Atorvastatin 20 Mg Tab) 20 mg PO HS [facility] Last Admin: 02/20/24 20:56 Dose: 20 mg Fluoxetine HCl (Fluoxetine Hcl 10 Mg Cap) 10 mg PO DAILY [facility] Last Admin: 02/20/24 07:59 Dose: 10 mg Guaifenesin (Guaifenesin 600 Mg Tablet.Er) 600 mg PO BID [facility] Last Admin: 02/20/24 20:56 Dose: 600 mg Hydralazine HCl (Hydralazine Hcl 50 Mg Tab) 50 mg PO TID [facility] Last Admin: 02/20/24 20:56 Dose: 50 mg Hydralazine HCl (Hydralazine Hcl 20 Mg/Ml 1 Ml Vial) 10 mg IVP Q6HR PRN PRN Reason: Blood Pressure - High Sodium Chloride (Saline 0.9%) 1,000 mls @ 20 mls/hr IV .Q24H [facility] Last Admin: 02/20/24 08:00 Dose: 20 mls/hr Aztreonam 2 gm/ Sodium (Chloride) 100 mls @ 33.3 mls/hr IVPB Q24HR [facility]; Protocol Last Admin: 02/20/24 14:28 Dose: 33.3 mls/hr Insulin Detemir (Insulin Detemir (Levemir) 100 Unit/Ml Syr) 6 unit SQ DAILY@0700 [facility] Last Admin: 02/20/24 07:59 Dose: 6 unit Levothyroxine Sodium (Levothyroxine 125 Mcg Tab) 125 mcg PO DAILY@0630 [facility] Last Admin: 02/20/24 05:53 Dose: 125 mcg Metoprolol Succinate (Metoprolol Succinate (Er) 25 Mg Tab.Er.24h) 25 mg PO DAILY [facility] Last Admin: 02/20/24 07:59 Dose: 25 mg Miscellaneous Information (Vancomycin Iv Per Pharmacy 1 Each Misc) 1 each MISCELLANE DIRECTED PRN; Protocol PRN Reason: Per Protocol Naloxone HCl (Naloxone 0.4 Mg/Ml 1 Ml Vial) 0.2 mg IV Q2M PRN PRN Reason: Opioid Reversal Past medical history to include: COPD, diabetes, hypertension, end-stage kidney disease started hemodialysis October 2022, hypothyroid Social history: Lives with her son-in-law, grandson does use a powered wheelchair. Does not smoke or drink alcohol Physical examination: VITAL SIGNS: 98.8, 78, 16, 150 x 70, 95% room air GENERAL: Comfortable, left chest wall dialysis catheter. Left forearm access that is not being used EYES: Pupils equal. Conjunctiva pale HEENT: External appearance of nose and ears normal, oral cavity grossly normal. NECK: JVD not raised; masses not palpable. HEART: First and second heart sounds are normal; no edema. LUNGS: Respiratory rate normal; decreased breath sounds ABDOMEN: Soft, nontender, liver spleen not palpable, no masses palpable. PSYCH: Alert and oriented x3; mood and affect normal. MUSCULOSKELETAL:No Clubbing/cyanosis;muscles-grossly intact. OA GENITOURINARY: There is a hard very tender mass in the introitus [nurse ladle operator present] INVESTIGATIONS, reviewed in the clinical context: February 19: White count 19.9 hemoglobin 11.1 platelets 320 potassium 3.9 creatinine 3.19 February 17: White count 9.9 hemoglobin 12.5 platelets 275 potassium 4.3 BUN 27 creatinine 3.10 Assessment and plan: -Leukocytosis. Does not have any obvious source of infection at present time. No respiratory no urinary. Does have a dialysis catheter. Likely source is the vaginal mass that is hard and very tender Blood cultures-pending Empirically received vancomycin earlier in the day -End-stage kidney disease on hemodialysis October 2022 Schedule Tuesday. Follow with nephrology -Anemia secondary to chronic kidney disease -Hard and tender size of a golf ball vaginal mass in the introitus. Seen by DESTINATION SPECIALIST . Will need a biopsy. Patient has an outpatient appointment -Depression and anxiety Prozac 10 mg -GERD Pepcid -Chronic hyperuricemia Allopurinol -Hyperlipidemia Lipitor 20 mg nightly -Diabetes mellitus type 2 tresiba. Follow Accu-Cheks -Essential hypertension with chronic kidney disease Toprol-XL 25 mg a day.. Hydralazine 50 mg 3 times a day. Amlodipine 5 mg a day -Hypothyroid Synthroid 175 g a day -Full code Await blood cultures. Other medication treatment plan to continue. Past Medical History Past Medical History: COPD, Diabetes Mellitus, Dialysis, Hearing Disorder / Deafness, Hyperlipidemia, Hypertension, Renal Disease, Thyroid Disorder Additional Past Medical History / Comment(s): stage 4 kidney on dialysis TThS, [place] History of Any Multi-Drug Resistant Organisms: None Reported Past Surgical History: No Surgical Hx Reported Additional Past Surgical History / Comment(s): uterine polyps removed, nerve block to left leg, dialysis port placed 2022. Past Anesthesia/Blood Transfusion Reactions: No Reported Reaction Smoking Status: Never smoker
[2024-02-21 01:15] LABS: Glucose,Whole Blood 114 mg/dL (70-110)
[2024-02-21 07:39] LABS: Glucose,Whole Blood 125 mg/dL (70-110)
[2024-02-21 08:50] LABS: HCT 34.8 % (37.2-46.3); HGB 10.7 g/dL (12.0-15.0); MCH 29.3 pg (27.0-32.0); MCHC 30.7 g/dL (32.0-37.0); MCV 95.3 FL (80.0-97.0); Mean Platelet Volume 11.2 FL (9.5-12.2); NRBC Per 100 WBC 0 X 10*3/uL (0.00-0.01); Platelet Count 318 X 10*3/uL (140-440); RBC 3.65 X 10*6/uL (4.10-5.20); RDW 16.7 % (11.5-14.5)
[2024-02-21 09:30] LABS: Basophils # (A) 0.08 X 10*3/uL (0.00-0.10); Basophils % (A) 0.3 %; Eosinophils # (A) 0.12 X 10*3/uL (0.04-0.35); Eosinophils % (A) 0.5 %; Lymphocytes # (A) 0.87 X 10*3/uL (0.90-5.00); Lymphocytes % (A) 3.7 %; Monocytes # (A) 1.75 X 10*3/uL (0.20-1.00); Monocytes % (A) 7.4 %; Neutrophils # (A) 20.64 X 10*3/uL (1.80-7.70); Neutrophils % (A) 87.5 %; RBC Morphology Normal (Normal)
[2024-02-21 09:34] LABS: ALT 11 U/L (8-44); AST 12 U/L (13-35); Albumin 2.9 g/dL (3.8-4.9); Albumin/Globulin Ratio 1.38 Ratio (1.60-3.17); Alkaline Phosphatase 130 U/L (41-126); BUN/Creat Ratio 7.45 Ratio (12.00-20.00); Blood Urea Nitrogen 29.8 mg/dL (9.0-27.0); Calcium 8.6 mg/dL (8.7-10.3); Carbon Dioxide 20.2 mmol/L (21.6-31.8); Chloride 107 mmol/L (96-109); Globulin 2.1 g/dL (1.6-3.3); Glucose 123 mg/dL (70-110); Potassium 4.4 mmol/L (3.5-5.5); Sodium 140 mmol/L (135-145); Total Bilirubin 0.3 mg/dL (0.3-1.2)
--- NOTE | 2024-02-21 11:10 | P.PN ---
Subjective Patient is seen in follow-up for end-stage renal disease. She is maintained on hemodialysis on Tuesday schedule. Denies fever or chills. No cough. Vital signs are stable. General: No acute distress. HEENT: Head exam is unremarkable. LUNGS: No audible rhonchi or wheezes. HEART: Rate and Rhythm are regular. ABDOMEN: Nontender. EXTREMITITES: No edema. Objective - Vital Signs Vital signs: Vital Signs Temp 98.7 F 02/21/24 07:48 Pulse 86 02/21/24 07:48 Resp 15 02/21/24 07:48 BP 179/78 02/21/24 07:48 Pulse Ox 96 02/21/24 07:48 FiO2 Intake & Output 02/20/24 02/21/24 02/21/24 18:59 06:59 18:59 Intake Total 590 Balance 590 Weight 48.081 kg Intake: Oral 590 Other: Voiding Method Bedpan Bedpan # Voids 1 2 # Bowel Movements 1 2 - Labs CBC & Chem 7: 02/21/24 04:28 02/21/24 04:28 Labs: Abnormal Lab Results - Last 24 Hours (Table) 02/20/24 02/20/24 02/20/24 Range/Units 12:26 17:28 20:03 WBC (4.50-10.00) X 10*3/uL RBC (4.10-5.20) X 10*6/uL Hgb (12.0-15.0) g/dL Hct (37.2-46.3) % MCHC (32.0-37.0) g/dL RDW (11.5-14.5) % Immature Gran # (0.00-0.04) X 10*3/uL Neutrophils # (1.80-7.70) X 10*3/uL Lymphocytes # (0.90-5.00) X 10*3/uL Monocytes # (0.20-1.00) X 10*3/uL Carbon Dioxide (21.6-31.8) mmol/L Anion Gap (4.00-12.00) mmol/L BUN (9.0-27.0) mg/dL Creatinine (0.6-1.5) mg/dL Est GFR (CKD-EPI) (>=60) BUN/Creatinine Ratio (12.00-20.00) Ratio Glucose (70-110) mg/dL POC Glucose (mg/dL) 180 H 114 H 131 H (70-110) mg/dL Calcium (8.7-10.3) mg/dL AST (13-35) U/L Alkaline Phosphatase (41-126) U/L Total Protein (6.2-8.2) g/dL Albumin (3.8-4.9) g/dL Albumin/Globulin Ratio (1.60-3.17) Ratio 02/21/24 02/21/24 02/21/24 Range/Units 01:13 04:28 04:28 WBC 23.60 H (4.50-10.00) X 10*3/uL RBC 3.65 L (4.10-5.20) X 10*6/uL Hgb 10.7 L (12.0-15.0) g/dL Hct 34.8 L (37.2-46.3) % MCHC 30.7 L (32.0-37.0) g/dL RDW 16.7 H (11.5-14.5) % Immature Gran # 0.14 H (0.00-0.04) X 10*3/uL Neutrophils # 20.64 H (1.80-7.70) X 10*3/uL Lymphocytes # 0.87 L (0.90-5.00) X 10*3/uL Monocytes # 1.75 H (0.20-1.00) X 10*3/uL Carbon Dioxide 20.2 L (21.6-31.8) mmol/L Anion Gap 12.80 H (4.00-12.00) mmol/L BUN 29.8 H (9.0-27.0) mg/dL Creatinine 4.0 H (0.6-1.5) mg/dL Est GFR (CKD-EPI) 10 L (>=60) BUN/Creatinine Ratio 7.45 L (12.00-20.00) Ratio Glucose 123 H (70-110) mg/dL POC Glucose (mg/dL) 114 H (70-110) mg/dL Calcium 8.6 L (8.7-10.3) mg/dL AST 12 L (13-35) U/L Alkaline Phosphatase 130 H (41-126) U/L Total Protein 5.0 L (6.2-8.2) g/dL Albumin 2.9 L (3.8-4.9) g/dL Albumin/Globulin Ratio 1.38 L (1.60-3.17) Ratio 02/21/24 Range/Units 07:30 WBC (4.50-10.00) X 10*3/uL RBC (4.10-5.20) X 10*6/uL Hgb (12.0-15.0) g/dL Hct (37.2-46.3) % MCHC (32.0-37.0) g/dL RDW (11.5-14.5) % Immature Gran # (0.00-0.04) X 10*3/uL Neutrophils # (1.80-7.70) X 10*3/uL Lymphocytes # (0.90-5.00) X 10*3/uL Monocytes # (0.20-1.00) X 10*3/uL Carbon Dioxide (21.6-31.8) mmol/L Anion Gap (4.00-12.00) mmol/L BUN (9.0-27.0) mg/dL Creatinine (0.6-1.5) mg/dL Est GFR (CKD-EPI) (>=60) BUN/Creatinine Ratio (12.00-20.00) Ratio Glucose (70-110) mg/dL POC Glucose (mg/dL) 125 H (70-110) mg/dL Calcium (8.7-10.3) mg/dL AST (13-35) U/L Alkaline Phosphatase (41-126) U/L Total Protein (6.2-8.2) g/dL Albumin (3.8-4.9) g/dL Albumin/Globulin Ratio (1.60-3.17) Ratio Microbiology - Last 24 Hours (Table) 02/18/24 11:40 Blood Culture - Preliminary Blood Assessment and Plan Plan: Assessment: 1. End-stage renal disease maintained on hemodialysis on Tuesday schedule. 2. Hypertension with chronic kidney disease. 3. Leukocytosis. Unclear cause. ID following. On antibiotics. 4. Diabetes mellitus. Plan: Hemodialysis today. Follow-up cultures. Cultures also drawn from the dialysis catheter.
[2024-02-21 12:29] LABS: Glucose,Whole Blood 111 mg/dL (70-110)
[2024-02-21] MEDS: ALTEPLASE 2 MG VIAL (CATHFLO) MISCELLANE STA (15:24)
--- NOTE | 2024-02-21 15:43 | P.PN ---
Subjective Progress Note Date: 02/21/24 Principal diagnosis: Reason for follow-up is leukocytosis Patient is a 88-year-old female with a past medical history significant for diabetes mellitus hypertension hyperlipidemia COPD end-stage renal disease on hemodialysis through the left subclavian permacatheter in this patient has been sent to the hospital concerning for elevated white count, patient was noticed to have labial/valvular ulceration for the patient has been evaluated by OB and local culture has been obtained On today's evaluation that is 02/21/2024, patient has been afebrile, patient is breathing comfortably and is currently on room air, patient denies having any significant cough no chest pain, patient denies nausea vomiting or diarrhea and no abdominal pain did have some discomfort in the private area which he previously denied. Patient white count is 23.60, creatinine is 4.0 Objective - Vital Signs Vital signs: Vital Signs Temp 98.7 F 02/21/24 07:48 Pulse 86 02/21/24 07:48 Resp 15 02/21/24 07:48 BP 179/78 02/21/24 07:48 Pulse Ox 96 02/21/24 07:48 FiO2 Intake & Output 02/20/24 02/21/24 02/21/24 18:59 06:59 18:59 Intake Total 590 Balance 590 Weight 48.081 kg Intake: Oral 590 Other: Voiding Method Bedpan Bedpan Bedpan # Voids 1 2 # Bowel Movements 1 2 - Exam Elderly female up in the chair in no distress No tachypnea or accessory muscle respiration use Unlabored breathing - Labs CBC & Chem 7: 02/21/24 04:28 02/21/24 04:28 Labs: Abnormal Lab Results - Last 24 Hours (Table) 02/20/24 02/20/24 02/20/24 Range/Units 12:26 17:28 20:03 WBC (4.50-10.00) X 10*3/uL RBC (4.10-5.20) X 10*6/uL Hgb (12.0-15.0) g/dL Hct (37.2-46.3) % MCHC (32.0-37.0) g/dL RDW (11.5-14.5) % Immature Gran # (0.00-0.04) X 10*3/uL Neutrophils # (1.80-7.70) X 10*3/uL Lymphocytes # (0.90-5.00) X 10*3/uL Monocytes # (0.20-1.00) X 10*3/uL Carbon Dioxide (21.6-31.8) mmol/L Anion Gap (4.00-12.00) mmol/L BUN (9.0-27.0) mg/dL Creatinine (0.6-1.5) mg/dL Est GFR (CKD-EPI) (>=60) BUN/Creatinine Ratio (12.00-20.00) Ratio Glucose (70-110) mg/dL POC Glucose (mg/dL) 180 H 114 H 131 H (70-110) mg/dL Calcium (8.7-10.3) mg/dL AST (13-35) U/L Alkaline Phosphatase (41-126) U/L Total Protein (6.2-8.2) g/dL Albumin (3.8-4.9) g/dL Albumin/Globulin Ratio (1.60-3.17) Ratio 02/21/24 02/21/24 02/21/24 Range/Units 01:13 04:28 04:28 WBC 23.60 H (4.50-10.00) X 10*3/uL RBC 3.65 L (4.10-5.20) X 10*6/uL Hgb 10.7 L (12.0-15.0) g/dL Hct 34.8 L (37.2-46.3) % MCHC 30.7 L (32.0-37.0) g/dL RDW 16.7 H (11.5-14.5) % Immature Gran # 0.14 H (0.00-0.04) X 10*3/uL Neutrophils # 20.64 H (1.80-7.70) X 10*3/uL Lymphocytes # 0.87 L (0.90-5.00) X 10*3/uL Monocytes # 1.75 H (0.20-1.00) X 10*3/uL Carbon Dioxide 20.2 L (21.6-31.8) mmol/L Anion Gap 12.80 H (4.00-12.00) mmol/L BUN 29.8 H (9.0-27.0) mg/dL Creatinine 4.0 H (0.6-1.5) mg/dL Est GFR (CKD-EPI) 10 L (>=60) BUN/Creatinine Ratio 7.45 L (12.00-20.00) Ratio Glucose 123 H (70-110) mg/dL POC Glucose (mg/dL) 114 H (70-110) mg/dL Calcium 8.6 L (8.7-10.3) mg/dL AST 12 L (13-35) U/L Alkaline Phosphatase 130 H (41-126) U/L Total Protein 5.0 L (6.2-8.2) g/dL Albumin 2.9 L (3.8-4.9) g/dL Albumin/Globulin Ratio 1.38 L (1.60-3.17) Ratio 02/21/24 Range/Units 07:30 WBC (4.50-10.00) X 10*3/uL RBC (4.10-5.20) X 10*6/uL Hgb (12.0-15.0) g/dL Hct (37.2-46.3) % MCHC (32.0-37.0) g/dL RDW (11.5-14.5) % Immature Gran # (0.00-0.04) X 10*3/uL Neutrophils # (1.80-7.70) X 10*3/uL Lymphocytes # (0.90-5.00) X 10*3/uL Monocytes # (0.20-1.00) X 10*3/uL Carbon Dioxide (21.6-31.8) mmol/L Anion Gap (4.00-12.00) mmol/L BUN (9.0-27.0) mg/dL Creatinine (0.6-1.5) mg/dL Est GFR (CKD-EPI) (>=60) BUN/Creatinine Ratio (12.00-20.00) Ratio Glucose (70-110) mg/dL POC Glucose (mg/dL) 125 H (70-110) mg/dL Calcium (8.7-10.3) mg/dL AST (13-35) U/L Alkaline Phosphatase (41-126) U/L Total Protein (6.2-8.2) g/dL Albumin (3.8-4.9) g/dL Albumin/Globulin Ratio (1.60-3.17) Ratio Microbiology - Last 24 Hours (Table) 02/18/24 11:40 Blood Culture - Preliminary Blood Assessment and Plan (1) Allergy to multiple antibiotics Current Visit: Yes Status: Acute Code(s): Z88.1 - ALLERGY STATUS TO OTHER ANTIBIOTIC AGENTS SNOMED Code(s): 968647375 (2) Leukocytosis Current Visit: Yes Status: Acute Code(s): D72.829 - ELEVATED WHITE BLOOD CELL COUNT, UNSPECIFIED SNOMED Code(s): 338652457 Plan: 1patient with a leukocytosis with a question of possibly related to her dialysis catheter infection as currently do not have any signs of symptoms suggestive of infection at renal part of the body patient does not look toxic breathing comfortably chest sounds clear abdomen was soft and no evidence of any cellulitis or joint swelling. 2patient with multiple antibiotic ALLERGIES that would limit the number of antibiotic safe to use. 3patient noticed to have labial/valvular lesion with a question of possible malignancy less likely abscess as the patient no fever and white count has no response to the vancomycin and Azactam hence will recommend to discontinue antibiotics, patient apparently scheduled to have biopsy of the lesion tomorrow as per discussion with admitting physician Dictation was produced using [employer] dictation software. please excuse any grammatical, word or spelling errors. Time with Patient: Less than 30
[2024-02-21 17:05] LABS: Glucose,Whole Blood 82 mg/dL (70-110)
--- NOTE | 2024-02-21 18:20 | P.PN ---
Progress Note - Text Progress Note Date: 02/21/24 Chief Complaint: Elevated white count This is a pleasant 88-year-old patient who follows with Dr. Corbett. Chronic stable medical conditions include COPD, diabetes, hypertension, hypothyroid, end-stage kidney disease. Started on dialysis on October 2022. Has a Right IJ dialysis catheter. Has a left forearm AV fistula-getting matured. account auditor Dr. Emmanuel. baseline patient uses a four-wheel walker. dialysis Tuesday. Patient seen her account auditor Dr. Emmanuel. Patient was sent in for leukocytosis. White count in the ER was 19.9. Patient denies any pain at the dialysis catheter site. Denies any urinary symptoms. Denies any breakdown of skin. Denies any respiratory symptoms. ID was consulted. No fever no chills. February 18: Remains comfortable. No fever. ID on the case. Tolerating diet. Cultures pending February 19: Nurse informed me that patient has a vaginal mass. [Using a resident nurse senior private client advisor] patient does have a hard mass in the introitus.-Likely malignant until proven otherwise. Rather tender. HYPOID GEAR GENERATOR was consulted. Seen by Dr. Hoang later today Elevated white count likely the result of the vaginal mass. February 20: Spoke this morning with Dr. Emmanuel and ID Dr. Cervantes. It is felt that patient's elevated white count is likely from her vaginal mass. Patient is giving a reactive leukocytosis. Otherwise clinically patient's had no infectious symptoms. Antibiotics could be discontinued if okay with ID. Later the nurse called me that patient is dialysis access is clotted. And vascular has been consulted to replace the same. Also patient has a HYPOID GEAR GENERATOR consultation scheduled for tomorrow to look at her vaginal mass. As she will not be the leaving the hospital at least until tomorrow, we will see if Dr. Hoang, could do the biopsy while she is here not doing when she patient medicated with appointment. Total time spent about 50 minutes with over 30 minutes of discussion. Dialysis was not was able to be done, today Active Medications Acetaminophen (Acetaminophen Tab 325 Mg Tab) 650 mg PO Q6HR PRN PRN Reason: Mild Pain or Fever > 100.5 Allopurinol (Allopurinol 100 Mg Tab) 100 mg PO DAILY [facility] Last Admin: 02/21/24 08:49 Dose: 100 mg Amlodipine Besylate (Amlodipine 5 Mg Tab) 5 mg PO BID [facility] Last Admin: 02/21/24 08:49 Dose: 5 mg Atorvastatin Calcium (Atorvastatin 20 Mg Tab) 20 mg PO HS [facility] Last Admin: 02/20/24 20:56 Dose: 20 mg Fluoxetine HCl (Fluoxetine Hcl 10 Mg Cap) 10 mg PO DAILY [facility] Last Admin: 02/21/24 08:51 Dose: 10 mg Guaifenesin (Guaifenesin 600 Mg Tablet.Er) 600 mg PO BID [facility] Last Admin: 02/21/24 08:49 Dose: 600 mg Hydralazine HCl (Hydralazine Hcl 50 Mg Tab) 50 mg PO TID [facility] Last Admin: 02/21/24 18:15 Dose: 50 mg Hydralazine HCl (Hydralazine Hcl 20 Mg/Ml 1 Ml Vial) 10 mg IVP Q6HR PRN PRN Reason: Blood Pressure - High Sodium Chloride (Saline 0.9%) 1,000 mls @ 20 mls/hr IV .Q24H [facility] Last Admin: 02/21/24 08:49 Dose: 20 mls/hr Aztreonam 2 gm/ Sodium (Chloride) 100 mls @ 33.3 mls/hr IVPB Q24HR [facility]; Protocol Last Admin: 02/21/24 08:49 Dose: 33.3 mls/hr Insulin Detemir (Insulin Detemir (Levemir) 100 Unit/Ml Syr) 6 unit SQ DAILY@0700 [facility] Last Admin: 02/21/24 08:48 Dose: 6 unit Levothyroxine Sodium (Levothyroxine 125 Mcg Tab) 125 mcg PO DAILY@0630 [facility] Last Admin: 02/21/24 06:24 Dose: 125 mcg Metoprolol Succinate (Metoprolol Succinate (Er) 25 Mg Tab.Er.24h) 25 mg PO DAILY [facility] Last Admin: 02/21/24 08:48 Dose: 25 mg Miscellaneous Information (Vancomycin Iv Per Pharmacy 1 Each [facility]) 1 each MISCELLANE DIRECTED PRN; Protocol PRN Reason: Per Protocol Naloxone HCl (Naloxone 0.4 Mg/Ml 1 Ml Vial) 0.2 mg IV Q2M PRN PRN Reason: Opioid Reversal Past medical history to include: COPD, diabetes, hypertension, end-stage kidney disease started hemodialysis October 2022, hypothyroid Social history: Lives with her son-in-law, grandson does use a powered wheelchair. Does not smoke or drink alcohol Physical examination: VITAL SIGNS: 97.6, 81, 16, 167 x 73, 94% room air GENERAL: Comfortable, left chest wall dialysis catheter. Left forearm access that is not being used EYES: Pupils equal. Conjunctiva pale HEENT: External appearance of nose and ears normal, oral cavity grossly normal. NECK: JVD not raised; masses not palpable. HEART: First and second heart sounds are normal; no edema. LUNGS: Respiratory rate normal; decreased breath sounds ABDOMEN: Soft, nontender, liver spleen not palpable, no masses palpable. PSYCH: Alert and oriented x3; mood and affect normal. MUSCULOSKELETAL:No Clubbing/cyanosis;muscles-grossly intact. OA GENITOURINARY: There is a hard very tender mass in the introitus [nurse senior private client advisor present: February 19] INVESTIGATIONS, reviewed in the clinical context: February 21: White count 23.6 hemoglobin 10.7 platelets 318 sodium 140 potassium 4.4 creatinine 4.0 February 19: White count 19.9 hemoglobin 11.1 platelets 320 potassium 3.9 creatinine 3.19 February 17: White count 9.9 hemoglobin 12.5 platelets 275 potassium 4.3 BUN 27 creatinine 3.10 Assessment and plan: -Leukocytosis. Does not have any obvious source of infection at present time. No respiratory no urinary. Does have a dialysis catheter. Likely source is the vaginal mass that is hard and very tender Blood cultures-pending Empirically received vancomycin earlier in the day -End-stage kidney disease on hemodialysis October 2022 Schedule Tuesday. Follow with nephrology -Malfunctioning dialysis catheter Vascular surgery consulted for the change of same. -Anemia secondary to chronic kidney disease -Hard and tender size of a golf ball vaginal mass in the introitus. Seen by HYPOID GEAR GENERATOR . Will need a biopsy. Patient has an outpatient appointment, on Tuesday. Will see if , will do a biopsy as patient will be able to keep her appointment tomorrow. -Depression and anxiety Prozac 10 mg -GERD Pepcid -Chronic hyperuricemia Allopurinol -Hyperlipidemia Lipitor 20 mg nightly -Diabetes mellitus type 2 tresiba. Follow Accu-Cheks -Essential hypertension with chronic kidney disease Toprol-XL 25 mg a day.. Hydralazine 50 mg 3 times a day. Amlodipine 5 mg a day -Hypothyroid Synthroid 175 g a day -Full code Change of dialysis catheter. Other medications to continue. DC antibiotics if okay with Dr. Cervantes Past Medical History Past Medical History: COPD, Diabetes Mellitus, Dialysis, Hearing Disorder / Deafness, Hyperlipidemia, Hypertension, Renal Disease, Thyroid Disorder Additional Past Medical History / Comment(s): stage 4 kidney on dialysis [facility], [place] History of Any Multi-Drug Resistant Organisms: None Reported Past Surgical History: No Surgical Hx Reported Additional Past Surgical History / Comment(s): uterine polyps removed, nerve block to left leg, dialysis port placed 2022. Past Anesthesia/Blood Transfusion Reactions: No Reported Reaction Smoking Status: Never smoker
[2024-02-21 20:22] LABS: Glucose,Whole Blood 102 mg/dL (70-110)
[2024-02-22 04:04] LABS: Glucose,Whole Blood 79 mg/dL (70-110)
[2024-02-22 07:03] LABS: Glucose,Whole Blood 153 mg/dL (70-110)
--- NOTE | 2024-02-22 08:21 | XR ---
EXAMINATION TYPE: XR chest 2V DATE OF EXAM: 02/22/2024 7:53 AM CLINICAL INDICATION: Female, 88 years old with history of Wheezes; PH[facility] COMPARISON: Chest radiographs from 01/15/2024. TECHNIQUE: XR chest 2V Frontal view of the chest. FINDINGS: Lungs/Pleura: Airspace opacities project over the spine on the lateral view. There is no evidence of pleural effusion, or pneumothorax. Pulmonary vascularity: Unremarkable. Heart/mediastinum: Cardiomediastinal silhouette is enlarged. Musculoskeletal: No acute osseous pathology. Other findings: None Lines/Tubes: Left internal jugular central venous catheter with distal tip at the cavoatrial junction. IMPRESSION: Airspace opacities project over the spine on lateral view correlate for pneumonia. [facility], , 02/22/2024 8:18 AM
--- NOTE | 2024-02-22 10:40 | P.PN ---
Subjective Patient is seen in follow-up for end-stage renal disease. She is maintained on hemodialysis on Tuesday schedule. Did not get hemodialysis yesterday due to malfunctioning dialysis catheter. Vital signs are stable. General: No acute distress. HEENT: Head exam is unremarkable. LUNGS: No audible rhonchi or wheezes. HEART: Rate and Rhythm are regular. ABDOMEN: Nontender. EXTREMITITES: No edema. Objective - Vital Signs Vital signs: Vital Signs Temp 96.8 F L 02/22/24 08:00 Pulse 83 02/22/24 10:04 Resp 16 02/22/24 08:00 BP 185/72 02/22/24 10:04 Pulse Ox 95 02/22/24 01:29 FiO2 Intake & Output 02/21/24 02/22/24 02/22/24 18:59 06:59 18:59 Intake Total 1160 Output Total 800 Balance 360 Intake: Oral 360 Hemodialysis 800 Output: Hemodialysis 450 Hemodialysis Net Amount 350 Other: Voiding Method Bedpan Bedpan External Catheter # Voids 1 3 - Labs CBC & Chem 7: 02/21/24 04:28 02/21/24 04:28 Labs: Abnormal Lab Results - Last 24 Hours (Table) 02/21/24 02/21/24 02/22/24 Range/Units 04:28 12:28 07:02 POC Glucose (mg/dL) 111 H 153 H (70-110) mg/dL C-Reactive Protein 4.00 H (0.00-0.80) mg/dL Microbiology - Last 24 Hours (Table) 02/18/24 11:40 Blood Culture - Preliminary Blood 02/20/24 13:10 Blood Culture - Preliminary Blood 02/20/24 11:39 Genital Culture - Preliminary Vaginal 02/20/24 08:59 Urine Culture - Final Urine,Voided Assessment and Plan Plan: Assessment: 1. End-stage renal disease maintained on hemodialysis on Tuesday schedule. 2. Hypertension with chronic kidney disease. 3. Leukocytosis. ? related to malignancy. ID following. On antibiotics. 4. Diabetes mellitus. Plan: Hemodialysis today once dialysis catheter exchanged. Another treatment tomorrow per her outpatient schedule. Follow-up cultures. Increase dose of hydralazine. Potential discharge after dialysis today.
[2024-02-22 12:30] LABS: Glucose,Whole Blood 124 mg/dL (70-110)
--- NOTE | 2024-02-22 12:51 | P.GSCN ---
History of Present Illness History of present illness: 88-year-old white female known to me from the past had a dialysis catheter placed on the left side September patient had a dialysis yesterday catheter start working patient is scheduled to have a exchange of dialysis catheter. Patient had a dialysis catheter in the past Medical history history of diabetes hypertension chronic renal failure On examination chest is clear. Second sound present good in both lungs Abdomen soft nontender Vascular femorals are 1+ bilateral Patient has a dialysis cath left chest nonfunctioning Plan is change of catheter possible femoral catheter placement Past Medical History Past Medical History: COPD, Diabetes Mellitus, Dialysis, Hearing Disorder / Deafness, Hyperlipidemia, Hypertension, Renal Disease, Thyroid Disorder Additional Past Medical History / Comment(s): stage 4 kidney on dialysis [facility]ThS, [place] History of Any Multi-Drug Resistant Organisms: None Reported Past Surgical History: No Surgical Hx Reported Additional Past Surgical History / Comment(s): uterine polyps removed, nerve block to left leg, dialysis port placed 2022. Past Anesthesia/Blood Transfusion Reactions: No Reported Reaction Smoking Status: Never smoker - Past Family History Daughter(s) Family Medical History: Myocardial Infarction ([place]) Medications and Allergies Home Medications Medication Instructions Recorded Confirmed Type Atorvastatin Calcium 20 mg PO HS 09/04/22 02/18/24 History FLUoxetine HCL [PROzac] 10 mg PO DAILY 09/04/22 02/18/24 History allopurinoL 100 mg PO DAILY 09/04/22 02/18/24 History amLODIPine [Norvasc] 5 mg PO DAILY 11/05/22 02/18/24 History Insulin Degludec [Tresiba 6 unit SQ DAILY 01/28/23 02/18/24 History Flextouch U-200 Pen] Metoprolol Succinate (ER) [Toprol 25 mg PO DAILY 09/24/23 02/18/24 History XL] guaiFENesin [Mucinex] 600 mg PO BID 09/24/23 02/18/24 History hydrALAZINE HCL [Apresoline] 50 mg PO TID 09/24/23 02/18/24 History Levothyroxine Sodium [Synthroid] 125 mcg PO DAILY 02/18/24 02/18/24 History Allergies Allergy/AdvReac Type Severity Reaction Status Date / Time cefaclor Allergy Rash/Hives/ Verified 02/18/24 13:04 Nausea cephalexin Allergy Rash/Hives/ Verified 02/18/24 13:04 Nausea erythromycin base Allergy Rash/Hives/ Verified 02/18/24 13:04 Nausea indomethacin Allergy Rash/Hives/ Verified 02/18/24 13:04 Nausea Penicillins Allergy Rash/Hives/ Verified 02/18/24 13:04 Nausea regadenoson Allergy Rash/Hives/ Verified 02/18/24 13:04 Nausea Surgical - Exam Vital Signs Temp Pulse Resp BP Pulse Ox 98.2 F 95 17 136/75 99 02/18/24 10:11 02/18/24 10:11 02/18/24 10:11 02/18/24 10:11 02/18/24 10:11 Results - Labs 02/21/24 04:28 02/21/24 04:28 Abnormal Lab Results - Last 24 Hours (Table) 02/22/24 02/22/24 Range/Units 07:02 12:29 POC Glucose (mg/dL) 153 H 124 H (70-110) mg/dL Microbiology - Last 24 Hours (Table) 02/18/24 11:40 Blood Culture - Preliminary Blood 02/20/24 13:10 Blood Culture - Preliminary Blood 02/20/24 11:39 Genital Culture - Preliminary Vaginal 02/20/24 08:59 Urine Culture - Final Urine,Voided
[2024-02-22] MEDS: LIDOCAINE 1% INJ 10MG/ML (20 ML MDV) SQ ONE ×2 (13:06→13:18)
[2024-02-22] MEDS: fentaNYL (PF) 50 MCG/1 ML VIAL IVP ONE (13:10)
[2024-02-22] MEDS: SODIUM CHLORIDE 0.9% 500 ML 500 ML IV ONE (13:19)
[2024-02-22] MEDS: CLINDAMYCIN 600 MG in DEXTROSE 5% IN WATER 50 ML IVPB STA (13:19)
[2024-02-22] MEDS: IOPAMIDOL-370 100ML BTL INJ ONE ×2 (13:20)
--- NOTE | 2024-02-22 13:53 | P.PCN ---
Description of Procedure: Preop diagnosis is acute chronic renal failure malfunctioning left IJ catheter Postop the same procedure #1 is ultrasound-guided micropuncture micropuncture and right jugular vein micropuncture catheter was then we did the superior venacavogram found to have a vena cava was patent after that 1% lidocaine infiltrated at left exit site of the catheter catheter was removed. Pressure dressing was applied after that tunnel was created on the right side dialysis through the tunnel we brought 90 cm dialysis catheter. Guide was passed which was parked at the inferior vena cava then we created a tunnel through the tunnel brought 19 cm dialysis catheter dilator was advanced under fluoroscopic control then sheath was advanced on the top of guidewire through the sheath we introduced dialysis catheter tip catheter superior vena cava after injection flushed with heparin saline hep-locked secured with 3-0 nylon dressing applied patient tarted the procedure well plan is x-ray of the chest Procedure is #1 placement of dialysis catheter right jugular #2 was removed over the jugular catheter catheter left side and superior venacavogram
--- NOTE | 2024-02-22 14:09 | IR ---
Intraoperative/procedural fluoroscopic services were provided for hemodialysis catheter insertion. To leticia fluoroscopy time is 0.8 minutes with a total of 20 submitted images to PACS. Total DAP 8.0 mGy. Please see the operative note for further details. [facility], , 02/22/2024 2:06 PM
[2024-02-22 14:13] VITALS: RESP 16
--- NOTE | 2024-02-22 15:09 | XR ---
EXAMINATION TYPE: XR chest 1V confirm line plcmt DATE OF EXAM: 02/22/2024 3:02 PM CLINICAL INDICATION: Female, 88 years old with history of hemodialysis catheter placement.; H COMPARISON: Chest radiographs from 02/22/2024 TECHNIQUE: XR chest 1V confirm line plcmt Frontal view of the chest. FINDINGS: Lungs/Pleura: There is no evidence of pleural effusion, focal consolidation, or pneumothorax. Pulmonary vascularity: Pulmonary vascular congestion. Heart/mediastinum: Cardiomediastinal silhouette is enlarged. Musculoskeletal: No acute osseous pathology. Other findings: None Lines/Tubes: Right internal jugular central venous catheter with distal tip at the cavoatrial junction. IMPRESSION: Right central venous catheter in appropriate placement. Cardiomegaly and mild pulmonary vascular congestion. . [facility], , 02/22/2024 3:07 PM
[2024-02-22 17:25] LABS: Glucose,Whole Blood 123 mg/dL (70-110)
[2024-02-22 18:53] VITALS: BP 173/77; PULSE 71; TEMP 97.6
[2024-02-22] MEDS: hydrALAZINE HCL 50 MG TAB PO SCH (19:03)
--- NOTE | 2024-02-22 20:22 | P.DS ---
Providers Date of admission: 02/18/24 12:28 Expected date of discharge: 02/22/24 Attending physician: Ronaldo Richmond Consults: 02/18/24 12:28 Consult Physician Routine Consulting Provider: Abdullahi Emmanuel Consult Reason/Comments: esrd Do you want consulting provider notified?: Yes 02/18/24 12:38 Consult Physician Routine Consulting Provider: Rosalba Carrion Consult Reason/Comments: leukocytosis Do you want consulting provider notified?: Yes 02/20/24 10:17 Consult Physician Routine Consulting Provider: Rosetta Cotton Consult Reason/Comments: vaginal sore Do you want consulting provider notified?: Yes 02/21/24 17:43 Consult Physician Routine Consulting Provider: Yogesh Miller Consult Reason/Comments: Malfunctioning dialysis catheter/will need to be replaced. Do you want consulting provider notified?: Already Contacted Primary care physician: [facility] Course: Chief Complaint: Elevated white count This is a pleasant 88-year-old patient who follows with Dr. Corbett. Chronic stable medical conditions include COPD, diabetes, hypertension, hypothyroid, end-stage kidney disease. Started on dialysis on October 2022. Has a Right IJ dialysis catheter. Has a left forearm AV fistula-getting matured. stripper latex Dr. Emmanuel. baseline patient uses a four-wheel walker. dialysis Tuesday. Patient seen her stripper latex Dr. Emmanuel. Patient was sent in for leukocytosis. White count in the ER was 19.9. Patient denies any pain at the dialysis catheter site. Denies any urinary symptoms. Denies any breakdown of skin. Denies any respiratory symptoms. ID was consulted. No fever no chills. February 18: Remains comfortable. No fever. ID on the case. Tolerating diet. Cultures pending February 19: Nurse informed me that patient has a vaginal mass. [Using a resident nurse medic technician] patient does have a hard mass in the introitus.-Likely malignant until proven otherwise. Rather tender. NAIL GALVANIZER was consulted. Seen by Dr. Cotton later today Elevated white count likely the result of the vaginal mass. February 20: Spoke this morning with Dr. Emmanuel and ID Dr. Cervantes. It is felt that patient's elevated white count is likely from her vaginal mass. Patient is giving a reactive leukocytosis. Otherwise clinically patient's had no infectious symptoms. Antibiotics could be discontinued if okay with ID. Later the nurse called me that patient is dialysis access is clotted. And vascular has been consulted to replace the same. Also patient has a NAIL GALVANIZER consultation scheduled for tomorrow to look at her vaginal mass. As she will not be the leaving the hospital at least until tomorrow, we will see if Dr. Cotton, could do the biopsy while she is here not doing when she patient medicated with appointment. Total time spent about 50 minutes with over 30 minutes of discussion. Dialysis was not was able to be done, today February 21: Dr. Miller placed right jugular dialysis catheter. The 1 from the left side was removed. Patient to get dialysis. Patient fell about patient with NAIL GALVANIZER.Dr cotton informed yesterday that patient need to have this done outpatient under anesthesia. For her vaginal mass biopsy. Antibiotics discontinued Past medical history to include: COPD, diabetes, hypertension, end-stage kidney disease started hemodialysis October 2022, hypothyroid Social history: Lives with her son-in-law, grandson does use a powered wheelchair. Does not smoke or drink alcohol Physical examination: VITAL SIGNS: 97.6, 71, 16, 136 per 81, 93% room air GENERAL: Comfortable, right chest wall hemodialysis catheter left forearm access that is not being used EYES: Pupils equal. Conjunctiva pale HEENT: External appearance of nose and ears normal, oral cavity grossly normal. NECK: JVD not raised; masses not palpable. HEART: First and second heart sounds are normal; no edema. LUNGS: Respiratory rate normal; decreased breath sounds ABDOMEN: Soft, nontender, liver spleen not palpable, no masses palpable. PSYCH: Alert and oriented x3; mood and affect normal. MUSCULOSKELETAL:No Clubbing/cyanosis;muscles-grossly intact. OA GENITOURINARY: There is a hard very tender mass in the introitus [nurse medic technician present: February 19] INVESTIGATIONS, reviewed in the clinical context: February 21: White count 23.6 hemoglobin 10.7 platelets 318 sodium 140 potassium 4.4 creatinine 4.0 February 19: White count 19.9 hemoglobin 11.1 platelets 320 potassium 3.9 creatinine 3.19 February 17: White count 9.9 hemoglobin 12.5 platelets 275 potassium 4.3 BUN 27 creatinine 3.10 Assessment and plan: -Leukocytosis. Does not have any obvious source of infection at present time. No respiratory no urinary. Does have a dialysis catheter. Likely source is the vaginal mass that is hard and very tender Blood cultures-negative Biotics discontinued -End-stage kidney disease on hemodialysis October 2022 Schedule Tuesday. Follow with nephrology -Malfunctioning dialysis catheter, in the left jugular. Removed. New dialysis catheter placed in the right jugular vein by Dr. Miller -Anemia secondary to chronic kidney disease -Hard and tender size of a golf ball vaginal mass in the introitus. Seen by NAIL GALVANIZER . Patient to follow-up with her outpatient NAIL GALVANIZER. -Depression and anxiety Prozac 10 mg -GERD Pepcid -Chronic hyperuricemia Allopurinol -Hyperlipidemia Lipitor 20 mg nightly -Diabetes mellitus type 2 tresiba. Follow Accu-Cheks -Essential hypertension with chronic kidney disease Toprol-XL 25 mg a day.. Hydralazine 50 mg 3 times a day. Amlodipine 5 mg a day -Hypothyroid Synthroid 175 g a day -Full code Disposition: Home Past Medical History Past Medical History: COPD, Diabetes Mellitus, Dialysis, Hearing Disorder / Deafness, Hyperlipidemia, Hypertension, Renal Disease, Thyroid Disorder Additional Past Medical History / Comment(s): stage 4 kidney on dialysis TThS, [place] History of Any Multi-Drug Resistant Organisms: None Reported Past Surgical History: No Surgical Hx Reported Additional Past Surgical History / Comment(s): uterine polyps removed, nerve block to left leg, dialysis port placed 2022. Past Anesthesia/Blood Transfusion Reactions: No Reported Reaction Smoking Status: Never smoker Plan - Discharge Summary Discharge Rx Participant: No New Discharge Prescriptions: Continue Atorvastatin Calcium 20 mg PO HS amLODIPine [Norvasc] 5 mg PO DAILY Insulin Degludec [Tresiba Flextouch U-200 Pen] 6 unit SQ DAILY hydrALAZINE HCL [Apresoline] 50 mg PO TID Levothyroxine Sodium [Synthroid] 125 mcg PO DAILY allopurinoL 100 mg PO DAILY FLUoxetine HCL [PROzac] 10 mg PO DAILY guaiFENesin [Mucinex] 600 mg PO BID Metoprolol Succinate (ER) [Toprol XL] 25 mg PO DAILY Discharge Medication List Atorvastatin Calcium 20 mg PO HS 09/04/22 [History] FLUoxetine HCL [PROzac] 10 mg PO DAILY 09/04/22 [History] allopurinoL 100 mg PO DAILY 09/04/22 [History] amLODIPine [Norvasc] 5 mg PO DAILY 11/05/22 [History] Insulin Degludec [Tresiba Flextouch U-200 Pen] 6 unit SQ DAILY 01/28/23 [History] Metoprolol Succinate (ER) [Toprol XL] 25 mg PO DAILY 09/24/23 [History] guaiFENesin [Mucinex] 600 mg PO BID 09/24/23 [History] hydrALAZINE HCL [Apresoline] 50 mg PO TID 09/24/23 [History] Levothyroxine Sodium [Synthroid] 125 mcg PO DAILY 02/18/24 [History] Follow up Appointment(s)/Referral(s): [facility], [NON-STAFF] - 1 Week Randell Corbett MD [Primary Care Provider] - 02/23/24 1:00 pm Alfred Moy MD [STAFF PHYSICIAN] - 1 Week (left voicemail to contact patient to make appointment) Patient Instructions/Handouts: Leukocytosis (DC), Perma-cath Placement (DC), Hemodialysis (DC) Activity/Diet/Wound Care/Special Instructions: Patient to be discharged home tonight with plans to follow-up with NAIL GALVANIZER OB SOON POSSIBLE. Please call in the AM. Patient to be discharged wihout antibiotics per Dr. Carrion. Follow-up with Dr. Patel OBGYN/ON[facility] after discharge for biopsy or surgical debridement of vulvar mass. Discharge Disposition: HOME WITH HOME HEALTH SERVICES
[2024-02-22] MEDS ORDERED: VANCOMYCIN 750 MG in SODIUM CHLORIDE 0.9% 250 ML IVPB ONE (21:00)
--- NOTE | 2024-02-23 13:44 | P.PN ---
Subjective Progress Note Date: 02/22/24 Principal diagnosis: Reason for follow-up is leukocytosis Patient is a 88-year-old female with a past medical history significant for diabetes mellitus hypertension hyperlipidemia COPD end-stage renal disease on hemodialysis through the left subclavian permacatheter in this patient has been sent to the hospital concerning for elevated white count, patient was noticed to have labial/valvular ulceration for the patient has been evaluated by OB and local culture has been obtained On today's evaluation that is 02/22/2024, Patient is afebrile this morning patient denies having any chest pain shortness of breath or cough, the patient is currently on room air, patient denies any abdominal pain no diarrhea no nausea no vomiting, no new symptoms. No lab draw today culture has been negative Objective - Vital Signs Vital signs: Vital Signs Temp 96.8 F L 02/22/24 08:00 Pulse 83 02/22/24 10:04 Resp 16 02/22/24 08:00 BP 185/72 02/22/24 10:04 Pulse Ox 95 02/22/24 01:29 FiO2 Intake & Output 02/21/24 02/22/24 02/22/24 18:59 06:59 18:59 Intake Total 1160 Output Total 800 Balance 360 Intake: Oral 360 Hemodialysis 800 Output: Hemodialysis 450 Hemodialysis Net Amount 350 Other: Voiding Method Bedpan Bedpan External Catheter # Voids 1 3 - Exam Elderly female up in the chair in no distress No tachypnea or accessory muscle respiration use Unlabored breathing - Labs CBC & Chem 7: 02/21/24 04:28 02/21/24 04:28 Labs: Abnormal Lab Results - Last 24 Hours (Table) 02/21/24 02/21/24 02/22/24 Range/Units 04:28 12:28 07:02 POC Glucose (mg/dL) 111 H 153 H (70-110) mg/dL C-Reactive Protein 4.00 H (0.00-0.80) mg/dL Microbiology - Last 24 Hours (Table) 02/18/24 11:40 Blood Culture - Preliminary Blood 02/20/24 13:10 Blood Culture - Preliminary Blood 02/20/24 11:39 Genital Culture - Preliminary Vaginal 02/20/24 08:59 Urine Culture - Final Urine,Voided Assessment and Plan (1) Allergy to multiple antibiotics Status: Acute Code(s): Z88.1 - ALLERGY STATUS TO OTHER ANTIBIOTIC AGENTS SNOMED Code(s): 853121475 (2) Leukocytosis Status: Acute Code(s): D72.829 - ELEVATED WHITE BLOOD CELL COUNT, UNSPECIFIED SNOMED Code(s): 792578375 Plan: 1patient with a leukocytosis with a question of possibly related to her dialysis catheter infection as currently do not have any signs of symptoms sugg estive of infection at renal part of the body patient does not look toxic breathing comfortably chest sounds clear abdomen was soft and no evidence of any cellulitis or joint swelling. 2patient with multiple antibiotic ALLERGIES that would limit the number of antibiotic safe to use. 3patient noticed to have labial/valvular lesion with a question of possible malignancy and may be responsible for this elevated white count as cultures has been negative antibiotics can recently discontinued patient is scheduled to follow-up with OB for biopsy of that area and discussed with admitting physician Dictation was produced using [employer] dictation software. please excuse any grammatical, word or spelling errors. Time with Patient: Less than 30
== END 2024-02-22 19:42 | disposition home health service (06) | DRG 698 ==
LOC: EC 09:54 → 5NMEDONC 12:28
PROVIDERS: ADMIT Hospitalist; ATTEND Hospitalist
PROC: 02HV33Z Insertion of Infusion Device into Superior Vena Cava, Percutaneous Approach (ICD-10-PCS; principal; 2024-02-22 15:00)
PROC: 5A1D70Z Performance of Urinary Filtration, Intermittent, Less than 6 Hours Per Day (ICD-10-PCS; 2024-02-22 15:00)
DX: T82.41XA Breakdown (mechanical) of vascular dialysis catheter, initial encounter (principal); N18.6 End stage renal disease; I12.0 Hypertensive chronic kidney disease with stage 5 chronic kidney disease or end stage renal disease; D63.1 Anemia in chronic kidney disease; Z99.2 Dependence on renal dialysis; E03.9 Hypothyroidism, unspecified; E11.22 Type 2 diabetes mellitus with diabetic chronic kidney disease; J44.9 Chronic obstructive pulmonary disease, unspecified; F32.A Depression, unspecified; Z79.4 Long term (current) use of insulin; M89.8X9 Other specified disorders of bone, unspecified site; N89.8 Other specified noninflammatory disorders of vagina; F41.9 Anxiety disorder, unspecified; K21.9 Gastro-esophageal reflux disease without esophagitis; E79.0 Hyperuricemia without signs of inflammatory arthritis and tophaceous disease; E78.5 Hyperlipidemia, unspecified; H91.90 Unspecified hearing loss, unspecified ear; Y71.2 Prosthetic and other implants, materials and accessory cardiovascular devices associated with adverse incidents; Z79.890 Hormone replacement therapy; Z79.01 Long term (current) use of anticoagulants; Z87.42 Personal history of other diseases of the female genital tract; Z79.899 Other long term (current) drug therapy; Z88.1 Allergy status to other antibiotic agents
CPT/HCPCS: 36415; 36558; 36589; 71046; 76937; 77001; 80053; 80202; 84145; 85025; 86140; 87040; 87070; 87086; 90935; 96365; 96366; 99285

== ENCOUNTER 2024-02-24 16:10 | Emergency (ER) | payer MEDICARE ==
--- NOTE | 2024-02-24 16:47 | ED ---
Weakness HPI - General Chief complaint: Weakness Stated complaint: weakness Time Seen by Provider: 02/24/24 16:26 Source: patient, RN notes reviewed, old records reviewed Mode of arrival: ambulatory Limitations: physical limitation - History of Present Illness Initial comments: This is a 88-year-old female to the ER for evaluation of lightheadedness diz ziness weakness, patient had multiple episodes of hypoglycemia alerted to her last night throughout sleep she is able to eat and drink but she has to drink thick fluids, patient will aspirate water. Patient does not drink a lot of water she has been feeling a little dehydrated lately does admit to it, mouth is very dry. No chest pain shortness with abdominal pain no other complaints, patient has recent complicated medical history including need to change dialysis access point secondary to infection, no fevers MD Complaint: generalized weakness, lack of energy, difficulty walking -: days(s) Location: generalized Severity: moderate Severity scale (1-10): 4 Consistency: constant Improves with: none Worsens with: none Associated Symptoms: denies other symptoms - Related Data Home Medications Medication Instructions Recorded Confirmed Atorvastatin Calcium 20 mg PO HS 09/04/22 02/18/24 FLUoxetine HCL [PROzac] 10 mg PO DAILY 09/04/22 02/18/24 allopurinoL 100 mg PO DAILY 09/04/22 02/18/24 amLODIPine [Norvasc] 5 mg PO DAILY 11/05/22 02/18/24 Insulin Degludec [Tresiba 6 unit SQ DAILY 01/28/23 02/18/24 Flextouch U-200 Pen] Metoprolol Succinate (ER) [Toprol 25 mg PO DAILY 09/24/23 02/18/24 XL] guaiFENesin [Mucinex] 600 mg PO BID 09/24/23 02/18/24 hydrALAZINE HCL [Apresoline] 50 mg PO TID 09/24/23 02/18/24 Levothyroxine Sodium [Synthroid] 125 mcg PO DAILY 02/18/24 02/18/24 Allergies Allergy/AdvReac Type Severity Reaction Status Date / Time cefaclor Allergy Rash/Hives/ Verified 02/24/24 16:15 Nausea cephalexin Allergy Rash/Hives/ Verified 02/24/24 16:15 Nausea erythromycin base Allergy Rash/Hives/ Verified 02/24/24 16:15 Nausea indomethacin Allergy Rash/Hives/ Verified 02/24/24 16:15 Nausea Penicillins Allergy Rash/Hives/ Verified 02/24/24 16:15 Nausea regadenoson Allergy Rash/Hives/ Verified 02/24/24 16:15 Nausea Review of Systems ROS Statement: Those systems with pertinent positive or pertinent negative responses have been documented in the HPI. ROS Other: All systems not noted in ROS Statement are negative. Past Medical History Past Medical History: COPD, Diabetes Mellitus, Dialysis, Hearing Disorder / Deafness, Hyperlipidemia, Hypertension, Renal Disease, Thyroid Disorder Additional Past Medical History / Comment(s): stage 4 kidney on dialysis [place], [place] History of Any Multi-Drug Resistant Organisms: None Reported Past Surgical History: No Surgical Hx Reported Additional Past Surgical History / Comment(s): uterine polyps removed, nerve block to left leg, dialysis port placed 2022. Past Anesthesia/Blood Transfusion Reactions: No Reported Reaction Past Psychological History: No Psychological Hx Reported Smoking Status: Never smoker - Past Family History Daughter(s) Family Medical History: Myocardial Infarction ([place]) General Exam Limitations: physical limitation General appearance: alert, in no apparent distress Head exam: Present: atraumatic, normocephalic, normal inspection Eye exam: Present: normal appearance, PERRL, EOMI. Absent: scleral icterus, conjunctival injection, periorbital swelling ENT exam: Present: normal exam, mucous membranes moist Neck exam: Present: normal inspection. Absent: tenderness, meningismus, lymphadenopathy Respiratory exam: Present: normal lung sounds bilaterally. Absent: respiratory distress, wheezes, rales, rhonchi, stridor Cardiovascular Exam: Present: regular rate, normal rhythm, normal heart sounds. Absent: systolic murmur, diastolic murmur, rubs, gallop, clicks GI/Abdominal exam: Present: soft, normal bowel sounds. Absent: distended, tenderness, guarding, rebound, rigid Extremities exam: Present: normal inspection, full ROM, normal capillary refill. Absent: tenderness, pedal edema, joint swelling, calf tenderness Back exam: Present: normal inspection Neurological exam: Present: alert, oriented X3, CN II-XII intact Psychiatric exam: Present: normal affect, normal mood Skin exam: Present: warm, dry, intact, normal color. Absent: rash Course Vital Signs 02/24/24 02/24/24 02/24/24 16:15 16:53 18:21 Temperature 97.6 F 97.5 F L Pulse Rate 82 81 82 Respiratory 18 16 17 Rate Blood Pressure 127/66 149/67 167/72 O2 Sat by Pulse 100 97 97 Oximetry - Reevaluation(s) Reevaluation #1: 02/24/24 18:06 Medical records reviewed Reevaluation #2: 02/24/24 18:06 Patient symptoms are dramatically improved with hydration here in the ER patient is able to eat Reevaluation #3: 02/24/24 18:06 Patient informed of results questions answered Reevaluation #4: Was pt. sent in by a medical professional or institution (, DIDI, UROLOGY PHYSICIAN ASSISTANT, urgent care, hospital, or custodial...) When possible be specific @ -no Did you speak to anyone other than the patient for history (EMS, parent, family, police, friend...)? What history was obtained from this source @ -no Did you review nursing and triage notes (agree or disagree)? Why? @ -agree Are old charts reviewed (outside hosp., previous admission, EMS record, old EKG, old radiological studies, urgent care reports/EKG's, custodial records)? Report findings @ -yes Differential Diagnosis (chest pain, altered mental status, abdominal pain women, abdominal pain men, vaginal bleeding, weakness, fever, dyspnea, syncope, headache, dizziness, GI bleed, back pain, seizure, CVA, palpatations, mental health, musculoskeletal)? @ -prior EKG interpreted by me (3pts min.). @ -yes X-rays interpreted by me (1pt min.). @ -yes negative for acute disease CT interpreted by me (1pt min.). @ -no U/S interpreted by me (1pt. min.). @ -no What testing was considered but not performed or refused? (CT, X-rays, U/S, labs)? Why? @ -none What meds were considered but not given or refused? Why? @ -none Did you discuss the management of the patient with other professionals (professionals i.e. DIDI [place], UROLOGY PHYSICIAN ASSISTANT, lab, RT, psych nurse, clinical social work aide, hourly manager, teacher, community chest officer, case operator)? Give summary @ -no Was smoking cessation discussed for >3mins.? @ -no Was critical care preformed (if so, how long)? @ -no Were there social determinants of health that impacted care today? How? (Homelessness, low income, unemployed, alcoholism, drug addiction, transportation, low edu. Level, literacy, decrease access to med. care, fpc, rehab)? @ -none Was there de-escalation of care discussed even if they declined (Discuss DNR or withdrawal of care, Hospice)? DNR status @ -no What co-morbidities impacted this encounter? (DM, HTN, Smoking, COPD, CAD, Cancer, CVA, ARF, Chemo, Hep., AIDS, mental health diagnosis, sleep apnea, morbid obesity)? @ -none Was patient admitted / discharged? Hospital course, mention meds given and route, prescriptions, significant lab abnormalities, going to OR and other pertinent info. @ - 88 female to the ER for evaluation of weakness, patient has persistent weakness that is now resolved here in the ER with IV hydration. Patient had low blood sugar overnight blood sugar normal here in the ER patient is able to eat and drink and be discharged home Discharge Undiagnosed new problem with uncertain prognosis? @ -no Drug Therapy requiring intensive monitoring for toxicity (Heparin, Nitro, Insulin, Cardizem)? @ -no Were any procedures done? @ -no Diagnosis/symptom? @ -Weakness low blood sugar Acute, or Chronic, or Acute on Chronic? @ -Acute Uncomplicated (without systemic symptoms) or Complicated (systemic symptoms)? @ -Complicated Side effects of treatment? @ -no Exacerbation, Progression, or Severe Exacerbation? @ -exacerbation Poses a threat to life or bodily function? How? (Chest pain, [place], [place], pneumonia, PE, COPD, DKA, ARF, appy, cholecystitis, CVA, Diverticulitis, Homicidal, Suicidal, threat to staff... and all critical care pts) @ -yes extremes of age Reevaluation #5: Differential Weakness: Hypoglycemia, shock, sepsis, hyponatremia, anemia, infection, [place], ETOH, adverse medicine reaction, overdose, stroke, this is not meant to be an all-inclusive list. EKG Findings - EKG Comments: EKG Findings:: EKG is sinus 77 VA 133 QRS 97 QTc 450 - EKG Results: EKG: interpreted by ERMD Medical Decision Making - Medical Decision Making 88 female to the ER for evaluation of weakness, patient has persistent weakness that is now resolved here in the ER with IV hydration. Patient had low blood sugar overnight blood sugar normal here in the ER patient is able to eat and drink and be discharged home - Lab Data Result diagrams: 02/24/24 17:00 02/24/24 17:00 Lab Results 02/24/24 02/24/24 02/24/24 Range/Units 16:51 17:00 17:00 WBC 18.1 H (3.8-10.6) k/uL RBC 3.90 (3.80-5.40) m/uL Hgb 11.1 L (11.4-16.0) gm/dL Hct 36.5 (34.0-46.0) % MCV 93.5 (80.0-100.0) fL MCH 28.5 (25.0-35.0) pg MCHC 30.5 L (31.0-37.0) g/dL RDW 16.0 H (11.5-15.5) % Plt Count 332 (150-450) k/uL MPV 8.2 Neutrophils % 90 % Lymphocytes % 4 % Monocytes % 4 % Eosinophils % 0 % Basophils % 0 % Neutrophils # 16.2 H (1.3-7.7) k/uL Lymphocytes # 0.8 L (1.0-4.8) k/uL Monocytes # 0.8 (0-1.0) k/uL Eosinophils # 0.1 (0-0.7) k/uL Basophils # 0.0 (0-0.2) k/uL Hypochromasia Moderate Anisocytosis Slight PT 11.6 (10.0-12.5) sec INR 1.1 (<1.2) APTT 27.2 (22.0-30.0) sec Sodium (137-145) mmol/L Potassium (3.5-5.1) mmol/L Chloride (98-107) mmol/L Carbon Dioxide (22-30) mmol/L Anion Gap mmol/L BUN (7-17) mg/dL Creatinine (0.52-1.04) mg/dL Est GFR (CKD-EPI)AfAm (>60 ml/min/1.73 sqM) Est GFR (CKD-EPI)NonAf (>60 ml/min/1.73 sqM) Glucose (74-99) mg/dL POC Glucose (mg/dL) 191 H (70-110) mg/dL POC Glu Wrapper Cashier ID Mary Banegas Plasma Lactic Acid Gary (0.7-2.0) mmol/L Calcium (8.4-10.2) mg/dL Phosphorus (2.5-4.5) mg/dL Magnesium (1.6-2.3) mg/dL Total Bilirubin (0.2-1.3) mg/dL AST (14-36) U/L ALT (4-34) U/L Alkaline Phosphatase (38-126) U/L Troponin I (0.000-0.034) ng/mL Total Protein (6.3-8.2) g/dL Albumin (3.5-5.0) g/dL 02/24/24 02/24/24 02/24/24 Range/Units 17:00 17:00 17:00 WBC (3.8-10.6) k/uL RBC (3.80-5.40) m/uL Hgb (11.4-16.0) gm/dL Hct (34.0-46.0) % MCV (80.0-100.0) fL MCH (25.0-35.0) pg MCHC (31.0-37.0) g/dL RDW (11.5-15.5) % Plt Count (150-450) k/uL MPV Neutrophils % % Lymphocytes % % Monocytes % % Eosinophils % % Basophils % % Neutrophils # (1.3-7.7) k/uL Lymphocytes # (1.0-4.8) k/uL Monocytes # (0-1.0) k/uL Eosinophils # (0-0.7) k/uL Basophils # (0-0.2) k/uL Hypochromasia Anisocytosis PT (10.0-12.5) sec INR (<1.2) APTT (22.0-30.0) sec Sodium 136 L (137-145) mmol/L Potassium 4.0 (3.5-5.1) mmol/L Chloride 101 (98-107) mmol/L Carbon Dioxide 28 (22-30) mmol/L Anion Gap 7 mmol/L BUN 37 H (7-17) mg/dL Creatinine 3.31 H (0.52-1.04) mg/dL Est GFR (CKD-EPI)AfAm 14 (>60 ml/min/1.73 sqM) Est GFR (CKD-EPI)NonAf 12 (>60 ml/min/1.73 sqM) Glucose 188 H (74-99) mg/dL POC Glucose (mg/dL) (70-110) mg/dL POC Glu Wrapper Cashier ID Plasma Lactic Acid Gary 1.1 (0.7-2.0) mmol/L Calcium 8.8 (8.4-10.2) mg/dL Phosphorus 3.9 (2.5-4.5) mg/dL Magnesium 1.6 (1.6-2.3) mg/dL Total Bilirubin 0.5 (0.2-1.3) mg/dL AST 29 (14-36) U/L ALT 16 (4-34) U/L Alkaline Phosphatase 120 (38-126) U/L Troponin I 0.015 (0.000-0.034) ng/mL Total Protein 5.8 L (6.3-8.2) g/dL Albumin 3.2 L (3.5-5.0) g/dL - EKG Data -: EKG Interpreted by Ne - Radiology Data Radiology results: report reviewed (Chest x-ray is negative for acute disease), image reviewed Disposition Clinical Impression: Weakness, Dehydration, Near syncope Disposition: HOME SELF-CARE Condition: Good Instructions (If sedation given, give patient instructions): Dehydration (ED), Near Syncope (ED) Is patient prescribed a controlled substance at d/c from ED?: No Referrals: Randell Corbett MD [Primary Care Provider] - 1-2 days Time of Disposition: 18:00
[2024-02-24 16:52] LABS: Glucose,Whole Blood 191 mg/dL (70-110)
[2024-02-24] MEDS: SODIUM CHLORIDE 0.9% 1,000 ML IV STA (17:11)
[2024-02-24 17:20] LABS: Anisocytosis Slight; Basophils % (A) 0 %; Eosinophils # (A) 0.1 k/uL (0-0.7); Eosinophils % (A) 0 %; HCT 36.5 % (34.0-46.0); HGB 11.1 gm/dL (11.4-16.0); Hypochromasia Moderate; Lymphocytes # (A) 0.8 k/uL (1.0-4.8); Lymphocytes % (A) 4 %; MCH 28.5 pg (25.0-35.0); MCHC 30.5 g/dL (31.0-37.0); MCV 93.5 fL (80.0-100.0); Mean Platelet Volume 8.2; Monocytes # (A) 0.8 k/uL (0-1.0); Monocytes % (A) 4 %; Neutrophils # (A) 16.2 k/uL (1.3-7.7); Neutrophils % (A) 90 %; Platelet Count 332 k/uL (150-450); WBC 18.1 k/uL (3.8-10.6)
[2024-02-24 17:29] LABS: INR 1.1 (<1.2); Partial Thromboplastin Time 27.2 sec (22.0-30.0); Prothrombin Time 11.6 sec (10.0-12.5)
[2024-02-24 17:30] LABS: ALT 16 U/L (4-34); AST 29 U/L (14-36); African American GFR (CKD) 14 (>60 ml/min/1.73 sqM); Albumin 3.2 g/dL (3.5-5.0); Alkaline Phosphatase 120 U/L (38-126); Anion Gap 7 mmol/L; Blood Urea Nitrogen 37 mg/dL (7-17); Calcium 8.8 mg/dL (8.4-10.2); Carbon Dioxide 28 mmol/L (22-30); Chloride 101 mmol/L (98-107); Glucose 188 mg/dL (74-99); Magnesium 1.6 mg/dL (1.6-2.3); Non-African American GFR(CKD) 12 (>60 ml/min/1.73 sqM); Phosphorus 3.9 mg/dL (2.5-4.5); Sodium 136 mmol/L (137-145); Total Bilirubin 0.5 mg/dL (0.2-1.3); Total Protein 5.8 g/dL (6.3-8.2)
--- NOTE | 2024-02-24 17:55 | XR ---
EXAMINATION TYPE: XR chest 2V DATE OF EXAM: 02/24/2024 COMPARISON: 02/22/2024 HISTORY: 88-year-old female weakness TECHNIQUE: AP and lateral views FINDINGS: Right-sided double-lumen hemodialysis catheter with tip near the cavoatrial junction. Heart mild to m oderately enlarged. Diffuse interstitial density similar to slightly. No sizable pleural effusion. IMPRESSION: Mild cardiomegaly with interstitial densities similar to slightly improved from prior. Residual mild pulmonary vascular congestion may be present. [facility], , 02/24/2024 5:53 PM
[2024-02-24 18:23] VITALS: BP 167/72; PULSE 82; RESP 17; TEMP 97.5
== END 2024-02-24 18:23 | disposition home or self-care (01) ==
LOC: EC 16:10
DX: E11.649 Type 2 diabetes mellitus with hypoglycemia without coma (principal); E86.0 Dehydration; E11.22 Type 2 diabetes mellitus with diabetic chronic kidney disease; I12.9 Hypertensive chronic kidney disease with stage 1 through stage 4 chronic kidney disease, or unspecified chronic kidney disease; N18.4 Chronic kidney disease, stage 4 (severe); Z88.0 Allergy status to penicillin; Z88.1 Allergy status to other antibiotic agents; Z88.8 Allergy status to other drugs, medicaments and biological substances; Z99.2 Dependence on renal dialysis; Z79.4 Long term (current) use of insulin; Z79.899 Other long term (current) drug therapy
CPT/HCPCS: 36415; 71046; 80053; 83605; 83735; 84100; 84484; 85025; 85610; 85730; 93005; 96360; 99285

== ENCOUNTER 2024-04-19 14:31 | Emergency (ER) | payer MEDICARE ==
[2024-04-19 14:48] VITALS: RESP 20
[2024-04-19 15:15] LABS: Basophils % (A) 0 %; Eosinophils % (A) 0 %; HCT 39.5 % (34.0-46.0); HGB 12.8 gm/dL (11.4-16.0); Lymphocytes # (A) 0.9 k/uL (1.0-4.8); Lymphocytes % (A) 3 %; MCH 30.1 pg (25.0-35.0); MCHC 32.3 g/dL (31.0-37.0); Mean Platelet Volume 7.9; Monocytes # (A) 0.9 k/uL (0-1.0); Monocytes % (A) 3 %; Neutrophils # (A) 26.2 k/uL (1.3-7.7); Neutrophils % (A) 93 %; Platelet Count 419 k/uL (150-450); RBC 4.25 m/uL (3.80-5.40); RDW 15.5 % (11.5-15.5); WBC 28.1 k/uL (3.8-10.6)
--- NOTE | 2024-04-19 15:17 | ED ---
Female Urogenital HPI - General Source: patient, family, RN notes reviewed Mode of arrival: wheelchair Limitations: no limitations <Adriana Perea - Last Filed: 04/19/24 15:17> - General Source: patient, RN notes reviewed Mode of arrival: wheelchair Limitations: no limitations - History of Present Illness MD Complaint: vaginal bleeding, pelvic pain <Edilberto Kang - Last Filed: 04/19/24 22:06> - General Chief complaint: Urogenital Stated complaint: Urogenital Time Seen by Provider: 04/19/24 15:17 - History of Present Illness Initial comments: Quick note: 88-year-old female presented the ER for evaluation of vaginal pain. Patient reports this been ongoing for the past year. She does report bleeding every once in a while. No fevers, nausea or vomiting. (Adriana Perea) - Related Data Home Medications Medication Instructions Recorded Confirmed Atorvastatin Calcium 20 mg PO HS 09/04/22 02/18/24 FLUoxetine HCL [PROzac] 10 mg PO DAILY 09/04/22 02/18/24 allopurinoL 100 mg PO DAILY 09/04/22 02/18/24 amLODIPine [Norvasc] 5 mg PO DAILY 11/05/22 02/18/24 Insulin Degludec [Tresiba 6 unit SQ DAILY 01/28/23 02/18/24 Flextouch U-200 Pen] Metoprolol Succinate (ER) [Toprol 25 mg PO DAILY 09/24/23 02/18/24 XL] guaiFENesin [Mucinex] 600 mg PO BID 09/24/23 02/18/24 hydrALAZINE HCL [Apresoline] 50 mg PO TID 09/24/23 02/18/24 Levothyroxine Sodium [Synthroid] 125 mcg PO DAILY 02/18/24 02/18/24 Previous Rx's Medication Instructions Recorded Nitrofurantoin Monohyd/M-Cryst 100 mg PO BID #10 cap 04/19/24 [Nitrofurantoin Monohyd/M-Cryst 100 mg] Allergies Allergy/AdvReac Type Severity Reaction Status Date / Time cefaclor Allergy Rash/Hives/ Verified 02/24/24 16:15 Nausea cephalexin Allergy Rash/Hives/ Verified 02/24/24 16:15 Nausea erythromycin base Allergy Rash/Hives/ Verified 02/24/24 16:15 Nausea indomethacin Allergy Rash/Hives/ Verified 02/24/24 16:15 Nausea Penicillins Allergy Rash/Hives/ Verified 02/24/24 16:15 Nausea regadenoson Allergy Rash/Hives/ Verified 02/24/24 16:15 Nausea Review of Systems ROS Other: All systems not noted in ROS Statement are negative. <Adriana Perea - Last Filed: 04/19/24 15:17> ROS Other: All systems not noted in ROS Statement are negative. <Edilberto Kang - Last Filed: 04/19/24 22:06> ROS Statement: Those systems with pertinent positive or pertinent negative responses have been documented in the HPI. Past Medical History Past Medical History: COPD, Diabetes Mellitus, Dialysis, Hearing Disorder / Deafness, Hyperlipidemia, Hypertension, Renal Disease, Thyroid Disorder Additional Past Medical History / Comment(s): stage 4 kidney on dialysis [facility], [place] History of Any Multi-Drug Resistant Organisms: None Reported Past Surgical History: No Surgical Hx Reported Additional Past Surgical History / Comment(s): uterine polyps removed, nerve block to left leg, dialysis port placed 2022. Past Anesthesia/Blood Transfusion Reactions: No Reported Reaction Past Psychological History: No Psychological Hx Reported Smoking Status: Never smoker - Past Family History Daughter(s) Family Medical History: Myocardial Infarction (SD) <Adriana Perea - Last Filed: 04/19/24 15:17> General Exam Limitations: no limitations <Adriana Perea - Last Filed: 04/19/24 15:17> - General Exam Comments Initial Comments: Visual Physical Exam Vital signs reviewed General: Well-appearing, nontoxic, no acute distress. Head: Normocephalic, atraumatic Eyes: PERRLA, EOMI ENT: Airway patent Chest: Nonlabored breathing Skin: No visual rash, normal skin tone Neuro: Alert and oriented 3 Musculoskeletal: No gross abnormalities (Adriana Perea) Course Vital Signs 04/19/24 14:46 Temperature 97.7 F Pulse Rate 85 Respiratory 20 Rate Blood Pressure 111/71 O2 Sat by Pulse 98 Oximetry Medical Decision Making <Adriana Perea - Last Filed: 04/19/24 15:17> - Lab Data Result diagrams: 04/19/24 14:59 04/19/24 14:59 <Edilberto Kang - Last Filed: 04/19/24 22:06> - Medical Decision Making I performed the quick note portion of this chart. Electronically signed by Adriana Perea PA-C (Adriana Perea) Was pt. sent in by a medical professional or institution ([facility], [facility]CEIVING [facility]OCIATE, urgent care, hospital, or halfway...) When possible be specific @ -[No] Did you speak to anyone other than the patient for history (EMS, parent, family, police, friend...)? What history was obtained from this source @ -[No] Did you review nursing and triage notes (agree or disagree)? Why? @ -[I reviewed and agree with nursing and triage notes] Were old charts reviewed (outside hosp., previous admission, EMS record, old EKG, old radiological studies, urgent care reports/EKG's, halfway records)? Report findings @ -[No old charts were reviewed] Differential Diagnosis (chest pain, altered mental status, abdominal pain women, abdominal pain men, vaginal bleeding, weakness, fever, dyspnea, syncope, headache, dizziness, GI bleed, back pain, seizure, CVA, palpatations, mental health, musculoskeletal)? @ -[not applicable] EKG interpreted by me (3pts min.). @ -[As above] X-rays interpreted by me (1pt min.). @ -[None done] CT interpreted by me (1pt min.). @ -[None done] U/S interpreted by me (1pt. min.). @ -[None done] What testing was considered but not performed or refused? (CT, X-rays, U/S, labs)? Why? @ -[None] What meds were considered but not given or refused? Why? @ -[None] Did you discuss the management of the patient with other professionals (adan mercado i.e. [facility], [facility] PICKUP/RECEIVING ASSOCIATE, lab, RT, psych nurse, social media strategist, bin worker, teacher, credit review officer, showcase trimmer)? Give summary @ -[No] Was smoking cessation discussed for >3mins.? @ -[No] Was critical care preformed (if so, how long)? @ -[No] Were there social determinants of health that impacted care today? How? (Homelessness, low income, unemployed, alcoholism, drug addiction, transportation, low edu. Level, literacy, decrease access to med. care, usp, rehab)? @ -[No] Was there de-escalation of care discussed even if they declined (Discuss DNR or withdrawal of care, Hospice)? DNR status @ -[No] What co-morbidities impacted this encounter? (DM, HTN, Smoking, COPD, CAD, Cancer, CVA, ARF, Chemo, Hep., AIDS, mental health diagnosis, sleep apnea, morbid obesity)? @ -[None] Was patient admitted / discharged? Hospital course, mention meds given and route, prescriptions, significant lab abnormalities, going to OR and other pertinent info. @ -[hospital course] Undiagnosed new problem with uncertain prognosis? @ -[No] Drug Therapy requiring intensive monitoring for toxicity (Heparin, Nitro, Insulin, Cardizem)? @ -[No] Were any procedures done? @ -[No] Diagnosis/symptom? @ -[default] Acute, or Chronic, or Acute on Chronic? @ -[default] Uncomplicated (without systemic symptoms) or Complicated (systemic symptoms)? @ -[default] Side effects of treatment? @ -[No] Exacerbation, Progression, or Severe Exacerbation? @ -[No] Poses a threat to life or bodily function? How? (Chest pain, USA, SD, pneumonia, PE, COPD, DKA, ARF, appy, cholecystitis, CVA, Diverticulitis, Homicidal, Suicidal, threat to staff... and all critical care pts) @ -[No] (Edilberto Kang) - Lab Data Lab Results 04/19/24 04/19/24 04/19/24 Range/Units 14:50 14:55 14:59 WBC 28.1 H (3.8-10.6) k/uL RBC 4.25 (3.80-5.40) m/uL Hgb 12.8 (11.4-16.0) gm/dL Hct 39.5 (34.0-46.0) % MCV 93.0 (80.0-100.0) fL MCH 30.1 (25.0-35.0) pg MCHC 32.3 (31.0-37.0) g/dL RDW 15.5 (11.5-15.5) % Plt Count 419 (150-450) k/uL MPV 7.9 Neutrophils % 93 % Lymphocytes % 3 % Monocytes % 3 % Eosinophils % 0 % Basophils % 0 % Neutrophils # 26.2 H (1.3-7.7) k/uL Lymphocytes # 0.9 L (1.0-4.8) k/uL Monocytes # 0.9 (0-1.0) k/uL Eosinophils # 0.0 (0-0.7) k/uL Basophils # 0.0 (0-0.2) k/uL Manual Slide Review Performed PT (10.0-12.5) sec INR (<1.2) APTT (22.0-30.0) sec Sodium (137-145) mmol/L Potassium (3.5-5.1) mmol/L Chloride (98-107) mmol/L Carbon Dioxide (22-30) mmol/L Anion Gap mmol/L BUN (7-17) mg/dL Creatinine (0.52-1.04) mg/dL Est GFR (CKD-EPI)AfAm (>60 ml/min/1.73 sqM) Est GFR (CKD-EPI)NonAf (>60 ml/min/1.73 sqM) Glucose (74-99) mg/dL Calcium (8.4-10.2) mg/dL Total Bilirubin (0.2-1.3) mg/dL AST (14-36) U/L ALT (4-34) U/L Alkaline Phosphatase (38-126) U/L Total Protein (6.3-8.2) g/dL Albumin (3.5-5.0) g/dL Urine Color Urine Appearance (Clear) Urine pH (5.0-8.0) Ur Specific [place] (1.001-1.035) Urine Protein (Negative) Urine Glucose (UA) (Negative) Urine Ketones (Negative) Urine Blood (Negative) Urine Nitrite (Negative) Urine Bilirubin (Negative) Urine Urobilinogen (<2.0) mg/dL Ur Leukocyte Esterase (Negative) Urine RBC (0-5) /hpf Urine WBC (0-5) /hpf Urine WBC Clumps (None) /hpf Ur Squamous Epith Cells (0-4) /hpf Urine Mucus (None) /hpf Blood Type O Positive Blood Type Confirm O Positive Blood Type Recheck No Previous Record Bld Type Recheck Status CABO Indicated Antibody Screen NEGATIVE Spec Expiration Date 04/22/2024 - 234904/19/24 04/19/24 04/19/24 Range/Units 14:59 16:26 19:56 WBC (3.8-10.6) k/uL RBC (3.80-5.40) m/uL Hgb (11.4-16.0) gm/dL Hct (34.0-46.0) % MCV (80.0-100.0) fL MCH (25.0-35.0) pg MCHC (31.0-37.0) g/dL RDW (11.5-15.5) % Plt Count (150-450) k/uL MPV Neutrophils % % Lymphocytes % % Monocytes % % Eosinophils % % Basophils % % Neutrophils # (1.3-7.7) k/uL Lymphocytes # (1.0-4.8) k/uL Monocytes # (0-1.0) k/uL Eosinophils # (0-0.7) k/uL Basophils # (0-0.2) k/uL Manual Slide Review PT 11.6 (10.0-12.5) sec INR 1.1 (<1.2) APTT 25.6 (22.0-30.0) sec Sodium 135 L (137-145) mmol/L Potassium 3.9 (3.5-5.1) mmol/L Chloride 98 (98-107) mmol/L Carbon Dioxide 28 (22-30) mmol/L Anion Gap 9 mmol/L BUN 26 H (7-17) mg/dL Creatinine 2.57 H (0.52-1.04) mg/dL Est GFR (CKD-EPI)AfAm 18 (>60 ml/min/1.73 sqM) Est GFR (CKD-EPI)NonAf 16 (>60 ml/min/1.73 sqM) Glucose 158 H (74-99) mg/dL Calcium 9.1 (8.4-10.2) mg/dL Total Bilirubin 0.7 (0.2-1.3) mg/dL AST 22 (14-36) U/L ALT 21 (4-34) U/L Alkaline Phosphatase 193 H (38-126) U/L Total Protein 5.7 L (6.3-8.2) g/dL Albumin 3.2 L (3.5-5.0) g/dL Urine Color Yellow Urine Appearance Cloudy H (Clear) Urine pH 6.0 (5.0-8.0) Ur Specific [place] 1.022 (1.001-1.035) Urine Protein 3+ H (Negative) Urine Glucose (UA) 1+ H (Negative) Urine Ketones Negative (Negative) Urine Blood Large H (Negative) Urine Nitrite Negative (Negative) Urine Bilirubin Negative (Negative) Urine Urobilinogen <2.0 (<2.0) mg/dL Ur Leukocyte Esterase Large H (Negative) Urine RBC >182 H (0-5) /hpf Urine WBC >182 H (0-5) /hpf Urine WBC Clumps Few H (None) /hpf Ur Squamous Epith Cells 1 (0-4) /hpf Urine Mucus Rare H (None) /hpf Blood Type Blood Type Confirm Blood Type Recheck Bld Type Recheck Status Antibody Screen Spec Expiration Date Disposition <Adriana Perea - Last Filed: 04/19/24 15:17> Is patient prescribed a controlled substance at d/c from ED?: No Time of Disposition: 21:10 Decision Date: 04/19/24 Decision Time: 21:10 <Edilberto Kang - Last Filed: 04/19/24 22:06> Clinical Impression: Urinary tract infection, Abnormal uterine bleeding (AUB), Vulvar neoplasm Disposition: HOME SELF-CARE Condition: Good Instructions (If sedation given, give patient instructions): Urinary Tract Infection in Women (ED) Prescriptions: Nitrofurantoin Monohyd/M-Cryst [Nitrofurantoin Monohyd/M-Cryst 100 mg] 100 mg PO BID #10 cap Referrals: Randell Corbett MD [Primary Care Provider] - 1-2 days Alfred Moy MD [STAFF PHYSICIAN] - 1-2 days
[2024-04-19 15:25] LABS: ALT 21 U/L (4-34); AST 22 U/L (14-36); African American GFR (CKD) 18 (>60 ml/min/1.73 sqM); Albumin 3.2 g/dL (3.5-5.0); Alkaline Phosphatase 193 U/L (38-126); Anion Gap 9 mmol/L; Blood Urea Nitrogen 26 mg/dL (7-17); Calcium 9.1 mg/dL (8.4-10.2); Carbon Dioxide 28 mmol/L (22-30); Chloride 98 mmol/L (98-107); Glucose 158 mg/dL (74-99); Non-African American GFR(CKD) 16 (>60 ml/min/1.73 sqM); Potassium 3.9 mmol/L (3.5-5.1); Sodium 135 mmol/L (137-145); Total Bilirubin 0.7 mg/dL (0.2-1.3); Total Protein 5.7 g/dL (6.3-8.2)
--- NOTE | 2024-04-19 16:02 | US ---
EXAMINATION TYPE: US pelvic limited DATE OF EXAM: 04/19/2024 COMPARISON: NONE CLINICAL INDICATION: Female, 88 years old with history of vaginal bleeding; vaginal pain with bleedin g for 1 year per patient TECHNIQUE: TA - attempted TV, patient could not tolerate any pressure Transabdominal grayscale sonographic images of the pelvis were acquired. FINDINGS: Date of LMP: 45 years ago EXAM MEASUREMENTS 1. Uterus: not seen 2. Endometrium: not seen 3. Right Ovary: not seen 4. Left Ovary: not seen 5. Bilateral Adnexa: peristalsing bowel 6. Posterior cul-de-sac: peristalsing bowel Patient ordered through EC waiting room without being physically assessed first. If she was, they wou ld have seen a swollen vagina with possible growths and extreme foul odor with discharge. Pelvic study is non diagnostic IMPRESSION: Uterus and ovaries are nonvisualized possibly due to atrophy and overlapping bowel with gas. No evidence for acute process. [facility], Workstation: [facility], 04/19/2024 4:00 PM
[2024-04-19 16:52] LABS: INR 1.1 (<1.2); Partial Thromboplastin Time 25.6 sec (22.0-30.0); Prothrombin Time 11.6 sec (10.0-12.5)
[2024-04-19] MEDS: HYDROmorphone 0.5 MG/0.5 ML SYRINGE IVP STA (17:22)
--- NOTE | 2024-04-19 18:59 | CT ---
EXAMINATION TYPE: CT abdomen pelvis wo con CT DLP: 298.8 mGycm, Automated exposure control for dose reduction was used. DATE OF EXAM: 04/19/2024 6:20 PM COMPARISON: CT abdomen pelvis 01/13/2024 CLINICAL INDICATION:Female, 88 years old with history of Pelvic pain; vaginal pain with bleeding on/o ff. no abdomen pain. no fever no dysuria TECHNIQUE: Axial CT abdomen pelvis wo con;Sagittal and coronal reformats were created on a separate workstation. Contrast used: mL of , (none if empty) Oral contrast used: without Oral Contrast (none if empty) FINDINGS: LOWER CHEST: Scattered groundglass and tree-in-bud nodularity seen within the partially visualized ri ght lung. Left lung atelectasis. Please note that there is limited evaluation secondary to beam artifact from patient's upper extremit ies overlying the abdomen. There is limitation of intra-abdominal structural evaluation given the [place] of intra-abdominal fat and lack of intravenous contrast. ABDOMEN LIVER: Subcentimeter hypodense foci are seen to small to characterize. GALLBLADDER AND BILE DUCTS: The gallbladder is mildly distended with no other significant abnormaliti es. No discrete extra hepatic biliary ductal dilatation. PANCREAS: Atrophic. SPLEEN: Unremarkable. ADRENAL GLANDS: Unremarkable. KIDNEYS AND URETERS: Bilateral kidneys are atrophic with subcentimeter hypodense foci appreciated No evidence of hydronephrosis or renal calculus. The ureters are unremarkable. PELVIS BLADDER: Incompletely distended and only partially visualized. REPRODUCTIVE: Calcifications within the uterus may relate to fibroid changes. Please note that there is limited evaluation for fistula or abscess within the deep pelvic structures given the lack of IV o r rectal contrast. ABDOMEN & PELVIS STOMACH AND BOWEL: Stomach is grossly unremarkable. The small bowel is of normal caliber. There are m ultiple sigmoid colonic diverticula without associated fat stranding No evidence of bowel obstruction . PERITONEUM/RETROPERITONEUM: No evidence of pneumoperitoneum or free fluid. VASCULATURE: No evidence of aortic aneurysm. MUSCULOSKELETAL: No acute osseous abnormalities LYMPH NODES: No gross evidence for lymphadenopathy. SOFT TISSUE/ABDOMINAL WALL: Diffuse mild soft tissue edema. IMPRESSION: 1. No acute intra-abdominal/pelvic process on this limited evaluation. Please note evaluation for pel wilfrido fistula and/or soft tissue infectious process is limited secondary to lack of intravenous and/or rectal contrast. 2. Colonic diverticulosis. 3. Mild soft tissue anasarca. 4. Nonspecific groundglass and tree-in-bud nodularity in the right lung may relate to an infectious/i nflammatory process. Correlate clinically evaluation [facility], , 04/19/2024 6:57 PM
[2024-04-19 20:12] LABS: Appearance,Urine Cloudy (Clear); Bilirubin,Urine Negative (Negative); Blood,Urine Large (Negative); Color,Urine Yellow; Glucose,Urine (UA) 1+ (Negative); Ketones,Urine Negative (Negative); Leukocyte Esterase,Urine Large (Negative); Mucus,Urine Rare /hpf; Nitrite,Urine Negative (Negative); Protein,Urine 3+ (Negative); RBC,Urine >182 /hpf (0-5); Specific Gravity,Urine 1.022 (1.001-1.035); Squamous Epithelial Cell,Urine 1 /hpf (0-4); Urobilinogen,Urine <2.0 mg/dL (<2.0); WBC,Urine >182 /hpf (0-5)
[2024-04-19 23:41] VITALS: BP 110/78; PULSE 75; TEMP 98.1
[2024-04-20 12:56] LABS: C. trachomatis,PCR Negative (Negative)
[2024-04-20 13:03] LABS: N. gonorrhoeae,PCR Negative (Negative)
== END 2024-04-20 00:18 | disposition home or self-care (01) ==
LOC: EC 14:31
DX: N93.9 Abnormal uterine and vaginal bleeding, unspecified (principal); N39.0 Urinary tract infection, site not specified; D49.59 Neoplasm of unspecified behavior of other genitourinary organ; Z88.0 Allergy status to penicillin; Z88.1 Allergy status to other antibiotic agents; Z88.8 Allergy status to other drugs, medicaments and biological substances
CPT/HCPCS: 36415; 86900; 86901; 80053; 85025; 85610; 85730; 86850; 81001; 87491; 87591; 87086; 76857; 74176; 99284; 96374; J1171

== ENCOUNTER 2024-04-26 14:43 | Emergency (ER) | payer MEDICARE ==
[2024-04-26] MEDS: SODIUM CHLORIDE 0.9% 500 ML 500 ML IV ONE ×2 (15:10→16:20)
--- NOTE | 2024-04-26 15:22 | ED ---
General Adult HPI - General Chief complaint: Weakness Stated complaint: syncope Time Seen by Provider: 04/26/24 14:59 Source: EMS Mode of arrival: EMS Limitations: altered mental status - History of Present Illness Initial comments: Patient is an 88-year-old female with a past medical history of ESRD on dialysis Tuesday presenting today for syncopal episode. History is limited as patient oriented x 2 and is unsure why she is here. Report from EMS states that patient's granddaughter who is special needs was with the patient when she slid out of her chair. Appeared to have a syncopal episode. Patient currently endorses vaginal pain. Denies additional complaints. - Related Data Home Medications Medication Instructions Recorded Confirmed Atorvastatin Calcium 20 mg PO HS 09/04/22 02/18/24 FLUoxetine HCL [PROzac] 10 mg PO DAILY 09/04/22 02/18/24 allopurinoL 100 mg PO DAILY 09/04/22 02/18/24 amLODIPine [Norvasc] 5 mg PO DAILY 11/05/22 02/18/24 Insulin Degludec [Tresiba 6 unit SQ DAILY 01/28/23 02/18/24 Flextouch U-200 Pen] Metoprolol Succinate (ER) [Toprol 25 mg PO DAILY 09/24/23 02/18/24 XL] guaiFENesin [Mucinex] 600 mg PO BID 09/24/23 02/18/24 hydrALAZINE HCL [Apresoline] 50 mg PO TID 09/24/23 02/18/24 Levothyroxine Sodium [Synthroid] 125 mcg PO DAILY 02/18/24 02/18/24 Previous Rx's Medication Instructions Recorded Nitrofurantoin Monohyd/M-Cryst 100 mg PO BID #10 cap 04/19/24 [Nitrofurantoin Monohyd/M-Cryst 100 mg] Allergies Allergy/AdvReac Type Severity Reaction Status Date / Time cefaclor Allergy Rash/Hives/ Verified 04/26/24 14:52 Nausea cephalexin Allergy Rash/Hives/ Verified 04/26/24 14:52 Nausea erythromycin base Allergy Rash/Hives/ Verified 04/26/24 14:52 Nausea indomethacin Allergy Rash/Hives/ Verified 04/26/24 14:52 Nausea Penicillins Allergy Rash/Hives/ Verified 04/26/24 14:52 Nausea regadenoson Allergy Rash/Hives/ Verified 04/26/24 14:52 Nausea Review of Systems ROS Statement: Those systems with pertinent positive or pertinent negative responses have been documented in the HPI. ROS Other: All systems not noted in ROS Statement are negative. 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 Past Anesthesia/Blood Transfusion Reactions: No Reported Reaction Past Psychological History: No Psychological Hx Reported Smoking Status: Never smoker - Past Family History Daughter(s) Family Medical History: Myocardial Infarction (PR) General Exam - General Exam Comments Initial Comments: PE: CONSTITUTIONAL: no apparent distress, chronically ill-appearing, cachectic/underweight SKIN: Warm, dry, no jaundice, hives or petechiae, stage I well-healing pressure ulcer on the left coccyx, exophytic erythematous lesion at the right vulva at the 11 o'clock position EYES: Pupils are equally round, extraocular movements intact without nystagmus, clear conjunctiva, non-icteric sclera HENT: Normocephalic, atraumatic, dry mucus membranes, oropharynx clear without exudates NECK: , Full range of motion, normal appearance no midline spinal tenderness PULMONARY: Clear to auscultation without wheezes, rhonchi, or rales, normal excursion, no accessory muscle use and no stridor CARDIOVASCULAR: Regular rate, rhythm, normal S1 and S2. No appreciated murmurs, rubs or gallops. 1+ radial pulses with intact distal perfusion. No lower extremity edema GASTROINTESTINAL: Soft, active bowel sounds throughout, non-tender, non- distended, no palpable masses, no rebound or guarding. No hepatosplenomegaly GENITOURINARY: Exophytic lesion as noted above, vaginal prolapse, Awa, RN as bridal stylist sales consultant MUSCULOSKELETAL: Extremities have no gross deformity, no edema, redness, or swelling. No calf swelling NEUROLOGIC:_a/o x 2, GCS 14, mentation seems somewhat clouded, though patient is sleepy and BOIS FORTE, speech fluent . Moves all extremities x 4 without sensory deficit, diffusely weak with 2 out of 5 strength in all 4 extremities PSYCHIATRIC:_normal mood and affect, thought process is clouded Limitations: altered mental status Course Vital Signs 04/26/24 04/26/24 04/26/24 14:45 15:44 15:53 Temperature 97.4 F L Pulse Rate 58 L 76 71 Respiratory 14 20 14 Rate Blood Pressure 86/53 95/50 103/50 O2 Sat by Pulse 99 100 Oximetry 04/26/24 04/26/24 04/26/24 16:20 18:42 20:07 Temperature Pulse Rate 67 69 73 Respiratory 18 14 16 Rate Blood Pressure 96/47 101/60 O2 Sat by Pulse 100 100 98 Oximetry EKG Findings - EKG Comments: EKG Findings:: Sinus rhythm, rate 79 bpm, ME interval 149 ms, QRS duration 96 ms , QT/QTc 4 1/436 ms, artifact present, large R waves present in lead V4 V5, artifact present throughout, questionable [address] elevation in lead V1 and V2 with Q waves present in leads V1, V2 and V3, no ST depressions, T wave inversion lead aVL, no STEMI Medical Decision Making - Medical Decision Making Was pt. sent in by a medical professional or institution (, PA, [employer], urgent care, hospital, or intermediate...) When possible be specific @ -No Did you speak to anyone other than the patient for history (EMS, parent, family, police, friend...)? What history was obtained from this source @ -No Did you review nursing and triage notes (agree or disagree)? Why? @ -I reviewed and agree with nursing and triage notes Were old charts reviewed (outside hosp., previous admission, EMS record, old EKG, old radiological studies, urgent care reports/EKG's, intermediate records)? Report findings Records reviewed, patient was here on 04/19/2024 had an ultrasound of the pelvis performed which did not was not able to assess the uterus, CT abdomen pelvis was performed which was limited due to contrast though no acute process was noted Differential Diagnosis (chest pain, altered mental status, abdominal pain women, abdominal pain men, vaginal bleeding, weakness, fever, dyspnea, syncope, headache, dizziness, GI bleed, back pain, seizure, CVA, palpatations, mental health, musculoskeletal)? Differential Weakness: Hypoglycemia, shock, sepsis, hyponatremia, anemia, infection, PR, ETOH, adverse medicine reaction, overdose, stroke, this is not meant to be an all-inclusive list. EKG interpreted by me (3pts min.). @ -As above X-rays interpreted by me (1pt min.). @ -None done CT interpreted by me (1pt min.). @ -None done U/S interpreted by me (1pt. min.). @ -None done What testing was considered but not performed or refused? (CT, X-rays, U/S, labs)? Why? @ CT GI bleed study considered however pt w/ ESRD on dialysis, still makes urine. What meds were considered but not given or refused? Why? @ PRBCs considered however patient ultimately made hospice status Did you discuss the management of the patient with other professionals (silke hammond i.e. , PA, [employer], lab, RT, psych nurse, director of social work, verification engineer, teacher, naval gunfire liaison officer, residential case manager)? Give summary @ -No Was smoking cessation discussed for >3mins.? @ -No Was critical care preformed (if so, how long)? @Yes 45 minutes Were there social determinants of health that impacted care today? How? (Homelessness, low income, unemployed, alcoholism, drug addiction, transportation, low edu. Level, literacy, decrease access to med. care, long-term, rehab)? @ -No Was there de-escalation of care discussed even if they declined (Discuss DNR or withdrawal of care, Hospice)? Yes hospice was discussed w/ family What co-morbidities impacted this encounter? (DM, HTN, Smoking, COPD, CAD, Ca ncer, CVA, ARF, Chemo, Hep., AIDS, mental health diagnosis, sleep apnea, morbid obesity)? @DM, ESRD Was patient admitted / discharged? Hospital course, mention meds given and route, prescriptions, significant lab abnormalities, going to OR and other pertinent info. @ Discharged on Hospice- This an 88-year-old female with history ESRD on dialysis presenting from home for near syncopal episode and weakness. History limited as patient oriented x 2 states she has vaginal pain but otherwise denies complaints and unable to state why she is here. Patient's blood pressure 86/53 on arrival with MAP of 63, given patient's history ESRD will gradually resuscitate w/ 500 cc IV fluids ordered. BP did somewhat improve w/ fluid bolus to 100 systolic, additional 500 cc given. Patient had 2 tarry stools here. Hemoglobin 5.8. Concern for GIB, considered CT GI bleed study however pt reportedly still makes urine per granddaughter. Patient's son LEANNA, son, Taz arrived at bedside. I discussed with patient and son my concerns regarding GI bleed, potential need for blood products, and further aggressive interventions etc. and patient's current poor health. Ultimately after extensive discussion w/ pt and son, son elected to make patient comfort care in line with the patient's goals of care. Will pursue hospice. Patient seen and assessed by hospice. Patient set up for home hospice. Is paz ared for discharge home. Patient discharged to hospice care. Undiagnosed new problem with uncertain prognosis? @ -No Drug Therapy requiring intensive monitoring for toxicity (Heparin, Nitro, Insulin, Cardizem)? @ -No Were any procedures done? @ -No Diagnosis/symptom? GI bleed Acute, or Chronic, or Acute on Chronic? @ acute Uncomplicated (without systemic symptoms) or Complicated (systemic symptoms)? @ complicated Side effects of treatment? @ -No Exacerbation, Progression, or Severe Exacerbation? @ -No Poses a threat to life or bodily function? How? (Chest pain, USA, PR, pneumonia, PE, COPD, DKA, ARF, appy, cholecystitis, CVA, Diverticulitis, Homicidal, Suicidal, threat to staff... and all critical care pts) @ Yes, ultimately could result in hemorrhagic shock and - Lab Data Result diagrams: 04/26/24 15:43 04/26/24 15:43 Lab Results 04/26/24 04/26/24 04/26/24 Range/Units 15:28 15:43 15:43 WBC 22.3 H (3.8-10.6) k/uL RBC 2.00 L (3.80-5.40) m/uL Hgb 5.8 L* D (11.4-16.0) gm/dL Hct 19.3 L* (34.0-46.0) % MCV 96.3 (80.0-100.0) fL MCH 29.1 (25.0-35.0) pg MCHC 30.2 L (31.0-37.0) g/dL RDW 16.1 H (11.5-15.5) % Plt Count 416 (150-450) k/uL MPV 8.2 Neutrophils % 95 % Lymphocytes % 3 % Monocytes % 2 % Eosinophils % 0 % Basophils % 0 % Neutrophils # 21.1 H (1.3-7.7) k/uL Lymphocytes # 0.6 L (1.0-4.8) k/uL Monocytes # 0.5 (0-1.0) k/uL Eosinophils # 0.0 (0-0.7) k/uL Basophils # 0.0 (0-0.2) k/uL Hypochromasia Slight Anisocytosis Slight PT 14.4 H (10.0-12.5) sec INR 1.4 H (<1.2) APTT 26.7 (22.0-30.0) sec Sodium (137-145) mmol/L Potassium (3.5-5.1) mmol/L Chloride (98-107) mmol/L Carbon Dioxide (22-30) mmol/L Anion Gap mmol/L BUN (7-17) mg/dL Creatinine (0.52-1.04) mg/dL Est GFR (CKD-EPI)AfAm (>60 ml/min/1.73 sqM) Est GFR (CKD-EPI)NonAf (>60 ml/min/1.73 sqM) Glucose (74-99) mg/dL POC Glucose (mg/dL) 185 H (70-110) mg/dL POC Glu Pain Medicine Physician ID Jeremiah Alex Calcium (8.4-10.2) mg/dL Ionized Calcium Cindi (4.5-5.3) mg/dL Phosphorus (2.5-4.5) mg/dL Magnesium (1.6-2.3) mg/dL Total Bilirubin (0.2-1.3) mg/dL AST (14-36) U/L ALT (4-34) U/L Alkaline Phosphatase (38-126) U/L Troponin I (0.000-0.034) ng/mL Total Protein (6.3-8.2) g/dL Albumin (3.5-5.0) g/dL Influenza Type A (PCR) (Not Detectd) Influenza Type B (PCR) (Not Detectd) RSV (PCR) (Not Detectd) SARS-CoV-2 (PCR) (Not Detectd) 04/26/24 04/26/24 04/26/24 Range/Units 15:43 15:43 15:43 WBC (3.8-10.6) k/uL RBC (3.80-5.40) m/uL Hgb (11.4-16.0) gm/dL Hct (34.0-46.0) % MCV (80.0-100.0) fL MCH (25.0-35.0) pg MCHC (31.0-37.0) g/dL RDW (11.5-15.5) % Plt Count (150-450) k/uL MPV Neutrophils % % Lymphocytes % % Monocytes % % Eosinophils % % Basophils % % Neutrophils # (1.3-7.7) k/uL Lymphocytes # (1.0-4.8) k/uL Monocytes # (0-1.0) k/uL Eosinophils # (0-0.7) k/uL Basophils # (0-0.2) k/uL Hypochromasia Anisocytosis PT (10.0-12.5) sec INR (<1.2) APTT (22.0-30.0) sec Sodium 139 (137-145) mmol/L Potassium 3.5 (3.5-5.1) mmol/L Chloride 115 H (98-107) mmol/L Carbon Dioxide 10 L (22-30) mmol/L Anion Gap 14 mmol/L BUN 70 H (7-17) mg/dL Creatinine 3.34 H (0.52-1.04) mg/dL Est GFR (CKD-EPI)AfAm 13 (>60 ml/min/1.73 sqM) Est GFR (CKD-EPI)NonAf 12 (>60 ml/min/1.73 sqM) Glucose 146 H (74-99) mg/dL POC Glucose (mg/dL) (70-110) mg/dL POC Glu Pain Medicine Physician ID Calcium 5.8 L* (8.4-10.2) mg/dL Ionized Calcium Cindi 3.8 L (4.5-5.3) mg/dL Phosphorus 4.4 (2.5-4.5) mg/dL Magnesium 1.3 L (1.6-2.3) mg/dL Total Bilirubin <0.1 L (0.2-1.3) mg/dL AST 16 (14-36) U/L ALT 10 (4-34) U/L Alkaline Phosphatase 99 (38-126) U/L Troponin I 0.033 (0.000-0.034) ng/mL Total Protein 3.2 L (6.3-8.2) g/dL Albumin 1.5 L (3.5-5.0) g/dL Influenza Type A (PCR) Not Detected (Not Detectd) Influenza Type B (PCR) Not Detected (Not Detectd) RSV (PCR) Not Detected (Not Detectd) SARS-CoV-2 (PCR) Not Detected (Not Detectd) Disposition Clinical Impression: GI bleed, Hospice care Disposition: HOME SELF-CARE Condition: Fair Is patient prescribed a controlled substance at d/c from ED?: No Referrals: Randell Corbett MD [Primary Care Provider] - 1-2 days
[2024-04-26 15:30] LABS: Glucose,Whole Blood 185 mg/dL (70-110)
[2024-04-26 15:45] VITALS: TEMP 97.4
[2024-04-26 16:02] LABS: INR 1.4 (<1.2); Partial Thromboplastin Time 26.7 sec (22.0-30.0); Prothrombin Time 14.4 sec (10.0-12.5)
[2024-04-26 16:05] LABS: Ionized Calcium 3.8 mg/dL (4.5-5.3)
[2024-04-26 16:14] LABS: Anisocytosis Slight; Basophils % (A) 0 %; Eosinophils % (A) 0 %; Hypochromasia Slight; Lymphocytes # (A) 0.6 k/uL (1.0-4.8); Lymphocytes % (A) 3 %; MCH 29.1 pg (25.0-35.0); MCHC 30.2 g/dL (31.0-37.0); MCV 96.3 fL (80.0-100.0); Mean Platelet Volume 8.2; Monocytes # (A) 0.5 k/uL (0-1.0); Monocytes % (A) 2 %; Neutrophils # (A) 21.1 k/uL (1.3-7.7); Neutrophils % (A) 95 %; Platelet Count 416 k/uL (150-450); RDW 16.1 % (11.5-15.5); WBC 22.3 k/uL (3.8-10.6)
[2024-04-26 16:16] LABS: ALT 10 U/L (4-34); AST 16 U/L (14-36); African American GFR (CKD) 13 (>60 ml/min/1.73 sqM); Albumin 1.5 g/dL (3.5-5.0); Alkaline Phosphatase 99 U/L (38-126); Anion Gap 14 mmol/L; Blood Urea Nitrogen 70 mg/dL (7-17); Carbon Dioxide 10 mmol/L (22-30); Chloride 115 mmol/L (98-107); Glucose 146 mg/dL (74-99); HCT 19.3 % (34.0-46.0); HGB 5.8 gm/dL (11.4-16.0); Magnesium 1.3 mg/dL (1.6-2.3); Non-African American GFR(CKD) 12 (>60 ml/min/1.73 sqM); Phosphorus 4.4 mg/dL (2.5-4.5); Potassium 3.5 mmol/L (3.5-5.1); Sodium 139 mmol/L (137-145); Total Bilirubin <0.1 mg/dL (0.2-1.3); Total Protein 3.2 g/dL (6.3-8.2)
[2024-04-26] MEDS ORDERED: ACETAMINOPHEN TAB 325 MG TAB PO PRN (16:34)
[2024-04-26] MEDS: MORPHINE SULFATE 4 MG/ML SYRINGE IVP STA (16:40)
--- NOTE | 2024-04-26 16:42 | XR ---
EXAMINATION TYPE: XR chest 2V DATE OF EXAM: 04/26/2024 4:20 PM COMPARISON: Chest radiographs from 02/24/2024 CLINICAL INDICATION: Female, 88 years old with history of Weakness; TECHNIQUE: XR chest 2V Frontal and lateral views of the chest. FINDINGS: Lungs/Pleura: Prominent interstitial lung markings are seen scattered throughout the lungs. No eviden ce of focal consolidation, pneumothorax or pleural effusion. Pulmonary vascularity: Unremarkable. Heart/mediastinum: Cardiomediastinal silhouette is unremarkable. Musculoskeletal: No acute osseous pathology. Right chest wall [id number] with tip in the superior cavoatrial junction. IMPRESSION: Scattered reticular opacities throughout the lungs. Unchanged from 02/24/2024. Right central venous catheter and with tip in appropriate position. [facility], , 04/26/2024 4:40 PM
[2024-04-26 16:45] LABS: Calcium 5.8 mg/dL (8.4-10.2)
[2024-04-26 20:10] VITALS: BP 101/60; PULSE 73; RESP 16
[2024-04-26] MEDS: HYDROmorphone 1 MG/ML 1 ML SYRINGE IVP STA (20:16)
== END 2024-04-26 20:20 | disposition home or self-care (01) ==
LOC: EC 14:43
DX: K92.2 Gastrointestinal hemorrhage, unspecified (principal); I12.0 Hypertensive chronic kidney disease with stage 5 chronic kidney disease or end stage renal disease; N18.6 End stage renal disease; Z51.5 Encounter for palliative care; Z88.0 Allergy status to penicillin; Z88.1 Allergy status to other antibiotic agents; Z88.8 Allergy status to other drugs, medicaments and biological substances; Z99.2 Dependence on renal dialysis
CPT/HCPCS: 99285; 96374; 96375; 96361; 36415; 80053; 82330; 83735; 84100; 84484; 85025; 85610; 85730; 87636; 71046; J2270; J1171